=== PATIENT | female | born 1960 | race Two or more races ===

== ENCOUNTER 2017-08-14 00:37 | Inpatient (IN) | payer SELFPAY ==
[~2017-08-14] VITALS: Ht 157.5 cm; Wt 68.2 kg
[2017-08-14] VITALS (19 sets, daily range): BP systolic 114–174; BP diastolic 65–92
--- NOTE | 2017-08-14 00:44 | PHYS DOC ---
Adult General HPI HPI Patient is a 56-year-old female presenting to the emergency department via EMS for altered mental status and hyperglycemia. Patient is awake and will interact however she cannot provide any meaningful information. Later on her showed up and was quite helpful reports that she has these DKA issues quite frequently. He makes it sound as if she is noncompliant with her insulin. He says that she has severe diabetic gastroparesis and cannot tolerate foods or liquids very well so this may contribute to her noncompliance. Review of Systems Review of Systems Unable to obtain due to medical condition Physical Exam Physical Exam Constitutional: Ill-appearing female HENT: Normocephalic, atraumatic, bilateral external ears normal, oropharynx dry Eyes: PERRLA, EOMI, conjunctiva normal, no discharge. [] Neck: Normal range of motion, no tenderness, supple, no stridor. [] Cardiovascular:Heart rate tachycardic with regular rhythm, no murmur [] Lungs & Thorax: Bilateral breath sounds clear to auscultation [] Abdomen: Bowel sounds normal, soft, no tenderness, no masses, no pulsatile masses. [] Skin: Warm, dry, no erythema, no rash. [] Back: No tenderness, no CVA tenderness. [] Extremities: No tenderness, no cyanosis, no clubbing, ROM intact, no edema. [] Neurologic: Alert and oriented X 3, normal motor function, normal sensory function, no focal deficits noted. [] Psychologic: Affect normal, judgement normal, mood normal. [] EKG EKG Sinus tachycardia at 126 beats per minutes with leftward axis no obvious ST elevation or depression with slightly prominent T waves. Intervals appear normal. Radiology/Procedures Radiology/Procedures CT scan of the abdomen and pelvis without contrast 08/14/2017 CLINICAL HISTORY: Epigastric Abdominal pain. Renal failure. TECHNIQUE: Unenhanced, contiguous, 3 mm axial sections were obtained through the abdomen and pelvis. One or more of the following individualized dose reduction techniques were utilized for this study: 1. Automated exposure control. 2. Adjustment of the mA and/or kV according to patient size. 3. Use of iterative reconstruction technique. FINDINGS: Images through the lung bases demonstrate mild cardiomegaly. Dependent subsegmental atelectasis is seen bilaterally. The patient is post right mastectomy with right breast reconstruction using an implant. The liver, spleen, pancreas, and adrenal glands are within normal limits. A 2 mm nonobstructing calculus is seen involving the midpole of the right kidney. An extrarenal pelvis is seen involving the right kidney. There is no evidence of significant obstruction of either collecting system. No ureteral calculus is seen. Moderate atherosclerotic calcification of the abdominal aorta is seen. The abdominal aorta tapers normally. Surgical clips are seen within the gallbladder fossa consistent with a cholecystectomy. No free fluid or free air is seen within the abdomen. There is no evidence of bowel obstruction. Air and stool is seen throughout the colon. Surgical clips are seen posterior to the cecum consistent with an appendectomy. Images through the pelvis demonstrate the urinary bladder markedly distended with urine. Calcifications are seen within the pelvis consistent with phleboliths. No free fluid is seen. Degenerative changes are seen involving the lower thoracic and throughout the lumbar spine. IMPRESSION: 1. No acute abnormality is seen involving the abdomen. 2. Marked distention of the urinary bladder. Electronically signed by: Eric Jernigan MD (08/14/2017 4:28 AM) [facility] [place] DICTATED AND SIGNED BY: ERIC JERNIGAN MD DATE: 08/14/17419 CT scan of the head without contrast 08/14/2017 Clinical History: Mental status changes. Technique: Unenhanced, contiguous, 5 mm axial sections were obtained through the head. Findings: No previous imaging studies are available for comparison. There is generalized parenchymal atrophy. Areas of decreased attenuation are seen within the periventricular and subcortical white matter of both cerebral hemispheres consistent with areas of small vessel ischemic disease. No acute parenchymal abnormality is seen. No extra-axial fluid collection is noted. No skull fracture is seen. Impression: No acute intracranial abnormality is seen. Electronically signed by: Eric Jernigan MD (08/14/2017 4:20 AM) [facility] [place] DICTATED AND SIGNED BY: ERIC JERNIGAN MD DATE: 08/14/17417 Chest x-ray shows normal mediastinum and normal heart size no obvious free air pneumothorax or opacity. Right internal jugular line appears intact with tip possibly deep in the right atrium or right ventricle however line was ready retracted as far as I could retract it. Course & Med Decision Making Course & Med Decision Making Patient is very ill and had to be resuscitated effectively. Unable to obtain peripheral IV access on this patient. Central line had to be obtained which was technically very difficult as her internal jugular vein was very flat due to her hydration status and her carotid artery was sitting right beneath it. There was a very delicate space to get into her internal jugular vein. Vascular status was obtained thankfully and aggressive IV hydration was started. She received 2 L of normal saline initially and then 3 more liters of lactated Ringer's. Lactated Ringer's maintenance fluids and started. She was also started on an insulin drip. Electrolytes are satisfactory at this point with no need for phosphorus magnesium more potassium replacement. A repeat BMP is pending at this time. I spoke to the hospitalist music rehabilitation therapist Dr. Villaseñor multiple times and she is willing to accept this patient to the ICU for further treatment. All of her D sticks in the emergency department reporting high. Patient continued to be tachycardic in the emergency room however her mental status did improve somewhat as she is alert and oriented but somewhat confused to most questions and answer somewhat slowly. Patient admitted in critical condition Critical care time of 70 minutes including extensive discussion with patient and . Dragon Disclaimer Dragon Disclaimer This electronic medical record was generated, in whole or in part, using a voice recognition dictation system. Departure Departure: Impression: Primary Impression: DKA (diabetic ketoacidoses) Additional Impressions: Acidosis Pancreatitis Leukocytosis Encephalopathy acute Disposition: 09 ADMITTED INPATIENT Admitting Physician: Tracey Villaseñor Condition: CRITICAL Problem Qualifiers Primary Impression: DKA (diabetic ketoacidoses) Diabetes mellitus type: type 2 Diabetes mellitus complication detail: without coma Qualified Codes: E11.10 - Type 2 diabetes mellitus with ketoacidosis without coma ALYSE DAWSON DO Aug 14, 2017 00:44
[2017-08-14] MEDS ORDERED: ONDANSETRON PF 4 MG/2 ML VIAL. IV ONE ×3 (01:00→05:45)
[2017-08-14] MEDS ORDERED: IV NORMAL SALINE 1,000ML 1,000 ML IV ONE ×2 (01:00→02:30)
--- NOTE | 2017-08-14 01:13 | EKG ---
[address] [address] Test Date: 2017-08-14 Test Time: 01:04:05 Pat Name: SAMMI ASHER Department: Room: Gender: [employer]: [place] : 1960 Requested By: ALYSE DAWSON Order Number: [id number] Reading MD: Avtar Scott MD Measurements Intervals Garber Rate: 126 P: -7 NH: 140 QRS: 0 QRSD: 84 T: 44 QT: 310 QTc: 449 Interpretive Statements SINUS TACHYCARDIA NON-SPECIFIC ST/T CHANGES Electronically Signed On 08-19-2017 14:29:02 DRESSAGE INSTRUCTOR by Avtar Scott MD
[2017-08-14] MEDS ORDERED: MAGNESIUM SULFATE 2GM 50 ML IV PRN (02:45)
[2017-08-14] MEDS ORDERED: RINGERS LACTATED IV ONE ×2 (02:45→04:00)
[2017-08-14 02:50] LABS: ALBUMIN 2.6 g/dL (3.4-5.0); ALBUMIN/GLOBULIN RATIO 0.7 (1.0-1.7); CALCIUM 7.9 mg/dL (8.5-10.1); CREATININE 1.9 mg/dL (0.6-1.0); GFR 27.2; MAGNESIUM 2.3 mg/dL (1.8-2.4); POTASSIUM 5.5 mmol/L (3.5-5.1); TOTAL BILIRUBIN 0.4 mg/dL (0.2-1.0); TOTAL PROTEIN 6.6 g/dL (6.4-8.2)
[2017-08-14 02:54] LABS: BASO % 0 % (0-3); EOS % 0 % (0-3); HEMOGLOBIN 13.8 g/dL (12.0-15.5); LYMPH # 0.6 x10^3/uL (1.0-4.8); LYMPH % 5 % (24-48); MONO # 0.9 x10^3/uL (0.0-1.1); MONO % 8 % (0-9); NEUT # 9.7 x10^3uL (1.8-7.7); NEUT % 87 % (31-73)
[2017-08-14 03:00] LABS: BGAS PH 7.2 (7.35-7.45)
[2017-08-14] MEDS ORDERED: 0.9 % SODIUM CHLORIDE 150ML 150 ML ONE (03:07)
[2017-08-14 03:10] LABS: BARBITURATES NEG (NEG); BENZODIAZEPINES NEG (NEG); CANNABINOIDS NEG (NEG); COCAINE NEG (NEG); METHADONE NEG (NEG); OPIATES NEG (NEG); PHENCYCLIDINE NEG (NEG)
[2017-08-14 03:11] LABS: AMPHETAMINE/METHAMPHETAMINE NEG (NEG)
[2017-08-14 03:23] LABS: HEMATOCRIT 42.9 % (36.0-47.0); MEAN CORPUSCULAR HEMOGLOBIN 28 pg (25-35); MEAN CORPUSCULAR HGB CONC 32 g/dL (31-37); MEAN CORPUSCULAR VOLUME 88 fL (79-100); PLATELET COUNT 365 x10^3/uL (140-400); RED BLOOD COUNT 4.89 x10^6/uL (3.50-5.40); RED CELL DISTRIBUTION WIDTH 14.7 % (11.5-14.5); WHITE BLOOD COUNT 12.1 x10^3/uL (4.0-11.0)
[2017-08-14] MEDS: INSULIN REGULAR 150 UNIT in 0.9 % SODIUM CHLORIDE 150ML 150 ML IV PRN (03:34)
[2017-08-14 03:46] LABS: BACTERIA,URINE FEW /HPF (0-FEW); BILIRUBIN,URINE NEG (NEG); CLARITY,URINE CLEAR; COLOR,URINE YELLOW; GLUCOSE,URINE >=1000 mg/dL (NEG); NITRITE,URINE NEG (NEG); RBC,URINE OCC /HPF (0-2); SQUAMOUS EPITHELIAL CELL,UR MANY /LPF; UROBILINOGEN,URINE 0.2 mg/dL (0.2 mg/dL)
[2017-08-14] MEDS ORDERED: IV RINGERS SOLUTION,LACTATED 1,000 ML IV ONE (04:00)
--- NOTE | 2017-08-14 04:23 | RAD ---
CT scan of the head without contrast 08/14/2017 Clinical History: Mental status changes. Technique: Unenhanced, contiguous, 5 mm axial sections were obtained through the head. Findings: No previous imaging studies are available for comparison. There is generalized parenchymal atrophy. Areas of decreased attenuation are seen within the periventricular and subcortical white matter of both cerebral hemispheres consistent with areas of small vessel ischemic disease. No acute parenchymal abnormality is seen. No extra-axial fluid collection is noted. No skull fracture is seen. Impression: No acute intracranial abnormality is seen. Electronically signed by: Eric Sylvester MD (08/14/2017 4:20 AM) [id number]
--- NOTE | 2017-08-14 04:33 | RAD ---
CT scan of the abdomen and pelvis without contrast 08/14/2017 CLINICAL HISTORY: Epigastric Abdominal pain. Renal failure. TECHNIQUE: Unenhanced, contiguous, 3 mm axial sections were obtained through the abdomen and pelvis. One or more of the following individualized dose reduction techniques were utilized for this study: 1. Automated exposure control. 2. Adjustment of the mA and/or kV according to patient size. 3. Use of iterative reconstruction technique. FINDINGS: Images through the lung bases demonstrate mild cardiomegaly. Dependent subsegmental atelectasis is seen bilaterally. The patient is post right mastectomy with right breast reconstruction using an implant. The liver, spleen, pancreas, and adrenal glands are within normal limits. A 2 mm nonobstructing calculus is seen involving the midpole of the right kidney. An extrarenal pelvis is seen involving the right kidney. There is no evidence of significant obstruction of either collecting system. No ureteral calculus is seen. Moderate atherosclerotic calcification of the abdominal aorta is seen. The abdominal aorta tapers normally. Surgical clips are seen within the gallbladder fossa consistent with a cholecystectomy. No free fluid or free air is seen within the abdomen. There is no evidence of bowel obstruction. Air and stool is seen throughout the colon. Surgical clips are seen posterior to the cecum consistent with an appendectomy. Images through the pelvis demonstrate the urinary bladder markedly distended with urine. Calcifications are seen within the pelvis consistent with phleboliths. No free fluid is seen. Degenerative changes are seen involving the lower thoracic and throughout the lumbar spine. IMPRESSION: 1. No acute abnormality is seen involving the abdomen. 2. Marked distention of the urinary bladder. Electronically signed by: Eric Sylvester MD (08/14/2017 4:28 AM) [facility]
[2017-08-14 05:19] LABS: CALCIUM 8.5 mg/dL (8.5-10.1); CREATININE 1.5 mg/dL (0.6-1.0); GFR 35.7; POTASSIUM 4.5 mmol/L (3.5-5.1)
[2017-08-14] MEDS ORDERED: ENOXAPARIN ** NOTE DOSE ** SYRINGE SQ ONE (05:45)
[2017-08-14 05:49] LABS: ACETAMIN < 2.0 mcg/mL (10-30)
--- NOTE | 2017-08-14 07:15 | RAD ---
Indication: Central line placement. Technique: Upright portable chest radiograph was obtained. No comparison is available. Findings: The lungs are clear. The heart is not enlarged. There is no heart failure. There is a right IJ central line with the tip in the atrium. There is no pneumothorax or pleural fluid. There is a right breast implant or spacer. There are degenerative changes in the spine. Impression: Right IJ central line placement with tip in the atrium.
[2017-08-14 07:36] LABS: INFLUENZA A PATIENT NEGATIVE (NEGATIVE); INFLUENZA B PATIENT NEGATIVE (NEGATIVE)
[2017-08-14] MEDS: POTASSIUM CL 40MEQ D5-0.45NACL 1,000 ML IV SCH ×3 (09:07→19:29)
[2017-08-14] MEDS ORDERED: LABETALOL 20 MG/4 ML DISP.SYRIN. IVP ONE (10:00)
[2017-08-14 11:17] LABS: CALCIUM 8.8 mg/dL (8.5-10.1); CREATININE 1.1 mg/dL (0.6-1.0); POTASSIUM 4.2 mmol/L (3.5-5.1)
--- NOTE | 2017-08-14 13:11 | RAD ---
Perfusion lung scan, 08/14/2017: History: Tachycardia, elevated d-dimer The patient could not tolerate use of the mask for the ventilation study and therefore ventilation images could not be obtained. Perfusion imaging was performed following IV injection of 7.1 mCi of technetium 99m MAA. No significant perfusion defect is seen. A small artifact is projected over the right lower chest anteriorly, apparently related to a breast implant. IMPRESSION: No perfusion scan findings to suggest pulmonary emboli.
--- NOTE | 2017-08-14 14:34 | HP ---
ADMIT DATE: 08/14/2017 REASON FOR ADMISSION: DKA. HISTORY OF PRESENT ILLNESS: This is a 56-year-old female who is currently not able to verbalize her history. Either her boyfriend or came home from work, found her passed out behind the couch, lying in vomit. She was transported to the Emergency Room and found to have a blood sugar of 1,455 and being in DKA. Her /SO was not available to give any history. Daughter was called in [place]. Basically, history is as follows: She has type 2 diabetes and has had it since age 28. She does not take care of herself or check her sugars very frequently or give herself insulin. Basically, she was living in [place] in a house near her daughter, who was taking care of her. Daughter is the DPOA. She decided at some point that she wanted to return to [place] to be with her boyfriend. She took a train, ended up in [place] and was hospitalized there for what sounds like DKA. SO/ rented a the car and came to [place] and picked her up and her . PAST MEDICAL HISTORY: Gastroparesis, herpes. She has had 2 heart attacks with stents, diabetes since age 28. PAST SURGICAL HISTORY: Stent placement, cardiac stents; unknown other surgical history. HABITS: Unknown, the patient is unable to verbalize. MEDICATIONS: Pending from Pharmacy. ALLERGIES: None. REVIEW OF SYSTEMS: Unable to verbalize. OBJECTIVE: VITAL SIGNS: Blood pressure 166/80, pulse 142, respirations 22, pulse ox 96% on room air. GENERAL: The patient is alert, but is currently nonverbal. She is able to move all her extremities. She did stick out her tongue with some coaxing. HEENT: Her eyes are clear. Nose was patent. NECK: Supple. LUNGS: Clear. CARDIOVASCULAR: Rapid rhythm and rate. ABDOMEN: Soft, nontender. EXTREMITIES: Without edema. GENITOURINARY: Burks catheter in place draining clear yellow urine. LABORATORY DATA: Initial blood sugar was 1455, second 822, now 370. Initial carbon dioxide was 8, sodium 130, potassium 5.5 with a high anion gap, BUN of 57, creatinine 1.9, now BUN is 39 with creatinine of 1.1 after aggressive hydration. Lactic acid is 1.7, albumin is 2.6. BNP 1108. Drug screen is negative. Urinalysis; dilute urine, positive protein, positive ketones, negative leukocyte esterase. CBC: White blood cell count 12.1. ABG: pH 7.20, pCO2 of 22, pO2 of 111. ASSESSMENT: 1. Severe diabetic ketoacidosis. 2. Hyponatremia. 3. Hyperkalemia, has corrected. 4. Severe protein-calorie malnutrition. 5. Metabolic encephalopathy as the patient is currently nonverbal. 6. Elevated D-dimer with negative PE on the V/Q scan. 7. Negative CT of the abdomen and pelvis. 8. CT of the head showing general parenchymal atrophy with small vessel disease. PLAN: DKA protocol. IV fluids. Slowly lower blood sugar, monitor electrolytes and get ongoing information as it is available. ARIELLE COLON DO DR: ROCK/carson JOB#: [id number] / [id number]
[2017-08-14] MEDS: METOPROLOL TART IMMED RELEASE 50 MG TABLET PO SCH ×2 (15:56→20:44)
[2017-08-14] MEDS: ONDANSETRON PF 4 MG/2 ML VIAL. IV PRN (15:56)
[2017-08-14] MEDS ORDERED: KETOROLAC 30 MG/ML VIAL. IV PRN (17:30)
[2017-08-14 20:43] LABS: CALCIUM 8.4 mg/dL (8.5-10.1); CREATININE 0.9 mg/dL (0.6-1.0); GFR 64.3; POTASSIUM 3.8 mmol/L (3.5-5.1)
[2017-08-14] MEDS: ENOXAPARIN 40 MG/0.4 ML DISP.SYRIN. SQ SCH (20:43)
[2017-08-15] VITALS (18 sets, daily range): BP systolic 106–189; BP diastolic 51–99
[2017-08-15] MEDS: POTASSIUM CL 40MEQ D5-0.45NACL 1,000 ML IV SCH ×4 (02:27→22:28)
[2017-08-15] MEDS: ONDANSETRON PF 4 MG/2 ML VIAL. IV PRN (02:59)
[2017-08-15] MEDS ORDERED: hydrALAZINE 20 MG/ML VIAL. IV ONE (05:00)
--- NOTE | 2017-08-15 05:51 | PDOC ---
PROGRESS NOTES Diagnosis Problem Problems Medical Problems: (1) Acidosis Status: Acute (2) DKA (diabetic ketoacidoses) Status: Acute (3) Encephalopathy acute Status: Acute (4) Leukocytosis Status: Acute (5) Pancreatitis Status: Acute Assessment 1. DKA: BG's improved, pt still on insulin drip. According to record, pt was severely encephalopathic on admission yesterday, and only last night started talking. We will try today to get her eating and to get her off the insulin drip. She reports she takes 10 units of regular insulin before meals normally, and also a long acting insulin, though she can't remember what kind. We will likely start her on basal insulin and mealtime boluses. 2. Vomiting: Etiology is unclear. Lipase elevated on admission, CT was neg. Will recheck lipase today. Abd is soft. 3. HTN: Pt reports taking BP meds previously, but can't remember what kind. She was started on BB yesterday. We will titrate that. Continue PRN hydralazine, it has worked well. We will likely start her on an lucie inhibitor as well, due to her hx of CAD and DM. 4. Acute metabolic encephalopathy: Pt improving as BG's improve. CT head negative. COntinue to monitor. 5. DVT proph: Lovenox. 6. Gastroparesis due to poorly controlled DM: Pt reports she takes a medication for this, but can't remember what. I will start Reglan. Problems: Plan of Care: see other orders Subjective Pt seen on rounds and d/w staff. Pt w/ markedly increased BP's overnight. Order given for hydralazine. Pt w/ an episode of emesis overnight as well. She is talking now, where she wasn't yesterday per report. She says she has had DM for 25 years. She has gastroparesis and a history of [place] with stent placed. Says she does take BP meds but doesn't remember what kind. Denies fever, chills, SOA, or chest pain. Objective Vital Signs Date Time Temp Pulse Resp B/P (MAP) Pulse Ox O2 Delivery O2 Flow Rate FiO2 08/15/17 05:03 116 221/115 08/15/17 04:13 19 Room Air 08/14/17 19:21 99.6 08/14/17 17:05 100 Intake and Output 08/15/17 07:00 Intake Total 5380 ml Output Total 1825 ml Balance 3555 ml Intake Oral 1110 ml IV Total 4270 ml Output Urine Total 1825 ml Abdomen: Soft, No tenderness, No hepatospenomegaly, No masses Heart: Other (Tachy, regular, no murmur) Extremities: No edema, Normal pulses, No tenderness/swelling General: Alert (Though somewhat drowsy), Cooperative, No acute distress HEENT: Atraumatic, PERRLA, EOMI, Mucous membr. moist/pink, Other Lungs: Clear to auscultation, Normal air movement Neck: No JVD, No thyromegaly, No LAD Neuro: Normal speech, Strength at 5/5 X4 ext, Normal tone, Cranial nerves 3-12 NL Psych/Mental Status: Other (Affect flat, but pt does follow commands and converse easily) Skin: No rashes Review of Relevant I have reviewed the following items belem (where applicable) has been applied. Labs Laboratory Tests Test 08/14/17 02:10 08/14/17 02:34 08/14/17 02:40 08/14/17 04:30 White Blood Count 12.1 x10^3/uL (4.0-11.0) Red Blood Count 4.89 x10^6/uL (3.50-5.40) Hemoglobin 13.8 g/dL (12.0-15.5) Hematocrit 42.9 % (36.0-47.0) Mean Corpuscular Volume 88 fL (79-100) Mean Corpuscular Hemoglobin 28 pg (25-35) Mean Corpuscular Hemoglobin Concent 32 g/dL (31-37) Red Cell Distribution Width 14.7 % (11.5-14.5) Platelet Count 365 x10^3/uL (140-400) Neutrophils (%) (Auto) 87 % (31-73) Lymphocytes (%) (Auto) 5 % (24-48) Monocytes (%) (Auto) 8 % (0-9) Eosinophils (%) (Auto) 0 % (0-3) Basophils (%) (Auto) 0 % (0-3) Neutrophils # (Auto) 9.7 x10^3uL (1.8-7.7) Lymphocytes # (Auto) 0.6 x10^3/uL (1.0-4.8) Monocytes # (Auto) 0.9 x10^3/uL (0.0-1.1) Eosinophils # (Auto) 0.0 x10^3/uL (0.0-0.7) Basophils # (Auto) 0.0 x10^3/uL (0.0-0.2) Sodium Level 130 mmol/L (136-145) Potassium Level 5.5 mmol/L (3.5-5.1) Chloride Level 94 mmol/L (98-107) Carbon Dioxide Level 8 mmol/L (21-32) Anion Gap 28 (6-14) Blood Urea Nitrogen 57 mg/dL (7-20) Creatinine 1.9 mg/dL (0.6-1.0) Estimated GFR (Cockcroft-Gault) 27.2 BUN/Creatinine Ratio 30 (6-20) Glucose Level 1455 mg/dL (70-99) Serum Osmolality 398 mOsm/Kg (279-304) Lactic Acid Level 1.7 mmol/L (0.4-2.0) Calcium Level 7.9 mg/dL (8.5-10.1) Phosphorus Level 3.9 mg/dL (2.6-4.7) Magnesium Level 2.3 mg/dL (1.8-2.4) Total Bilirubin 0.4 mg/dL (0.2-1.0) Aspartate Amino Transf (AST/SGOT) 8 U/L (15-37) Alanine Aminotransferase (ALT/SGPT) 16 U/L (14-59) Alkaline Phosphatase 145 U/L (46-116) Creatine Kinase 25 U/L (26-192) Troponin I Quantitative < 0.017 ng/mL (0-0.055) LI-Jjq-V-Type Natriuretic Peptide 1108 pg/mL (0-124) Total Protein 6.6 g/dL (6.4-8.2) Albumin 2.6 g/dL (3.4-5.0) Albumin/Globulin Ratio 0.7 (1.0-1.7) Lipase 2514 U/L (73-393) Thyroid Stimulating Hormone (TSH) 1.227 uIU/mL (0.358-3.740) Ethyl Alcohol Level < 10 mg/dL (0-10) Acetone Level Lg pos (NEG) Urine Collection Type Unknown Urine Color Yellow Urine Clarity Clear Urine pH 5.5 Urine Specific [place] <=1.005 Urine Protein 100 mg/dl (NEG-TRACE) Urine Glucose (UA) >=1000 mg/dL (NEG) Urine Ketones (Stick) >=160 mg/dL (NEG) Urine Blood Trace (NEG) Urine Nitrite Neg (NEG) Urine Bilirubin Neg (NEG) Urine Urobilinogen Dipstick 0.2 mg/dL (0.2 mg/dL) Urine Leukocyte Esterase Neg (NEG) Urine RBC Occ /HPF (0-2) Urine WBC 1-4 /HPF (0-4) Urine Squamous Epithelial Cells Many /LPF Urine Bacteria Few /HPF (0-FEW) Urine Opiates Screen Neg (NEG) Urine Methadone Screen Neg (NEG) Urine Barbiturates Neg (NEG) Urine Phencyclidine Screen Neg (NEG) Urine Amphetamine/Methamphetamine Neg (NEG) Urine Benzodiazepines Screen Neg (NEG) Urine Cocaine Screen Neg (NEG) Urine Cannabinoids Screen Neg (NEG) Urine Ethyl Alcohol Neg (NEG) Blood Gas pH 7.20 (7.35-7.45) Blood Gas PCO2 22 mmHg (35-45) Blood Gas PO2 111 mmHg (80-100) Blood Gas HCO3 8 mmol/L (22-26) Arterial Bld O2 Saturation (Calc) 97 % (92-99) FiO2 21 % Salicylates Level 3.0 mg/dL (2.8-20.0) Salicylate Last Dose Date 08/14/2017 Salicylate Last Dose Time 0000 Acetaminophen Level < 2.0 mcg/mL (10-30) Acetaminophen Last Dose Date 08/14/2017 Acetaminophen Last Dose Time 0000 Test 08/14/17 04:50 08/14/17 05:13 08/14/17 06:45 08/14/17 07:17 Sodium Level 144 mmol/L (136-145) Potassium Level 4.5 mmol/L (3.5-5.1) Chloride Level 108 mmol/L (98-107) Carbon Dioxide Level 15 mmol/L (21-32) Anion Gap 21 (6-14) Blood Urea Nitrogen 47 mg/dL (7-20) Creatinine 1.5 mg/dL (0.6-1.0) Estimated GFR (Cockcroft-Gault) 35.7 Glucose Level 822 mg/dL (70-99) Calcium Level 8.5 mg/dL (8.5-10.1) Prothrombin Time 11.0 SEC (9.4-11.4) Prothromb Time International Ratio 1.1 (0.9-1.1) Activated Partial Thromboplast Time 21 SEC (23-33) D-Dimer (Mirela) 1.38 mg/L (0.00-0.50) Nasal Screen MRSA (PCR) Negative (Negative) Influenza Type A (Rapid) Negative (NEGATIVE) Influenza Type B (Rapid) Negative (NEGATIVE) Glucose (Fingerstick) 521 mg/dL (70-99) Test 08/14/17 08:26 08/14/17 09:17 08/14/17 09:37 08/14/17 10:43 Glucose (Fingerstick) 370 mg/dL (70-99) 368 mg/dL (70-99) 421 mg/dL (70-99) Sodium Level 150 mmol/L (136-145) Potassium Level 4.2 mmol/L (3.5-5.1) Chloride Level 116 mmol/L (98-107) Carbon Dioxide Level 21 mmol/L (21-32) Anion Gap 13 (6-14) Blood Urea Nitrogen 39 mg/dL (7-20) Creatinine 1.1 mg/dL (0.6-1.0) Estimated GFR (Cockcroft-Gault) 51.0 Glucose Level 365 mg/dL (70-99) Calcium Level 8.8 mg/dL (8.5-10.1) Magnesium Level 2.0 mg/dL (1.8-2.4) Test 08/14/17 11:51 08/14/17 12:41 08/14/17 14:00 08/14/17 15:05 Glucose (Fingerstick) 248 mg/dL (70-99) 216 mg/dL (70-99) 226 mg/dL (70-99) 170 mg/dL (70-99) Test 08/14/17 16:14 08/14/17 17:03 08/14/17 18:17 08/14/17 18:57 Glucose (Fingerstick) 207 mg/dL (70-99) 124 mg/dL (70-99) 123 mg/dL (70-99) 136 mg/dL (70-99) Test 08/14/17 19:50 08/14/17 20:05 08/14/17 20:54 08/14/17 21:57 Glucose (Fingerstick) 148 mg/dL (70-99) 134 mg/dL (70-99) 103 mg/dL (70-99) Sodium Level 149 mmol/L (136-145) Potassium Level 3.8 mmol/L (3.5-5.1) Chloride Level 114 mmol/L (98-107) Carbon Dioxide Level 24 mmol/L (21-32) Anion Gap 11 (6-14) Blood Urea Nitrogen 28 mg/dL (7-20) Creatinine 0.9 mg/dL (0.6-1.0) Estimated GFR (Cockcroft-Gault) 64.3 Glucose Level 155 mg/dL (70-99) Calcium Level 8.4 mg/dL (8.5-10.1) Magnesium Level 2.0 mg/dL (1.8-2.4) Test 08/14/17 22:57 08/14/17 23:53 08/15/17 00:53 08/15/17 01:56 Glucose (Fingerstick) 106 mg/dL (70-99) 125 mg/dL (70-99) 149 mg/dL (70-99) 166 mg/dL (70-99) Test 08/15/17 02:53 08/15/17 03:57 08/15/17 04:52 Glucose (Fingerstick) 156 mg/dL (70-99) 133 mg/dL (70-99) 152 mg/dL (70-99) Microbiology 08/14/17 Blood Culture - Preliminary, Resulted NO GROWTH AFTER 1 DAY Medications Current Medications Sodium Chloride 1,000 ml @ 1,000 mls/hr 1X ONCE IV Last administered on 08/14 01:00; Start 08/14/17 at 01:00; Stop 08/14/17 at 01:59; Status DC Ondansetron HCl (Zofran) 4 mg 1X ONCE IV Last administered on 08/14/17 01:00 ; Start 08/14/17 at 01:00; Stop 08/14/17 at 01:21; Status DC Sodium Chloride 1,000 ml @ 1,000 mls/hr 1X ONCE IV Last administered on 08/14 02:15; Start 08/14/17 at 02:30; Stop 08/14/17 at 03:29; Status DC Insulin Human Regular 150 unit/ Sodium Chloride 151.5 ml @ 0 mls/hr CONT PRN PRN IV PER PROTOCOL Last administered on 08/14/17 03:34; Start 08/14/17 at 03 :00 Potassium Chloride 100 ml @ 100 mls/hr PRN Q1HR PRN IV SEE COMMENTS; Start at 02:45 Magnesium Sulfate 50 ml @ 25 mls/hr PRN Q2HR PRN IV MG LEVEL < 1.8; Start at 02:45 Lactated Ringer's 1,400 ml @ 1,400 mls/hr 1X ONCE IV Last administered on 02:45; Start 08/14/17 at 02:45; Stop 08/14/17 at 03:44; Status DC Sodium Chloride 150 ml @ As Directed STK-MED ONCE .ROUTE ; Start 08/14/17 at 03:07; Stop 08/14/17 at 03:08; Status DC Lactated Ringer's 1,400 ml @ 1,400 mls/hr 1X ONCE IV Last administered on 04:00; Start 08/14/17 at 04:00; Stop 08/14/17 at 04:59; Status DC Lactated Ringer's 1,000 ml @ 200 mls/hr 1X ONCE IV Last administered on 08/14 04:00; Start 08/14/17 at 04:00; Stop 08/14/17 at 08:59; Status DC Ondansetron HCl (Zofran) 8 mg 1X ONCE IV Last administered on 08/14/17 04:45 ; Start 08/14/17 at 04:45; Stop 08/14/17 at 04:46; Status DC Enoxaparin Sodium (Lovenox 60mg Syringe) 60 mg 1X ONCE SQ Last administered on 08/14/17 09:08; Start 08/14/17 at 05:45; Stop 08/14/17 at 05:46; Status DC Ondansetron HCl (Zofran) 4 mg PRN Q4HRS PRN IV NAUSEA/VOMITING Last administered on 08/15/17 02:59; Start 08/14/17 at 05:00; Stop 08/15/17 at 04 :59; Status DC Ondansetron HCl (Zofran) 4 mg 1X ONCE IV ; Start 08/14/17 at 05:45; Stop at 05:46; Status DC Potassium Chloride/Dextrose/ Sod Cl 1,000 ml @ 150 mls/hr Q6H40M IV Last administered on 08/15/17 02:27; Start 08/14/17 at 09:15 Labetalol HCl (Normodyne) 10 mg 1X ONCE IVP Last administered on 08/14/17 11 :03; Start 08/14/17 at 10:00; Stop 08/14/17 at 10:04; Status DC Metoprolol Tartrate (Lopressor) 50 mg BID PO Last administered on 08/14/17 20 :44; Start 08/14/17 at 15:30 Enoxaparin Sodium (Lovenox) 40 mg Q24H SQ Last administered on 08/14/17 20:43 ; Start 08/14/17 at 20:00 Ketorolac Tromethamine (Toradol) 30 mg PRN Q6HRS PRN IV PAIN Last administered on 08/14/17 18:10; Start 08/14/17 at 17:30; Stop 08/19/17 at 17:29 Hydralazine HCl (Apresoline) 10 mg 1X ONCE IV Last administered on 08/15/17 05:03; Start 08/15/17 at 05:00; Stop 08/15/17 at 05:14; Status DC Vitals/I & O Vital Sign - Last 24 Hours 08/14/17 08/14/17 08/14/17 08/14/17 06:45 06:47 07:30 08:30 Temp 98.2 98.2 Pulse 145 145 146 143 Resp 22 20 22 22 B/P (MAP) 156/80 (105) 156/80 (105) 146/69 (94) 158/70 (99) Pulse Ox 98 98 97 97 O2 Delivery Room Air Room Air Room Air Room Air 08/14/17 08/14/17 08/14/17 08/14/17 09:00 11:03 11:08 11:13 Temp 98.1 Pulse 142 142 123 119 Resp 22 22 B/P (MAP) 166/80 (108) 168/75 168/75 (106) 114/65 (81) Pulse Ox 96 97 O2 Delivery Room Air Room Air 08/14/17 08/14/17 08/14/17 08/14/17 12:15 14:07 15:01 15:38 Temp 98.8 Pulse 132 140 138 132 Resp 21 24 23 14 B/P (MAP) 174/79 (110) 158/92 (114) 142/72 (95) 133/74 (93) Pulse Ox 98 97 O2 Delivery Room Air Room Air Room Air Room Air 08/14/17 08/14/17 08/14/17 08/14/17 15:56 16:14 17:05 18:03 Pulse 136 124 114 Resp 23 20 B/P (MAP) 133/74 139/81 (100) 158/88 (111) Pulse Ox 100 O2 Delivery Room Air 08/14/17 08/14/17 08/14/17 08/14/17 19:21 20:00 20:01 20:44 Temp 99.6 Pulse 119 122 122 Resp 21 22 B/P (MAP) 142/84 (103) 149/83 (105) 149/83 O2 Delivery Room Air Room Air Room Air 08/14/17 08/14/17 08/14/17 08/14/17 20:57 22:02 23:16 23:57 Pulse 123 104 107 107 Resp 22 14 17 17 B/P (MAP) 144/82 (102) 162/87 (112) 145/81 (102) 120/65 (83) O2 Delivery Room Air Room Air Room Air 08/14/17 08/15/17 08/15/17 08/15/17 23:59 00:58 02:07 02:56 Pulse 111 106 113 Resp 19 11 20 B/P (MAP) 153/99 (117) 155/76 (102) 175/94 (121) O2 Delivery Room Air Room Air Room Air Room Air 08/15/17 08/15/17 08/15/17 04:00 04:13 05:03 Pulse 117 116 Resp 19 B/P (MAP) 189/93 (125) 221/115 O2 Delivery Room Air Room Air Intake and Output 08/14/17 08/14/17 08/15/17 15:00 23:00 07:00 Intake Total 1800 ml 1700 ml 1880 ml Output Total 600 ml 500 ml 725 ml Balance 1200 ml 1200 ml 1155 ml FORTUNATO LANG MD Aug 15, 2017 05:51
[2017-08-15] MEDS ORDERED: hydrALAZINE 20 MG/ML VIAL. IV PRN (06:00)
[2017-08-15 06:19] LABS: BASO % 0 % (0-3); EOS # 0.1 x10^3/uL (0.0-0.7); EOS % 1 % (0-3); HEMATOCRIT 37.6 % (36.0-47.0); HEMOGLOBIN 12.5 g/dL (12.0-15.5); LYMPH # 1.4 x10^3/uL (1.0-4.8); LYMPH % 15 % (24-48); MEAN CORPUSCULAR HEMOGLOBIN 28 pg (25-35); MEAN CORPUSCULAR HGB CONC 33 g/dL (31-37); MEAN CORPUSCULAR VOLUME 85 fL (79-100); MONO # 0.7 x10^3/uL (0.0-1.1); MONO % 7 % (0-9); NEUT # 6.9 x10^3uL (1.8-7.7); NEUT % 76 % (31-73); PLATELET COUNT 265 x10^3/uL (140-400); RED CELL DISTRIBUTION WIDTH 14.8 % (11.5-14.5); WHITE BLOOD COUNT 9.1 x10^3/uL (4.0-11.0)
[2017-08-15 06:33] LABS: ALBUMIN 2.3 g/dL (3.4-5.0); ALBUMIN/GLOBULIN RATIO 0.6 (1.0-1.7); CREATININE 0.7 mg/dL (0.6-1.0); GFR 85.9; MAGNESIUM 1.6 mg/dL (1.8-2.4); POTASSIUM 3.8 mmol/L (3.5-5.1); TOTAL BILIRUBIN 0.3 mg/dL (0.2-1.0); TOTAL PROTEIN 5.9 g/dL (6.4-8.2)
[2017-08-15] MEDS ORDERED: METOCLOPRAMIDE HCL 10 MG/10 ML SOLUTION. PO SCH (07:30)
[2017-08-15] MEDS: METOCLOPRAMIDE 5 MG TABLET PO SCH ×5 (07:30→20:33)
[2017-08-15] MEDS: ACETAMINOPHEN 500 MG TABLET PO PRN ×2 (08:01→20:33)
[2017-08-15] MEDS: METOPROLOL TART IMMED RELEASE 50 MG TABLET PO SCH ×3 (08:02→20:33)
[2017-08-15] MEDS: LISINOPRIL 10 MG TABLET PO SCH ×2 (08:02→08:08)
[2017-08-15] MEDS ORDERED: PROMETHAZINE 12.5 MG SUPP.RECT. PR PRN (08:15)
[2017-08-15] MEDS ORDERED: VANCOMYCIN PER PHARMACY MC PRN (08:30)
[2017-08-15] MEDS ORDERED: VANCOMYCIN 2 GM in IV NORMAL SALINE 500ML 500 ML IV ONE (09:00)
[2017-08-15] MEDS: INSULIN REGULAR 150 UNIT in 0.9 % SODIUM CHLORIDE 150ML 150 ML IV PRN (09:19)
[2017-08-15] MEDS: METOCLOPRAMIDE HCL 10 MG/2 ML VIAL. IV PRN ×2 (09:20→18:48)
[2017-08-15] MEDS ORDERED: DEXTROSE 50% 25 GM / 50ML DISP.SYRIN. IV PRN (19:30)
[2017-08-15] MEDS ORDERED: INSULIN ASPART 300 UNITS/3 ML INSULN.PEN SQ PRN (19:30)
[2017-08-15] MEDS: ENOXAPARIN 40 MG/0.4 ML DISP.SYRIN. SQ SCH (20:31)
[2017-08-15] MEDS: VANCOMYCIN 1.25 GM in IV NORMAL SALINE 250ML 250 ML IV SCH (20:35)
[2017-08-15] MEDS ORDERED: INSULIN DETEMIR 300 UNITS/3 ML INSULN.PEN. SQ SCH (21:00)
[2017-08-16] VITALS (19 sets, daily range): BP systolic 102–193; BP diastolic 64–108
[2017-08-16] MEDS: METOCLOPRAMIDE HCL 10 MG/2 ML VIAL. IV PRN (01:13)
[2017-08-16] MEDS: ACETAMINOPHEN 500 MG TABLET PO PRN ×2 (05:04→18:26)
[2017-08-16 06:09] LABS: ALBUMIN 2.3 g/dL (3.4-5.0); ALBUMIN/GLOBULIN RATIO 0.6 (1.0-1.7); CREATININE 0.7 mg/dL (0.6-1.0); GFR 85.9; POTASSIUM 3.9 mmol/L (3.5-5.1); TOTAL BILIRUBIN 0.3 mg/dL (0.2-1.0); TOTAL PROTEIN 5.9 g/dL (6.4-8.2)
[2017-08-16 06:16] LABS: HEMATOCRIT 38.2 % (36.0-47.0); HEMOGLOBIN 12.9 g/dL (12.0-15.5); RED BLOOD COUNT 4.48 x10^6/uL (3.50-5.40); RED CELL DISTRIBUTION WIDTH 14.5 % (11.5-14.5); WHITE BLOOD COUNT 5.9 x10^3/uL (4.0-11.0)
[2017-08-16] MEDS: METOCLOPRAMIDE 5 MG TABLET PO SCH ×4 (08:02→20:15)
[2017-08-16] MEDS: METOPROLOL TART IMMED RELEASE 50 MG TABLET PO SCH ×2 (08:40→20:15)
[2017-08-16] MEDS: LISINOPRIL 10 MG TABLET PO SCH (08:40)
[2017-08-16] MEDS: VANCOMYCIN 1.25 GM in IV NORMAL SALINE 250ML 250 ML IV SCH (08:41)
--- NOTE | 2017-08-16 08:59 | PDOC ---
PROGRESS NOTES Assessment 1. DKA: Pt is not in DKA anymore. Her sugars have been <200 overnight and she is off insulin drip. Started Levemir 30 units nightly last night w/ SSI. Will titrate to keep sugars <200 while avoiding hypoglycemia. 2. Pancreatitis: Lipase elevated (came down a bit today), but CT was normal on admission. Given it's level, I suspect pt does have pancreatitis. She may need an MRCP as an outpatient, but I would not favor repeating the CT unless her lipase goes up again. I am reluctant to treat w/ opioids given her severe gastroparesis, so we will stick w/ Tylenol for now. 3. HTN: Pt reports taking BP meds previously, but can't remember what kind. Titrate beta dontrell. Continue ACEI, PRN hydralazine. 4. Acute metabolic encephalopathy: Resolved. Pt's mental status appears to be at baseline. 5. DVT proph: Lovenox. 6. Gastroparesis due to poorly controlled DM: Continue Reglan. Hopefully can transition to PO soon. 7. Hypomagnesemia: Recheck today. 8. Moderate PEM: Consider PPN if pt not able to start taking food by mouth soon. 9. Coagulase negative staph + blood culture: 1/2 bottles. Likely contaminant. No evidence of sepsis. Will d/c Vanc. Problems: Plan of Care: see other orders Subjective Pt more alert today. States she still has nausea and abdominal cramping. No recent vomiting. Has had two BM's, both "hard." No blood in stool. Denies fever, chills, chest pain, SOA, cough, rash, or hearing problems. Objective Vital Signs Date Time Temp Pulse Resp B/P (MAP) Pulse Ox O2 Delivery O2 Flow Rate FiO2 08/16/17 06:27 112 22 183/103 (129) 97 Room Air 08/15/17 18:38 97.4 Intake and Output 08/16/17 07:00 Intake Total 2450 ml Output Total 3650 ml Balance -1200 ml Intake Oral 0 ml IV Total 2450 ml Output Urine Total 3550 ml Emesis 100 ml Abdomen: Normal bowel sounds, Soft, No masses, Other (Mild TTP in epigastrum, no rebound or guarding) Heart: Normal S1, Normal S2, No murmurs, Other (Slightly tachy but regular) Extremities: No edema, Normal pulses General: Alert, Oriented X3, Cooperative, No acute distress HEENT: PERRLA, EOMI, Mucous membr. moist/pink Lungs: Clear to auscultation, Normal air movement Neck: No JVD, Other (IV in right neck) Neuro: Normal speech, Normal tone, Cranial nerves 3-12 NL Psych/Mental Status: Mental status NL, Mood NL Skin: No rashes Review of Relevant I have reviewed the following items belem (where applicable) has been applied. Labs Laboratory Tests Test 08/14/17 09:17 08/14/17 09:37 08/14/17 10:43 08/14/17 11:51 Sodium Level 150 mmol/L (136-145) Potassium Level 4.2 mmol/L (3.5-5.1) Chloride Level 116 mmol/L (98-107) Carbon Dioxide Level 21 mmol/L (21-32) Anion Gap 13 (6-14) Blood Urea Nitrogen 39 mg/dL (7-20) Creatinine 1.1 mg/dL (0.6-1.0) Estimated GFR (Cockcroft-Gault) 51.0 Glucose Level 365 mg/dL (70-99) Calcium Level 8.8 mg/dL (8.5-10.1) Magnesium Level 2.0 mg/dL (1.8-2.4) Glucose (Fingerstick) 368 mg/dL (70-99) 421 mg/dL (70-99) 248 mg/dL (70-99) Test 08/14/17 12:41 08/14/17 14:00 08/14/17 15:05 08/14/17 16:14 Glucose (Fingerstick) 216 mg/dL (70-99) 226 mg/dL (70-99) 170 mg/dL (70-99) 207 mg/dL (70-99) Test 08/14/17 17:03 08/14/17 18:17 08/14/17 18:57 08/14/17 19:50 Glucose (Fingerstick) 124 mg/dL (70-99) 123 mg/dL (70-99) 136 mg/dL (70-99) 148 mg/dL (70-99) Test 08/14/17 20:05 08/14/17 20:54 08/14/17 21:57 08/14/17 22:57 Sodium Level 149 mmol/L (136-145) Potassium Level 3.8 mmol/L (3.5-5.1) Chloride Level 114 mmol/L (98-107) Carbon Dioxide Level 24 mmol/L (21-32) Anion Gap 11 (6-14) Blood Urea Nitrogen 28 mg/dL (7-20) Creatinine 0.9 mg/dL (0.6-1.0) Estimated GFR (Cockcroft-Gault) 64.3 Glucose Level 155 mg/dL (70-99) Calcium Level 8.4 mg/dL (8.5-10.1) Magnesium Level 2.0 mg/dL (1.8-2.4) Glucose (Fingerstick) 134 mg/dL (70-99) 103 mg/dL (70-99) 106 mg/dL (70-99) Test 08/14/17 23:53 08/15/17 00:53 08/15/17 01:56 08/15/17 02:53 Glucose (Fingerstick) 125 mg/dL (70-99) 149 mg/dL (70-99) 166 mg/dL (70-99) 156 mg/dL (70-99) Test 08/15/17 03:57 08/15/17 04:52 08/15/17 06:03 08/15/17 06:57 Glucose (Fingerstick) 133 mg/dL (70-99) 152 mg/dL (70-99) 263 mg/dL (70-99) White Blood Count 9.1 x10^3/uL (4.0-11.0) Red Blood Count 4.40 x10^6/uL (3.50-5.40) Hemoglobin 12.5 g/dL (12.0-15.5) Hematocrit 37.6 % (36.0-47.0) Mean Corpuscular Volume 85 fL (79-100) Mean Corpuscular Hemoglobin 28 pg (25-35) Mean Corpuscular Hemoglobin Concent 33 g/dL (31-37) Red Cell Distribution Width 14.8 % (11.5-14.5) Platelet Count 265 x10^3/uL (140-400) Neutrophils (%) (Auto) 76 % (31-73) Lymphocytes (%) (Auto) 15 % (24-48) Monocytes (%) (Auto) 7 % (0-9) Eosinophils (%) (Auto) 1 % (0-3) Basophils (%) (Auto) 0 % (0-3) Neutrophils # (Auto) 6.9 x10^3uL (1.8-7.7) Lymphocytes # (Auto) 1.4 x10^3/uL (1.0-4.8) Monocytes # (Auto) 0.7 x10^3/uL (0.0-1.1) Eosinophils # (Auto) 0.1 x10^3/uL (0.0-0.7) Basophils # (Auto) 0.0 x10^3/uL (0.0-0.2) Sodium Level 140 mmol/L (136-145) Potassium Level 3.8 mmol/L (3.5-5.1) Chloride Level 107 mmol/L (98-107) Carbon Dioxide Level 22 mmol/L (21-32) Anion Gap 11 (6-14) Blood Urea Nitrogen 13 mg/dL (7-20) Creatinine 0.7 mg/dL (0.6-1.0) Estimated GFR (Cockcroft-Gault) 85.9 BUN/Creatinine Ratio 19 (6-20) Glucose Level 244 mg/dL (70-99) Calcium Level 8.0 mg/dL (8.5-10.1) Magnesium Level 1.6 mg/dL (1.8-2.4) Total Bilirubin 0.3 mg/dL (0.2-1.0) Aspartate Amino Transf (AST/SGOT) 19 U/L (15-37) Alanine Aminotransferase (ALT/SGPT) 16 U/L (14-59) Alkaline Phosphatase 113 U/L (46-116) Total Protein 5.9 g/dL (6.4-8.2) Albumin 2.3 g/dL (3.4-5.0) Albumin/Globulin Ratio 0.6 (1.0-1.7) Lipase 2706 U/L (73-393) Test 08/15/17 08:06 08/15/17 09:09 08/15/17 10:13 08/15/17 11:20 Glucose (Fingerstick) 216 mg/dL (70-99) 191 mg/dL (70-99) 186 mg/dL (70-99) 122 mg/dL (70-99) Test 08/15/17 12:24 08/15/17 13:30 08/15/17 14:34 08/15/17 15:45 Glucose (Fingerstick) 103 mg/dL (70-99) 135 mg/dL (70-99) 138 mg/dL (70-99) 147 mg/dL (70-99) Test 08/15/17 16:51 08/15/17 18:01 08/15/17 20:10 08/15/17 21:10 Glucose (Fingerstick) 120 mg/dL (70-99) 102 mg/dL (70-99) 150 mg/dL (70-99) 172 mg/dL (70-99) Test 08/15/17 22:10 08/15/17 23:18 08/16/17 00:13 08/16/17 01:04 Glucose (Fingerstick) 191 mg/dL (70-99) 195 mg/dL (70-99) 179 mg/dL (70-99) 171 mg/dL (70-99) Test 08/16/17 03:19 08/16/17 05:15 08/16/17 06:09 08/16/17 08:31 Glucose (Fingerstick) 172 mg/dL (70-99) 183 mg/dL (70-99) 157 mg/dL (70-99) White Blood Count 5.9 x10^3/uL (4.0-11.0) Red Blood Count 4.48 x10^6/uL (3.50-5.40) Hemoglobin 12.9 g/dL (12.0-15.5) Hematocrit 38.2 % (36.0-47.0) Mean Corpuscular Volume 85 fL (79-100) Mean Corpuscular Hemoglobin 29 pg (25-35) Mean Corpuscular Hemoglobin Concent 34 g/dL (31-37) Red Cell Distribution Width 14.5 % (11.5-14.5) Platelet Count 269 x10^3/uL (140-400) Sodium Level 139 mmol/L (136-145) Potassium Level 3.9 mmol/L (3.5-5.1) Chloride Level 105 mmol/L (98-107) Carbon Dioxide Level 24 mmol/L (21-32) Anion Gap 10 (6-14) Blood Urea Nitrogen 7 mg/dL (7-20) Creatinine 0.7 mg/dL (0.6-1.0) Estimated GFR (Cockcroft-Gault) 85.9 BUN/Creatinine Ratio 10 (6-20) Glucose Level 174 mg/dL (70-99) Calcium Level 8.0 mg/dL (8.5-10.1) Total Bilirubin 0.3 mg/dL (0.2-1.0) Aspartate Amino Transf (AST/SGOT) 17 U/L (15-37) Alanine Aminotransferase (ALT/SGPT) 17 U/L (14-59) Alkaline Phosphatase 121 U/L (46-116) Total Protein 5.9 g/dL (6.4-8.2) Albumin 2.3 g/dL (3.4-5.0) Albumin/Globulin Ratio 0.6 (1.0-1.7) Lipase 2009 U/L (73-393) Microbiology 08/14/17 Blood Culture - Preliminary, Resulted 08/14/17 Blood Culture Result 1 (TOBY) - Preliminary, Resulted Medications Current Medications Sodium Chloride 1,000 ml @ 1,000 mls/hr 1X ONCE IV Last administered on 08/14 01:00; Start 08/14/17 at 01:00; Stop 08/14/17 at 01:59; Status DC Ondansetron HCl (Zofran) 4 mg 1X ONCE IV Last administered on 08/14/17 01:00 ; Start 08/14/17 at 01:00; Stop 08/14/17 at 01:21; Status DC Sodium Chloride 1,000 ml @ 1,000 mls/hr 1X ONCE IV Last administered on 08/14 02:15; Start 08/14/17 at 02:30; Stop 08/14/17 at 03:29; Status DC Insulin Human Regular 150 unit/ Sodium Chloride 151.5 ml @ 0 mls/hr CONT PRN PRN IV PER PROTOCOL Last administered on 08/15/17 09:19; Start 08/14/17 at 03 :00 Potassium Chloride 100 ml @ 100 mls/hr PRN Q1HR PRN IV SEE COMMENTS; Start at 02:45 Magnesium Sulfate 50 ml @ 25 mls/hr PRN Q2HR PRN IV MG LEVEL < 1.8 Last administered on 08/15/17 08:02; Start 08/14/17 at 02:45 Lactated Ringer's 1,400 ml @ 1,400 mls/hr 1X ONCE IV Last administered on 02:45; Start 08/14/17 at 02:45; Stop 08/14/17 at 03:44; Status DC Sodium Chloride 150 ml @ As Directed STK-MED ONCE .ROUTE ; Start 08/14/17 at 03:07; Stop 08/14/17 at 03:08; Status DC Lactated Ringer's 1,400 ml @ 1,400 mls/hr 1X ONCE IV Last administered on 04:00; Start 08/14/17 at 04:00; Stop 08/14/17 at 04:59; Status DC Lactated Ringer's 1,000 ml @ 200 mls/hr 1X ONCE IV Last administered on 08/14 04:00; Start 08/14/17 at 04:00; Stop 08/14/17 at 08:59; Status DC Ondansetron HCl (Zofran) 8 mg 1X ONCE IV Last administered on 08/14/17 04:45 ; Start 08/14/17 at 04:45; Stop 08/14/17 at 04:46; Status DC Enoxaparin Sodium (Lovenox 60mg Syringe) 60 mg 1X ONCE SQ Last administered on 08/14/17 09:08; Start 08/14/17 at 05:45; Stop 08/14/17 at 05:46; Status DC Ondansetron HCl (Zofran) 4 mg PRN Q4HRS PRN IV NAUSEA/VOMITING Last administered on 08/15/17 02:59; Start 08/14/17 at 05:00; Stop 08/15/17 at 04 :59; Status DC Ondansetron HCl (Zofran) 4 mg 1X ONCE IV ; Start 08/14/17 at 05:45; Stop at 05:46; Status DC Potassium Chloride/Dextrose/ Sod Cl 1,000 ml @ 100 mls/hr Q10H IV Last administered on 08/15/17 22:28; Start 08/14/17 at 09:15 Labetalol HCl (Normodyne) 10 mg 1X ONCE IVP Last administered on 08/14/17 11 :03; Start 08/14/17 at 10:00; Stop 08/14/17 at 10:04; Status DC Metoprolol Tartrate (Lopressor) 50 mg BID PO Last administered on 08/15/17 20 :33; Start 08/14/17 at 15:30 Enoxaparin Sodium (Lovenox) 40 mg Q24H SQ Last administered on 08/15/17 20:31 ; Start 08/14/17 at 20:00 Ketorolac Tromethamine (Toradol) 30 mg PRN Q6HRS PRN IV PAIN Last administered on 08/14/17 18:10; Start 08/14/17 at 17:30; Stop 08/15/17 at 05:53; Status DC Hydralazine HCl (Apresoline) 10 mg 1X ONCE IV Last administered on 08/15/17 05:03; Start 08/15/17 at 05:00; Stop 08/15/17 at 05:14; Status DC Acetaminophen (Tylenol) 1,000 mg PRN Q6HRS PRN PO PAIN / TEMP Last administered on 08/16/17 05:04; Start 08/15/17 at 06:00 Lisinopril (Prinivil) 10 mg DAILY PO ; Start 08/15/17 at 09:00 Hydralazine HCl (Apresoline) 10 mg PRN Q4HRS PRN IV ELEVATED BP, SEE COMMENTS; Start 08/15/17 at 06:00 Metoclopramide HCl (Reglan) 5 mg TIDACHC PO ; Start 08/15/17 at 07:30; Status Cancel Metoclopramide HCl (Reglan) 5 mg TIDACHC PO Last administered on 08/16/17 08: 02; Start 08/15/17 at 07:30 Promethazine HCl (Phenergan) 12.5 mg PRN Q6HRS PRN [place] NAUSEA/VOMITING Last administered on 08/16/17 05:05; Start 08/15/17 at 08:15 Metoclopramide HCl (Reglan Vial) 10 mg PRN Q6HRS PRN IV NAUSEA/VOMITING Last administered on 08/16/17 01:13; Start 08/15/17 at 08:30 Vancomycin HCl (Vanco Per Pharmacy) 1 each PRN DAILY PRN MC SEE COMMENTS Last administered on 08/15/17 09:43; Start 08/15/17 at 08:30 Vancomycin HCl 2 gm/Sodium Chloride 500 ml @ 250 mls/hr 1X ONCE IV Last administered on 08/15/17 09:21; Start 08/15/17 at 09:00; Stop 08/15/17 at 10 :59; Status DC Vancomycin HCl 1.25 gm/Sodium Chloride 250 ml @ 167 mls/hr Q12H IV Last administered on 08/15/17 20:35; Start 08/15/17 at 21:00 Vancomycin HCl 1 each 1X ONCE MC ; Start 08/16/17 at 20:30; Stop 08/16/17 at 20:31 Influenza Virus Vaccine Quadrival (Fluarix Quad [id number] Syringe) 0.5 ml ONCE ONCE VAX IM ; Start 08/17/17 at 09:00; Stop 08/17/17 at 09:01 Insulin Detemir (Levemir) 30 units QHS SQ Last administered on 08/15/17 21:03 ; Start 08/15/17 at 21:00 Insulin Aspart (NovoLOG) 0-7 UNITS PRN Q2HR PRN SQ PER PROTOCOL; Start at 19:30 Dextrose 12.5 gm PRN Q15MIN PRN IV SEE COMMENTS; Start 08/15/17 at 19:30 Vitals/I & O Vital Sign - Last 24 Hours 08/15/17 08/15/17 08/15/17 08/15/17 09:38 10:38 11:25 11:38 Temp 98.2 Pulse 132 122 118 Resp 23 23 15 B/P (MAP) 176/93 (120) 106/56 (73) 126/69 (88) Pulse Ox 97 O2 Delivery Room Air Room Air Room Air 08/15/17 08/15/17 08/15/17 08/15/17 12:26 12:38 13:38 14:38 Pulse 118 112 111 Resp 15 15 16 B/P (MAP) 158/79 (105) 113/51 (71) 108/58 (75) Pulse Ox 97 O2 Delivery Room Air Room Air Room Air Room Air 08/15/17 08/15/17 08/15/17 08/15/17 16:02 16:38 18:38 20:00 Temp 97.4 Pulse 109 125 Resp 15 14 B/P (MAP) 120/59 (79) 162/86 (111) Pulse Ox 100 O2 Delivery Room Air Room Air Room Air Room Air 08/15/17 08/15/17 08/15/17 08/15/17 20:29 20:33 21:31 22:38 Pulse 129 128 103 96 Resp 24 23 22 B/P (MAP) 156/82 (106) 156/82 178/97 (124) 138/79 (98) Pulse Ox 97 96 98 O2 Delivery Room Air Room Air Room Air 08/15/17 08/15/17 08/16/17 08/16/17 23:40 23:59 02:52 04:00 Pulse 100 18 Resp 20 10 B/P (MAP) 170/80 (110) 156/93 (114) Pulse Ox 97 37 O2 Delivery Room Air Room Air Room Air Room Air 08/16/17 08/16/17 04:19 06:27 Pulse 108 112 Resp 18 22 B/P (MAP) 162/85 (110) 183/103 (129) Pulse Ox 97 97 O2 Delivery Room Air Room Air Intake and Output 08/15/17 08/15/17 08/16/17 15:00 23:00 07:00 Intake Total 200 ml 2250 ml 0 ml Output Total 650 ml 1600 ml 1400 ml Balance -450 ml 650 ml -1400 ml FORTUNATO LANG MD Aug 16, 2017 08:59
[2017-08-16] MEDS: LISINOPRIL 20 MG TABLET PO SCH (09:53)
[2017-08-16] MEDS: DOCUSATE SODIUM 100 MG CAPSULE PO SCH (09:53)
[2017-08-16] MEDS: POTASSIUM CL 40MEQ D5-0.45NACL 1,000 ML IV SCH ×2 (09:58→20:24)
[2017-08-16] MEDS ORDERED: CALCIUM CARBONATE 500 MG TAB.CHEW PO PRN (18:00)
--- NOTE | 2017-08-16 18:06 | PDOC ---
PROGRESS NOTES Diagnosis Problem Problems Medical Problems: (1) Acidosis Status: Acute (2) DKA (diabetic ketoacidoses) Status: Acute (3) Encephalopathy acute Status: Acute (4) Leukocytosis Status: Acute (5) Pancreatitis Status: Acute Assessment Tachycardia: Pt reports frequent "heartburn" that has come and gone for the past few days, states she usually takes a "capsule for heartburn" before meals, but hasn't been taking it here. Denies SOA or feeling palpitations. No radiation to her back or neck. No radiation to left arm. I will get an EKG and troponin w/ CK and CKMB. Start PPI and TUMS. COntinue reglan. Can't give NTG due to already low BP. Problems: Plan of Care: see other orders Subjective Per nurse, pt c/o heartburn. She states she used to take a capsule before meals for heartburn but hasn't been taking it here. Denies SOA or palpitations. No dizziness or radiation of pain. Objective Vital Signs Date Time Temp Pulse Resp B/P (MAP) Pulse Ox O2 Delivery O2 Flow Rate FiO2 08/16/17 16:45 116 175/89 08/16/17 16:42 18 97 Room Air 08/16/17 11:43 98.6 Intake and Output 08/16/17 07:00 Intake Total 2450 ml Output Total 3650 ml Balance -1200 ml Intake Oral 0 ml IV Total 2450 ml Output Urine Total 3550 ml Emesis 100 ml Abdomen: Soft, No tenderness Heart: Other (Tachy, regular rhythm, no murmur.) General: Alert, Oriented X3, Cooperative, No acute distress Lungs: Clear to auscultation, Normal air movement Neck: No JVD Psych/Mental Status: Mental status NL Review of Relevant I have reviewed the following items belem (where applicable) has been applied. Labs Laboratory Tests Test 08/14/17 18:17 08/14/17 18:57 08/14/17 19:50 08/14/17 20:05 Glucose (Fingerstick) 123 mg/dL (70-99) 136 mg/dL (70-99) 148 mg/dL (70-99) Sodium Level 149 mmol/L (136-145) Potassium Level 3.8 mmol/L (3.5-5.1) Chloride Level 114 mmol/L (98-107) Carbon Dioxide Level 24 mmol/L (21-32) Anion Gap 11 (6-14) Blood Urea Nitrogen 28 mg/dL (7-20) Creatinine 0.9 mg/dL (0.6-1.0) Estimated GFR (Cockcroft-Gault) 64.3 Glucose Level 155 mg/dL (70-99) Calcium Level 8.4 mg/dL (8.5-10.1) Magnesium Level 2.0 mg/dL (1.8-2.4) Test 08/14/17 20:54 08/14/17 21:57 08/14/17 22:57 08/14/17 23:53 Glucose (Fingerstick) 134 mg/dL (70-99) 103 mg/dL (70-99) 106 mg/dL (70-99) 125 mg/dL (70-99) Test 08/15/17 00:53 08/15/17 01:56 08/15/17 02:53 08/15/17 03:57 Glucose (Fingerstick) 149 mg/dL (70-99) 166 mg/dL (70-99) 156 mg/dL (70-99) 133 mg/dL (70-99) Test 08/15/17 04:52 08/15/17 06:03 08/15/17 06:57 08/15/17 08:06 Glucose (Fingerstick) 152 mg/dL (70-99) 263 mg/dL (70-99) 216 mg/dL (70-99) White Blood Count 9.1 x10^3/uL (4.0-11.0) Red Blood Count 4.40 x10^6/uL (3.50-5.40) Hemoglobin 12.5 g/dL (12.0-15.5) Hematocrit 37.6 % (36.0-47.0) Mean Corpuscular Volume 85 fL (79-100) Mean Corpuscular Hemoglobin 28 pg (25-35) Mean Corpuscular Hemoglobin Concent 33 g/dL (31-37) Red Cell Distribution Width 14.8 % (11.5-14.5) Platelet Count 265 x10^3/uL (140-400) Neutrophils (%) (Auto) 76 % (31-73) Lymphocytes (%) (Auto) 15 % (24-48) Monocytes (%) (Auto) 7 % (0-9) Eosinophils (%) (Auto) 1 % (0-3) Basophils (%) (Auto) 0 % (0-3) Neutrophils # (Auto) 6.9 x10^3uL (1.8-7.7) Lymphocytes # (Auto) 1.4 x10^3/uL (1.0-4.8) Monocytes # (Auto) 0.7 x10^3/uL (0.0-1.1) Eosinophils # (Auto) 0.1 x10^3/uL (0.0-0.7) Basophils # (Auto) 0.0 x10^3/uL (0.0-0.2) Sodium Level 140 mmol/L (136-145) Potassium Level 3.8 mmol/L (3.5-5.1) Chloride Level 107 mmol/L (98-107) Carbon Dioxide Level 22 mmol/L (21-32) Anion Gap 11 (6-14) Blood Urea Nitrogen 13 mg/dL (7-20) Creatinine 0.7 mg/dL (0.6-1.0) Estimated GFR (Cockcroft-Gault) 85.9 BUN/Creatinine Ratio 19 (6-20) Glucose Level 244 mg/dL (70-99) Calcium Level 8.0 mg/dL (8.5-10.1) Magnesium Level 1.6 mg/dL (1.8-2.4) Total Bilirubin 0.3 mg/dL (0.2-1.0) Aspartate Amino Transf (AST/SGOT) 19 U/L (15-37) Alanine Aminotransferase (ALT/SGPT) 16 U/L (14-59) Alkaline Phosphatase 113 U/L (46-116) Total Protein 5.9 g/dL (6.4-8.2) Albumin 2.3 g/dL (3.4-5.0) Albumin/Globulin Ratio 0.6 (1.0-1.7) Lipase 2706 U/L (73-393) Test 08/15/17 09:09 08/15/17 10:13 08/15/17 11:20 08/15/17 12:24 Glucose (Fingerstick) 191 mg/dL (70-99) 186 mg/dL (70-99) 122 mg/dL (70-99) 103 mg/dL (70-99) Test 08/15/17 13:30 08/15/17 14:34 08/15/17 15:45 08/15/17 16:51 Glucose (Fingerstick) 135 mg/dL (70-99) 138 mg/dL (70-99) 147 mg/dL (70-99) 120 mg/dL (70-99) Test 08/15/17 18:01 08/15/17 20:10 08/15/17 21:10 08/15/17 22:10 Glucose (Fingerstick) 102 mg/dL (70-99) 150 mg/dL (70-99) 172 mg/dL (70-99) 191 mg/dL (70-99) Test 08/15/17 23:18 08/16/17 00:13 08/16/17 01:04 08/16/17 03:19 Glucose (Fingerstick) 195 mg/dL (70-99) 179 mg/dL (70-99) 171 mg/dL (70-99) 172 mg/dL (70-99) Test 08/16/17 05:15 08/16/17 06:09 08/16/17 08:31 08/16/17 11:36 White Blood Count 5.9 x10^3/uL (4.0-11.0) Red Blood Count 4.48 x10^6/uL (3.50-5.40) Hemoglobin 12.9 g/dL (12.0-15.5) Hematocrit 38.2 % (36.0-47.0) Mean Corpuscular Volume 85 fL (79-100) Mean Corpuscular Hemoglobin 29 pg (25-35) Mean Corpuscular Hemoglobin Concent 34 g/dL (31-37) Red Cell Distribution Width 14.5 % (11.5-14.5) Platelet Count 269 x10^3/uL (140-400) Sodium Level 139 mmol/L (136-145) Potassium Level 3.9 mmol/L (3.5-5.1) Chloride Level 105 mmol/L (98-107) Carbon Dioxide Level 24 mmol/L (21-32) Anion Gap 10 (6-14) Blood Urea Nitrogen 7 mg/dL (7-20) Creatinine 0.7 mg/dL (0.6-1.0) Estimated GFR (Cockcroft-Gault) 85.9 BUN/Creatinine Ratio 10 (6-20) Glucose Level 174 mg/dL (70-99) Calcium Level 8.0 mg/dL (8.5-10.1) Magnesium Level 2.1 mg/dL (1.8-2.4) Total Bilirubin 0.3 mg/dL (0.2-1.0) Aspartate Amino Transf (AST/SGOT) 17 U/L (15-37) Alanine Aminotransferase (ALT/SGPT) 17 U/L (14-59) Alkaline Phosphatase 121 U/L (46-116) Total Protein 5.9 g/dL (6.4-8.2) Albumin 2.3 g/dL (3.4-5.0) Albumin/Globulin Ratio 0.6 (1.0-1.7) Lipase 2009 U/L (73-393) Glucose (Fingerstick) 183 mg/dL (70-99) 157 mg/dL (70-99) 191 mg/dL (70-99) Test 08/16/17 16:36 Glucose (Fingerstick) 187 mg/dL (70-99) Microbiology 08/14/17 Blood Culture - Preliminary, Resulted 08/14/17 Blood Culture Result 1 (TOBY) - Preliminary, Resulted Medications Current Medications Sodium Chloride 1,000 ml @ 1,000 mls/hr 1X ONCE IV Last administered on 08/14 01:00; Start 08/14/17 at 01:00; Stop 08/14/17 at 01:59; Status DC Ondansetron HCl (Zofran) 4 mg 1X ONCE IV Last administered on 08/14/17 01:00 ; Start 08/14/17 at 01:00; Stop 08/14/17 at 01:21; Status DC Sodium Chloride 1,000 ml @ 1,000 mls/hr 1X ONCE IV Last administered on 08/14 02:15; Start 08/14/17 at 02:30; Stop 08/14/17 at 03:29; Status DC Insulin Human Regular 150 unit/ Sodium Chloride 151.5 ml @ 0 mls/hr CONT PRN PRN IV PER PROTOCOL Last administered on 08/15/17 09:19; Start 08/14/17 at 03 :00; Stop 08/16/17 at 09:14; Status DC Potassium Chloride 100 ml @ 100 mls/hr PRN Q1HR PRN IV SEE COMMENTS; Start at 02:45 Magnesium Sulfate 50 ml @ 25 mls/hr PRN Q2HR PRN IV MG LEVEL < 1.8 Last administered on 08/15/17 08:02; Start 08/14/17 at 02:45 Lactated Ringer's 1,400 ml @ 1,400 mls/hr 1X ONCE IV Last administered on 02:45; Start 08/14/17 at 02:45; Stop 08/14/17 at 03:44; Status DC Sodium Chloride 150 ml @ As Directed STK-MED ONCE .ROUTE ; Start 08/14/17 at 03:07; Stop 08/14/17 at 03:08; Status DC Lactated Ringer's 1,400 ml @ 1,400 mls/hr 1X ONCE IV Last administered on 04:00; Start 08/14/17 at 04:00; Stop 08/14/17 at 04:59; Status DC Lactated Ringer's 1,000 ml @ 200 mls/hr 1X ONCE IV Last administered on 08/14 04:00; Start 08/14/17 at 04:00; Stop 08/14/17 at 08:59; Status DC Ondansetron HCl (Zofran) 8 mg 1X ONCE IV Last administered on 08/14/17 04:45 ; Start 08/14/17 at 04:45; Stop 08/14/17 at 04:46; Status DC Enoxaparin Sodium (Lovenox 60mg Syringe) 60 mg 1X ONCE SQ Last administered on 08/14/17 09:08; Start 08/14/17 at 05:45; Stop 08/14/17 at 05:46; Status DC Ondansetron HCl (Zofran) 4 mg PRN Q4HRS PRN IV NAUSEA/VOMITING Last administered on 08/15/17 02:59; Start 08/14/17 at 05:00; Stop 08/15/17 at 04 :59; Status DC Ondansetron HCl (Zofran) 4 mg 1X ONCE IV ; Start 08/14/17 at 05:45; Stop at 05:46; Status DC Potassium Chloride/Dextrose/ Sod Cl 1,000 ml @ 100 mls/hr Q10H IV Last administered on 08/16/17 09:58; Start 08/14/17 at 09:15 Labetalol HCl (Normodyne) 10 mg 1X ONCE IVP Last administered on 08/14/17 11 :03; Start 08/14/17 at 10:00; Stop 08/14/17 at 10:04; Status DC Metoprolol Tartrate (Lopressor) 50 mg BID PO Last administered on 08/16/17 08 :40; Start 08/14/17 at 15:30 Enoxaparin Sodium (Lovenox) 40 mg Q24H SQ Last administered on 08/15/17 20:31 ; Start 08/14/17 at 20:00 Ketorolac Tromethamine (Toradol) 30 mg PRN Q6HRS PRN IV PAIN Last administered on 08/14/17 18:10; Start 08/14/17 at 17:30; Stop 08/15/17 at 05:53; Status DC Hydralazine HCl (Apresoline) 10 mg 1X ONCE IV Last administered on 08/15/17 05:03; Start 08/15/17 at 05:00; Stop 08/15/17 at 05:14; Status DC Acetaminophen (Tylenol) 1,000 mg PRN Q6HRS PRN PO PAIN / TEMP Last administered on 08/16/17 05:04; Start 08/15/17 at 06:00 Lisinopril (Prinivil) 10 mg DAILY PO Last administered on 08/16/17 08:40; Start 08/15/17 at 09:00; Stop 08/16/17 at 09:02; Status DC Hydralazine HCl (Apresoline) 10 mg PRN Q4HRS PRN IV ELEVATED BP, SEE COMMENTS Last administered on 08/16/17 16:45; Start 08/15/17 at 06:00 Metoclopramide HCl (Reglan) 5 mg TIDACHC PO ; Start 08/15/17 at 07:30; Status Cancel Metoclopramide HCl (Reglan) 5 mg TIDACHC PO Last administered on 08/16/17 16: 21; Start 08/15/17 at 07:30 Promethazine HCl (Phenergan) 12.5 mg PRN Q6HRS PRN CO NAUSEA/VOMITING Last administered on 08/16/17 05:05; Start 08/15/17 at 08:15 Metoclopramide HCl (Reglan Vial) 10 mg PRN Q6HRS PRN IV NAUSEA/VOMITING Last administered on 08/16/17 01:13; Start 08/15/17 at 08:30 Vancomycin HCl (Vanco Per Pharmacy) 1 each PRN DAILY PRN MC SEE COMMENTS Last administered on 08/15/17 09:43; Start 08/15/17 at 08:30; Stop 08/16/17 at 09 :02; Status DC Vancomycin HCl 2 gm/Sodium Chloride 500 ml @ 250 mls/hr 1X ONCE IV Last administered on 08/15/17 09:21; Start 08/15/17 at 09:00; Stop 08/15/17 at 10 :59; Status DC Vancomycin HCl 1.25 gm/Sodium Chloride 250 ml @ 167 mls/hr Q12H IV Last administered on 08/16/17 08:41; Start 08/15/17 at 21:00; Stop 08/16/17 at 09 :02; Status DC Vancomycin HCl 1 each 1X ONCE MC ; Start 08/16/17 at 20:30; Stop 08/16/17 at 20:30; Status DC Influenza Virus Vaccine Quadrival (Fluarix Quad [id number] Syringe) 0.5 ml ONCE ONCE VAX IM ; Start 08/17/17 at 09:00; Stop 08/17/17 at 09:01 Insulin Detemir (Levemir) 30 units QHS SQ Last administered on 08/15/17 21:03 ; Start 08/15/17 at 21:00; Stop 08/16/17 at 09:02; Status DC Insulin Aspart (NovoLOG) 0-7 UNITS PRN Q2HR PRN SQ PER PROTOCOL; Start at 19:30; Stop 08/16/17 at 09:03; Status DC Dextrose 12.5 gm PRN Q15MIN PRN IV SEE COMMENTS; Start 08/15/17 at 19:30 Insulin Aspart (NovoLOG) 0-7 UNITS TIDACHC PRN SQ PER PROTOCOL; Start at 09:15 Insulin Detemir (Levemir) 35 units QHS SQ ; Start 08/16/17 at 21:00 Lisinopril (Prinivil) 20 mg DAILY PO Last administered on 08/16/17 09:53; Start 08/16/17 at 09:15 Docusate Sodium (Colace) 100 mg DAILY PO Last administered on 08/16/17 09:53 ; Start 08/16/17 at 09:15 Calcium Carbonate/ Glycine (Tums) 500 mg PRN AFTMEALHC PRN PO INDIGESTION; Start 08/16/17 at 18:00; Status UNV Pantoprazole Sodium (Protonix) 40 mg DAILYAC PO ; Start 08/16/17 at 18:00; Status UNV Vitals/I & O Vital Sign - Last 24 Hours 08/15/17 08/15/17 08/15/17 08/15/17 18:38 20:00 20:29 20:33 Temp 97.4 Pulse 125 129 128 Resp 14 24 B/P (MAP) 162/86 (111) 156/82 (106) 156/82 Pulse Ox 100 97 O2 Delivery Room Air Room Air Room Air 08/15/17 08/15/17 08/15/17 08/15/17 21:31 22:38 23:40 23:59 Pulse 103 96 100 Resp 23 22 20 B/P (MAP) 178/97 (124) 138/79 (98) 170/80 (110) Pulse Ox 96 98 97 O2 Delivery Room Air Room Air Room Air Room Air 08/16/17 08/16/17 08/16/17 08/16/17 02:52 04:00 04:19 06:27 Pulse 18 108 112 Resp 10 18 22 B/P (MAP) 156/93 (114) 162/85 (110) 183/103 (129) Pulse Ox 37 97 97 O2 Delivery Room Air Room Air Room Air Room Air 08/16/17 08/16/17 08/16/17 08/16/17 08:00 08:30 08:40 08:40 Pulse 122 73 71 Resp 22 B/P (MAP) 176/100 (125) 176/100 176/100 Pulse Ox 97 O2 Delivery Room Air Room Air 08/16/17 08/16/17 08/16/17 08/16/17 09:30 09:53 11:27 11:43 Temp 98.6 Pulse 91 83 91 96 Resp 22 18 18 B/P (MAP) 181/96 (124) 181/96 193/108 (136) 167/89 (115) Pulse Ox 97 97 98 O2 Delivery Room Air Room Air Room Air 08/16/17 08/16/17 08/16/17 08/16/17 12:00 12:30 13:30 14:30 Pulse 96 94 96 Resp 18 18 18 B/P (MAP) 140/95 (110) 157/90 (112) 180/83 (115) Pulse Ox 98 98 98 O2 Delivery Room Air Room Air Room Air Room Air 08/16/17 08/16/17 08/16/17 08/16/17 15:30 16:00 16:42 16:45 Pulse 89 116 116 Resp 18 18 B/P (MAP) 164/81 (108) 175/89 (117) 175/89 Pulse Ox 98 97 O2 Delivery Room Air Room Air Room Air Intake and Output 08/15/17 08/15/17 08/16/17 15:00 23:00 07:00 Intake Total 200 ml 2250 ml 0 ml Output Total 650 ml 1600 ml 1400 ml Balance -450 ml 650 ml -1400 ml FORTUNATO LANG MD Aug 16, 2017 18:06
[2017-08-16] MEDS: PANTOPRAZOLE 40 MG TABLET. PO SCH (18:16)
--- NOTE | 2017-08-16 18:24 | EKG ---
[address] [address] Test Date: 2017-08-16 Test Time: 18:17:05 Pat Name: SAMMI ASHER Department: Room: [facility] Gender: F [employer]: : 1960 Requested By: FORTUNATO LANG Order Number: [id number] Reading MD: Measurements Intervals Basco Rate: 136 P: 0 MA: 96 QRS: 43 QRSD: 180 T: -116 QT: 288 QTc: 436 Interpretive Statements SINUS TACHYCARDIA LEFT ATRIAL ABNORMALITY LOW LIMB LEAD VOLTAGE LEFT BUNDLE BRANCH BLOCK ABNORMAL ECG RI6.01 No previous ECG available for comparison
[2017-08-16 18:52] LABS: ANION GAP 13 (6-14); BLOOD UREA NITROGEN 9 mg/dL (7-20); CALCIUM 8.3 mg/dL (8.5-10.1); CARBON DIOXIDE 20 mmol/L (21-32); CHLORIDE 102 mmol/L (98-107); CREATINE KINASE 46 U/L (26-192); CREATININE 0.7 mg/dL (0.6-1.0); GFR 85.9; GLUCOSE 260 mg/dL (70-99); POTASSIUM 4.1 mmol/L (3.5-5.1); SODIUM 135 mmol/L (136-145)
[2017-08-16] MEDS: ENOXAPARIN 40 MG/0.4 ML DISP.SYRIN. SQ SCH (20:16)
[2017-08-16] MEDS ORDERED: INSULIN DETEMIR 300 UNITS/3 ML INSULN.PEN. SQ SCH (21:00)
[2017-08-16] MEDS: ZOLPIDEM 5 MG TABLET. PO PRN (21:34)
[2017-08-17] VITALS (11 sets, daily range): BP systolic 97–163; BP diastolic 55–84
[2017-08-17] MEDS: POTASSIUM CL 40MEQ D5-0.45NACL 1,000 ML IV SCH (05:47)
[2017-08-17 05:57] LABS: ALBUMIN 2.1 g/dL (3.4-5.0); ALBUMIN/GLOBULIN RATIO 0.6 (1.0-1.7); CALCIUM 8.3 mg/dL (8.5-10.1); CREATININE 0.8 mg/dL (0.6-1.0); GFR 73.7; POTASSIUM 4.3 mmol/L (3.5-5.1); TOTAL BILIRUBIN 0.3 mg/dL (0.2-1.0); TOTAL PROTEIN 5.6 g/dL (6.4-8.2)
[2017-08-17 06:17] LABS: BASO % 0 % (0-3); EOS # 0.1 x10^3/uL (0.0-0.7); EOS % 2 % (0-3); HEMATOCRIT 37.2 % (36.0-47.0); HEMOGLOBIN 12.4 g/dL (12.0-15.5); LYMPH # 1.3 x10^3/uL (1.0-4.8); LYMPH % 29 % (24-48); MEAN CORPUSCULAR HEMOGLOBIN 29 pg (25-35); MEAN CORPUSCULAR HGB CONC 34 g/dL (31-37); MEAN CORPUSCULAR VOLUME 86 fL (79-100); MONO # 0.5 x10^3/uL (0.0-1.1); MONO % 12 % (0-9); NEUT # 2.6 x10^3uL (1.8-7.7); NEUT % 58 % (31-73); PLATELET COUNT 251 x10^3/uL (140-400); RED BLOOD COUNT 4.33 x10^6/uL (3.50-5.40); WHITE BLOOD COUNT 4.5 x10^3/uL (4.0-11.0)
[2017-08-17] MEDS: PANTOPRAZOLE 40 MG TABLET. PO SCH (08:17)
[2017-08-17] MEDS: LIPASE/PROTEAS/AMYLAS 10/34/55 CAPSULE.DR. PO SCH ×3 (08:18→17:01)
[2017-08-17] MEDS: METOCLOPRAMIDE 5 MG TABLET PO SCH ×4 (08:18→21:51)
[2017-08-17] MEDS: INSULIN ASPART 300 UNITS/3 ML INSULN.PEN SQ PRN (08:29)
--- NOTE | 2017-08-17 08:52 | PDOC ---
PROGRESS NOTES Assessment 1. DKA: Resolved. Continue to titrate insulin. Pt to advance diet to full liquids today. 2. Chronic Pancreatitis: Lipase elevated (decreased today), but CT was normal on admission. After discussion w/ pt and her sister last night, it was discovered that pt has a hx of chronic pancreatitis and takes pancrealipase before meals. We have restarted this, and hopefully that will help her w/ eating. 3. HTN: Pt on ACEI and BB. PRN hydralazine, but BP's much better. Will continue to monitor. 4. Acute metabolic encephalopathy: Resolved. Pt's mental status appears to be at baseline. 5. DVT proph: Lovenox. 6. Gastroparesis due to poorly controlled DM: Continue Reglan. Advance diet to full liquids today. 7. Hypomagnesemia: Resolved, cont to monitor. 8. Moderate PEM: Pt advancing diet. 9. Coagulase negative staph + blood culture: 1/2 bottles. Likely contaminant. No evidence of sepsis. Vanc d/c'd. Problems: Plan of Care: see other orders Subjective Pt feeling much better this morning. Tolerating liquids without n/v. Abd pain and heartburn improved. NO diarrhea. No rash. NO dizziness. NO CP or SOA. Still voiding per islas. Objective Vital Signs Date Time Temp Pulse Resp B/P (MAP) Pulse Ox O2 Delivery O2 Flow Rate FiO2 08/17/17 06:06 106 17 97/58 (71) 98 Room Air 08/16/17 19:07 99.5 Intake and Output 08/17/17 07:00 Intake Total 670 ml Output Total 3250 ml Balance -2580 ml Intake Oral 420 ml IV Total 250 ml Output Urine Total 3250 ml # Bowel Movements 3 Abdomen: Soft, No tenderness Heart: No murmurs, Other (Slightly tachy, regular rhythm, no murmur.) Extremities: No edema General: Alert, Oriented X3, Cooperative, No acute distress HEENT: Atraumatic, PERRLA, EOMI, Mucous membr. moist/pink Lungs: Clear to auscultation, Normal air movement Neck: No JVD Neuro: Strength at 5/5 X4 ext, Normal tone, Cranial nerves 3-12 NL Psych/Mental Status: Mental status NL, Mood NL Skin: No rashes Review of Relevant I have reviewed the following items belem (where applicable) has been applied. Labs Laboratory Tests Test 08/15/17 09:09 08/15/17 10:13 08/15/17 11:20 08/15/17 12:24 Glucose (Fingerstick) 191 mg/dL (70-99) 186 mg/dL (70-99) 122 mg/dL (70-99) 103 mg/dL (70-99) Test 08/15/17 13:30 08/15/17 14:34 08/15/17 15:45 08/15/17 16:51 Glucose (Fingerstick) 135 mg/dL (70-99) 138 mg/dL (70-99) 147 mg/dL (70-99) 120 mg/dL (70-99) Test 08/15/17 18:01 08/15/17 20:10 08/15/17 21:10 08/15/17 22:10 Glucose (Fingerstick) 102 mg/dL (70-99) 150 mg/dL (70-99) 172 mg/dL (70-99) 191 mg/dL (70-99) Test 08/15/17 23:18 08/16/17 00:13 08/16/17 01:04 08/16/17 03:19 Glucose (Fingerstick) 195 mg/dL (70-99) 179 mg/dL (70-99) 171 mg/dL (70-99) 172 mg/dL (70-99) Test 08/16/17 05:15 08/16/17 06:09 08/16/17 08:31 08/16/17 11:36 White Blood Count 5.9 x10^3/uL (4.0-11.0) Red Blood Count 4.48 x10^6/uL (3.50-5.40) Hemoglobin 12.9 g/dL (12.0-15.5) Hematocrit 38.2 % (36.0-47.0) Mean Corpuscular Volume 85 fL (79-100) Mean Corpuscular Hemoglobin 29 pg (25-35) Mean Corpuscular Hemoglobin Concent 34 g/dL (31-37) Red Cell Distribution Width 14.5 % (11.5-14.5) Platelet Count 269 x10^3/uL (140-400) Sodium Level 139 mmol/L (136-145) Potassium Level 3.9 mmol/L (3.5-5.1) Chloride Level 105 mmol/L (98-107) Carbon Dioxide Level 24 mmol/L (21-32) Anion Gap 10 (6-14) Blood Urea Nitrogen 7 mg/dL (7-20) Creatinine 0.7 mg/dL (0.6-1.0) Estimated GFR (Cockcroft-Gault) 85.9 BUN/Creatinine Ratio 10 (6-20) Glucose Level 174 mg/dL (70-99) Calcium Level 8.0 mg/dL (8.5-10.1) Magnesium Level 2.1 mg/dL (1.8-2.4) Total Bilirubin 0.3 mg/dL (0.2-1.0) Aspartate Amino Transf (AST/SGOT) 17 U/L (15-37) Alanine Aminotransferase (ALT/SGPT) 17 U/L (14-59) Alkaline Phosphatase 121 U/L (46-116) Total Protein 5.9 g/dL (6.4-8.2) Albumin 2.3 g/dL (3.4-5.0) Albumin/Globulin Ratio 0.6 (1.0-1.7) Lipase 2009 U/L (73-393) Glucose (Fingerstick) 183 mg/dL (70-99) 157 mg/dL (70-99) 191 mg/dL (70-99) Test 08/16/17 16:36 08/16/17 18:20 08/16/17 20:34 08/17/17 05:15 Glucose (Fingerstick) 187 mg/dL (70-99) 243 mg/dL (70-99) Sodium Level 135 mmol/L (136-145) 136 mmol/L (136-145) Potassium Level 4.1 mmol/L (3.5-5.1) 4.3 mmol/L (3.5-5.1) Chloride Level 102 mmol/L (98-107) 105 mmol/L (98-107) Carbon Dioxide Level 20 mmol/L (21-32) 22 mmol/L (21-32) Anion Gap 13 (6-14) 9 (6-14) Blood Urea Nitrogen 9 mg/dL (7-20) 11 mg/dL (7-20) Creatinine 0.7 mg/dL (0.6-1.0) 0.8 mg/dL (0.6-1.0) Estimated GFR (Cockcroft-Gault) 85.9 73.7 Glucose Level 260 mg/dL (70-99) 241 mg/dL (70-99) Calcium Level 8.3 mg/dL (8.5-10.1) 8.3 mg/dL (8.5-10.1) Creatine Kinase 46 U/L (26-192) Creatine Kinase MB (Mass) < 0.5 ng/mL (0.0-3.6) Creatine Kinase MB Relative Index 1.1 % (0-4) Troponin I Quantitative < 0.017 ng/mL (0-0.055) White Blood Count 4.5 x10^3/uL (4.0-11.0) Red Blood Count 4.33 x10^6/uL (3.50-5.40) Hemoglobin 12.4 g/dL (12.0-15.5) Hematocrit 37.2 % (36.0-47.0) Mean Corpuscular Volume 86 fL (79-100) Mean Corpuscular Hemoglobin 29 pg (25-35) Mean Corpuscular Hemoglobin Concent 34 g/dL (31-37) Red Cell Distribution Width 14.0 % (11.5-14.5) Platelet Count 251 x10^3/uL (140-400) Neutrophils (%) (Auto) 58 % (31-73) Lymphocytes (%) (Auto) 29 % (24-48) Monocytes (%) (Auto) 12 % (0-9) Eosinophils (%) (Auto) 2 % (0-3) Basophils (%) (Auto) 0 % (0-3) Neutrophils # (Auto) 2.6 x10^3uL (1.8-7.7) Lymphocytes # (Auto) 1.3 x10^3/uL (1.0-4.8) Monocytes # (Auto) 0.5 x10^3/uL (0.0-1.1) Eosinophils # (Auto) 0.1 x10^3/uL (0.0-0.7) Basophils # (Auto) 0.0 x10^3/uL (0.0-0.2) BUN/Creatinine Ratio 14 (6-20) Total Bilirubin 0.3 mg/dL (0.2-1.0) Aspartate Amino Transf (AST/SGOT) 11 U/L (15-37) Alanine Aminotransferase (ALT/SGPT) 14 U/L (14-59) Alkaline Phosphatase 121 U/L (46-116) Total Protein 5.6 g/dL (6.4-8.2) Albumin 2.1 g/dL (3.4-5.0) Albumin/Globulin Ratio 0.6 (1.0-1.7) Lipase 1325 U/L (73-393) Microbiology 08/14/17 Blood Culture - Preliminary, Resulted 08/14/17 Blood Culture Result 1 (TOBY) - Preliminary, Resulted Medications Current Medications Sodium Chloride 1,000 ml @ 1,000 mls/hr 1X ONCE IV Last administered on 08/14 01:00; Start 08/14/17 at 01:00; Stop 08/14/17 at 01:59; Status DC Ondansetron HCl (Zofran) 4 mg 1X ONCE IV Last administered on 08/14/17 01:00 ; Start 08/14/17 at 01:00; Stop 08/14/17 at 01:21; Status DC Sodium Chloride 1,000 ml @ 1,000 mls/hr 1X ONCE IV Last administered on 08/14 02:15; Start 08/14/17 at 02:30; Stop 08/14/17 at 03:29; Status DC Insulin Human Regular 150 unit/ Sodium Chloride 151.5 ml @ 0 mls/hr CONT PRN PRN IV PER PROTOCOL Last administered on 08/15/17 09:19; Start 08/14/17 at 03 :00; Stop 08/16/17 at 09:14; Status DC Potassium Chloride 100 ml @ 100 mls/hr PRN Q1HR PRN IV SEE COMMENTS; Start at 02:45 Magnesium Sulfate 50 ml @ 25 mls/hr PRN Q2HR PRN IV MG LEVEL < 1.8 Last administered on 08/15/17 08:02; Start 08/14/17 at 02:45 Lactated Ringer's 1,400 ml @ 1,400 mls/hr 1X ONCE IV Last administered on 02:45; Start 08/14/17 at 02:45; Stop 08/14/17 at 03:44; Status DC Sodium Chloride 150 ml @ As Directed STK-MED ONCE .ROUTE ; Start 08/14/17 at 03:07; Stop 08/14/17 at 03:08; Status DC Lactated Ringer's 1,400 ml @ 1,400 mls/hr 1X ONCE IV Last administered on 04:00; Start 08/14/17 at 04:00; Stop 08/14/17 at 04:59; Status DC Lactated Ringer's 1,000 ml @ 200 mls/hr 1X ONCE IV Last administered on 08/14 04:00; Start 08/14/17 at 04:00; Stop 08/14/17 at 08:59; Status DC Ondansetron HCl (Zofran) 8 mg 1X ONCE IV Last administered on 08/14/17 04:45 ; Start 08/14/17 at 04:45; Stop 08/14/17 at 04:46; Status DC Enoxaparin Sodium (Lovenox 60mg Syringe) 60 mg 1X ONCE SQ Last administered on 08/14/17 09:08; Start 08/14/17 at 05:45; Stop 08/14/17 at 05:46; Status DC Ondansetron HCl (Zofran) 4 mg PRN Q4HRS PRN IV NAUSEA/VOMITING Last administered on 08/15/17 02:59; Start 08/14/17 at 05:00; Stop 08/15/17 at 04 :59; Status DC Ondansetron HCl (Zofran) 4 mg 1X ONCE IV ; Start 08/14/17 at 05:45; Stop at 05:46; Status DC Potassium Chloride/Dextrose/ Sod Cl 1,000 ml @ 100 mls/hr Q10H IV Last administered on 08/17/17 05:47; Start 08/14/17 at 09:15 Labetalol HCl (Normodyne) 10 mg 1X ONCE IVP Last administered on 08/14/17 11 :03; Start 08/14/17 at 10:00; Stop 08/14/17 at 10:04; Status DC Metoprolol Tartrate (Lopressor) 50 mg BID PO Last administered on 08/16/17 20 :15; Start 08/14/17 at 15:30 Enoxaparin Sodium (Lovenox) 40 mg Q24H SQ Last administered on 08/16/17 20:16 ; Start 08/14/17 at 20:00 Ketorolac Tromethamine (Toradol) 30 mg PRN Q6HRS PRN IV PAIN Last administered on 08/14/17 18:10; Start 08/14/17 at 17:30; Stop 08/15/17 at 05:53; Status DC Hydralazine HCl (Apresoline) 10 mg 1X ONCE IV Last administered on 08/15/17 05:03; Start 08/15/17 at 05:00; Stop 08/15/17 at 05:14; Status DC Acetaminophen (Tylenol) 1,000 mg PRN Q6HRS PRN PO PAIN / TEMP Last administered on 08/16/17 18:26; Start 08/15/17 at 06:00 Lisinopril (Prinivil) 10 mg DAILY PO Last administered on 08/16/17 08:40; Start 08/15/17 at 09:00; Stop 08/16/17 at 09:02; Status DC Hydralazine HCl (Apresoline) 10 mg PRN Q4HRS PRN IV ELEVATED BP, SEE COMMENTS Last administered on 08/16/17 16:45; Start 08/15/17 at 06:00 Metoclopramide HCl (Reglan) 5 mg TIDACHC PO ; Start 08/15/17 at 07:30; Status Cancel Metoclopramide HCl (Reglan) 5 mg TIDACHC PO Last administered on 08/17/17 08: 18; Start 08/15/17 at 07:30 Promethazine HCl (Phenergan) 12.5 mg PRN Q6HRS PRN [place] NAUSEA/VOMITING Last administered on 08/16/17 05:05; Start 08/15/17 at 08:15 Metoclopramide HCl (Reglan Vial) 10 mg PRN Q6HRS PRN IV NAUSEA/VOMITING Last administered on 08/16/17 01:13; Start 08/15/17 at 08:30 Vancomycin HCl (Vanco Per Pharmacy) 1 each PRN DAILY PRN MC SEE COMMENTS Last administered on 08/15/17 09:43; Start 08/15/17 at 08:30; Stop 08/16/17 at 09 :02; Status DC Vancomycin HCl 2 gm/Sodium Chloride 500 ml @ 250 mls/hr 1X ONCE IV Last administered on 08/15/17 09:21; Start 08/15/17 at 09:00; Stop 08/15/17 at 10 :59; Status DC Vancomycin HCl 1.25 gm/Sodium Chloride 250 ml @ 167 mls/hr Q12H IV Last administered on 08/16/17 08:41; Start 08/15/17 at 21:00; Stop 08/16/17 at 09 :02; Status DC Vancomycin HCl 1 each 1X ONCE MC ; Start 08/16/17 at 20:30; Stop 08/16/17 at 20:30; Status DC Influenza Virus Vaccine Quadrival (Fluarix Quad 5568-1408 Syringe) 0.5 ml ONCE ONCE VAX IM ; Start 08/17/17 at 09:00; Stop 08/17/17 at 09:01 Insulin Detemir (Levemir) 30 units QHS SQ Last administered on 08/15/17 21:03 ; Start 08/15/17 at 21:00; Stop 08/16/17 at 09:02; Status DC Insulin Aspart (NovoLOG) 0-7 UNITS PRN Q2HR PRN SQ PER PROTOCOL; Start at 19:30; Stop 08/16/17 at 09:03; Status DC Dextrose 12.5 gm PRN Q15MIN PRN IV SEE COMMENTS; Start 08/15/17 at 19:30 Insulin Aspart (NovoLOG) 0-7 UNITS TIDACHC PRN SQ PER PROTOCOL Last administered on 08/17/17 08:29; Start 08/16/17 at 09:15 Insulin Detemir (Levemir) 35 units QHS SQ Last administered on 08/16/17 21:36 ; Start 08/16/17 at 21:00 Lisinopril (Prinivil) 20 mg DAILY PO Last administered on 08/16/17 09:53; Start 08/16/17 at 09:15 Docusate Sodium (Colace) 100 mg DAILY PO Last administered on 08/16/17 09:53 ; Start 08/16/17 at 09:15 Calcium Carbonate/ Glycine (Tums) 500 mg PRN AFTMEALHC PRN PO INDIGESTION Last administered on 12/16/17at 19:40; Start 08/16/17 at 18:00 Pantoprazole Sodium (Protonix) 40 mg DAILYAC PO Last administered on 08:17; Start 08/16/17 at 18:00 Amylase/Lipase/ Protease (Zenpep 10,000) 2 cap TIDWMEALS PO Last administered on 08/17/17 08:18; Start 08/17/17 at 08:00 Zolpidem Tartrate (Ambien) 5 mg PRN QHS PRN PO INSOMNIA Last administered on 21:34; Start 08/16/17 at 21:15 Vitals/I & O Vital Sign - Last 24 Hours 08/16/17 08/16/17 08/16/17 08/16/17 09:30 09:53 11:27 11:43 Temp 98.6 Pulse 91 83 91 96 Resp 22 18 18 B/P (MAP) 181/96 (124) 181/96 193/108 (136) 167/89 (115) Pulse Ox 97 97 98 O2 Delivery Room Air Room Air Room Air 08/16/17 08/16/17 08/16/17 08/16/17 12:00 12:30 13:30 14:30 Pulse 96 94 96 Resp 18 18 18 B/P (MAP) 140/95 (110) 157/90 (112) 180/83 (115) Pulse Ox 98 98 98 O2 Delivery Room Air Room Air Room Air Room Air 08/16/17 08/16/17 08/16/17 08/16/17 15:30 16:00 16:42 16:45 Pulse 89 116 116 Resp 18 18 B/P (MAP) 164/81 (108) 175/89 (117) 175/89 Pulse Ox 98 97 O2 Delivery Room Air Room Air Room Air 08/16/17 08/16/17 08/16/17 08/16/17 17:30 18:00 19:07 20:00 Temp 99.5 Pulse 118 133 133 Resp 18 18 19 B/P (MAP) 104/67 (79) 119/65 (83) 106/66 (79) Pulse Ox 97 97 98 O2 Delivery Room Air Room Air Room Air Room Air 08/16/17 08/16/17 08/16/17 08/16/17 20:06 20:15 21:06 22:06 Pulse 129 133 112 107 Resp 20 20 20 B/P (MAP) 127/73 (91) 106/66 126/69 (88) 122/72 (89) Pulse Ox 100 100 100 O2 Delivery Room Air Room Air Room Air 08/16/17 08/16/17 08/17/17 08/17/17 23:06 23:59 00:09 01:06 Pulse 105 105 98 Resp 17 B/P (MAP) 102/64 (77) 98/62 (74) 163/82 (109) Pulse Ox 98 96 93 O2 Delivery Room Air Room Air Room Air Room Air 08/17/17 08/17/17 08/17/17 08/17/17 03:06 04:04 04:27 05:06 Pulse 96 100 103 Resp 18 B/P (MAP) 112/55 (74) 115/67 (83) 140/77 (98) Pulse Ox 95 97 97 O2 Delivery Room Air Room Air Room Air Room Air 08/17/17 06:06 Pulse 106 Resp 17 B/P (MAP) 97/58 (71) Pulse Ox 98 O2 Delivery Room Air Intake and Output 08/16/17 08/16/17 08/17/17 15:00 23:00 07:00 Intake Total 400 ml 270 ml Output Total 1750 ml 1500 ml Balance -1350 ml 270 ml -1500 ml FORTUNATO LANG MD Aug 17, 2017 08:52
[2017-08-17] MEDS ORDERED: FLU VACC QS2017-18 (36MOS+)/PF 0.5 ML SYRINGE. VAX IM ONE (09:00)
[2017-08-17] MEDS: LISINOPRIL 20 MG TABLET PO SCH (09:15)
[2017-08-17] MEDS: DOCUSATE SODIUM 100 MG CAPSULE PO SCH (09:17)
[2017-08-17] MEDS: METOPROLOL TART IMMED RELEASE 50 MG TABLET PO SCH ×2 (09:17→21:52)
[2017-08-17] MEDS: ACETAMINOPHEN 500 MG TABLET PO PRN ×2 (09:17→17:11)
[2017-08-17] MEDS: ZOLPIDEM 5 MG TABLET. PO PRN (21:51)
[2017-08-17] MEDS: ENOXAPARIN 40 MG/0.4 ML DISP.SYRIN. SQ SCH (21:52)
[2017-08-17] MEDS: INSULIN DETEMIR 300 UNITS/3 ML INSULN.PEN. SQ SCH (21:53)
[2017-08-18 05:36] VITALS: BP 99/56
[2017-08-18] MEDS: PANTOPRAZOLE 40 MG TABLET. PO SCH (07:38)
[2017-08-18] MEDS: LIPASE/PROTEAS/AMYLAS 10/34/55 CAPSULE.DR. PO SCH ×3 (07:38→16:46)
[2017-08-18] MEDS: METOCLOPRAMIDE 5 MG TABLET PO SCH ×4 (07:38→21:16)
[2017-08-18] MEDS: DOCUSATE SODIUM 100 MG CAPSULE PO SCH (08:58)
[2017-08-18] MEDS ORDERED: METO50TA6 PO (10:02)
[2017-08-18] MEDS ORDERED: LIPA1CAP36 PO (10:02)
[2017-08-18] MEDS ORDERED: LACT1TAB24 PO (10:02)
[2017-08-18] MEDS ORDERED: INSU100I13 SQ (10:02)
[2017-08-18] MEDS ORDERED: LISI-334 PO (10:02)
[2017-08-18] MEDS ORDERED: METO10TA81 PO (10:02)
[2017-08-18] MEDS ORDERED: INSU100I17 SQ (10:02)
[2017-08-18] MEDS ORDERED: PANT40TA3 PO (10:19)
[2017-08-18 11:22] VITALS: BP 133/61
[2017-08-18] MEDS: METOPROLOL TART IMMED RELEASE 50 MG TABLET PO SCH ×2 (13:51→21:16)
[2017-08-18] MEDS: LISINOPRIL 20 MG TABLET PO SCH (13:52)
[2017-08-18 15:30] VITALS: BP 117/76
[2017-08-18] MEDS: INSULIN ASPART 300 UNITS/3 ML INSULN.PEN SQ PRN (16:54)
[2017-08-18 20:24] VITALS: BP 109/65
[2017-08-18] MEDS: ACETAMINOPHEN 500 MG TABLET PO PRN (21:17)
[2017-08-18] MEDS: ENOXAPARIN 40 MG/0.4 ML DISP.SYRIN. SQ SCH (21:17)
[2017-08-18] MEDS: INSULIN DETEMIR 300 UNITS/3 ML INSULN.PEN. SQ SCH (21:23)
[2017-08-18 23:20] VITALS: BP 117/74
[2017-08-18] MEDS: ZOLPIDEM 5 MG TABLET. PO PRN (23:44)
--- NOTE | 2017-08-19 00:56 | PN ---
DATE: 08/18/2017 SUBJECTIVE: The patient is resting, slightly propped up in bed, in no apparent distress. She said she continued to have mild nausea and mild discomfort in the right lower quadrant. Denied any vomiting. Had a loose bowel movement this morning and has been on a full liquid diet with a plan for her to advance her diet to a regular diet this afternoon. PHYSICAL EXAMINATION: GENERAL: When I examined her, she looked pale, but not jaundiced, no lymphadenopathy, no thyromegaly. No jugular venous distension. No limb edema. VITAL SIGNS: Her heart rate was 97, blood pressure 133/61, temperature was 99, respiratory rate 20, and oxygen saturation was 100% on room air. HEAD, EYES, EARS, NOSE AND THROAT: Normocephalic, atraumatic. NECK: Supple. HEART: Showed normal first and second heart sounds with no gallop, rub or murmur. CHEST: Clear to auscultation. No crepitation or rhonchi. ABDOMEN: Distended, soft, and nontender. No guarding or rigidity. No organomegaly. Hernial orifice intact. Bowel sounds normal. NEUROLOGIC: She was awake, alert, responding appropriately. Cranial nerves intact. She moves extremities without difficulty. She ambulates without assistance or assistive devices. Her intake was 1600, output was 350. LABORATORY DATA: As of her most recent lab work showed a serum sodium 136, potassium 4.3, chloride 105, bicarbonate 22, anion gap of 9, BUN 11, creatinine 0.8, estimated GFR was 74 mL per minute. Her glucose 241, calcium was 8.3. Total bilirubin, AST, ALT, alkaline phosphatase were normal. His total protein was 5.6, albumin 2.1. Serum lipase was high at 1325. TSH was 1.227. Her white cell count was 4500, hemoglobin 12, hematocrit 37, MCV 86, and platelet count of 251,000. Her influenza A and B were negative. Her nasal screen for MRSA and PCR was negative. ASSESSMENT: 1. Diabetic ketoacidosis, resolved. The patient's diet was advanced from clear to full liquid and today, it will be advanced to regular diet. 2. Chronic pancreatitis with a serum lipase elevated for which the patient is apparently pancrelipase before meals that was resumed. 3. The patient has hypertension for which she is on angiotensin-converting enzyme inhibitor and beta blockers. 4. She has also diabetic gastroparesis, hypomagnesemia, and moderate protein-calorie malnutrition. PLAN: To advance her diet as tolerated. Repeat her lab works tomorrow and if she remains stable, she can be discharged home. INÉS GARCÍA MD DR: MAXIM/carson JOB#: [id number] / [id number]
[2017-08-19 04:10] LABS: ALBUMIN 2.1 g/dL (3.4-5.0); ALBUMIN/GLOBULIN RATIO 0.6 (1.0-1.7); CALCIUM 8.5 mg/dL (8.5-10.1); CREATININE 0.8 mg/dL (0.6-1.0); GFR 73.7; TOTAL BILIRUBIN 0.1 mg/dL (0.2-1.0); TOTAL PROTEIN 5.8 g/dL (6.4-8.2)
[2017-08-19] MEDS: POTASSIUM CHLORIDE 10MEQ 100 ML IV PRN ×2 (04:46→06:08)
[2017-08-19 06:04] VITALS: BP 117/56
[2017-08-19] MEDS: LISINOPRIL 20 MG TABLET PO SCH (08:09)
[2017-08-19] MEDS: METOPROLOL TART IMMED RELEASE 50 MG TABLET PO SCH ×2 (08:10→21:07)
[2017-08-19] MEDS: METOCLOPRAMIDE 5 MG TABLET PO SCH ×4 (08:13→21:07)
[2017-08-19] MEDS: PANTOPRAZOLE 40 MG TABLET. PO SCH (08:13)
[2017-08-19] MEDS: LIPASE/PROTEAS/AMYLAS 10/34/55 CAPSULE.DR. PO SCH ×3 (08:16→18:46)
[2017-08-19] MEDS: ACETAMINOPHEN 500 MG TABLET PO PRN (08:29)
[2017-08-19] MEDS: DOCUSATE SODIUM 100 MG CAPSULE PO SCH (08:43)
[2017-08-19 10:47] VITALS: BP 129/75
[2017-08-19] MEDS: INSULIN ASPART 300 UNITS/3 ML INSULN.PEN SQ PRN (12:19)
[2017-08-19] MEDS ORDERED: DEXTROSE 50% 25 GM / 50ML DISP.SYRIN. IV PRN (14:45)
[2017-08-19] MEDS: POTASSIUM CHLORIDE 20 MEQ TABLET.ER. PO SCH ×2 (15:00→21:07)
[2017-08-19 15:33] VITALS: BP 125/63
[2017-08-19] MEDS: INSULIN ASPART 300 UNITS/3 ML INSULN.PEN SQ SCH (17:05)
[2017-08-19 19:46] VITALS: BP 123/77
[2017-08-19] MEDS ORDERED: INSULIN DETEMIR 300 UNITS/3 ML INSULN.PEN. SQ SCH (21:00)
[2017-08-19] MEDS: ENOXAPARIN 40 MG/0.4 ML DISP.SYRIN. SQ SCH (21:08)
--- NOTE | 2017-08-19 23:51 | PN ---
DATE: 08/19/2017 SUBJECTIVE: The patient is resting almost flat in bed, in no apparent respiratory distress. On questioning her, she denied any complaints; however, the nursing staff said that she has multiple episodes of hypoglycemia and also hypokalemia. Her blood sugar on admission was extremely high at 1455; however, she has experienced a few episodes of hypoglycemia at 3:00 a.m. in the morning. PHYSICAL EXAMINATION: GENERAL: When I examined her, she looked pale, no jaundice, cyanosis, or thyromegaly. No jugular venous distension. No limb edema. VITAL SIGNS: His heart rate was 86, blood pressure was 129/75, temperature was 98.4, respiratory rate was 20, and oxygen saturation was 97% on room air. HEAD, EYES, EARS, NOSE AND THROAT: Showed normocephalic, atraumatic. NECK: Supple. HEART: Showed normal first and second heart sounds. No gallop, rub or murmur. CHEST: Clear to auscultation. No crepitation or rhonchi. ABDOMEN: Distended, soft, nontender. NEUROLOGIC: She was awake, alert, responding appropriately. Cranial nerves are intact. EXTREMITIES: She moves extremities without difficulty. She ambulates without assistance or assistive devices. Her intake over the last 24 hours was 1580, output was 1350. LABORATORY DATA: As of this morning, her lab work showed that her white cell count was 4500, hemoglobin 12, hematocrit 37, MCV 86, and platelet count of 251,000. Her chemistry showed a serum sodium 140, potassium 3.7, chloride 108, bicarbonate 29, anion gap of 6, BUN 13, creatinine 0.8, estimated GFR was 74 mL per minute. Her glucose was 64 and calcium was 8.5. Total bilirubin, AST, ALT, alkaline phosphatase were normal. Total protein was 5.8, albumin 2.1. ASSESSMENT: 1. Diabetic ketoacidosis, resolved. The patient's diet was advanced to regular diet. 2. Chronic pancreatitis with serum lipase that is elevated. Her serum lipase is trending down, as of this morning it's 967 down from 2500. 3. Hypertension for which she is on angiotensin converting enzyme inhibitor and beta-dontrell and seems to be well controlled. 4. She has diabetic gastroparesis. 5. Hypomagnesemia. It was resolved. 6. Severe protein-calorie malnutrition with serum albumin of only 2.1 g/dL. PLAN: My plan is to make sure that she gets insulin sliding scale before meals only and I cut down her Lantus to be given at bedtime and if she is stabilized she would be able to go home tomorrow. INÉS GARCÍA MD DR: MAXIM/carson JOB#: [id number] / [id number]
[2017-08-19 23:52] VITALS: BP 129/80
[2017-08-20] MEDS: ACETAMINOPHEN 500 MG TABLET PO PRN ×2 (02:35→09:29)
[2017-08-20 05:11] VITALS: BP 144/77
[2017-08-20 05:48] LABS: CALCIUM 8.7 mg/dL (8.5-10.1); CREATININE 0.9 mg/dL (0.6-1.0); GFR 64.3
[2017-08-20] MEDS: INSULIN ASPART 300 UNITS/3 ML INSULN.PEN SQ SCH ×2 (07:30→12:56)
[2017-08-20] MEDS: DOCUSATE SODIUM 100 MG CAPSULE PO SCH ×2 (09:00→09:21)
[2017-08-20] MEDS: LIPASE/PROTEAS/AMYLAS 10/34/55 CAPSULE.DR. PO SCH ×2 (09:19→11:56)
[2017-08-20] MEDS: PANTOPRAZOLE 40 MG TABLET. PO SCH (09:19)
[2017-08-20] MEDS: METOPROLOL TART IMMED RELEASE 50 MG TABLET PO SCH (09:20)
[2017-08-20] MEDS: LISINOPRIL 20 MG TABLET PO SCH (09:20)
[2017-08-20] MEDS: POTASSIUM CHLORIDE 20 MEQ TABLET.ER. PO SCH ×2 (09:20→15:38)
[2017-08-20] MEDS: METOCLOPRAMIDE 5 MG TABLET PO SCH ×2 (09:20→11:56)
[2017-08-20 10:32] VITALS: BP 123/79
[2017-08-20 14:41] VITALS: BP 124/75
--- NOTE | 2017-08-21 05:05 | DS ---
DATE OF DISCHARGE: 08/20/2017 HOSPITAL COURSE: The patient is a 56-year-old female patient who was admitted on 08/14/17. She was initially found by her behind the couch lying in the vomit. She was transported to Emergency Room, found to be extremely hyperglycemic with a blood sugar 1455 and DKA. She apparently has type 2 diabetes and has had it since the age of 28. She does not take care of herself or check her sugars very frequently and apparently was complaining of abdominal pain, was taking a large amount of milk to help the pain. She was basically treated aggressively with IV fluid and insulin drip. She was found also to have acute on chronic pancreatitis. Her blood sugar has finally stabilized; however, her serum lipase has initially trended down from 2500, down to 967, and today it went up to ____. We started her on a clear liquid diet, increased to full liquid and over the last 2 days, she was on a regular diet; however, today again she started having abdominal pain similar to the pain when she was at home and therefore, a decision was made to transfer her to [facility] to consult the gastroenterology team to arrange perhaps for upper GI endoscopy. PHYSICAL EXAMINATION: GENERAL: When I examined her this afternoon, she looked well and was clearly in no apparent respiratory distress. She was slightly pale, but no jaundice, cyanosis, or thyromegaly. No jugular venous distention. No limb edema. VITAL SIGNS: Her heart rate was 98, blood pressure 123/79, temperature was 98.4, respiratory rate 20, and oxygen saturation was 99%. HEAD, EYES, EARS, NOSE, AND THROAT: Normocephalic, atraumatic. NECK: Supple. HEART: Showed normal first and second sounds. No gallop, rub, or murmur. CHEST: Clear to auscultation. No crepitation or rhonchi. ABDOMEN: Distended, soft, tender mostly in the epigastric area. No guarding or rigidity. No organomegaly. All hernial orifices intact. Bowel sounds normal. NEUROLOGIC: She was awake, alert, responding appropriately. Cranial nerves intact. She moves extremities without difficulty. Her intake over the last 24 hours was 2215, which was recorded. LABORATORY DATA: Her most recent CBC showed a white cell count of 4500, hemoglobin 12.4, hematocrit 37, MCV 86, and platelet count of 251,000. Her chemistry showed a serum sodium 139, potassium 4, chloride 104, bicarbonate 28, anion gap of 7, BUN 14, creatinine 0.9, estimated GFR was 64 mL per minute. Her glucose was 222, calcium was 8.7, and serum lipase was 990. The patient will be discharged to continue on her following medications: Levemir insulin 30 units at bedtime, NovoLog insulin as per insulin sliding scale before meals, potassium chloride 20 mEq 3 times a day, pancrelipase, Zenpep 2 capsules 3 times a day with meals, Ambien 5 mg at bedtime, Protonix 40 mg once a day, calcium carbonate 500 mg with meals, Colace 100 mg daily, lisinopril 20 mg once a day, metoclopramide 10 mg before meals and bedtime, promethazine 12.5 mg every 6 hours, acetaminophen 1000 mg every 6 hours, Lovenox 40 mg once a day, and metoprolol 50 mg twice a day. FINAL DISCHARGE DIAGNOSES: 1. Diabetic ketoacidosis, resolved. The patient's diet was advanced to regular diet. Unfortunately, she started having recurrence of this pain. 2. Chronic pancreatitis. Serum lipase that is trending down, although it came down to 967, today up to ____, although CT scan showed no evidence of pancreatitis. 3. Hypertension, for which she is on angiotensin converting enzyme inhibitor and beta dontrell and seems to be well controlled. 4. Diabetic gastroparesis, for which she is on metoclopramide. 5. Hypomagnesemia, resolved. 6. Severe protein calorie malnutrition with serum albumin only 2.1 g/dL. PLAN: To consult and put her on a clear liquid diet, continue with insulin sliding scale. We will consult the gastroenterology team to see whether upper GI endoscopy might clarify the cause of her symptoms, given that her serum lipase was high in the face of a normal CT scan. INÉS GARCÍA MD DR: MAXIM/carson JOB#: [id number] / [id number]
== END 2017-08-20 16:10 | disposition short-term general hospital (02) | DRG 637 ==
LOC: ER 00:37 → ICU 04:45 → 1 SOUTH 08-17 14:00
PROVIDERS: ADMIT Family Medicine; ATTEND Family Medicine
PROC: 02H633Z Insertion of Infusion Device into Right Atrium, Percutaneous Approach (ICD-10-PCS; principal; 2017-08-14)
DX: E11.10 Type 2 diabetes mellitus with ketoacidosis without coma (principal); E43 Unspecified severe protein-calorie malnutrition; G93.41 Metabolic encephalopathy; K85.90 Acute pancreatitis without necrosis or infection, unspecified; K31.84 Gastroparesis; E87.1 Hypo-osmolality and hyponatremia; K86.1 Other chronic pancreatitis; E83.42 Hypomagnesemia; E87.5 Hyperkalemia; E11.43 Type 2 diabetes mellitus with diabetic autonomic (poly)neuropathy; E87.6 Hypokalemia; I10 Essential (primary) hypertension; I25.10 Atherosclerotic heart disease of native coronary artery without angina pectoris; I25.2 Old myocardial infarction; I44.7 Left bundle-branch block, unspecified; Z95.5 Presence of coronary angioplasty implant and graft; Z91.19 Patient's noncompliance with other medical treatment and regimen; Z68.27 Body mass index [BMI] 27.0-27.9, adult; E11.65 Type 2 diabetes mellitus with hyperglycemia
CPT/HCPCS: 36415; 36556; 36600; 51702; 70450; 71010; 74176; 78582; 80048; 80053; 80307; 81001; 82010; 82550; 82553; 82803; 82947; 83605; 83690; 83735; 83880; 83930; 84100; 84132; 84443; 84484; 85025; 85027; 85379; 85610; 85730; 87040; 87205; 87641; 87804; 93005; 94640; 96361; 96374; 96376; A9540; A9558; G0480; J0360; J1650; J1815; J1885; J2405; J2765; J3370; J3475; J3480; J3490; J7040; J7042; J7050; J7120; J8597; 99291-25; G0479; J7030

== ENCOUNTER 2017-08-29 20:11 | Inpatient (IN) | payer SELFPAY ==
[~2017-08-29] VITALS: Ht 157.5 cm; Wt 70.9 kg
[~2017-08-29 20:11] MED LIST: INSU100I13 SQ; INSU100I17 SQ; LACT1TAB24 PO; LIPA1CAP36 PO; LISI-334 PO; METO10TA81 PO; METO50TA6 PO; PANT40TA3 PO
--- NOTE | 2017-08-29 20:21 | PHYS DOC ---
Past History Past Medical History: Other Alcohol Use: None Drug Use: None Adult General HPI HPI Patient is a 56 year old F who presents with abdominal pain and hyperglycemia. Patient states she is a history of gastroparesis with elevated blood sugars and uncontrolled diabetes. Patient is earlier today she started developing some abdominal pain with nausea and vomiting and her blood sugars were in the 380s before coming emergency room. Patient denies any fevers. Patient denies any chest pain returns of breath. Patient has no other complaints. Review of Systems Review of Systems GEN: Denies fevers, chills, sweats HEENT: Denies blurred vision, sore throat CV: Denies chest pain RESP: Denies shortness of air, cough GI: Abdominal pain with nausea and vomiting NEURO: Denies confusion, dizziness MSK: Denies weakness, joint pain/swelling All other systems were reviewed and found to be within normal limits, except as documented in this note. Allergies Allergies Allergies Coded Allergies Type Severity Reaction Last Updated Verified No Known Drug Allergies 08/14/17 No Physical Exam Physical Exam GEN.: Moderate distress. Alert and oriented. HEENT: Head is normocephalic, atraumatic, dry mucous members NECK: Supple. LUNGS: CTAB. HEART: Tachycardia, S1, S2 present. Peripheral pulses intact ABDOMEN: Soft, generalized mild tenderness, no rebound tenderness, no guarding, no abdominal distention. Positive bowel sounds. EXTREMITIES: Without any cyanosis. NEUROLOGIC: Normal speech, normal tone PSYCHIATRIC: Normal affect, normal mood. SKIN: No ulcerations Current Patient Data Vital Signs Laboratory Tests Test 08/29/17 20:25 08/29/17 20:32 White Blood Count 9.1 x10^3/uL Red Blood Count 4.44 x10^6/uL Hemoglobin 13.2 g/dL Hematocrit 37.9 % Mean Corpuscular Volume 85 fL Mean Corpuscular Hemoglobin 30 pg Mean Corpuscular Hemoglobin Concent 35 g/dL Red Cell Distribution Width 14.6 % Platelet Count 456 x10^3/uL Neutrophils (%) (Auto) 83 % Lymphocytes (%) (Auto) 11 % Monocytes (%) (Auto) 5 % Eosinophils (%) (Auto) 1 % Basophils (%) (Auto) 1 % Neutrophils # (Auto) 7.6 x10^3uL Lymphocytes # (Auto) 1.0 x10^3/uL Monocytes # (Auto) 0.4 x10^3/uL Eosinophils # (Auto) 0.1 x10^3/uL Basophils # (Auto) 0.0 x10^3/uL Urine Collection Type Unknown Urine Color Straw Urine Clarity Clear Urine pH 6.0 Urine Specific Lipan 1.020 Urine Protein >100 mg/dl Urine Glucose (UA) >=1000 mg/dL Urine Ketones (Stick) 40 mg/dL Urine Blood Mod Urine Nitrite Neg Urine Bilirubin Neg Urine Urobilinogen Dipstick 0.2 mg/dL Urine Leukocyte Esterase Neg Urine RBC 3-5 /HPF Urine WBC Occ /HPF Urine Squamous Epithelial Cells Mod /LPF Urine Amorphous Sediment Present /HPF Urine Bacteria 0 /HPF Urine Mucus Slight /LPF Sodium Level 139 mmol/L Potassium Level 3.3 mmol/L Chloride Level 99 mmol/L Carbon Dioxide Level 22 mmol/L Anion Gap 18 Blood Urea Nitrogen 18 mg/dL Creatinine 1.1 mg/dL Estimated GFR (Cockcroft-Gault) 51.0 BUN/Creatinine Ratio 16 Glucose Level 248 mg/dL Calcium Level 9.3 mg/dL Total Bilirubin 0.2 mg/dL Aspartate Amino Transf (AST/SGOT) 22 U/L Alanine Aminotransferase (ALT/SGPT) 25 U/L Alkaline Phosphatase 138 U/L Total Protein 7.9 g/dL Albumin 3.2 g/dL Albumin/Globulin Ratio 0.7 Lipase 532 U/L Urine Opiates Screen Neg Urine Methadone Screen Neg Urine Barbiturates Neg Urine Phencyclidine Screen Neg Urine Amphetamine/Methamphetamine Neg Urine Benzodiazepines Screen Neg Urine Cocaine Screen Neg Urine Cannabinoids Screen Neg Urine Ethyl Alcohol Neg Glucose (Fingerstick) 221 mg/dL Current Medications Medications (Trade) Dose Ordered Sig/Georgi Route PRN Reason Start Time Stop Time Status Last Admin Dose Admin Sodium Chloride 1,000 ml @ 1,000 mls/hr 1X ONCE IV 08/29/17 20:30 08/29/17 21:29 DC 08/29/17 20:57 Famotidine (Pepcid Vial) 20 mg 1X ONCE IVP 08/29/17 20:30 08/29/17 20:31 DC 08/29/17 20:57 Metoclopramide HCl (Reglan Vial) 10 mg 1X ONCE IV 08/29/17 20:30 08/29/17 20:31 DC 08/29/17 20:58 Haloperidol Lactate (Haldol) 5 mg 1X ONCE IM 08/29/17 20:30 08/29/17 20:31 DC 08/29/17 20:57 Ondansetron HCl (Zofran) 4 mg 1X ONCE IV 08/29/17 22:15 08/29/17 22:16 UNV Lab Results Laboratory Tests Test 08/29/17 20:25 08/29/17 20:32 White Blood Count 9.1 x10^3/uL Red Blood Count 4.44 x10^6/uL Hemoglobin 13.2 g/dL Hematocrit 37.9 % Mean Corpuscular Volume 85 fL Mean Corpuscular Hemoglobin 30 pg Mean Corpuscular Hemoglobin Concent 35 g/dL Red Cell Distribution Width 14.6 % Platelet Count 456 x10^3/uL Neutrophils (%) (Auto) 83 % Lymphocytes (%) (Auto) 11 % Monocytes (%) (Auto) 5 % Eosinophils (%) (Auto) 1 % Basophils (%) (Auto) 1 % Neutrophils # (Auto) 7.6 x10^3uL Lymphocytes # (Auto) 1.0 x10^3/uL Monocytes # (Auto) 0.4 x10^3/uL Eosinophils # (Auto) 0.1 x10^3/uL Basophils # (Auto) 0.0 x10^3/uL Urine Collection Type Unknown Urine Color Straw Urine Clarity Clear Urine pH 6.0 Urine Specific Lipan 1.020 Urine Protein >100 mg/dl Urine Glucose (UA) >=1000 mg/dL Urine Ketones (Stick) 40 mg/dL Urine Blood Mod Urine Nitrite Neg Urine Bilirubin Neg Urine Urobilinogen Dipstick 0.2 mg/dL Urine Leukocyte Esterase Neg Urine RBC 3-5 /HPF Urine WBC Occ /HPF Urine Squamous Epithelial Cells Mod /LPF Urine Amorphous Sediment Present /HPF Urine Bacteria 0 /HPF Urine Mucus Slight /LPF Sodium Level 139 mmol/L Potassium Level 3.3 mmol/L Chloride Level 99 mmol/L Carbon Dioxide Level 22 mmol/L Anion Gap 18 Blood Urea Nitrogen 18 mg/dL Creatinine 1.1 mg/dL Estimated GFR (Cockcroft-Gault) 51.0 BUN/Creatinine Ratio 16 Glucose Level 248 mg/dL Calcium Level 9.3 mg/dL Total Bilirubin 0.2 mg/dL Aspartate Amino Transf (AST/SGOT) 22 U/L Alanine Aminotransferase (ALT/SGPT) 25 U/L Alkaline Phosphatase 138 U/L Total Protein 7.9 g/dL Albumin 3.2 g/dL Albumin/Globulin Ratio 0.7 Lipase 532 U/L Urine Opiates Screen Neg Urine Methadone Screen Neg Urine Barbiturates Neg Urine Phencyclidine Screen Neg Urine Amphetamine/Methamphetamine Neg Urine Benzodiazepines Screen Neg Urine Cocaine Screen Neg Urine Cannabinoids Screen Neg Urine Ethyl Alcohol Neg Glucose (Fingerstick) 221 mg/dL Current Medications Medications (Trade) Dose Ordered Sig/Georgi Route PRN Reason Start Time Stop Time Status Last Admin Dose Admin Sodium Chloride 1,000 ml @ 1,000 mls/hr 1X ONCE IV 08/29/17 20:30 08/29/17 21:29 DC 08/29/17 20:57 Famotidine (Pepcid Vial) 20 mg 1X ONCE IVP 08/29/17 20:30 08/29/17 20:31 DC 08/29/17 20:57 Metoclopramide HCl (Reglan Vial) 10 mg 1X ONCE IV 08/29/17 20:30 08/29/17 20:31 DC 08/29/17 20:58 Haloperidol Lactate (Haldol) 5 mg 1X ONCE IM 08/29/17 20:30 08/29/17 20:31 DC 08/29/17 20:57 Ondansetron HCl (Zofran) 4 mg 1X ONCE IV 08/29/17 22:15 08/29/17 22:16 UNV EKG EKG 2057: EKG shows sinus tach rate of 138 no STEMI[] Radiology/Procedures Radiology/Procedures CT scan abdomen pelvis IMPRESSION: 1. No acute process. Appendectomy. 2. 7 mm right lower lobe pulmonary nodule. 3. Stable mild right renal hydronephrosis due to chronic ureteropelvic junction obstruction. 4. Nonobstructing right renal calculi. 5. Globular enlargement of the uterus, nonspecific, may be related to fibroids, stable. Course & Med Decision Making Course & Med Decision Making Pertinent Labs and Imaging studies reviewed. (See chart for details) ED course: Patient was seen and examined emergency room abdominal blood work was ordered along with a CT scan abdomen pelvis Patient was reevaluated in which she still complaining of epigastric pain with nausea and vomiting. Updated patient on CT findings and lab results. After performing a chart review patient has persistent tachycardia and her previous lipase was well over thousand 2210: Discussed CC/HP/PMH with Dr. Galo and recommends admit and IV fluids and nausea vomiting medication and pain control MDM: After reviewing the chart, CC/HPI/PMH, physical exam, [lab results], [ radiological results], I believe the patient has acute on chronic pancreatitis and since the patient still having epigastric pain with nausea and vomiting will omit the patient for further evaluation and management. [] Dragon Disclaimer Dragon Disclaimer This electronic medical record was generated, in whole or in part, using a voice recognition dictation system. Departure Departure: Impression: Primary Impression: Acute on chronic pancreatitis Additional Impressions: Tachycardia Epigastric abdominal pain Disposition: ADMITTED INPATIENT Admitting Physician: Terell Galo Condition: STABLE Referrals: PCP,NO (PCP) Problem Qualifiers KOFI LOYA DO Aug 29, 2017 20:21
[2017-08-29] MEDS ORDERED: IV NORMAL SALINE 1,000ML 1,000 ML IV ONE (20:30)
[2017-08-29] MEDS ORDERED: FAMOTIDINE 20 MG/2 ML VIAL IVP ONE (20:30)
[2017-08-29] MEDS ORDERED: METOCLOPRAMIDE HCL 10 MG/2 ML VIAL. IV ONE (20:30)
[2017-08-29] MEDS ORDERED: HALOPERIDOL LACT 5 MG/ML VIAL. IM ONE (20:30)
[2017-08-29 20:49] LABS: BASO % 1 % (0-3); EOS # 0.1 x10^3/uL (0.0-0.7); EOS % 1 % (0-3); HEMATOCRIT 37.9 % (36.0-47.0); HEMOGLOBIN 13.2 g/dL (12.0-15.5); LYMPH % 11 % (24-48); MEAN CORPUSCULAR HEMOGLOBIN 30 pg (25-35); MEAN CORPUSCULAR HGB CONC 35 g/dL (31-37); MEAN CORPUSCULAR VOLUME 85 fL (79-100); MONO # 0.4 x10^3/uL (0.0-1.1); MONO % 5 % (0-9); NEUT # 7.6 x10^3uL (1.8-7.7); NEUT % 83 % (31-73); PLATELET COUNT 456 x10^3/uL (140-400); RED BLOOD COUNT 4.44 x10^6/uL (3.50-5.40); RED CELL DISTRIBUTION WIDTH 14.6 % (11.5-14.5); WHITE BLOOD COUNT 9.1 x10^3/uL (4.0-11.0)
[2017-08-29 21:04] LABS: ALBUMIN 3.2 g/dL (3.4-5.0); ALBUMIN/GLOBULIN RATIO 0.7 (1.0-1.7); CALCIUM 9.3 mg/dL (8.5-10.1); CREATININE 1.1 mg/dL (0.6-1.0); POTASSIUM 3.3 mmol/L (3.5-5.1); TOTAL BILIRUBIN 0.2 mg/dL (0.2-1.0); TOTAL PROTEIN 7.9 g/dL (6.4-8.2)
[2017-08-29 21:16] LABS: AMPHETAMINE/METHAMPHETAMINE NEG (NEG); BARBITURATES NEG (NEG); BENZODIAZEPINES NEG (NEG); CANNABINOIDS NEG (NEG); COCAINE NEG (NEG); METHADONE NEG (NEG); OPIATES NEG (NEG); PHENCYCLIDINE NEG (NEG)
[2017-08-29 21:28] LABS: BILIRUBIN,URINE NEG (NEG); CLARITY,URINE CLEAR; COLOR,URINE STRAW; GLUCOSE,URINE >=1000 mg/dL (NEG); NITRITE,URINE NEG (NEG); UROBILINOGEN,URINE 0.2 mg/dL (0.2 mg/dL)
[2017-08-29 21:29] LABS: AMORPHOUS SEDIMENT,UR PRESENT /HPF; BACTERIA,URINE 0 /HPF (0-FEW); SQUAMOUS EPITHELIAL CELL,UR MOD /LPF; WBC,URINE OCC /HPF (0-4)
--- NOTE | 2017-08-29 21:31 | RAD ---
CT abdomen and pelvis without contrast COMPARISON: CT abdomen and pelvis August 14, 2017. HISTORY: Generalized abdominal pain. Abdomen findings: Right lower lobe 7 mm pulmonary nodule. Right mastectomy with tissue algology teacher noted. Lower lumbar spine disc disease. Cholecystectomy. Mild prominence of the common bile duct likely related to cholecystectomy. Liver, spleen, adrenals, pancreas and left kidney unremarkable. Right nephrolithiasis. Mild right renal hydronephrosis due to a ureteropelvic junction obstruction similar to prior study. Aorta and iliac artery calcified plaque. Appendectomy. No obstruction or inflammatory changes in GI tract evident. No abdominal fluid. Pelvis findings: Globular enlargement of the uterus may be due to fibroids, stable. No bladder calculi. Pelvic phleboliths. Rectum, ovaries and bones are unremarkable. No pelvic fluid. IMPRESSION: 1. No acute process. Appendectomy. 2. 7 mm right lower lobe pulmonary nodule. 3. Stable mild right renal hydronephrosis due to chronic ureteropelvic junction obstruction. 4. Nonobstructing right renal calculi. 5. Globular enlargement of the uterus, nonspecific, may be related to fibroids, stable. Exposure: One or more of the following individualized dose reduction techniques were utilized for this examination: 1. Automated exposure control 2. Adjustment of the mA and/or kV according to patient size 3. Use of iterative reconstruction technique Electronically signed by: Devyn Noonan MD (08/29/2017 9:28 PM) [facility]
[2017-08-29] MEDS ORDERED: ONDANSETRON PF 4 MG/2 ML VIAL. IV ONE (22:15)
[2017-08-29] MEDS ORDERED: ACETAMINOPHEN 325 MG TABLET PO PRN (22:30)
[2017-08-29] MEDS ORDERED: ONDANSETRON PF 4 MG/2 ML VIAL. IV PRN (22:30)
[2017-08-30] VITALS (8 sets, daily range): BP systolic 91–191; BP diastolic 57–125
--- NOTE | 2017-08-30 00:18 | EKG ---
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
[2017-08-30] MEDS ORDERED: PROCHLORPERAZINE 10 MG/2 ML VIAL. IV PRN (01:00)
[2017-08-30] MEDS ORDERED: POTASSIUM CL 20MEQ IN 0.9%NACL 1,000 ML IV SCH (01:00)
[2017-08-30] MEDS ORDERED: ELECTROLYTE (NON-ICU) PROTOCOL MC PRN (01:00)
[2017-08-30] MEDS ORDERED: ONDANSETRON PF 4 MG/2 ML VIAL. IV PRN (01:00)
[2017-08-30] MEDS ORDERED: 0.9 % SODIUM CHLORIDE 10 ML DISP.SYRIN. IV PRN (01:00)
[2017-08-30] MEDS ORDERED: MORPHINE SULFATE 2 MG/ML DISP.SYRIN. IV PRN (01:00)
[2017-08-30] MEDS ORDERED: diphenhydrAMINE 50 MG/ML VIAL IV PRN (01:00)
[2017-08-30] MEDS ORDERED: diphenhydrAMINE HCL 25 MG CAPSULE PO PRN (01:00)
[2017-08-30] MEDS ORDERED: METOCLOPRAMIDE HCL 10 MG/2 ML VIAL. IV PRN (01:00)
[2017-08-30] MEDS ORDERED: PROMETHAZINE 12.5 MG in IV NORMAL SALINE 50ML 50 ML IV PRN (01:00)
[2017-08-30] MEDS ORDERED: CALCIUM CARBONATE 500 MG TAB.CHEW PO PRN (01:00)
[2017-08-30] MEDS ORDERED: DEXTROSE 50% 25 GM / 50ML DISP.SYRIN. IV PRN (01:15)
[2017-08-30] MEDS ORDERED: LABETALOL 20 MG/4 ML DISP.SYRIN. IVP PRN (01:15)
[2017-08-30] MEDS: IV NORMAL SALINE 1,000ML 1,000 ML IV SCH ×3 (01:39→14:30)
[2017-08-30] MEDS: POTASSIUM CHLORIDE 10MEQ 100 ML IV SCH ×4 (01:54→05:33)
[2017-08-30] MEDS: INSULIN ASPART 300 UNITS/3 ML INSULN.PEN SQ SCH ×5 (04:38→20:51)
[2017-08-30] MEDS: HEPARIN PF for SUB-Q USE 5,000 UNIT/0.5 ML VIAL. SQ SCH ×3 (05:38→20:49)
[2017-08-30 07:02] LABS: DIRECT BILIRUBIN 0.1 mg/dL (0.0-0.2); TOTAL BILIRUBIN 0.4 mg/dL (0.2-1.0); TOTAL PROTEIN 7.4 g/dL (6.4-8.2)
[2017-08-30] MEDS: PANTOPRAZOLE 40 MG TABLET. PO SCH (07:30)
[2017-08-30] MEDS: LIPASE/PROTEAS/AMYLAS 10/34/55 CAPSULE.DR. PO SCH ×3 (08:00→17:00)
[2017-08-30] MEDS ORDERED: INSULIN ASPART 300 UNITS/3 ML INSULN.PEN SQ SCH (08:00)
[2017-08-30] MEDS ORDERED: MORPHINE SULFATE 4 MG/ML DISP.SYRIN. IV PRN (08:15)
[2017-08-30] MEDS: FAMOTIDINE 20 MG/2 ML VIAL IVP SCH ×2 (08:41→20:47)
[2017-08-30] MEDS: METOPROLOL TART IMMED RELEASE 50 MG TABLET PO SCH ×2 (08:42→20:47)
[2017-08-30] MEDS: LISINOPRIL 20 MG TABLET PO SCH (08:43)
[2017-08-30] MEDS: METOCLOPRAMIDE 10 MG TABLET PO SCH ×3 (08:48→20:47)
[2017-08-30] MEDS: LACTOBACILLUS RHAMNOSUS GG 1 CAPSULE. PO SCH (08:48)
[2017-08-30] MEDS ORDERED: MAGNESIUM SULFATE 2GM 50 ML IV ONE (09:00)
[2017-08-30] MEDS: POTASSIUM CL 40MEQ IN 0.9%NACL 1,000 ML IV SCH ×3 (09:04→18:07)
[2017-08-30] MEDS ORDERED: IV NORMAL SALINE 1,000ML 1,000 ML IV SCH (10:26)
[2017-08-30] MEDS ORDERED: MAGNESIUM SULFATE 2GM 50 ML IV PRN (10:30)
[2017-08-30] MEDS ORDERED: POTASSIUM CHLORIDE 10MEQ 100 ML IV PRN ×5 (10:30)
[2017-08-30] MEDS ORDERED: NORMAL SALINE IV PRN (11:00)
[2017-08-30] MEDS ORDERED: INSULIN REGULAR IV PRN (11:00)
--- NOTE | 2017-08-30 11:22 | HP ---
ADMIT DATE: 08/29/2017 REASON FOR ADMISSION: Abdominal pain, hyperglycemia. HISTORY OF PRESENT ILLNESS: This is a 56-year-old female who has previous admission on 08/14/2017 to [facility] when she was found to be in DKA. At this time, she started developing abdominal pain with nausea and vomiting. Blood sugars were in the 300s prior to coming to the Emergency Room. PAST MEDICAL HISTORY: Gastroparesis, herpes, 2 heart attacks with stents, and type 2 diabetes since age 28. Has history of pancreatitis. PAST SURGICAL HISTORY: Stent placement, cardiac stents. Unknown other surgical history. HABITS: The patient does not smoke. SOCIAL HISTORY: Recently moved here from [facility] and is newly . She does not work. She has a daughter who evidently is her DPOA that she had been living in [facility] with. REVIEW OF SYSTEMS: Positive for vomiting, nausea, abdominal pain. Denies sore throat. Denies fever, denies shortness of breath. Denies chest pain. Positive for gas. Denies urinary symptoms. OBJECTIVE: VITAL SIGNS: Earlier, blood pressure was 191/105, pulse was 151. Now her blood pressure is 91/60 and pulse is 103. She received her blood pressure medications in addition to some labetalol early this morning. HEENT: The patient's eyes are clear. Her nose was patent. Her throat was clear. There was no erythema in the posterior pharynx. Tongue slightly dry. NECK: Supple. LUNGS: Clear in all ybarra. CARDIOVASCULAR: Regular rhythm and rate with tachycardia. ABDOMEN: Soft, scant bowel sounds, mildly tender. No rebound. EXTREMITIES: Without edema, cords tenderness. LABORATORY DATA AND STUDIES: CAT scan done still reveals a 7 mm right lower lobe pulmonary nodule. She has chronic right renal hydronephrosis due to chronic ureteropelvic junction obstruction from renal calculi. She also had an enlarged uterus, nonspecific. She states she has fibroids. The pancreas was normal. Liver, spleen, adrenals left kidney, normal. No obstruction or inflammatory changes in the GI tract. Potassium was 3.3, white count normal, hemoglobin 13.2, hematocrit 37.9. Urinalysis: Greater than 100 protein, 40 ketones, 3-5 white cells. Drug screen is negative. Creatinine is 1.1. Some glucoses have varied between 248 and 377, magnesium 1.7. ASSESSMENT: 1. Acute gastroenteritis with mildly elevated lipase, but doubt pancreatitis. Lipase is now 262. 2. Mild diabetic ketoacidosis. 3. Hypomagnesemia. 4. Gastroparesis. 5. Enlarged uterus, incidental finding. 6. Chronic hydronephrosis, right side with nephrolithiasis. PLAN: IV fluids, antiemetics. Replace her potassium. Get serum ketone and if she is positive, we will initiate insulin drip. Discontinue narcotics. ARIELLE COLON DO DR: ROCK/carson JOB#: [id number] / [id number]
[2017-08-30 14:51] LABS: CREATININE 1.2 mg/dL (0.6-1.0); GFR 46.1; POTASSIUM 3.9 mmol/L (3.5-5.1)
[2017-08-30] MEDS ORDERED: INSULIN DETEMIR 300 UNITS/3 ML INSULN.PEN. SQ SCH (21:00)
[2017-08-31] MEDS: POTASSIUM CL 40MEQ IN 0.9%NACL 1,000 ML IV SCH (00:44)
[2017-08-31] MEDS: INSULIN ASPART 300 UNITS/3 ML INSULN.PEN SQ SCH ×3 (03:22→08:00)
[2017-08-31] MEDS: HEPARIN PF for SUB-Q USE 5,000 UNIT/0.5 ML VIAL. SQ SCH (05:23)
[2017-08-31 05:37] VITALS: BP 108/67
[2017-08-31 07:15] LABS: BASO % 1 % (0-3); EOS # 0.1 x10^3/uL (0.0-0.7); EOS % 2 % (0-3); HEMATOCRIT 29.8 % (36.0-47.0); HEMOGLOBIN 10.2 g/dL (12.0-15.5); LYMPH # 1.4 x10^3/uL (1.0-4.8); LYMPH % 24 % (24-48); MEAN CORPUSCULAR HEMOGLOBIN 29 pg (25-35); MEAN CORPUSCULAR HGB CONC 34 g/dL (31-37); MEAN CORPUSCULAR VOLUME 86 fL (79-100); MONO # 0.5 x10^3/uL (0.0-1.1); MONO % 8 % (0-9); NEUT % 66 % (31-73); PLATELET COUNT 327 x10^3/uL (140-400); RED BLOOD COUNT 3.46 x10^6/uL (3.50-5.40); WHITE BLOOD COUNT 6.1 x10^3/uL (4.0-11.0)
[2017-08-31 07:21] LABS: CALCIUM 8.1 mg/dL (8.5-10.1); CREATININE 0.8 mg/dL (0.6-1.0); GFR 73.7; POTASSIUM 4.9 mmol/L (3.5-5.1)
[2017-08-31] MEDS: PANTOPRAZOLE 40 MG TABLET. PO SCH (07:42)
[2017-08-31] MEDS: LIPASE/PROTEAS/AMYLAS 10/34/55 CAPSULE.DR. PO SCH (07:42)
[2017-08-31] MEDS: LACTOBACILLUS RHAMNOSUS GG 1 CAPSULE. PO SCH (07:42)
[2017-08-31] MEDS: FAMOTIDINE 20 MG/2 ML VIAL IVP SCH (07:42)
[2017-08-31 07:43] VITALS: BP 108/67
[2017-08-31] MEDS: METOPROLOL TART IMMED RELEASE 50 MG TABLET PO SCH (07:43)
[2017-08-31] MEDS: METOCLOPRAMIDE 10 MG TABLET PO SCH (07:43)
[2017-08-31] MEDS: LISINOPRIL 20 MG TABLET PO SCH (07:43)
--- NOTE | 2017-08-31 10:42 | PDOC3 ---
Discharge Summary Visit Information Date of Admission: Aug 29, 2017 Date of Discharge: Aug 31, 2017 Final Diagnosis Problems Medical Problems: Status: Acute (2) Epigastric abdominal pain Status: Acute (3) Tachycardia Status: Acute ASSESSMENT: 1. Acute gastroenteritis with mildly elevated lipase, but doubt pancreatitis. Lipase is now 262. 2. Mild diabetic ketoacidosis. 3. Hypomagnesemia. 4. Gastroparesis RECURRING PROBLEM WITH LARGE MEALS 5. Enlarged uterus, incidental finding. 6. Chronic hydronephrosis, right side with nephrolithiasis. Problems: Brief Hospital Course Allergies Allergies Coded Allergies Type Severity Reaction Last Updated Verified No Known Drug Allergies 08/29/17 No Vital Signs Vital Signs Date Time Temp Pulse Resp B/P (MAP) Pulse Ox O2 Delivery O2 Flow Rate FiO2 08/31/17 07:43 97 108/67 08/31/17 05:37 98.1 18 98 Room Air Lab Results Laboratory Tests Test 08/29/17 20:25 08/29/17 20:32 08/30/17 01:15 08/30/17 03:57 White Blood Count 9.1 x10^3/uL (4.0-11.0) Red Blood Count 4.44 x10^6/uL (3.50-5.40) Hemoglobin 13.2 g/dL (12.0-15.5) Hematocrit 37.9 % (36.0-47.0) Mean Corpuscular Volume 85 fL (79-100) Mean Corpuscular Hemoglobin 30 pg (25-35) Mean Corpuscular Hemoglobin Concent 35 g/dL (31-37) Red Cell Distribution Width 14.6 % (11.5-14.5) Platelet Count 456 x10^3/uL (140-400) Neutrophils (%) (Auto) 83 % (31-73) Lymphocytes (%) (Auto) 11 % (24-48) Monocytes (%) (Auto) 5 % (0-9) Eosinophils (%) (Auto) 1 % (0-3) Basophils (%) (Auto) 1 % (0-3) Neutrophils # (Auto) 7.6 x10^3uL (1.8-7.7) Lymphocytes # (Auto) 1.0 x10^3/uL (1.0-4.8) Monocytes # (Auto) 0.4 x10^3/uL (0.0-1.1) Eosinophils # (Auto) 0.1 x10^3/uL (0.0-0.7) Basophils # (Auto) 0.0 x10^3/uL (0.0-0.2) Urine Collection Type Unknown Urine Color Straw Urine Clarity Clear Urine pH 6.0 Urine Specific Cheney 1.020 Urine Protein >100 mg/dl (NEG-TRACE) Urine Glucose (UA) >=1000 mg/dL (NEG) Urine Ketones (Stick) 40 mg/dL (NEG) Urine Blood Mod (NEG) Urine Nitrite Neg (NEG) Urine Bilirubin Neg (NEG) Urine Urobilinogen Dipstick 0.2 mg/dL (0.2 mg/dL) Urine Leukocyte Esterase Neg (NEG) Urine RBC 3-5 /HPF (0-2) Urine WBC Occ /HPF (0-4) Urine Squamous Epithelial Cells Mod /LPF Urine Amorphous Sediment Present /HPF Urine Bacteria 0 /HPF (0-FEW) Urine Mucus Slight /LPF Sodium Level 139 mmol/L (136-145) Potassium Level 3.3 mmol/L (3.5-5.1) Chloride Level 99 mmol/L (98-107) Carbon Dioxide Level 22 mmol/L (21-32) Anion Gap 18 (6-14) Blood Urea Nitrogen 18 mg/dL (7-20) Creatinine 1.1 mg/dL (0.6-1.0) Estimated GFR (Cockcroft-Gault) 51.0 BUN/Creatinine Ratio 16 (6-20) Glucose Level 248 mg/dL (70-99) Calcium Level 9.3 mg/dL (8.5-10.1) Total Bilirubin 0.2 mg/dL (0.2-1.0) Aspartate Amino Transf (AST/SGOT) 22 U/L (15-37) Alanine Aminotransferase (ALT/SGPT) 25 U/L (14-59) Alkaline Phosphatase 138 U/L (46-116) Total Protein 7.9 g/dL (6.4-8.2) Albumin 3.2 g/dL (3.4-5.0) Albumin/Globulin Ratio 0.7 (1.0-1.7) Lipase 532 U/L (73-393) Urine Opiates Screen Neg (NEG) Urine Methadone Screen Neg (NEG) Urine Barbiturates Neg (NEG) Urine Phencyclidine Screen Neg (NEG) Urine Amphetamine/Methamphetamine Neg (NEG) Urine Benzodiazepines Screen Neg (NEG) Urine Cocaine Screen Neg (NEG) Urine Cannabinoids Screen Neg (NEG) Urine Ethyl Alcohol Neg (NEG) Glucose (Fingerstick) 221 mg/dL (70-99) 372 mg/dL (70-99) Magnesium Level 1.7 mg/dL (1.8-2.4) Test 08/30/17 06:30 08/30/17 08:33 08/30/17 10:43 08/30/17 11:54 Total Bilirubin 0.4 mg/dL (0.2-1.0) Direct Bilirubin 0.1 mg/dL (0.0-0.2) Aspartate Amino Transf (AST/SGOT) 18 U/L (15-37) Alanine Aminotransferase (ALT/SGPT) 21 U/L (14-59) Alkaline Phosphatase 133 U/L (46-116) Total Protein 7.4 g/dL (6.4-8.2) Albumin 3.0 g/dL (3.4-5.0) Lipase 262 U/L (73-393) Glucose (Fingerstick) 377 mg/dL (70-99) 279 mg/dL (70-99) 231 mg/dL (70-99) Test 08/30/17 12:44 08/30/17 14:30 08/30/17 16:53 08/30/17 20:45 Glucose (Fingerstick) 177 mg/dL (70-99) 136 mg/dL (70-99) 280 mg/dL (70-99) Sodium Level 139 mmol/L (136-145) Potassium Level 3.9 mmol/L (3.5-5.1) Chloride Level 107 mmol/L (98-107) Carbon Dioxide Level 21 mmol/L (21-32) Anion Gap 11 (6-14) Blood Urea Nitrogen 16 mg/dL (7-20) Creatinine 1.2 mg/dL (0.6-1.0) Estimated GFR (Cockcroft-Gault) 46.1 Glucose Level 154 mg/dL (70-99) Calcium Level 9.0 mg/dL (8.5-10.1) Acetone Level Neg (NEG) Test 08/31/17 00:11 08/31/17 03:04 08/31/17 03:22 08/31/17 04:05 Glucose (Fingerstick) 147 mg/dL (70-99) 48 mg/dL (70-99) 97 mg/dL (70-99) 158 mg/dL (70-99) Test 08/31/17 06:41 08/31/17 08:00 White Blood Count 6.1 x10^3/uL (4.0-11.0) Red Blood Count 3.46 x10^6/uL (3.50-5.40) Hemoglobin 10.2 g/dL (12.0-15.5) Hematocrit 29.8 % (36.0-47.0) Mean Corpuscular Volume 86 fL (79-100) Mean Corpuscular Hemoglobin 29 pg (25-35) Mean Corpuscular Hemoglobin Concent 34 g/dL (31-37) Red Cell Distribution Width 15.0 % (11.5-14.5) Platelet Count 327 x10^3/uL (140-400) Neutrophils (%) (Auto) 66 % (31-73) Lymphocytes (%) (Auto) 24 % (24-48) Monocytes (%) (Auto) 8 % (0-9) Eosinophils (%) (Auto) 2 % (0-3) Basophils (%) (Auto) 1 % (0-3) Neutrophils # (Auto) 4.0 x10^3uL (1.8-7.7) Lymphocytes # (Auto) 1.4 x10^3/uL (1.0-4.8) Monocytes # (Auto) 0.5 x10^3/uL (0.0-1.1) Eosinophils # (Auto) 0.1 x10^3/uL (0.0-0.7) Basophils # (Auto) 0.0 x10^3/uL (0.0-0.2) Sodium Level 140 mmol/L (136-145) Potassium Level 4.9 mmol/L (3.5-5.1) Chloride Level 111 mmol/L (98-107) Carbon Dioxide Level 22 mmol/L (21-32) Anion Gap 7 (6-14) Blood Urea Nitrogen 12 mg/dL (7-20) Creatinine 0.8 mg/dL (0.6-1.0) Estimated GFR (Cockcroft-Gault) 73.7 Glucose Level 105 mg/dL (70-99) Calcium Level 8.1 mg/dL (8.5-10.1) Magnesium Level 2.1 mg/dL (1.8-2.4) Glucose (Fingerstick) 71 mg/dL (70-99) Brief Hospital Course Ms. Izaguirre is a 56 old [sex] who presented with [ ] HISTORY OF PRESENT ILLNESS: This is a 56-year-old female who has previous admission on 08/14/2017 to [facility] when she was found to be in DKA. At this time, she started developing abdominal pain with nausea and vomiting. Blood sugars were in the 300s prior to coming to the Emergency Room. sHE HAD A NORMAL CT OF THE ABDOMEN WITH NO EVIDENCE OF PANCREATITIS. IT WAS OBSERVED THAT AFTER INGESTING A LARGE BREAKFAST SHE BECAME SICK TO HER STOMACH. THIS SEEMS TO BE RELATED TO HER GASTROPARESIS. SHE WAS COUNSELED ABOUT GASTROPARESIS AND HER DIABETES. HER NARCOTICS FROM THE ER WERE DISCONTINUED. SHE WAS HYDRATED AND DISCHARGED ON 08/31 Discharge Information Condition at Discharge: Improved Disposition/Orders: D/C to Home Dischare Medications Current Medications Sodium Chloride 1,000 ml @ 1,000 mls/hr 1X ONCE IV Last administered on 08/29 20:57; Start 08/29/17 at 20:30; Stop 08/29/17 at 21:29; Status DC Famotidine (Pepcid Vial) 20 mg 1X ONCE IVP Last administered on 08/29/17 20: 57; Start 08/29/17 at 20:30; Stop 08/29/17 at 20:31; Status DC Metoclopramide HCl (Reglan Vial) 10 mg 1X ONCE IV Last administered on 20:58; Start 08/29/17 at 20:30; Stop 08/29/17 at 20:31; Status DC Haloperidol Lactate (Haldol) 5 mg 1X ONCE IM Last administered on 08/29/17 20:57; Start 08/29/17 at 20:30; Stop 08/29/17 at 20:31; Status DC Ondansetron HCl (Zofran) 4 mg 1X ONCE IV Last administered on 08/29/17 22:10 ; Start 08/29/17 at 22:15; Stop 08/29/17 at 22:16; Status DC Ondansetron HCl (Zofran) 4 mg PRN Q4HRS PRN IV NAUSEA/VOMITING Last administered on 08/30/17 01:38; Start 08/29/17 at 22:30; Stop 08/30/17 at 07 :22; Status DC Fentanyl Citrate (Fentanyl 2ml Vial) 50 mcg PRN Q1HR PRN IV PAIN Last administered on 08/29/17 22:42; Start 08/29/17 at 22:30; Stop 08/30/17 at 07 :27; Status DC Sodium Chloride 1,000 ml @ 125 mls/hr Q8H IV Last administered on 08/30/17 01:39; Start 08/29/17 at 22:30; Stop 08/30/17 at 22:29; Status DC Acetaminophen (Tylenol) 650 mg PRN Q4HRS PRN PO FEVER; Start 08/29/17 at 22:30 ; Stop 08/30/17 at 22:29; Status DC Sodium Chloride (Normal Saline Flush) 3 ml PRN DAILY PRN IV AFTER MEDS AND BLOOD DRAWS; Start 08/30/17 at 01:00 Potassium Chloride/Sodium Chloride 1,000 ml @ 100 mls/hr Q10H IV ; Start 08/30 at 01:00; Stop 08/30/17 at 01:09; Status DC Calcium Carbonate/ Glycine (Tums) 500 mg PRN Q3HRS PRN PO HEARTBURN / GAS; Start 08/30/17 at 01:00 Info 1 ea CONT PRN PRN MC SEE COMMENTS; Start 08/30/17 at 01:00 Morphine Sulfate (Morphine 2mg Syringe) 1 mg PRN Q1HR PRN IV PAIN Last administered on 08/30/17 01:56; Start 08/30/17 at 01:00; Stop 08/30/17 at 08 :06; Status DC Heparin Sodium (Porcine) 5,000 unit Q8HRS SQ Last administered on 08/31/17 05 :23; Start 08/30/17 at 06:00 Prochlorperazine Edisylate (Compazine) 10 mg PRN Q4HRS PRN IV NAUSEA/VOMITING Last administered on 08/30/17 04:09; Start 08/30/17 at 01:00 Metoclopramide HCl (Reglan Vial) 10 mg PRN Q6HRS PRN IV NAUSEA/VOMITING; Start 08/30/17 at 01:00; Stop 08/30/17 at 07:27; Status DC Promethazine HCl 12.5 mg/Sodium Chloride 50.5 ml @ 100 mls/hr PRN Q6HRS PRN IV NAUSEA/VOMITING; Start 08/30/17 at 01:00 Ondansetron HCl (Zofran) 4 mg PRN Q8HRS PRN IV NAUSEA/VOMITING Last administered on 08/30/17 08:06; Start 08/30/17 at 01:00 Diphenhydramine HCl (Benadryl) 25 mg PRN Q6HRS PRN PO SEE COMMENTS; Start at 01:00; Stop 08/30/17 at 07:27; Status DC Diphenhydramine HCl (Benadryl) 25 mg PRN Q6HRS PRN IV SEE COMMENTS; Start at 01:00; Stop 08/30/17 at 07:27; Status DC Insulin Aspart (NovoLOG) 0-7 UNITS Q4HRS SQ Last administered on 08/30/17 20: 51; Start 08/30/17 at 04:00 Dextrose 12.5 gm PRN Q15MIN PRN IV SEE COMMENTS Last administered on 03:12; Start 08/30/17 at 01:15 Potassium Chloride 100 ml @ 100 mls/hr Q1H IV Last administered on 08/30/17 05:33; Start 08/30/17 at 01:45; Stop 08/30/17 at 05:44; Status DC Labetalol HCl (Normodyne) 20 mg PRN Q2HR PRN IVP HYPERTENSION, SEE COMMENTS Last administered on 08/30/17 05:32; Start 08/30/17 at 01:15 Famotidine (Pepcid Vial) 20 mg BID IVP Last administered on 08/31/17 07:42; Start 08/30/17 at 09:00 Insulin Aspart (NovoLOG) 10 units TIDWMEALS SQ Last administered on 08/30/17 08:53; Start 08/30/17 at 08:00; Stop 08/30/17 at 11:01; Status DC Lisinopril (Prinivil) 20 mg DAILY PO Last administered on 08/31/17 07:43; Start 08/30/17 at 07:30 Metoclopramide HCl (Reglan) 10 mg TID PO Last administered on 08/31/17 07:43 ; Start 08/30/17 at 09:00 Metoprolol Tartrate (Lopressor) 50 mg BID PO Last administered on 08/31/17 07 :43; Start 08/30/17 at 07:30 Pantoprazole Sodium (Protonix) 40 mg DAILYAC PO Last administered on 07:42; Start 08/30/17 at 07:30 Insulin Detemir (Levemir) 40 units QHS SQ Last administered on 08/30/17 20:50 ; Start 08/30/17 at 21:00 Lactobacillus Rhamnosus (Culturelle) 1 cap DAILY PO Last administered on 07:42; Start 08/30/17 at 09:00 Amylase/Lipase/ Protease (Zenpep 10,000) 2 cap TIDWMEALS PO Last administered on 08/31/17 07:42; Start 08/30/17 at 08:00 Morphine Sulfate (Morphine 4mg Syringe) 1 mg PRN Q1HR PRN IV PAIN; Start 08/30 at 08:15; Stop 08/30/17 at 08:38; Status DC Potassium Chloride/Sodium Chloride 1,000 ml @ 150 mls/hr Q6H40M IV Last administered on 08/31/17 00:44; Start 08/30/17 at 09:00 Fentanyl Citrate (Fentanyl 2ml Vial) 50 mcg PRN Q3HRS PRN IV PAIN; Start 08/30 at 09:15; Stop 08/30/17 at 10:20; Status DC Magnesium Sulfate 50 ml @ 25 mls/hr 1X ONCE IV Last administered on 09:22; Start 08/30/17 at 09:00; Stop 08/30/17 at 10:59; Status DC Fentanyl Citrate (Fentanyl 2ml Vial) 25 mcg PRN Q3HRS PRN IV PAIN; Start 08/30 at 10:30; Stop 08/30/17 at 11:01; Status DC Sodium Chloride 1,000 ml @ 0 mls/hr Q0M IV ; Start 08/30/17 at 10:26 Insulin Human Regular 100 unit/ Sodium Chloride 101 ml @ 0 mls/hr CONT PRN PRN IV PER PROTOCOL; Start 08/30/17 at 11:00 Potassium Chloride 100 ml @ 100 mls/hr PRN Q1HR PRN IV SEE COMMENTS; Start at 10:30 Potassium Chloride 100 ml @ 100 mls/hr PRN Q1HR PRN IV SEE COMMENTS; Start at 10:30 Potassium Chloride 100 ml @ 100 mls/hr PRN Q1HR PRN IV SEE COMMENTS; Start at 10:30 Potassium Chloride 100 ml @ 100 mls/hr PRN Q1HR PRN IV SEE COMMENTS; Start at 10:30 Potassium Chloride 100 ml @ 100 mls/hr PRN Q1HR PRN IV SEE COMMENTS; Start at 10:30 Magnesium Sulfate 50 ml @ 25 mls/hr PRN Q2HR PRN IV MG LEVEL < 1.8; Start at 10:30 Active Scripts Active Reported Protonix (Pantoprazole Sodium) 40 Mg Tablet.dr 1 Tab PO DAILYAC LAST DOSE GIVEN: DATE: TIME: NEXT DOSE DUE: DATE: TIME: Reglan (Metoclopramide Hcl) 10 Mg Tablet 1 Tab PO TID LAST DOSE GIVEN: DATE: TIME: NEXT DOSE DUE: DATE: TIME: Probiotic Acidophilus (Lactobacillus Acidophilus) 1 Each Tablet 1 Each PO DAILY LAST DOSE GIVEN: DATE: TIME: NEXT DOSE DUE: DATE: TIME: Lisinopril 20 Mg Tablet 1 Tab PO DAILY LAST DOSE GIVEN: DATE: TIME: NEXT DOSE DUE: DATE: TIME: Metoprolol Tartrate 50 Mg Tablet 1 Tab PO BID LAST DOSE GIVEN: DATE: TIME: NEXT DOSE DUE: DATE: TIME: Pancreazsaige Sanchez 10,500 Unit Cap (Lipase/Protease/Amylase) 1 Each Capsule.dr 2 Each PO TIDWMEALS LAST DOSE GIVEN: DATE: TIME: NEXT DOSE DUE: DATE: TIME: Lantus Solostar (Insulin Glargine,Hum.rec.anlog) 100 Unit/1 Ml Insuln.pen 40 Unit SQ QHS LAST DOSE GIVEN: DATE: TIME: NEXT DOSE DUE: DATE: TIME: Novolog Flexpen (Insulin Aspart) 100 Unit/1 Ml Insuln.pen 10 Unit SQ TIDWMEALS LAST DOSE GIVEN: DATE: TIME: NEXT DOSE DUE: DATE: TIME: Patient Instructions Patient Instuctions TYPE WRITTEN DISCHARGE INSTRUCTIONS ON [facility] AND HANDOUT ON GASTROPARESIS DIET GIVEN. ARIELLE COLON DO Aug 31, 2017 10:42
== END 2017-08-31 10:50 | disposition home or self-care (01) | DRG 438 ==
LOC: ER 20:11 → 1 SOUTH 22:13 → ER 08-30 00:10
PROVIDERS: ADMIT Family Medicine; ATTEND Family Medicine
DX: K85.90 Acute pancreatitis without necrosis or infection, unspecified (principal); E11.10 Type 2 diabetes mellitus with ketoacidosis without coma; E83.42 Hypomagnesemia; K31.84 Gastroparesis; N13.5 Crossing vessel and stricture of ureter without hydronephrosis; N13.2 Hydronephrosis with renal and ureteral calculous obstruction; K86.1 Other chronic pancreatitis; I10 Essential (primary) hypertension; K52.9 Noninfective gastroenteritis and colitis, unspecified; N85.2 Hypertrophy of uterus; Z79.4 Long term (current) use of insulin; Z79.899 Other long term (current) drug therapy; Z95.5 Presence of coronary angioplasty implant and graft
CPT/HCPCS: 36415; 74176; 80048; 80053; 80076; 80307; 81001; 82010; 82947; 83690; 83735; 85025; 93005; J0780; J1630; J1815; J2270; J2405; J2765; J3010; J3475; J3480; J3490; J8597; S0028; G0479; J7030

== ENCOUNTER 2017-09-17 08:18 | Emergency (ER) | payer OTHER ==
[~2017-09-17] VITALS: Ht 157.5 cm; Wt 71.4 kg
[2017-09-17] MEDS ORDERED: ASPIRIN 81 MG TAB.CHEW PO ONE (08:45)
[2017-09-17] MEDS ORDERED: IV NORMAL SALINE 1,000ML 1,000 ML IV SCH (08:45)
[2017-09-17 09:28] LABS: BASO # 0.1 x10^3/uL (0.0-0.2); BASO % 0 % (0-3); EOS % 0 % (0-3); HEMATOCRIT 42.6 % (36.0-47.0); LYMPH # 0.9 x10^3/uL (1.0-4.8); LYMPH % 4 % (24-48); MEAN CORPUSCULAR HEMOGLOBIN 29 pg (25-35); MEAN CORPUSCULAR HGB CONC 33 g/dL (31-37); MEAN CORPUSCULAR VOLUME 87 fL (79-100); MONO # 1.4 x10^3/uL (0.0-1.1); MONO % 7 % (0-9); NEUT # 18.1 x10^3uL (1.8-7.7); NEUT % 89 % (31-73); PLATELET COUNT 468 x10^3/uL (140-400); RED CELL DISTRIBUTION WIDTH 15.3 % (11.5-14.5); WHITE BLOOD COUNT 20.3 x10^3/uL (4.0-11.0)
--- NOTE | 2017-09-17 09:28 | RAD ---
Portable chest, 09/17/2017: History: Hyperglycemia Comparison is made to a study from 08/14/2017. The right jugular central venous catheter has been removed. The heart size and pulmonary vascularity are normal. No pulmonary infiltrate is seen. There is no evidence of pleural fluid. A radiopaque implant or expansion device related to the right breast is again noted. IMPRESSION: No acute cardiopulmonary abnormality is detected.
[2017-09-17] MEDS ORDERED: METOCLOPRAMIDE HCL 10 MG/2 ML VIAL. IV ONE (09:30)
[2017-09-17] MEDS ORDERED: PIP/TAZO PER PHARMACY MC PRN (09:45)
[2017-09-17] MEDS ORDERED: VANCOMYCIN PER PHARMACY MC PRN (09:45)
[2017-09-17 09:48] LABS: ALBUMIN 3.1 g/dL (3.4-5.0); ALBUMIN/GLOBULIN RATIO 0.7 (1.0-1.7); CALCIUM 9.4 mg/dL (8.5-10.1); CREATININE 2.1 mg/dL (0.6-1.0); GFR 24.2; TOTAL BILIRUBIN 0.6 mg/dL (0.2-1.0); TOTAL PROTEIN 7.8 g/dL (6.4-8.2)
[2017-09-17 09:52] LABS: POTASSIUM 2.9 mmol/L (3.5-5.1)
[2017-09-17] MEDS ORDERED: POTASSIUM CHLORIDE 10MEQ 100 ML IV PRN ×5 (10:00)
[2017-09-17] MEDS ORDERED: VANCOMYCIN PER PHARMACY MC ONE (10:00)
[2017-09-17] MEDS ORDERED: INSULIN REGULAR 150 UNIT in 0.9 % SODIUM CHLORIDE 150ML 150 ML IV ONE (10:00)
[2017-09-17] MEDS ORDERED: INSULIN REGULAR 100 UNIT/ML 10ML VIAL. IV ONE (10:00)
[2017-09-17] MEDS ORDERED: PIP/TAZO PER PHARMACY MC ONE (10:00)
[2017-09-17] MEDS ORDERED: INSULIN REGULAR 150 UNIT in 0.9 % SODIUM CHLORIDE 150ML 150 ML IV PRN (10:00)
--- NOTE | 2017-09-17 10:08 | PHYS DOC ---
Past History Past Medical History: CAD, Diabetes, Gallstones, GERD, High Cholesterol, Heart Disease, Hypertension, VT, Pancreatitis, Other Past Surgical History: Angioplasty, Appendectomy, Cholecystectomy Alcohol Use: None Drug Use: None Adult General Chief Complaint Chief Complaint: HYPERGLYCEMIA HPI HPI 56-year-old female presenting to the emergency department today after having high blood sugars at home. She has a history of coronary artery disease, diabetes mellitus, gastroparesis and pancreatitis. She complains of epigastric abdominal pain that is sharp moderate intermittent and similar to previous episodes of gastroparesis in the past. She feels nausea without any vomiting. She denies any fevers or chills at home. She denies cough at home. She denies polyuria or dysuria. The pain does not radiate. It is not migratory. It was not sudden in onset. She denies it being ripping or tearing in nature. Review of systems is negative for chest pain shortness of breath fevers chills. All other review of systems is negative unless otherwise noted in history of present illness. ED course: 56-year-old female presenting to the emergency department with high blood sugars and epigastric abdominal pain. On arrival the patient is tachycardic and mildly low temperature. She is well-appearing on examination with mildly dry mucous membranes. Abdomen is soft and nontender. Lungs are clear to auscultation bilaterally. Tachycardic rate with a regular rhythm. No murmur. EKG obtained and reviewed by myself and compared to previous on August 29, 2017. EKG shows sinus rhythm with a tachycardic rate. Patient has T -wave inversions that are new in the anterior lateral leads. trop positive ( possible inciting event) Patient given aspirin and heparin. Thus with Dr. Henry who agrees with plan of care. Blood work shows leukocytosis. Broad- spectrum antibiotics and IV fluids given. Given the patient's low potassium, we need to raise the patient's potassium by giving IV potassium prior to starting insulin. IV potassium ordered. abg 7.33/19/95/10. I discussed the case with Dr. Henry and Dr. Phillips at [facility]. Dr. Henry recommends transfer to PCI capable facility however Dr. Gabriel states that [facility] has no ICU beds at this time. I spoke with the charge nurse of the ICU who didn't expect any recent transfers out of the ICU. At that point in time, it was decided to transfer the patient to higher level of care ([facility] not pci capable, [facility] no icu beds). Patient prefers [facility] so I discussed the case with the ICU doctor at the [facility] Dr. ashley the medical ICU physician. He accepts the patient for transfer to the ICU. Review of Systems Review of Systems SEE ABOVE. Current Medications Current Medications Current Medications Medications (Trade) Dose Ordered Sig/Georgi Start Time Stop Time Status Last Admin Dose Admin Aspirin (Children'S Aspirin) 324 mg 1X ONCE 09/17/17 08:45 09/17/17 08:46 DC 09/17/17 09:08 324 MG Metoclopramide HCl (Reglan Vial) 10 mg 1X ONCE 09/17/17 09:30 09/17/17 09:31 UNV 09/17/17 09:42 10 MG Sodium Chloride 1,000 ml @ 1,000 mls/hr Q1H 09/17/17 08:45 09/17/17 09:44 09/17/17 09:09 1,000 MLS/HR Allergies Allergies Allergies Coded Allergies Type Severity Reaction Last Updated Verified No Known Drug Allergies 08/29/17 No Physical Exam Physical Exam SEE ABOVE Constitutional: Well developed, well nourished, no acute distress, non-toxic appearance. HENT: Normocephalic, atraumatic, bilateral external ears normal, oropharynx moist, no oral exudates, nose normal. [] Eyes: PERRLA, EOMI, conjunctiva normal, no discharge. [] Neck: Normal range of motion, no tenderness, supple, no stridor. Cardiovascular:Heart rate regular rhythm, no murmur [] Lungs & Thorax: Bilateral breath sounds clear to auscultation [] Abdomen: Soft nontender abdomen without rebound tenderness or guarding present. Negative McBurneys point. Negative Lorenzo sign. No ecchymosis present. Skin: Warm, dry, no erythema, no rash. [] Back: No tenderness, no CVA tenderness. Extremities: No tenderness, no cyanosis, no clubbing, ROM intact, no edema. [] Neurologic: Alert and oriented X 3, normal motor function, normal sensory function, no focal deficits noted. Psychologic: Affect normal, judgement normal, mood normal. [] Current Patient Data Lab Results Laboratory Tests Test 09/17/17 08:56 09/17/17 09:12 White Blood Count 20.3 x10^3/uL (4.0-11.0) H Red Blood Count 4.90 x10^6/uL (3.50-5.40) Hemoglobin 14.0 g/dL (12.0-15.5) Hematocrit 42.6 % (36.0-47.0) Mean Corpuscular Volume 87 fL (79-100) Mean Corpuscular Hemoglobin 29 pg (25-35) Mean Corpuscular Hemoglobin Concent 33 g/dL (31-37) Red Cell Distribution Width 15.3 % (11.5-14.5) H Platelet Count 468 x10^3/uL (140-400) H Neutrophils (%) (Auto) 89 % (31-73) H Lymphocytes (%) (Auto) 4 % (24-48) L Monocytes (%) (Auto) 7 % (0-9) Eosinophils (%) (Auto) 0 % (0-3) Basophils (%) (Auto) 0 % (0-3) Neutrophils # (Auto) 18.1 x10^3uL (1.8-7.7) H Lymphocytes # (Auto) 0.9 x10^3/uL (1.0-4.8) L Monocytes # (Auto) 1.4 x10^3/uL (0.0-1.1) H Eosinophils # (Auto) 0.0 x10^3/uL (0.0-0.7) Basophils # (Auto) 0.1 x10^3/uL (0.0-0.2) Platelet Estimate Pending Lactic Acid Level 2.5 mmol/L (0.4-2.0) H Glucose (Fingerstick) 554 mg/dL (70-99) *H EKG EKG [] Radiology/Procedures Radiology/Procedures [address] [address] IMAGING REPORT Signed PATIENT: SAMMI ASHER ACCOUNT: [id number] : 1960 LOCATION: ER AGE: 56 SEX: F EXAM STATUS: REG ER ORD. PHYSICIAN: CA BARRY MD REASON: hyperglycemia PROCEDURE: PORTABLE CHEST 1V Portable chest, 09/17/2017: History: Hyperglycemia Comparison is made to a study from 08/14/2017. The right jugular central venous catheter has been removed. The heart size and pulmonary vascularity are normal. No pulmonary infiltrate is seen. There is no evidence of pleural fluid. A radiopaque implant or expansion device related to the right breast is again noted. IMPRESSION: No acute cardiopulmonary abnormality is detected. DICTATED AND SIGNED BY: NANCY CASTRO MD DATE: 09/17/17923 CC: CA BARRY MD; PCP,NO ~ [place] [address] IMAGING REPORT Signed PATIENT: SAMMI ASHER ACCOUNT: [id number] : 1960 LOCATION: ER AGE: 56 SEX: F EXAM STATUS: REG ER ORD. PHYSICIAN: CA BARRY MD REASON: epigastric abd pain PROCEDURE: CT ABDOMEN PELVIS WO CONTRAST CT abdomen and pelvis without contrast 09/17/2017 Clinical indication: Epigastric abdominal pain. Comparison: CT abdomen pelvis without 08/29/2017, 08/14/2017. Technique: Multiple CT images of the abdomen and pelvis were obtained without contrast according to standard protocol. PQRS Compliance Statement: One or more of the following individualized dose reduction techniques were utilized for this examination: 1. Automated exposure control 2. Adjustment of the mA and/or kV according to patient size 3. Use of iterative reconstruction technique Findings: Prior right mastectomy and reconstruction utilizing a breast implant. Heart size is normal with coronary artery calcifications. There is circumferential thickening of the lower esophagus to the GE junction. Evaluation of the solid abdominopelvic viscera, lymphadenopathy and vasculature is limited in the absence of intravenous contrast. Prior cholecystectomy. Unenhanced contours of the liver, spleen, adrenal glands and kidneys are unremarkable apart from a 2 mm nonobstructive calculus in the interpolar right kidney. No hydronephrosis. There is a 0.7 cm hypodensity in the posterior junction pancreatic body and neck series 2/oh image 41. Abdominal aorta is normal in caliber with moderate calcified atheromatous disease. No abdominal free fluid. No pneumoperitoneum. Prior appendectomy. No bowel obstruction. There is moderate distention of the urinary bladder extending superiorly to the level of the umbilicus. There is bulbous enlargement of the fundus of the uterus. No pelvic free fluid. There are no destructive osseous lesions. Impression: 1. No noncontrast evidence of acute abdominal or pelvic process. 2. 0.7 cm pancreatic hypodensity, indeterminate. MRI abdomen without and with contrast is recommended for further evaluation. 3. Stable right lower lobe 0.6 cm noncalcified pulmonary nodule, indeterminate. Nonemergent dedicated CT chest is recommended. 4. Tiny, nonobstructive right nephrolithiasis. 5. Moderate urinary bladder distention. Patient may benefit from decompression. 6. Bulbous configuration of the uterine fundus, not well evaluated by CT. Finding may represent fibroid, adenomyosis, though malignancy could have a similar appearance. Pelvic ultrasound is recommended. 7. Esophageal thickening to the GE junction level, may represent esophagitis. Clinical correlation is recommended. Endoscopy may be performed for further evaluation. DICTATED AND SIGNED BY: SAYRA BURROWS MD DATE: 09/17/17 1103 CC: CA BARRY MD; PCP,NO ~ [] Course & Med Decision Making Course & Med Decision Making Pertinent Labs and Imaging studies reviewed. (See chart for details) [] Dragon Disclaimer Dragon Disclaimer This electronic medical record was generated, in whole or in part, using a voice recognition dictation system. Departure Departure: Impression: Primary Impression: DKA (diabetic ketoacidoses) Additional Impressions: T wave inversion in EKG Epigastric abdominal pain Disposition: XFER SHT-TRM HOSP Condition: CRITICAL Referrals: PCP,NO (PCP) Critical Care Time Critical care time was 40 minutes exclusive of procedures. Time was spent evaluating the patient, ordering the administration of medications, reviewing blood work, discussing with patient, discussing with consulting and admitting providers, documenting, and reassessing the patient. Problem Qualifiers CA BARRY MD Sep 17, 2017 10:08
[2017-09-17 10:21] LABS: BILIRUBIN,URINE NEG (NEG); CLARITY,URINE HAZY; COLOR,URINE STRAW; GLUCOSE,URINE 500 mg/dL (NEG)
[2017-09-17 10:22] LABS: AMORPHOUS SEDIMENT,UR PRESENT /HPF; BACTERIA,URINE 0 /HPF (0-FEW); NITRITE,URINE NEG (NEG); RBC,URINE 0 /HPF (0-2); SQUAMOUS EPITHELIAL CELL,UR OCC /LPF; UROBILINOGEN,URINE 0.2 mg/dL (0.2 mg/dL); WBC,URINE 0 /HPF (0-4)
[2017-09-17] MEDS ORDERED: PIPERACILLIN/TAZO IV Push 4.5 GM VIAL. IVP ONE (10:23)
[2017-09-17] MEDS ORDERED: PIPERACILLIN/TAZO IV Push 3.375 GM VIAL. IVP ONE ×2 (10:28→10:35)
[2017-09-17] MEDS ORDERED: HEPARIN for IV BOLUS 10,000 UNIT/10 ML VIAL. IV ONE (10:30)
[2017-09-17 10:45] LABS: BGAS PH 7.34 (7.35-7.45)
[2017-09-17] MEDS ORDERED: VANCOMYCIN 1.75 GM in IV NORMAL SALINE 500ML 500 ML IV ONE (10:45)
[2017-09-17] MEDS ORDERED: PIPERACILLIN/TAZOBACTAM 3.375 GM in IV NORMAL SALINE 50ML 50 ML IV ONE (11:00)
[2017-09-17] MEDS ORDERED: VANCOMYCIN 1.25 GM in IV NORMAL SALINE 250ML 250 ML IV ONE (11:00)
[2017-09-17 11:10] LABS: % BANDS 7 % (0-9); % BASOS 1 % (0-3); % LYMPHS 6 % (24-48); % MONOS 8 % (0-10); % SEGS 78 % (35-66); NUCLEATED RBC 1
[2017-09-17 11:11] LABS: PLATELET CLUMP PRESENT; PLT ESTIMATE INCREASED (ADEQUATE)
--- NOTE | 2017-09-17 11:22 | RAD ---
CT abdomen and pelvis without contrast 09/17/2017 Clinical indication: Epigastric abdominal pain. Comparison: CT abdomen pelvis without 08/29/2017, 08/14/2017. Technique: Multiple CT images of the abdomen and pelvis were obtained without contrast according to standard protocol. RS Compliance Statement: One or more of the following individualized dose reduction techniques were utilized for this examination: 1. Automated exposure control 2. Adjustment of the mA and/or kV according to patient size 3. Use of iterative reconstruction technique Findings: Prior right mastectomy and reconstruction utilizing a breast implant. Heart size is normal with coronary artery calcifications. There is circumferential thickening of the lower esophagus to the GE junction. Evaluation of the solid abdominopelvic viscera, lymphadenopathy and vasculature is limited in the absence of intravenous contrast. Prior cholecystectomy. Unenhanced contours of the liver, spleen, adrenal glands and kidneys are unremarkable apart from a 2 mm nonobstructive calculus in the interpolar right kidney. No hydronephrosis. There is a 0.7 cm hypodensity in the posterior junction pancreatic body and neck series 2/oh image 41. Abdominal aorta is normal in caliber with moderate calcified atheromatous disease. No abdominal free fluid. No pneumoperitoneum. Prior appendectomy. No bowel obstruction. There is moderate distention of the urinary bladder extending superiorly to the level of the umbilicus. There is bulbous enlargement of the fundus of the uterus. No pelvic free fluid. There are no destructive osseous lesions. Impression: 1. No noncontrast evidence of acute abdominal or pelvic process. 2. 0.7 cm pancreatic hypodensity, indeterminate. MRI abdomen without and with contrast is recommended for further evaluation. 3. Stable right lower lobe 0.6 cm noncalcified pulmonary nodule, indeterminate. Nonemergent dedicated CT chest is recommended. 4. Tiny, nonobstructive right nephrolithiasis. 5. Moderate urinary bladder distention. Patient may benefit from decompression. 6. Bulbous configuration of the uterine fundus, not well evaluated by CT. Finding may represent fibroid, adenomyosis, though malignancy could have a similar appearance. Pelvic ultrasound is recommended. 7. Esophageal thickening to the GE junction level, may represent esophagitis. Clinical correlation is recommended. Endoscopy may be performed for further evaluation.
--- NOTE | 2017-09-17 11:35 | EKG ---
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
[2017-09-17 11:50] VITALS: BP 113/73
[2017-09-17] MEDS ORDERED: IV RINGERS SOLUTION,LACTATED 1,000 ML IV ONE (12:00)
--- NOTE | 2017-09-17 17:16 | EKG ---
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
== END 2017-09-17 12:11 | disposition short-term general hospital (02) ==
LOC: ER 08:18
DX: E11.10 Type 2 diabetes mellitus with ketoacidosis without coma (principal); E11.65 Type 2 diabetes mellitus with hyperglycemia; R94.31 Abnormal electrocardiogram [ECG] [EKG]; R10.13 Epigastric pain; I25.10 Atherosclerotic heart disease of native coronary artery without angina pectoris; K21.9 Gastro-esophageal reflux disease without esophagitis; E78.00 Pure hypercholesterolemia, unspecified; I11.9 Hypertensive heart disease without heart failure; I25.2 Old myocardial infarction; Z98.61 Coronary angioplasty status; Z90.49 Acquired absence of other specified parts of digestive tract
CPT/HCPCS: 36415; 51701; 71045; 74176; 80053; 81001; 82803; 82947; 83605; 83690; 83735; 83930; 84100; 84484; 85007; 85025; 85610; 93005; 96361; 96365; 96366; 96375; 99291; J1644; J2543; J2765; J3370; J3480; J7040; J7120; J7030

== ENCOUNTER 2017-10-08 06:58 | Inpatient (IN) | payer SELFPAY ==
[2017-10-08] VITALS (8 sets, daily range): BP systolic 137–188; BP diastolic 71–113
[~2017-10-08] VITALS: Ht 160 cm; Wt 63.6 kg
[2017-10-08] MEDS ORDERED: IV NORMAL SALINE 1,000ML 1,000 ML IV SCH ×2 (07:23→09:52)
--- NOTE | 2017-10-08 07:30 | PHYS DOC ---
Past History Past Medical History: CAD, Diabetes, Gallstones, GERD, High Cholesterol, Heart Disease, Hypertension, [place], Pancreatitis, Other Past Surgical History: Angioplasty, Appendectomy, Cholecystectomy Alcohol Use: None Drug Use: None Adult General Chief Complaint Chief Complaint: abdominal pain HPI HPI Patient is a 56 year old female who presents with complaint of abdominal pain. Patient states that her symptoms started yesterday evening. Patient states she has a history of gastroparesis. Patient states that she has frequent visits to the emergency department for similar episodes. Patient states that she on average visits the emergency department every 2 weeks for her symptoms. Patient states that she does not have a primary doctor and does not follow with a GI specialist. Patient has not taken any medications for her symptoms. Patient denies any associated fever, hematemesis, or hematochezia. The patient rates her pain as 10 out of 10. Patient states that she has had numerous episodes of vomiting and has not been able to keep anything down since onset of symptoms. Patient states that her pain is located in her upper abdomen as well as her periumbilical region. Review of Systems Review of Systems Constitutional: Denies fever or chills [] Eyes: Denies change in visual acuity, redness, or eye pain [] HENT: Denies nasal congestion or sore throat [] Respiratory: Denies cough or shortness of breath [] Cardiovascular: Denies chest pain[] GI: Abdominal pain, nausea, vomiting, denies bloody stools or diarrhea[] : Denies dysuria or hematuria [] Musculoskeletal: Denies back pain or joint pain [] Integument: Denies rash or skin lesions [] Neurologic: Denies headache, focal weakness or sensory changes [] All other systems were reviewed and found to be within normal limits, except as documented in this note. Allergies Allergies Allergies Coded Allergies Type Severity Reaction Last Updated Verified No Known Drug Allergies 08/29/17 No Physical Exam Physical Exam Constitutional: Alert, afebrile, appears in moderate discomfort. [] HENT: Normocephalic, atraumatic, bilateral external ears normal, oropharynx dry , no oral exudates, nose normal. [] Eyes: PERRLA, EOMI, conjunctiva normal, no discharge. [] Neck: Normal range of motion, no tenderness, supple, no stridor. [] Cardiovascular: Tachycardia, regular rhythm, no murmur [] Lungs & Thorax: Bilateral breath sounds clear to auscultation [] Abdomen: Bowel sounds normal, soft, diffusely tender in all 4 quadrants with no guarding or rebound tenderness, no masses, no pulsatile masses. [] Skin: Warm, dry, no erythema, no rash. [] Back: No tenderness, no CVA tenderness. [] Extremities: No tenderness, no cyanosis, no clubbing, ROM intact, no edema. [] Neurologic: Alert and oriented X 3, normal motor function, normal sensory function, no focal deficits noted. [] Current Patient Data Vital Signs Vital Signs Date Time Temp Pulse Resp B/P (MAP) Pulse Ox O2 Delivery O2 Flow Rate FiO2 10/08/17 08:15 120 24 159/81 (107) 98 Room Air 10/08/17 06:58 98.0 Lab Results Laboratory Tests Test 10/08/17 07:34 10/08/17 08:00 10/08/17 08:11 10/08/17 08:15 Glucose (Fingerstick) 417 mg/dL Troponin I Quantitative < 0.017 ng/mL Blood Gas pH 7.43 Blood Gas PCO2 22 mmHg Blood Gas PO2 145 mmHg Blood Gas HCO3 16 mmol/L Arterial Bld O2 Saturation (Calc) 99 % FiO2 21 % White Blood Count 5.0 x10^3/uL Red Blood Count 3.36 x10^6/uL Hemoglobin 9.5 g/dL Hematocrit 28.3 % Mean Corpuscular Volume 84 fL Mean Corpuscular Hemoglobin 28 pg Mean Corpuscular Hemoglobin Concent 34 g/dL Red Cell Distribution Width 15.4 % Platelet Count 287 x10^3/uL Neutrophils (%) (Auto) 83 % Lymphocytes (%) (Auto) 11 % Monocytes (%) (Auto) 5 % Eosinophils (%) (Auto) 0 % Basophils (%) (Auto) 0 % Neutrophils # (Auto) 4.2 x10^3uL Lymphocytes # (Auto) 0.6 x10^3/uL Monocytes # (Auto) 0.3 x10^3/uL Eosinophils # (Auto) 0.0 x10^3/uL Basophils # (Auto) 0.0 x10^3/uL Sodium Level 137 mmol/L Potassium Level 3.2 mmol/L Chloride Level 99 mmol/L Carbon Dioxide Level 16 mmol/L Anion Gap 22 Blood Urea Nitrogen 12 mg/dL Creatinine 0.7 mg/dL Estimated GFR (Cockcroft-Gault) 85.9 BUN/Creatinine Ratio 17 Glucose Level 387 mg/dL Calcium Level 7.5 mg/dL Total Bilirubin 0.5 mg/dL Aspartate Amino Transf (AST/SGOT) 12 U/L Alanine Aminotransferase (ALT/SGPT) 15 U/L Alkaline Phosphatase 124 U/L Creatine Kinase < 15 U/L Creatine Kinase MB (Mass) < 0.5 ng/mL Creatine Kinase MB Relative Index 0.0 % Total Protein 5.8 g/dL Albumin 2.5 g/dL Albumin/Globulin Ratio 0.8 Lipase 171 U/L Test 10/08/17 08:48 Glucose (Fingerstick) 330 mg/dL Current Medications Medications (Trade) Dose Ordered Sig/Georgi Route PRN Reason Start Time Stop Time Status Last Admin Dose Admin Fentanyl Citrate (Fentanyl 2ml Vial) 50 mcg PRN Q15MIN PRN IV PAIN GREATER THAN 3/10 10/08/17 07:30 10/09/17 07:29 10/08/17 07:52 Sodium Chloride 1,000 ml @ 1,000 mls/hr Q1H IV 10/08/17 07:23 10/08/17 08:22 DC 10/08/17 07:50 Haloperidol Lactate (Haldol) 5 mg 1X ONCE IVP 10/08/17 07:45 10/08/17 07:46 DC 10/08/17 07:50 Diphenhydramine HCl (Benadryl) 25 mg 1X ONCE IVP 10/08/17 07:45 10/08/17 07:46 DC 10/08/17 07:45 Sodium Chloride 1,000 ml @ 1,000 mls/hr 1X ONCE IV 10/08/17 08:45 10/08/17 09:44 10/08/17 08:30 Sodium Chloride 1,000 ml @ 75 mls/hr 1X ONCE IV 10/08/17 09:00 10/08/17 22:19 EKG EKG EKG #1 at 0739 interpreted by me: Heart rate 140 bpm, sinus tachycardia, leftward axis, ST depressions in V2 through V6, no acute ST elevations or T- wave inversions EKG #2 at 0900 interpreted by me: Heart rate 123, sinus tachycardia, leftward axis, ST depressions in V2 through V6 similar to previous [] Radiology/Procedures Radiology/Procedures [address] [address] IMAGING REPORT Signed PATIENT: CRIS ASHER ACCOUNT: [id number] : 1960 LOCATION: ER AGE: 56 SEX: F EXAM STATUS: REG ER ORD. PHYSICIAN: SHAYY JANE MD REASON: abdominal pain, vomiting, history of gastroparesis PROCEDURE: ACUTE ABDOMEN SERIES Examination: Acute abdomen series. History: History of abdominal pain, vomiting, history of gastroparesis Comparison: 09/17/2009. Findings: The cardiomediastinal silhouette grossly appears unremarkable. There is no acute infiltrate or visualized pneumothorax identified. A radiopaque implant or expansion device identified in the right breast region. No evidence of free air noted under the hemidiaphragms. Cholecystectomy clips are identified. Paucity of gas limits evaluation of the small bowel. Gas is identified in the ascending, transverse colon. Impression: 1. No acute cardiopulmonary findings. 2. Nonspecific bowel gas pattern. Paucity of gas in the abdomen limits evaluation of the small bowel. DICTATED AND SIGNED BY: CARLOS LEWIS MD DATE: 10/08/17 0850 CC: SHAYY JANE MD; PCP,NO ~ [] Course & Med Decision Making Course & Med Decision Making Pertinent Labs and Imaging studies reviewed. (See chart for details) The patient was given 2 L of IV normal saline bolus and was given IV Haldol, Benadryl, and fentanyl for symptoms. On reevaluation, patient states that her symptoms are improving and she is starting to feel better. Patient had noted ST depressions in her precordial leads on her EKG which was a change from previous. The patient notes that on her previous admission to [facility] , she was found to have multiple blockages and was told that she would need to have cardiac bypass surgery to be scheduled at a later time. Given the patient' s tachycardia, this is likely causing demand ischemia resulting in the EKG changes. The patient's troponin level is negative on first check. I consulted the [facility] cardiology group and spoke with Rica Jacob, KADIE for Dr. Henry. There is no immediate indication for endovascular intervention and patient deemed appropriate for medical treatment at this time. The cardiology group will consult on the patient while in hospital. The patient' s clinical picture is most consistent with DKA though the patient's arterial blood gas shows a pH of 7.43. Of note the PO2 was 145 which is odd considering the patient is not on supplemental oxygen. I suspect that there may be an error in the reading from the ABG machine. The patient otherwise has an anion gap of 22 and a decreased CO2 level in the midst of a blood sugar of 417. These findings would be consistent with DKA, and given the patient's history of DKA, this still remains in the patient's differential diagnosis. For this reason the patient will be started on an insulin drip and continued on IV fluids for further treatment. I spoke with Dr. Villaseñor who accepted care of patient in hospital. Critical care time excluding procedures: 50 minutes Maico Disclaimer Maico Disclaimer This electronic medical record was generated, in whole or in part, using a voice recognition dictation system. Departure Departure: Impression: Primary Impression: Uncontrolled diabetes mellitus Additional Impressions: Dehydration Acute electrocardiogram changes Abdominal pain Nausea and vomiting Disposition: ADMITTED INPATIENT Admitting Physician: Tracey Villaseñor Condition: GUARDED Referrals: PCP,NO (PCP) Problem Qualifiers Primary Impression: Uncontrolled diabetes mellitus Diabetes mellitus type: type 2 Diabetes mellitus complication status: with hyperglycemia Diabetes mellitus nursing home insulin use: with moth exterminator use Qualified Codes: E11.65 - Type 2 diabetes mellitus with hyperglycemia; Z79.4 - ocean transportation intermediary (current) use of insulin Additional Impressions: Abdominal pain Abdominal location: epigastric Qualified Codes: R10.13 - Epigastric pain Nausea and vomiting Vomiting type: unspecified Vomiting Intractability: non-intractable Qualified Codes: R11.2 - Nausea with vomiting, unspecified SHAYY JANE MD Oct 08, 2017 07:30
[2017-10-08] MEDS ORDERED: diphenhydrAMINE 50 MG/ML VIAL IVP ONE (07:45)
[2017-10-08] MEDS ORDERED: HALOPERIDOL LACT 5 MG/ML VIAL. IVP ONE (07:45)
--- NOTE | 2017-10-08 07:49 | EKG ---
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
[2017-10-08 08:39] LABS: BASO % 0 % (0-3); EOS % 0 % (0-3); HEMATOCRIT 28.3 % (36.0-47.0); HEMOGLOBIN 9.5 g/dL (12.0-15.5); LYMPH # 0.6 x10^3/uL (1.0-4.8); LYMPH % 11 % (24-48); MEAN CORPUSCULAR HEMOGLOBIN 28 pg (25-35); MEAN CORPUSCULAR HGB CONC 34 g/dL (31-37); MEAN CORPUSCULAR VOLUME 84 fL (79-100); MONO # 0.3 x10^3/uL (0.0-1.1); MONO % 5 % (0-9); NEUT # 4.2 x10^3uL (1.8-7.7); NEUT % 83 % (31-73); PLATELET COUNT 287 x10^3/uL (140-400); RED BLOOD COUNT 3.36 x10^6/uL (3.50-5.40); RED CELL DISTRIBUTION WIDTH 15.4 % (11.5-14.5)
[2017-10-08 08:44] LABS: ALBUMIN 2.5 g/dL (3.4-5.0); ALBUMIN/GLOBULIN RATIO 0.8 (1.0-1.7); CALCIUM 7.5 mg/dL (8.5-10.1); CREATININE 0.7 mg/dL (0.6-1.0); GFR 85.9; POTASSIUM 3.2 mmol/L (3.5-5.1); TOTAL BILIRUBIN 0.5 mg/dL (0.2-1.0); TOTAL PROTEIN 5.8 g/dL (6.4-8.2)
[2017-10-08] MEDS ORDERED: IV NORMAL SALINE 1,000ML 1,000 ML IV ONE ×2 (08:45→09:00)
[2017-10-08 08:50] LABS: CREATINE KINASE < 15 U/L (26-192)
--- NOTE | 2017-10-08 08:54 | RAD ---
Examination: Acute abdomen series. History: History of abdominal pain, vomiting, history of gastroparesis Comparison: 09/17/2009. Findings: The cardiomediastinal silhouette grossly appears unremarkable. There is no acute infiltrate or visualized pneumothorax identified. A radiopaque implant or expansion device identified in the right breast region. No evidence of free air noted under the hemidiaphragms. Cholecystectomy clips are identified. Paucity of gas limits evaluation of the small bowel. Gas is identified in the ascending, transverse colon. Impression: 1. No acute cardiopulmonary findings. 2. Nonspecific bowel gas pattern. Paucity of gas in the abdomen limits evaluation of the small bowel.
[2017-10-08 09:04] LABS: BGAS PH 7.43 (7.35-7.45)
[2017-10-08] MEDS ORDERED: IV DEXTROSE 5 %-0.45 % NACL 1,000 ML IV SCH (09:52)
[2017-10-08] MEDS ORDERED: ACETAMINOPHEN 325 MG TABLET PO PRN (10:00)
[2017-10-08] MEDS ORDERED: ONDANSETRON PF 4 MG/2 ML VIAL. IV PRN (10:00)
[2017-10-08] MEDS ORDERED: INSULIN REGULAR 150 UNIT in 0.9 % SODIUM CHLORIDE 150ML 150 ML IV PRN (10:00)
[2017-10-08] MEDS ORDERED: POTASSIUM CHLORIDE 10MEQ 100 ML IV PRN ×4 (10:00)
--- NOTE | 2017-10-08 10:35 | PDOC2 ---
YANETH SIU [employer] DESIGNER 10/08/17 1035: CONSULT Date of Admission DATE: 10/08/17 TIME: 10:33 Reason for Consult: abnormal EKG, CAD Problem List Problems Medical Problems: (1) Acute electrocardiogram changes Status: Acute (2) Dehydration Status: Acute (3) Nausea and vomiting Status: Acute (4) Uncontrolled diabetes mellitus Status: Acute History of Present Illness Ms Izaguirre is a 56 year old female with history of uncontrolled type 2 diabetes mellitus and several admissions for DKA who presents for abdominal pain, nausea and vomiting. She reports a recent inpatient stay at with cardiac cath and recommendation to have bypass surgery. This was apparently supposed to be planned as an outpatient after about 3 weeks, however she has decided to move back to [place] with her daughter and have surgery there. She denies any chest discomfort, dyspnea or congestive symptoms. She does complain of more fatigue over the last couple months. She denies palpitations, lightheadedness or syncope. She reports compliance with her insulin and cardiac medical therapy. She denies any specific trigger for todays symptoms. Past Medical History poorly controlled diabetes mellitus, recurrent DKA, 3V CAD by report, prior OR and cardiac stents, hypertension, hyperlipidemia, gastroparesis, GERD, herpes, breast cancer, OCD, pancreatitis, hydronephrosis, nephrolithiasis Past Surgical History: Appendectomy, Cholecystectomy, Mastectomy Family History denies premature coronary disease Social History non smoker, denies drugs or significant ETOH. Daughter is DPOA Current Medications Current Medications Fentanyl Citrate (Fentanyl 2ml Vial) 50 mcg PRN Q15MIN PRN IV PAIN GREATER THAN 3/10 Last administered on 10/08/17at 09:20; Start 10/08/17 at 07:30; Stop 10/09 at 07:29 Sodium Chloride 1,000 ml @ 1,000 mls/hr Q1H IV Last administered on 10/08/17at 07:50; Start 10/08/17 at 07:23; Stop 10/08/17 at 08:22; Status DC Haloperidol Lactate (Haldol) 5 mg 1X ONCE IVP Last administered on 10/08/17at 07 :50; Start 10/08/17 at 07:45; Stop 10/08/17 at 07:46; Status DC Diphenhydramine HCl (Benadryl) 25 mg 1X ONCE IVP Last administered on at 07:45; Start 10/08/17 at 07:45; Stop 10/08/17 at 07:46; Status DC Sodium Chloride 1,000 ml @ 1,000 mls/hr 1X ONCE IV Last administered on at 08:30; Start 10/08/17 at 08:45; Stop 10/08/17 at 09:44; Status DC Sodium Chloride 1,000 ml @ 75 mls/hr 1X ONCE IV Last administered on at 09:00; Start 10/08/17 at 09:00; Stop 10/08/17 at 22:19 Ondansetron HCl (Zofran) 4 mg PRN Q4HRS PRN IV NAUSEA/VOMITING; Start 10/08/17 at 10:00; Stop 10/09/17 at 09:59; Status UNV Fentanyl Citrate (Fentanyl 2ml Vial) 50 mcg PRN Q2HR PRN IV PAIN; Start at 10:00; Stop 10/09/17 at 09:59; Status UNV Acetaminophen (Tylenol) 650 mg PRN Q4HRS PRN PO FEVER; Start 10/08/17 at 10:00; Stop 10/09/17 at 09:59; Status UNV Sodium Chloride 1,000 ml @ 0 mls/hr Q0M IV ; Start 10/08/17 at 09:52; Status UNV Dextrose/Sodium Chloride 1,000 ml @ 0 mls/hr Q0M IV ; Start 10/08/17 at 09:52; Status UNV Insulin Human Regular 150 unit/ Sodium Chloride 151.5 ml @ 0 mls/hr CONT PRN PRN IV PER PROTOCOL; Start 10/08/17 at 10:00; Status UNV Potassium Chloride 100 ml @ 100 mls/hr PRN Q1HR PRN IV SEE COMMENTS; Start 10/08/17 at 10:00; Status UNV Potassium Chloride 100 ml @ 100 mls/hr PRN Q1HR PRN IV SEE COMMENTS; Start 10/08/17 at 10:00; Status UNV Potassium Chloride 100 ml @ 100 mls/hr PRN Q1HR PRN IV SEE COMMENTS; Start 10/08/17 at 10:00; Status UNV Potassium Chloride 100 ml @ 100 mls/hr PRN Q1HR PRN IV SEE COMMENTS; Start 10/08/17 at 10:00; Status UNV Active Scripts Active Reported Protonix (Pantoprazole Sodium) 40 Mg Tablet.dr 1 Tab PO DAILYAC LAST DOSE GIVEN: DATE: TIME: NEXT DOSE DUE: DATE: TIME: Reglan (Metoclopramide Hcl) 10 Mg Tablet 1 Tab PO TID LAST DOSE GIVEN: DATE: TIME: NEXT DOSE DUE: DATE: TIME: Probiotic Acidophilus (Lactobacillus Acidophilus) 1 Each Tablet 1 Each PO DAILY LAST DOSE GIVEN: DATE: TIME: NEXT DOSE DUE: DATE: TIME: Lisinopril 20 Mg Tablet 1 Tab PO DAILY LAST DOSE GIVEN: DATE: TIME: NEXT DOSE DUE: DATE: TIME: Metoprolol Tartrate 50 Mg Tablet 1 Tab PO BID LAST DOSE GIVEN: DATE: TIME: NEXT DOSE DUE: DATE: TIME: Pancreazsaige Sanchez 10,500 Unit Cap (Lipase/Protease/Amylase) 1 Each Capsule.dr 2 Each PO TIDWMEALS LAST DOSE GIVEN: DATE: TIME: NEXT DOSE DUE: DATE: TIME: Lantus Solostar (Insulin Glargine,Hum.rec.anlog) 100 Unit/1 Ml Insuln.pen 40 Unit SQ QHS LAST DOSE GIVEN: DATE: TIME: NEXT DOSE DUE: DATE: TIME: Novolog Flexpen (Insulin Aspart) 100 Unit/1 Ml Insuln.pen 10 Unit SQ TIDWMEALS LAST DOSE GIVEN: DATE: TIME: NEXT DOSE DUE: DATE: TIME: Allergies: Coded Allergies: No Known Drug Allergies (Unverified , 10/08/17) Review of System as per HPI General: Alert, Oriented X3, Cooperative, No acute distress HEENT: Atraumatic, EOMI Lungs: Clear to auscultation Heart: Regular rate, Normal S1, Normal S2 Abdomen: Normal bowel sounds, Soft, Other (mild epigastric tenderness) Extremities: No cyanosis, Normal pulses Neuro: Normal speech, Strength at 5/5 X4 ext Psych/Mental Status: Mental status NL, Mood NL VITALS Vital Signs Date Time Temp Pulse Resp B/P (MAP) Pulse Ox O2 Delivery O2 Flow Rate FiO2 10/08/17 10:00 127 22 150/83 (105) 94 Room Air 10/08/17 06:58 98.0 Labs Laboratory Tests Test 10/08/17 07:34 10/08/17 08:00 10/08/17 08:11 10/08/17 08:15 Glucose (Fingerstick) 417 mg/dL (70-99) Troponin I Quantitative < 0.017 ng/mL (0-0.055) Blood Gas pH 7.43 (7.35-7.45) Blood Gas PCO2 22 mmHg (35-45) Blood Gas PO2 145 mmHg (80-100) Blood Gas HCO3 16 mmol/L (22-26) Arterial Bld O2 Saturation (Calc) 99 % (92-99) FiO2 21 % White Blood Count 5.0 x10^3/uL (4.0-11.0) Red Blood Count 3.36 x10^6/uL (3.50-5.40) Hemoglobin 9.5 g/dL (12.0-15.5) Hematocrit 28.3 % (36.0-47.0) Mean Corpuscular Volume 84 fL (79-100) Mean Corpuscular Hemoglobin 28 pg (25-35) Mean Corpuscular Hemoglobin Concent 34 g/dL (31-37) Red Cell Distribution Width 15.4 % (11.5-14.5) Platelet Count 287 x10^3/uL (140-400) Neutrophils (%) (Auto) 83 % (31-73) Lymphocytes (%) (Auto) 11 % (24-48) Monocytes (%) (Auto) 5 % (0-9) Eosinophils (%) (Auto) 0 % (0-3) Basophils (%) (Auto) 0 % (0-3) Neutrophils # (Auto) 4.2 x10^3uL (1.8-7.7) Lymphocytes # (Auto) 0.6 x10^3/uL (1.0-4.8) Monocytes # (Auto) 0.3 x10^3/uL (0.0-1.1) Eosinophils # (Auto) 0.0 x10^3/uL (0.0-0.7) Basophils # (Auto) 0.0 x10^3/uL (0.0-0.2) Sodium Level 137 mmol/L (136-145) Potassium Level 3.2 mmol/L (3.5-5.1) Chloride Level 99 mmol/L (98-107) Carbon Dioxide Level 16 mmol/L (21-32) Anion Gap 22 (6-14) Blood Urea Nitrogen 12 mg/dL (7-20) Creatinine 0.7 mg/dL (0.6-1.0) Estimated GFR (Cockcroft-Gault) 85.9 BUN/Creatinine Ratio 17 (6-20) Glucose Level 387 mg/dL (70-99) Calcium Level 7.5 mg/dL (8.5-10.1) Phosphorus Level 3.4 mg/dL (2.6-4.7) Total Bilirubin 0.5 mg/dL (0.2-1.0) Aspartate Amino Transf (AST/SGOT) 12 U/L (15-37) Alanine Aminotransferase (ALT/SGPT) 15 U/L (14-59) Alkaline Phosphatase 124 U/L (46-116) Creatine Kinase < 15 U/L (26-192) Creatine Kinase MB (Mass) < 0.5 ng/mL (0.0-3.6) Creatine Kinase MB Relative Index 0.0 % (0-4) Total Protein 5.8 g/dL (6.4-8.2) Albumin 2.5 g/dL (3.4-5.0) Albumin/Globulin Ratio 0.8 (1.0-1.7) Lipase 171 U/L (73-393) Acetone Level Sm pos (NEG) Test 10/08/17 08:48 10/08/17 09:46 Glucose (Fingerstick) 330 mg/dL (70-99) 304 mg/dL (70-99) Images EKG - sinus tachycardia, early r wave transition, non specific st abnormalities. abdominal series - Impression: 1. No acute cardiopulmonary findings. 2. Nonspecific bowel gas pattern. Paucity of gas in the abdomen limits evaluation of the small bowel. Assessment/Plan 1. Abnormal EKG - non specific changes 2. Coronary artery disease - Reported 3 vessel disease by cath recently at , with recommendation for bypass. Request records. Resume medical therapy. She is currently angina free. 3. DKA - mgmt per PCP 4. hypertension - resume home meds. 5. hyperlipidemia - check lipids Problems: DILIA PAUL MD 10/08/17 0371: CONSULT Allergies: Coded Allergies: No Known Drug Allergies (Unverified , 10/08/17) Assessment/Plan Patient seen and examined. Agree with above nurse practitioner note. 56-year-old woman admitted to the hospital with uncontrolled blood sugars. Apparently recently seen at and recommended coronary artery bypass grafting. Reviewed outside hospital angiogram. She has a moderate 60-70% proximal LAD stenosis which appears to be FFR positive as well as a moderate mid obtuse marginal stenosis which also appears to be FFR positive. She currently denies any chest pain. Limited echocardiogram is unremarkable. Continue medical therapy for her current issues. It appears that the patient would like to be treated in [facility] when she goes back to stay with her daughter and obtains insurance. He does not have any critical lesions at this time that would require acute intervention. Her cardiac enzymes are unremarkable. Supportive care with medical therapy and outpatient management of her coronary disease would be appropriate. Review of her coronary angiogram also reveals anatomy suitable to PCI but will defer to the patient's care team in [facility]. Problems: YANETH SIU APRN Oct 08, 2017 10:35 DILIA PAUL MD Oct 08, 2017 18:21
[2017-10-08] MEDS: POTASSIUM CL 40MEQ D5-0.45NACL 1,000 ML IV SCH ×3 (12:06→23:01)
[2017-10-08] MEDS ORDERED: KETOROLAC 30 MG/ML VIAL. IV PRN (13:45)
[2017-10-08] MEDS: POTASSIUM CHLORIDE 10MEQ 50 ML IV SCH ×4 (14:32→17:01)
[2017-10-08 16:12] LABS: ALBUMIN 2.4 g/dL (3.4-5.0); ALBUMIN/GLOBULIN RATIO 0.6 (1.0-1.7); CALCIUM 7.4 mg/dL (8.5-10.1); CREATININE 0.7 mg/dL (0.6-1.0); GFR 85.9; TOTAL BILIRUBIN 0.3 mg/dL (0.2-1.0); TOTAL PROTEIN 6.2 g/dL (6.4-8.2)
[2017-10-08 16:22] LABS: POTASSIUM 2.9 mmol/L (3.5-5.1)
[2017-10-08] MEDS: METOPROLOL TART IMMED RELEASE 50 MG TABLET PO SCH ×2 (17:00→23:17)
[2017-10-08] MEDS ORDERED: hydrALAZINE 20 MG/ML VIAL. IV PRN (17:00)
--- NOTE | 2017-10-08 17:58 | CARD ---
MR#: [id number] Date of Study: 10/08/2017 Ordering Physician: YANETH SIU, Referring Physician: Tariq BUSH: Amy Case [facility] APPROVED REPORT EXAM: LIMITED Two-dimensional and M-mode echocardiogram. Other Information Quality : Fair INDICATION Abnormal ECG CAD 2D DIMENSIONS Left Atrium(2D)2.7 (1.6-4.0cm)IVSd1.0 (0.7-1.1cm) LVDd4.5 (3.9-5.9cm)LVOT Diameter1.9 (1.8-2.4cm) PWd1.0 (0.7-1.1cm)IVSs3.1 (0.8-1.2cm) FS (%) 27.0 %LVEF(%)55.0 (>50%) LEFT VENTRICLE The left ventricle is normal size. There is normal left ventricular wall thickness. The left ventricu lar systolic function is normal and the ejection fraction is within normal range. The Ejection Fracti on is 50-55%. There is normal LV segmental wall motion. GREAT VESSELS The aortic root is normal in size. PERICARDIAL EFFUSION There is no evidence of significant pericardial effusion. Critical Notification Critical Value: No <Conclusion> The left ventricular systolic function is normal and the ejection fraction is within normal range. Th e Ejection Fraction is 50-55%. There is normal LV segmental wall motion. Signed by : Avtar Scott, Electronically Approved : 10/08/2017 17:58:07
[2017-10-08] MEDS ORDERED: ELECTROLYTE (ICU) PROTOCOL. MC PRN (18:15)
[2017-10-08] MEDS ORDERED: MAGNESIUM SULFATE 2GM 50 ML IV ONE (19:00)
[2017-10-08] MEDS: METOCLOPRAMIDE 10 MG TABLET PO SCH (20:30)
[2017-10-08] MEDS ORDERED: METOPROLOL TART IMMED RELEASE 50 MG TABLET PO SCH (21:00)
[2017-10-08 23:18] LABS: CALCIUM 7.7 mg/dL (8.5-10.1); CREATININE 0.8 mg/dL (0.6-1.0); GFR 73.7; POTASSIUM 3.7 mmol/L (3.5-5.1)
[2017-10-09 00:01] VITALS: BP 166/86
[2017-10-09 02:00] VITALS: BP 147/76
[2017-10-09 04:00] VITALS: BP 170/98
[2017-10-09] MEDS: POTASSIUM CL 40MEQ D5-0.45NACL 1,000 ML IV SCH (04:31)
[2017-10-09 06:37] LABS: BASO % 1 % (0-3); EOS # 0.1 x10^3/uL (0.0-0.7); EOS % 1 % (0-3); HEMATOCRIT 28.9 % (36.0-47.0); HEMOGLOBIN 9.9 g/dL (12.0-15.5); LYMPH # 1.5 x10^3/uL (1.0-4.8); LYMPH % 31 % (24-48); MEAN CORPUSCULAR HEMOGLOBIN 28 pg (25-35); MEAN CORPUSCULAR HGB CONC 34 g/dL (31-37); MEAN CORPUSCULAR VOLUME 82 fL (79-100); MONO # 0.7 x10^3/uL (0.0-1.1); MONO % 15 % (0-9); NEUT # 2.5 x10^3uL (1.8-7.7); NEUT % 52 % (31-73); PLATELET COUNT 346 x10^3/uL (140-400); RED BLOOD COUNT 3.53 x10^6/uL (3.50-5.40); RED CELL DISTRIBUTION WIDTH 15.4 % (11.5-14.5); WHITE BLOOD COUNT 4.8 x10^3/uL (4.0-11.0)
[2017-10-09 06:59] LABS: ALBUMIN 2.4 g/dL (3.4-5.0); ALBUMIN/GLOBULIN RATIO 0.6 (1.0-1.7); CREATININE 0.6 mg/dL (0.6-1.0); GFR 102.7; MAGNESIUM 1.6 mg/dL (1.8-2.4); POTASSIUM 3.5 mmol/L (3.5-5.1); TOTAL BILIRUBIN 0.3 mg/dL (0.2-1.0); TOTAL PROTEIN 6.3 g/dL (6.4-8.2)
[2017-10-09 07:10] VITALS: BP 116/80
[2017-10-09] MEDS ORDERED: DEXTROSE 50% 25 GM / 50ML DISP.SYRIN. IV PRN (07:30)
[2017-10-09] MEDS ORDERED: PANTOPRAZOLE 40 MG TABLET. PO SCH (07:30)
[2017-10-09] MEDS: METOPROLOL TART IMMED RELEASE 50 MG TABLET PO SCH ×2 (08:08→14:19)
[2017-10-09] MEDS: METOCLOPRAMIDE 10 MG TABLET PO SCH ×2 (08:09→14:19)
[2017-10-09] MEDS: INSULIN ASPART 300 UNITS/3 ML INSULN.PEN SQ SCH ×2 (08:14→10:37)
--- NOTE | 2017-10-09 08:41 | PDOC ---
PROGRESS NOTES Diagnosis Problem Problems Medical Problems: (1) Acute electrocardiogram changes Status: Acute (2) Dehydration Status: Acute (3) Nausea and vomiting Status: Acute (4) Uncontrolled diabetes mellitus Status: Acute Assessment Problems Medical Problems: (1) Acute electrocardiogram changes Status: Acute (2) Dehydration Status: Acute (3) Nausea and vomiting Status: Acute (4) Uncontrolled diabetes mellitus Status: Acute 1. Abnormal EKG - non specific changes. DC ruled out. 2. Coronary artery disease - Continue medical therapy. She is currently angina free. Plans for CABG in [facility]. 3. DKA - mgmt per PCP 4. hypertension - controlled. 5. hyperlipidemia - add statin for plaque stabilization and await lipids. 6. sinus tachycardia - reactive. continue beta dontrell. Problems: Subjective no chest pain, no dyspnea, less nausea, feeling better, no palpitations or lightheadedness Objective Vital Signs Date Time Temp Pulse Resp B/P (MAP) Pulse Ox O2 Delivery O2 Flow Rate FiO2 10/09/17 08:09 114 116/80 10/09/17 07:10 16 98 Room Air 10/09/17 00:01 98.0 Intake and Output 10/09/17 07:00 Intake Total 4750 ml Output Total 1375 ml Balance 3375 ml Intake Oral 1500 ml IV Total 3250 ml Output Urine Total 1375 ml # Voids 18 # Bowel Movements 1 Abdomen: Normal bowel sounds, Soft, No tenderness Heart: Regular rate, Normal S1, Normal S2 Extremities: No edema, Normal pulses General: Alert, Oriented X3, Cooperative Lungs: Clear to auscultation, Normal air movement Neuro: Normal speech, Strength at 5/5 X4 ext Psych/Mental Status: Mental status NL, Mood NL Review of Relevant I have reviewed the following items belem (where applicable) has been applied. Labs Laboratory Tests Test 10/08/17 07:34 10/08/17 08:00 10/08/17 08:10 10/08/17 08:11 Glucose (Fingerstick) 417 mg/dL (70-99) Troponin I Quantitative < 0.017 ng/mL (0-0.055) Magnesium Level 1.3 mg/dL (1.8-2.4) Blood Gas pH 7.43 (7.35-7.45) Blood Gas PCO2 22 mmHg (35-45) Blood Gas PO2 145 mmHg (80-100) Blood Gas HCO3 16 mmol/L (22-26) Arterial Bld O2 Saturation (Calc) 99 % (92-99) FiO2 21 % Test 10/08/17 08:15 10/08/17 08:48 10/08/17 09:45 10/08/17 09:46 White Blood Count 5.0 x10^3/uL (4.0-11.0) Red Blood Count 3.36 x10^6/uL (3.50-5.40) Hemoglobin 9.5 g/dL (12.0-15.5) Hematocrit 28.3 % (36.0-47.0) Mean Corpuscular Volume 84 fL (79-100) Mean Corpuscular Hemoglobin 28 pg (25-35) Mean Corpuscular Hemoglobin Concent 34 g/dL (31-37) Red Cell Distribution Width 15.4 % (11.5-14.5) Platelet Count 287 x10^3/uL (140-400) Neutrophils (%) (Auto) 83 % (31-73) Lymphocytes (%) (Auto) 11 % (24-48) Monocytes (%) (Auto) 5 % (0-9) Eosinophils (%) (Auto) 0 % (0-3) Basophils (%) (Auto) 0 % (0-3) Neutrophils # (Auto) 4.2 x10^3uL (1.8-7.7) Lymphocytes # (Auto) 0.6 x10^3/uL (1.0-4.8) Monocytes # (Auto) 0.3 x10^3/uL (0.0-1.1) Eosinophils # (Auto) 0.0 x10^3/uL (0.0-0.7) Basophils # (Auto) 0.0 x10^3/uL (0.0-0.2) Sodium Level 137 mmol/L (136-145) Potassium Level 3.2 mmol/L (3.5-5.1) Chloride Level 99 mmol/L (98-107) Carbon Dioxide Level 16 mmol/L (21-32) Anion Gap 22 (6-14) Blood Urea Nitrogen 12 mg/dL (7-20) Creatinine 0.7 mg/dL (0.6-1.0) Estimated GFR (Cockcroft-Gault) 85.9 BUN/Creatinine Ratio 17 (6-20) Glucose Level 387 mg/dL (70-99) Serum Osmolality 306 mOsm/Kg (279-304) Calcium Level 7.5 mg/dL (8.5-10.1) Phosphorus Level 3.4 mg/dL (2.6-4.7) Total Bilirubin 0.5 mg/dL (0.2-1.0) Aspartate Amino Transf (AST/SGOT) 12 U/L (15-37) Alanine Aminotransferase (ALT/SGPT) 15 U/L (14-59) Alkaline Phosphatase 124 U/L (46-116) Creatine Kinase < 15 U/L (26-192) Creatine Kinase MB (Mass) < 0.5 ng/mL (0.0-3.6) Creatine Kinase MB Relative Index 0.0 % (0-4) Total Protein 5.8 g/dL (6.4-8.2) Albumin 2.5 g/dL (3.4-5.0) Albumin/Globulin Ratio 0.8 (1.0-1.7) Lipase 171 U/L (73-393) Acetone Level Sm pos (NEG) Glucose (Fingerstick) 330 mg/dL (70-99) 304 mg/dL (70-99) Nasal Screen MRSA (PCR) Negative (Negative) Test 10/08/17 11:24 10/08/17 13:20 10/08/17 15:15 10/08/17 15:23 Glucose (Fingerstick) 270 mg/dL (70-99) 229 mg/dL (70-99) 214 mg/dL (70-99) Troponin I Quantitative < 0.017 ng/mL (0-0.055) Test 10/08/17 15:25 10/08/17 16:52 10/08/17 18:05 10/08/17 19:02 Sodium Level 136 mmol/L (136-145) Potassium Level 2.9 mmol/L (3.5-5.1) Chloride Level 101 mmol/L (98-107) Carbon Dioxide Level 20 mmol/L (21-32) Anion Gap 15 (6-14) Blood Urea Nitrogen 8 mg/dL (7-20) Creatinine 0.7 mg/dL (0.6-1.0) Estimated GFR (Cockcroft-Gault) 85.9 BUN/Creatinine Ratio 11 (6-20) Glucose Level 228 mg/dL (70-99) Calcium Level 7.4 mg/dL (8.5-10.1) Total Bilirubin 0.3 mg/dL (0.2-1.0) Aspartate Amino Transf (AST/SGOT) 12 U/L (15-37) Alanine Aminotransferase (ALT/SGPT) 13 U/L (14-59) Alkaline Phosphatase 117 U/L (46-116) Total Protein 6.2 g/dL (6.4-8.2) Albumin 2.4 g/dL (3.4-5.0) Albumin/Globulin Ratio 0.6 (1.0-1.7) Glucose (Fingerstick) 205 mg/dL (70-99) 202 mg/dL (70-99) 196 mg/dL (70-99) Test 10/08/17 20:20 10/08/17 21:40 10/08/17 22:45 10/09/17 00:45 Glucose (Fingerstick) 210 mg/dL (70-99) 248 mg/dL (70-99) 264 mg/dL (70-99) Sodium Level 137 mmol/L (136-145) Potassium Level 3.7 mmol/L (3.5-5.1) Chloride Level 103 mmol/L (98-107) Carbon Dioxide Level 24 mmol/L (21-32) Anion Gap 10 (6-14) Blood Urea Nitrogen 4 mg/dL (7-20) Creatinine 0.8 mg/dL (0.6-1.0) Estimated GFR (Cockcroft-Gault) 73.7 Glucose Level 279 mg/dL (70-99) Calcium Level 7.7 mg/dL (8.5-10.1) Troponin I Quantitative < 0.017 ng/mL (0-0.055) Test 10/09/17 02:02 10/09/17 03:16 10/09/17 04:26 10/09/17 06:00 Glucose (Fingerstick) 249 mg/dL (70-99) 151 mg/dL (70-99) 192 mg/dL (70-99) 187 mg/dL (70-99) Test 10/09/17 06:05 10/09/17 08:11 White Blood Count 4.8 x10^3/uL (4.0-11.0) Red Blood Count 3.53 x10^6/uL (3.50-5.40) Hemoglobin 9.9 g/dL (12.0-15.5) Hematocrit 28.9 % (36.0-47.0) Mean Corpuscular Volume 82 fL (79-100) Mean Corpuscular Hemoglobin 28 pg (25-35) Mean Corpuscular Hemoglobin Concent 34 g/dL (31-37) Red Cell Distribution Width 15.4 % (11.5-14.5) Platelet Count 346 x10^3/uL (140-400) Neutrophils (%) (Auto) 52 % (31-73) Lymphocytes (%) (Auto) 31 % (24-48) Monocytes (%) (Auto) 15 % (0-9) Eosinophils (%) (Auto) 1 % (0-3) Basophils (%) (Auto) 1 % (0-3) Neutrophils # (Auto) 2.5 x10^3uL (1.8-7.7) Lymphocytes # (Auto) 1.5 x10^3/uL (1.0-4.8) Monocytes # (Auto) 0.7 x10^3/uL (0.0-1.1) Eosinophils # (Auto) 0.1 x10^3/uL (0.0-0.7) Basophils # (Auto) 0.0 x10^3/uL (0.0-0.2) Sodium Level 134 mmol/L (136-145) Potassium Level 3.5 mmol/L (3.5-5.1) Chloride Level 101 mmol/L (98-107) Carbon Dioxide Level 22 mmol/L (21-32) Anion Gap 11 (6-14) Blood Urea Nitrogen 3 mg/dL (7-20) Creatinine 0.6 mg/dL (0.6-1.0) Estimated GFR (Cockcroft-Gault) 102.7 BUN/Creatinine Ratio 5 (6-20) Glucose Level 196 mg/dL (70-99) Calcium Level 8.0 mg/dL (8.5-10.1) Magnesium Level 1.6 mg/dL (1.8-2.4) Total Bilirubin 0.3 mg/dL (0.2-1.0) Aspartate Amino Transf (AST/SGOT) 16 U/L (15-37) Alanine Aminotransferase (ALT/SGPT) 14 U/L (14-59) Alkaline Phosphatase 123 U/L (46-116) Total Protein 6.3 g/dL (6.4-8.2) Albumin 2.4 g/dL (3.4-5.0) Albumin/Globulin Ratio 0.6 (1.0-1.7) Glucose (Fingerstick) 196 mg/dL (70-99) Medications Current Medications Fentanyl Citrate (Fentanyl 2ml Vial) 50 mcg PRN Q15MIN PRN IV PAIN GREATER THAN 3/10 Last administered on 10/08/17 09:20; Start 10/08/17 at 07:30; Stop 10/08 at 10:51; Status DC Sodium Chloride 1,000 ml @ 1,000 mls/hr Q1H IV Last administered on 10/08/17 07:50; Start 10/08/17 at 07:23; Stop 10/08/17 at 08:22; Status DC Haloperidol Lactate (Haldol) 5 mg 1X ONCE IVP Last administered on 10/08/17 07 :50; Start 10/08/17 at 07:45; Stop 10/08/17 at 07:46; Status DC Diphenhydramine HCl (Benadryl) 25 mg 1X ONCE IVP Last administered on 07:45; Start 10/08/17 at 07:45; Stop 10/08/17 at 07:46; Status DC Sodium Chloride 1,000 ml @ 1,000 mls/hr 1X ONCE IV Last administered on at 08:30; Start 10/08/17 at 08:45; Stop 10/08/17 at 14:28; Status DC Sodium Chloride 1,000 ml @ 75 mls/hr 1X ONCE IV Last administered on 09:00; Start 10/08/17 at 09:00; Stop 10/08/17 at 14:28; Status DC Ondansetron HCl (Zofran) 4 mg PRN Q4HRS PRN IV NAUSEA/VOMITING Last administered on 10/08/17 23:16; Start 10/08/17 at 10:00; Stop 10/09/17 at 09:59 Fentanyl Citrate (Fentanyl 2ml Vial) 50 mcg PRN Q2HR PRN IV PAIN Last administered on 10/08/17at 12:37; Start 10/08/17 at 10:00; Stop 10/08/17 at 13:34; Status DC Acetaminophen (Tylenol) 650 mg PRN Q4HRS PRN PO FEVER; Start 10/08/17 at 10:00; Stop 10/09/17 at 09:59 Sodium Chloride 1,000 ml @ 0 mls/hr Q0M IV ; Start 10/08/17 at 09:52; Stop at 14:28; Status DC Dextrose/Sodium Chloride 1,000 ml @ 0 mls/hr Q0M IV ; Start 10/08/17 at 09:52; Stop 10/08/17 at 11:18; Status DC Insulin Human Regular 150 unit/ Sodium Chloride 151.5 ml @ 0 mls/hr CONT PRN PRN IV PER PROTOCOL Last administered on 10/08/17at 11:15; Start 10/08/17 at 10:00 ; Stop 10/09/17 at 07:30; Status DC Potassium Chloride 100 ml @ 100 mls/hr PRN Q1HR PRN IV SEE COMMENTS; Start 10/08/17 at 10:00; Stop 10/08/17 at 14:28; Status DC Potassium Chloride 100 ml @ 100 mls/hr PRN Q1HR PRN IV SEE COMMENTS; Start 10/08/17 at 10:00; Stop 10/08/17 at 14:28; Status DC Potassium Chloride 100 ml @ 100 mls/hr PRN Q1HR PRN IV SEE COMMENTS; Start 10/08/17 at 10:00; Stop 10/08/17 at 14:28; Status DC Potassium Chloride 100 ml @ 100 mls/hr PRN Q1HR PRN IV SEE COMMENTS; Start 10/08/17 at 10:00; Stop 10/08/17 at 14:28; Status DC Potassium Chloride/Dextrose/ Sod Cl 1,000 ml @ 0 mls/hr Q0M IV Last administered on 10/09/17at 04:31; Start 10/08/17 at 11:30; Stop 10/09/17 at 07:35; Status DC Fentanyl Citrate (Fentanyl 2ml Vial) 25 mcg PRN Q2HR PRN IV PAIN; Start at 13:45; Stop 10/09/17 at 07:30; Status DC Ketorolac Tromethamine (Toradol) 30 mg PRN Q6HRS PRN IV PAIN Last administered on 10/09/17 04:23; Start 10/08/17 at 13:45; Stop 10/13/17 at 13:44 Potassium Chloride 50 ml @ 50 mls/hr Q1H IV Last administered on 10/08/17at 17:01 ; Start 10/08/17 at 14:15; Stop 10/08/17 at 18:14; Status DC Lisinopril (Prinivil) 20 mg DAILY PO Last administered on 10/09/17at 08:09; Start 10/09/17 at 09:00 Metoclopramide HCl (Reglan) 10 mg TID PO Last administered on 10/09/17 08:09; Start 10/08/17 at 21:00 Metoprolol Tartrate (Lopressor) 50 mg BID PO ; Start 10/08/17 at 21:00; Stop 10/08 at 21:00; Status DC Pantoprazole Sodium (Protonix) 40 mg DAILYAC PO Last administered on 10/09/17at 08:09; Start 10/09/17 at 07:30 Metoprolol Tartrate (Lopressor) 25 mg Q6HRS PO Last administered on 10/09/17at 08 :08; Start 10/08/17 at 18:00 Hydralazine HCl (Apresoline) 10 mg Q2HR PRN IV ELEVATED BP, SEE COMMENTS; Start 10/08/17 at 17:00 Info 1 ea CONT PRN PRN MC PER PROTOCOL; Start 10/08/17 at 18:15 Magnesium Sulfate 50 ml @ 25 mls/hr 1X ONCE IV Last administered on 10/08/17at 20:29; Start 10/08/17 at 19:00; Stop 10/08/17 at 20:59; Status DC Insulin Aspart (NovoLOG) 0-9 UNITS TIDWMEALS SQ Last administered on 10/09/17at 08:14; Start 10/09/17 at 08:00 Dextrose 12.5 gm PRN Q15MIN PRN IV SEE COMMENTS; Start 10/09/17 at 07:30 Magnesium Chloride (Mag Delay) 64 mg DAILY PO Last administered on 10/09/17at 08: 09; Start 10/09/17 at 09:00 Active Scripts Active Reported Protonix (Pantoprazole Sodium) 40 Mg Tablet.dr 1 Tab PO DAILYAC LAST DOSE GIVEN: DATE: TIME: NEXT DOSE DUE: DATE: TIME: Reglan (Metoclopramide Hcl) 10 Mg Tablet 1 Tab PO TID LAST DOSE GIVEN: DATE: TIME: NEXT DOSE DUE: DATE: TIME: Probiotic Acidophilus (Lactobacillus Acidophilus) 1 Each Tablet 1 Each PO DAILY LAST DOSE GIVEN: DATE: TIME: NEXT DOSE DUE: DATE: TIME: Lisinopril 20 Mg Tablet 1 Tab PO DAILY LAST DOSE GIVEN: DATE: TIME: NEXT DOSE DUE: DATE: TIME: Metoprolol Tartrate 50 Mg Tablet 1 Tab PO BID LAST DOSE GIVEN: DATE: TIME: NEXT DOSE DUE: DATE: TIME: Pancreomer Sanchez 10,500 Unit Cap (Lipase/Protease/Amylase) 1 Each Capsule.dr 2 Each PO TIDWMEALS LAST DOSE GIVEN: DATE: TIME: NEXT DOSE DUE: DATE: TIME: Lantus Solostar (Insulin Glargine,Hum.rec.anlog) 100 Unit/1 Ml Insuln.pen 40 Unit SQ QHS LAST DOSE GIVEN: DATE: TIME: NEXT DOSE DUE: DATE: TIME: Novolog Flexpen (Insulin Aspart) 100 Unit/1 Ml Insuln.pen 10 Unit SQ TIDWMEALS LAST DOSE GIVEN: DATE: TIME: NEXT DOSE DUE: DATE: TIME: Vitals/I & O Vital Sign - Last 24 Hours 10/08/17 10/08/17 10/08/17 10/08/17 09:11 09:20 10:00 11:33 Pulse 126 127 134 Resp 24 22 22 22 B/P (MAP) 164/86 (112) 150/83 (105) 174/89 (117) Pulse Ox 97 94 98 O2 Delivery Room Air Room Air 10/08/17 10/08/17 10/08/17 10/08/17 12:37 14:23 15:02 16:46 Pulse 134 135 128 Resp 20 20 20 B/P (MAP) 188/113 (138) 137/86 (103) 172/91 (118) Pulse Ox 98 98 98 98 O2 Delivery Room Air Room Air Room Air 10/08/17 10/08/17 10/08/17 10/08/17 17:00 18:10 19:00 20:00 Temp 98.6 Pulse 130 114 112 109 Resp 20 20 18 B/P (MAP) 138/88 (105) 144/71 (95) 149/84 (105) Pulse Ox 97 97 97 O2 Delivery Room Air Room Air Room Air 10/08/17 10/08/17 10/09/17 10/09/17 22:00 23:17 00:01 02:00 Temp 98.0 Pulse 114 114 110 108 Resp 18 18 22 B/P (MAP) 148/78 (101) 138/88 166/86 (112) 147/76 (99) Pulse Ox 98 97 96 O2 Delivery Room Air Room Air Room Air 10/09/17 10/09/17 10/09/17 10/09/17 04:00 07:10 08:08 08:09 Pulse 112 114 114 114 Resp 18 16 B/P (MAP) 170/98 (122) 116/80 (92) 116/80 116/80 Pulse Ox 98 98 O2 Delivery Room Air Room Air Intake and Output 10/08/17 10/08/17 10/09/17 15:00 23:00 07:00 Intake Total 200 ml 3200 ml 1350 ml Output Total 875 ml 500 ml Balance -675 ml 3200 ml 850 ml YANETH SIU APRN Oct 09, 2017 08:41
[2017-10-09] MEDS ORDERED: LISINOPRIL 20 MG TABLET PO SCH (09:00)
[2017-10-09] MEDS ORDERED: MAGNESIUM CHLORIDE ER 64 MG TABLET.ER PO SCH (09:00)
[2017-10-09 10:57] VITALS: BP 153/80
[2017-10-09] MEDS ORDERED: ONDANSETRON ODT 4 MG TAB.RAPDIS PO PRN (11:30)
[2017-10-09] MEDS ORDERED: MAG HYDROX/AL HYDROX/SIMETH 30 ML ORAL.SUSP PO PRN (12:30)
--- NOTE | 2017-10-09 13:06 | HP ---
ADMIT DATE: 10/08/2017 REASON FOR ADMISSION: Abdominal pain and vomiting. HISTORY OF PRESENT ILLNESS: This is a 56-year-old female who has gastroparesis from uncontrolled diabetes who comes in complaining of abdominal pain. She has had frequent visits to the Emergency Department for similar episodes and reported her pain in the Emergency Room as 10/10. Eating has been poor. Numerous vomiting and the patient requesting narcotics. She also had an abnormal EKG and has been seen by Cardiology. PAST MEDICAL HISTORY: 1. Diabetic ketoacidosis. 2. Poorly controlled diabetes. 3. Chronic pancreatitis. 4. Hypertension. 5. Coronary artery disease, status post VA in August and with coronary angioplasty and stent deployment in August 2017. She also has diabetic gastroparesis and noncompliance. The patient has to have a bypass but is planning on having it in [place] near her daughter. PAST SURGICAL HISTORY: Right mastectomy, cholecystectomy, appendectomy, coronary artery disease with stent placement and post-PTCA, right breast reconstruction as well. FAMILY HISTORY: Unremarkable. SOCIAL HISTORY: She is recently to someone she met on the Internet. Was previously lived in [place] near her daughter. No smoking or alcohol or recreational drugs. ALLERGIES: None. MEDICATIONS: Not clear how often she is taking her medications or whether she is checking her blood sugars very often. Nursing staff has been working with her. REVIEW OF SYSTEMS: Consistent with abdominal pain. OBJECTIVE: VITAL SIGNS: Blood pressure is 137/86, pulse 135, respirations 20, pulse ox 98% on room air. Height 63 inches, weight of 140.31 pounds. GENERAL: The patient is lying in bed. She does not appear to be in pain. HEENT: Her eyes are clear. Nose is patent. Throat is clear. NECK: Supple. LUNGS: Clear to auscultation. CARDIOVASCULAR: Regular rhythm and rate. ABDOMEN: Soft. Bowel sounds are positive. No tenderness to palpation. EXTREMITIES: Without edema. LABORATORY DATA: Admission glucose was 417, potassium was 3.2 and decreased to 2.9, magnesium was 1.3, albumin 2.5, troponins negative. ASSESSMENT: 1. Abdominal pain secondary to gastroparesis. 2. Chronic pancreatitis. Lipase is 171 on this admission. 3. Hypokalemia, corrected. 4. Poorly controlled type 2 diabetes. 5. Coronary artery disease, in need of bypass. 6. Hypomagnesemia. 7. Abnormal EKG, myocardial infarction ruled out. PLAN: IV fluids, antiemetics education on the gastroparesis, diet, and anticipate discharge tomorrow. ARIELLE COLON DO DR: ROCK/carson JOB#: [id number] / [id number]
[2017-10-09] MEDS ORDERED: ONDA4TAB10 SL (13:15)
[2017-10-09] MEDS ORDERED: ACETAMINOPHEN 325 MG TABLET PO PRN (13:30)
[2017-10-09 14:19] VITALS: BP 186/95
[2017-10-09] MEDS ORDERED: ATORVASTATIN CALCIUM 20 MG TABLET PO SCH (21:00)
--- NOTE | 2017-10-09 23:21 | DS ---
DATE OF DISCHARGE: 10/09/2017 DISCHARGE DIAGNOSES: 1. Abdominal pain from gastroparesis. 2. Poorly controlled type 2 diabetes. 3. Hypokalemia, resolved. 4. Hypomagnesemia, resolved. 5. Hyperglycemia, being treated. 6. Severe protein-calorie malnutrition. 7. Abnormal EKG, myocardial infarction ruled out. 8. Coronary artery disease, will get bypass in [facility]. HOSPITAL COURSE: A 56-year-old was admitted for abdominal pain. She did not have an infection, was presumed due to gastroparesis. She was treated with Reglan, pain medication and IV fluids. Her pain resolved. She was discharged home in good condition. ARIELLE COLON DO DR: ROCK/carson JOB#: [id number] / [id number]
== END 2017-10-09 15:10 | disposition home or self-care (01) | DRG 73 ==
LOC: ER 06:58 → ICU 09:27
PROVIDERS: ADMIT Family Medicine; ATTEND Family Medicine
DX: E11.43 Type 2 diabetes mellitus with diabetic autonomic (poly)neuropathy (principal); E43 Unspecified severe protein-calorie malnutrition; K86.1 Other chronic pancreatitis; E11.10 Type 2 diabetes mellitus with ketoacidosis without coma; E83.42 Hypomagnesemia; E78.00 Pure hypercholesterolemia, unspecified; E78.5 Hyperlipidemia, unspecified; E87.6 Hypokalemia; I10 Essential (primary) hypertension; I25.10 Atherosclerotic heart disease of native coronary artery without angina pectoris; K21.9 Gastro-esophageal reflux disease without esophagitis; K31.84 Gastroparesis; Z85.3 Personal history of malignant neoplasm of breast; Z87.442 Personal history of urinary calculi; Z91.19 Patient's noncompliance with other medical treatment and regimen; Z95.5 Presence of coronary angioplasty implant and graft; Z90.11 Acquired absence of right breast and nipple; Z90.49 Acquired absence of other specified parts of digestive tract; R94.31 Abnormal electrocardiogram [ECG] [EKG]; I25.2 Old myocardial infarction; F42.9 Obsessive-compulsive disorder, unspecified; Z68.24 Body mass index [BMI] 24.0-24.9, adult
CPT/HCPCS: 36415; 36600; 74022; 80048; 80053; 80061; 82010; 82553; 82803; 82947; 83690; 83735; 83930; 84100; 84484; 85025; 87641; 93005; 93306; 96361; 96374; 96375; 96376; J1200; J1630; J1815; J1885; J2405; J3010; J3475; J3480; J7042; J8597; Q0162; 99291-25; J7030

== ENCOUNTER 2017-11-25 09:58 | Inpatient (IN) | payer SELFPAY ==
[2017-11-25] VITALS (11 sets, daily range): BP systolic 97–188; BP diastolic 57–98
[~2017-11-25] VITALS: Ht 160 cm; Wt 64.1 kg
[~2017-11-25 09:58] MED LIST changes: +ONDA4TAB10 SL
[2017-11-25] MEDS ORDERED: METOCLOPRAMIDE HCL 10 MG/2 ML VIAL. IV ONE (10:15)
[2017-11-25] MEDS ORDERED: 0.9 % SODIUM CHLORIDE 10 ML DISP.SYRIN. IV PRN (10:15)
[2017-11-25] MEDS ORDERED: ONDANSETRON PF 4 MG/2 ML VIAL. IV ONE (10:15)
[2017-11-25] MEDS ORDERED: IV NORMAL SALINE 1,000ML 1,000 ML IV SCH ×2 (10:15→12:00)
[2017-11-25] MEDS ORDERED: INSULIN REGULAR 150 UNIT in 0.9 % SODIUM CHLORIDE 150ML 150 ML IV ONE (10:30)
[2017-11-25] MEDS ORDERED: IV NORMAL SALINE 1,000ML 1,000 ML IV ONE (10:30)
[2017-11-25] MEDS ORDERED: INSULIN REGULAR 100 UNIT/ML 10ML VIAL. IV ONE (10:30)
[2017-11-25 10:54] LABS: BASO % 0 % (0-3); EOS % 0 % (0-3); HEMATOCRIT 38.6 % (36.0-47.0); HEMOGLOBIN 12.6 g/dL (12.0-15.5); LYMPH # 0.7 x10^3/uL (1.0-4.8); LYMPH % 5 % (24-48); MEAN CORPUSCULAR HEMOGLOBIN 27 pg (25-35); MEAN CORPUSCULAR HGB CONC 33 g/dL (31-37); MEAN CORPUSCULAR VOLUME 82 fL (79-100); MONO % 3 % (0-9); NEUT # 13.1 x10^3uL (1.8-7.7); NEUT % 92 % (31-73); PLATELET COUNT 359 x10^3/uL (140-400); RED CELL DISTRIBUTION WIDTH 14.6 % (11.5-14.5); WHITE BLOOD COUNT 14.2 x10^3/uL (4.0-11.0)
[2017-11-25 10:55] LABS: MONO # 0.4 x10^3/uL (0.0-1.1)
[2017-11-25 11:06] LABS: ALBUMIN 3.7 g/dL (3.4-5.0); ALBUMIN/GLOBULIN RATIO 0.8 (1.0-1.7); CALCIUM 9.8 mg/dL (8.5-10.1); CREATININE 0.9 mg/dL (0.6-1.0); GFR 64.3; POTASSIUM 3.5 mmol/L (3.5-5.1); TOTAL BILIRUBIN 0.6 mg/dL (0.2-1.0); TOTAL PROTEIN 8.1 g/dL (6.4-8.2)
[2017-11-25 11:10] LABS: BILIRUBIN,URINE NEG (NEG); CLARITY,URINE CLEAR; COLOR,URINE YELLOW; GLUCOSE,URINE 500 mg/dL (NEG)
[2017-11-25 11:11] LABS: BACTERIA,URINE FEW /HPF (0-FEW); NITRITE,URINE NEG (NEG); RBC,URINE 0 /HPF (0-2); SQUAMOUS EPITHELIAL CELL,UR OCC /LPF; UROBILINOGEN,URINE 0.2 mg/dL (0.2 mg/dL); WBC,URINE RARE /HPF (0-4); YEAST,URINE PRESENT /HPF
[2017-11-25 11:15] LABS: AMPHETAMINE/METHAMPHETAMINE NEG (NEG); BARBITURATES NEG (NEG); BENZODIAZEPINES NEG (NEG); CANNABINOIDS NEG (NEG); COCAINE NEG (NEG); METHADONE NEG (NEG); OPIATES NEG (NEG); PHENCYCLIDINE NEG (NEG)
[2017-11-25 11:18] LABS: BGAS PH 7.33 (7.35-7.45)
[2017-11-25 11:24] LABS: MAGNESIUM 1.7 mg/dL (1.8-2.4)
--- NOTE | 2017-11-25 11:28 | PHYS DOC ---
Past History Past Medical History: CAD, Diabetes, Gallstones, GERD, High Cholesterol, Heart Disease, Hypertension, VA, Pancreatitis, Other Past Surgical History: Angioplasty, Appendectomy, Cholecystectomy Alcohol Use: None Drug Use: None Adult General Chief Complaint Chief Complaint: NAUSEA/VOMITING/DIARRHEA HPI HPI 56-year-old female patient with history of diabetes mellitus, CAD, dyslipidemia and hypertension with frequent emergency room visits and hospitalization for DKA complaining of gradual onset of generalized abdominal pain since yesterday as a constant and sharp pain with more than 10 episodes of nonbloody vomiting and generalized weakness. Patient rated her pain 10 over 10. Patient complaining of decrease of urine output and appetite and states she had a bowel movement yesterday. Patient denies chest pain, shortness of breath, fever and chills. Patient states she was not able to get her medication this morning and yesterday. Review of Systems Review of Systems Constitutional: Denies fever or chills [] Eyes: Denies change in visual acuity, redness, or eye pain [] HENT: Denies nasal congestion or sore throat [] Respiratory: Denies cough or shortness of breath [] Cardiovascular: No additional information not addressed in HPI [] GI: Reports abdominal pain, nausea, vomiting, denies bloody stools or diarrhea [ ] : Denies dysuria or hematuria [] Musculoskeletal: Denies back pain or joint pain [] Integument: Denies rash or skin lesions [] Neurologic: Denies headache, focal weakness or sensory changes [] Endocrine: Denies polyuria or polydipsia [] All other systems were reviewed and found to be within normal limits, except as documented in this note. Current Medications Current Medications Current Medications Medications (Trade) Dose Ordered Sig/Georgi Start Time Stop Time Status Last Admin Dose Admin Fentanyl Citrate (Fentanyl 2ml Vial) 50 mcg 1X ONCE 11/25/17 10:30 11/25/17 10:31 DC 11/25/17 10:54 50 MCG Insulin Human Regular (NovoLIN R) 10 unit 1X ONCE 11/25/17 10:30 11/25/17 10:31 DC 11/25/17 10:30 10 UNIT Insulin Human Regular 150 unit/ Sodium Chloride 151.5 ml @ 5 mls/hr 1X ONCE 11/25/17 10:30 11/26/17 16:47 Metoclopramide HCl (Reglan Vial) 10 mg 1X ONCE 11/25/17 10:15 11/25/17 10:16 DC 11/25/17 10:54 10 MG Ondansetron HCl (Zofran) 4 mg 1X ONCE 11/25/17 10:15 11/25/17 10:15 DC Sodium Chloride 1,000 ml @ 1,000 mls/hr 1X ONCE 11/25/17 10:30 11/25/17 11:29 Sodium Chloride (Normal Saline Flush) 10 ml QSHIFT PRN 11/25/17 10:15 Allergies Allergies Allergies Coded Allergies Type Severity Reaction Last Updated Verified No Known Drug Allergies 10/08/17 No Physical Exam Physical Exam Constitutional: Moderate distress, non-toxic appearance. [] HENT: Normocephalic, atraumatic, oropharynx dry Eyes: PERRLA, EOMI, conjunctiva normal, no discharge. [] Neck: Normal range of motion, no tenderness, supple, no stridor. [] Cardiovascular: Tachycardia, no murmur [] Lungs & Thorax: Bilateral breath sounds clear to auscultation [] Abdomen: Bowel sounds normal, soft, no tenderness, no masses, no pulsatile masses. [] Skin: Warm, dry, no erythema, no rash. [] Back: No tenderness, no CVA tenderness. [] Extremities: No tenderness, no cyanosis, no clubbing, ROM intact, no edema. [] Neurologic: Alert and oriented X 3, normal motor function, normal sensory function, no focal deficits noted. [] Psychologic: Affect normal, judgement normal, mood normal. [] Current Patient Data Vital Signs Vital Signs Date Time Temp Pulse Resp B/P (MAP) Pulse Ox O2 Delivery O2 Flow Rate FiO2 11/25/17 10:54 18 99 Room Air 11/25/17 10:11 97.8 135 Lab Results Laboratory Tests Test 11/25/17 10:39 White Blood Count 14.2 x10^3/uL (4.0-11.0) H Red Blood Count 4.70 x10^6/uL (3.50-5.40) Hemoglobin 12.6 g/dL (12.0-15.5) Hematocrit 38.6 % (36.0-47.0) Mean Corpuscular Volume 82 fL (79-100) Mean Corpuscular Hemoglobin 27 pg (25-35) Mean Corpuscular Hemoglobin Concent 33 g/dL (31-37) Red Cell Distribution Width 14.6 % (11.5-14.5) H Platelet Count 359 x10^3/uL (140-400) Neutrophils (%) (Auto) 92 % (31-73) H Lymphocytes (%) (Auto) 5 % (24-48) L Monocytes (%) (Auto) 3 % (0-9) Eosinophils (%) (Auto) 0 % (0-3) Basophils (%) (Auto) 0 % (0-3) Neutrophils # (Auto) 13.1 x10^3uL (1.8-7.7) H Lymphocytes # (Auto) 0.7 x10^3/uL (1.0-4.8) L Monocytes # (Auto) 0.4 x10^3/uL (0.0-1.1) Eosinophils # (Auto) 0.0 x10^3/uL (0.0-0.7) Basophils # (Auto) 0.0 x10^3/uL (0.0-0.2) Acetone Level Sm pos (NEG) EKG EKG EKG interpreted by me. EKG at 1112 showed sinus tachycardia at rate of 132, no acute ST and T wave abnormality[] Radiology/Procedures Radiology/Procedures [] Course & Med Decision Making Course & Med Decision Making Pertinent Labs reviewed. (See chart for details) Evaluation of patient in ER showed 56-year-old female patient with history of type 2 diabetes and episodes of DKA presented to ER with abdominal pain and nausea and vomiting. Patient was very dehydrated in moderate distress of pain. IV line was started in left EJ and IV fluids, bolus and drip of insulin and fentanyl was given. Blood sugar gradually dropped to 370s and patient felt better. Patient had 2 L of IV fluid in ER and admitted to ICU with diagnosis of DKA. Dr. Schafer informed at 1142 and agreed with plan of care. Dragon Disclaimer Dragon Disclaimer This electronic medical record was generated, in whole or in part, using a voice recognition dictation system. Departure Departure: Impression: Primary Impression: DKA (diabetic ketoacidoses) Additional Impressions: Abdominal pain Dehydration Renal insufficiency Hypomagnesemia Noncompliance with diabetes treatment Disposition: 09 ADMITTED INPATIENT (At 1142) Admitting Physician: Royal Schafer Condition: GUARDED Referrals: PCP,NO (PCP) Critical Care Time Critical care time was [70] minutes exclusive of procedures. Problem Qualifiers ROMINA STEWART MD Nov 25, 2017 11:28
[2017-11-25] MEDS ORDERED: ONDANSETRON PF 4 MG/2 ML VIAL. IV PRN (11:45)
--- NOTE | 2017-11-25 13:07 | EKG ---
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
[2017-11-25] MEDS ORDERED: POTASSIUM CL 40MEQ IN 0.9%NACL 1,000 ML IV ONE (13:14)
[2017-11-25] MEDS ORDERED: diphenhydrAMINE HCL 25 MG CAPSULE PO PRN (13:15)
[2017-11-25] MEDS ORDERED: INSULIN REGULAR 150 UNIT in 0.9 % SODIUM CHLORIDE 150ML 150 ML IV PRN (13:15)
[2017-11-25] MEDS: PROMETHAZINE 25 MG in IV NORMAL SALINE 50ML 50 ML IV PRN ×2 (13:16→18:23)
--- NOTE | 2017-11-25 14:05 | HP ---
ADMIT DATE: 11/25/2017 HISTORY OF PRESENT ILLNESS: The patient is a 56-year-old female patient who basically came to the Emergency Room with recurrent bouts of nausea, vomiting, as well as abdominal pain. She was investigated in the Emergency Room, was found to have leukocytosis. She was mildly acidotic and her chemistry showed that her blood sugar was 436 with anion gap of 24, who was admitted to the ICU for treatment of diabetic ketoacidosis. She was started on IV fluid and insulin drip. PAST MEDICAL HISTORY: Significant for type 2 diabetes since age of 28. She has coronary artery disease, status post myocardial infarction x 2 with stent deployment, gastroparesis, history of pancreatitis. She is also known to have hypertension, gastroesophageal reflux disease. PAST SURGICAL HISTORY: Significant for angioplasty, appendectomy, cholecystectomy. She has also percutaneous coronary intervention with stent deployment. FAMILY HISTORY: Unremarkable. SOCIAL HISTORY: She has recently moved from [facility]. She has a daughter who evidently is her DPOA. ALLERGIES: She has no known drug allergies. MEDICATIONS: She is currently on following medications: She is on metoprolol tartrate 50 mg twice a day, lisinopril 20 mg once a day, lactobacillus acidophilus 1 capsule once a day. She is on pancreas two 3 times a day with meals, ondansetron 4 mg every 8 hours, Protonix 40 mg once a day, metoclopramide 10 mg 3 times a day, NovoLog insulin 10 units before meals and Lantus insulin 40 units at bedtime. REVIEW OF SYSTEMS: As per history of present illness. PHYSICAL EXAMINATION: GENERAL: On examining her, she was pale, but no jaundice, cyanosis, or thyromegaly. No jugular venous distention. No limb edema. VITAL SIGNS: Her heart rate was 125, blood pressure was 164/80, temperature was 97.8, respiratory rate was 18, and oxygen saturation was 99% on room air. HEAD, EYES, EARS, NOSE, AND THROAT: Showed normocephalic, atraumatic. NECK: Supple. HEART: Showed normal first and second heart sounds with no gallop, rub, or murmur. CHEST: Clear to auscultation. No crepitation or rhonchi. ABDOMEN: Distended, soft, nontender. No guarding or rigidity. No organomegaly. All hernial orifices intact. Bowel sounds normal. NEUROLOGIC: She is awake, alert, responding appropriately. Cranial nerves intact. EXTREMITIES: She moves extremities without difficulty. LABORATORY DATA: On arrival showed her white cell count to be 14,200, hemoglobin 12.6, hematocrit 38.6, MCV 82, and platelet count of 359,000. Her blood gases showed a pH of 7.33, her pCO2 of 28, pO2 of 92, bicarbonate 15, and oxygen saturation was 97% and FiO2 21%. Her chemistry showed serum sodium 134, potassium 3.5, chloride 93, bicarbonate 17, anion gap of 24, BUN of 18, creatinine 0.9, estimated GFR was 64 mL per minute. Her glucose was 460. Calcium was 9.8. Total bilirubin, AST, ALT, alkaline phosphatase were normal. Her total protein was 8.1, albumin 3.7. Her urinalysis showed the urine was yellow, clear with a pH of 5, specific gravity of . There was large amount of protein, large amount of glucose, and large amount of ketones, small amount of blood, negative for nitrite and leukocyte esterase, 0 RBCs, very rare WBCs and very few bacteria, and urine toxicology screen was negative. IMPRESSION: In summary, this is a 56-year-old female patient who was admitted with recurrent bouts of nausea, vomiting, was found to be in diabetic ketoacidosis. PLAN: To continue obviously with IV fluid and insulin drip, monitor as per diabetic ketoacidosis treatment protocol. INÉS GARCÍA MD DR: MAXIM/carson JOB#: [id number] / [id number]
[2017-11-25 15:25] LABS: ALBUMIN 3.2 g/dL (3.4-5.0); ALBUMIN/GLOBULIN RATIO 0.8 (1.0-1.7); CALCIUM 8.9 mg/dL (8.5-10.1); CREATININE 0.9 mg/dL (0.6-1.0); GFR 64.3; POTASSIUM 3.9 mmol/L (3.5-5.1); TOTAL BILIRUBIN 0.3 mg/dL (0.2-1.0); TOTAL PROTEIN 7.2 g/dL (6.4-8.2)
[2017-11-25] MEDS ORDERED: POTASSIUM CL 40MEQ D5-0.45NACL 1,000 ML IV ONE (15:37)
[2017-11-25] MEDS: ONDANSETRON PF 4 MG/2 ML VIAL. IV PRN (15:39)
[2017-11-25] MEDS: METOCLOPRAMIDE 10 MG TABLET PO SCH (15:39)
[2017-11-25] MEDS: METOCLOPRAMIDE HCL 10 MG/2 ML VIAL. IV PRN (15:39)
[2017-11-25] MEDS: POTASSIUM CL 40MEQ D5-0.45NACL 1,000 ML IV SCH ×3 (15:54→21:46)
[2017-11-25] MEDS: LIPASE/PROTEAS/AMYLAS 10/34/55 CAPSULE.DR. PO SCH (17:00)
[2017-11-25] MEDS ORDERED: MAGNESIUM SULFATE 2GM 50 ML IV ONE (20:00)
[2017-11-25] MEDS: LACTOBACILLUS RHAMNOSUS GG 1 CAPSULE. PO SCH (20:18)
[2017-11-25] MEDS: METOPROLOL TART IMMED RELEASE 50 MG TABLET PO SCH (20:18)
[2017-11-25 21:51] LABS: ALBUMIN 2.9 g/dL (3.4-5.0); ALBUMIN/GLOBULIN RATIO 0.8 (1.0-1.7); CALCIUM 8.5 mg/dL (8.5-10.1); CREATININE 0.8 mg/dL (0.6-1.0); GFR 73.7; POTASSIUM 3.7 mmol/L (3.5-5.1); TOTAL BILIRUBIN 0.2 mg/dL (0.2-1.0); TOTAL PROTEIN 6.6 g/dL (6.4-8.2)
[2017-11-26] VITALS (14 sets, daily range): BP systolic 96–207; BP diastolic 49–147
[2017-11-26] MEDS: POTASSIUM CL 40MEQ D5-0.45NACL 1,000 ML IV SCH ×4 (01:21→16:56)
[2017-11-26] MEDS: PROMETHAZINE 25 MG in IV NORMAL SALINE 50ML 50 ML IV PRN ×2 (02:07→08:18)
[2017-11-26] MEDS: ONDANSETRON PF 4 MG/2 ML VIAL. IV PRN ×2 (02:08→07:49)
[2017-11-26] MEDS: ONDANSETRON ODT 4 MG TAB.RAPDIS PO PRN ×3 (04:13→16:55)
[2017-11-26] MEDS: METOCLOPRAMIDE 10 MG TABLET PO SCH ×3 (06:10→16:55)
[2017-11-26] MEDS: PANTOPRAZOLE 40 MG TABLET. PO SCH (06:11)
[2017-11-26 06:15] LABS: HEMATOCRIT 36.6 % (36.0-47.0); RED BLOOD COUNT 4.56 x10^6/uL (3.50-5.40); RED CELL DISTRIBUTION WIDTH 14.8 % (11.5-14.5); WHITE BLOOD COUNT 12.8 x10^3/uL (4.0-11.0)
[2017-11-26 06:23] LABS: ALBUMIN 3.1 g/dL (3.4-5.0); ALBUMIN/GLOBULIN RATIO 0.8 (1.0-1.7); CALCIUM 8.7 mg/dL (8.5-10.1); CREATININE 0.7 mg/dL (0.6-1.0); GFR 85.9; TOTAL BILIRUBIN 0.3 mg/dL (0.2-1.0); TOTAL PROTEIN 7.1 g/dL (6.4-8.2)
[2017-11-26] MEDS: LIPASE/PROTEAS/AMYLAS 10/34/55 CAPSULE.DR. PO SCH ×3 (07:45→16:55)
[2017-11-26] MEDS: METOCLOPRAMIDE HCL 10 MG/2 ML VIAL. IV PRN ×2 (07:49→15:43)
[2017-11-26] MEDS: METOPROLOL TART IMMED RELEASE 50 MG TABLET PO SCH ×2 (07:49→20:33)
[2017-11-26] MEDS: LISINOPRIL 20 MG TABLET PO SCH (07:49)
[2017-11-26] MEDS: LACTOBACILLUS RHAMNOSUS GG 1 CAPSULE. PO SCH ×2 (09:00→20:33)
[2017-11-26] MEDS ORDERED: AZITHROMYCIN 500 MG in IV NORMAL SALINE 250ML 250 ML IV SCH (16:00)
[2017-11-26] MEDS ORDERED: ERYTHROMYCIN LACT 250 MG in IV NORMAL SALINE 100ML 100 ML IV SCH (18:00)
[2017-11-26] MEDS ORDERED: ZOLPIDEM 5 MG TABLET. PO PRN (20:15)
--- NOTE | 2017-11-26 20:59 | PN ---
DATE: 11/26/2017 SUBJECTIVE: The patient is resting slightly propped up in bed, in no apparent distress. She continued to complain of nausea, vomiting, unable to tolerate anything by mouth. Blood sugar has finally controlled; however, her blood pressure continues to be high as she is unable to tolerate things by mouth. PHYSICAL EXAMINATION: GENERAL: When I examined her this afternoon, she looked well and was clearly in no apparent respiratory distress. No pallor, jaundice, cyanosis or thyromegaly. No jugular venous distension. No lower limb edema. VITAL SIGNS: Her heart rate was 105, blood pressure was 96/49, temperature was 98.4, respiratory rate was 18 and oxygen saturation was 99% on room air. HEAD, EYES, EARS, NOSE AND THROAT: Normocephalic, atraumatic. NECK: Supple. HEART: Showed normal first and second heart sounds. No gallop, rub or murmur. CHEST: Clear to auscultation. No crepitation or rhonchi. ABDOMEN: Distended, soft, nontender. NEUROLOGIC: She is awake, alert, responding appropriately. Cranial nerves intact. She moves extremities without difficulty. Her intake over the last 24 hours was 6500, output was 3050. LABORATORY DATA: As of this morning showed a white cell count 12,800, hemoglobin 12, hematocrit 36, MCV 80 and platelet count 379,000. Her chemistry as of this morning showed that her serum sodium was 132, potassium 4, chloride 98, bicarbonate 23, anion gap of 11, BUN 7, creatinine 0.7. Estimated GFR was 85 mL per minute. Her glucose was 289, although by the time I saw her, it was down to 137. Her calcium was 8.7, magnesium 2. Total bilirubin, AST, ALT were normal. Alkaline phosphatase slightly elevated. Total protein was 7.1, albumin 3.1. Her serum triglycerides were 102. Total cholesterol 179, LDL was 86, VLDL was 20 and HDL cholesterol was 73 and the ratio was 2. ASSESSMENT AND PLAN: 1. Diabetic ketoacidosis is improving. 2. Severe diabetic gastroparesis. The patient continued to have nausea and vomiting. 3. Dilutional hyponatremia, resolved. The anion gap has normalized, now it is only 11 from 24. Plan is to continue with IV fluid and insulin sliding scale. I will start her on erythromycin 250 mg IV q. 6 hourly, repeat all her lab works tomorrow and decide on further management accordingly. Apparently, the patient is also known to have coronary artery disease, status post myocardial infarction x 2 with stent deployment, history of pancreatitis, hypertension, gastroesophageal reflux disease. INÉS GARCÍA MD DR: MAXIM/carson JOB#: [id number] / [id number]
[2017-11-27] VITALS (8 sets, daily range): BP systolic 88–177; BP diastolic 64–96
[2017-11-27] MEDS: POTASSIUM CL 40MEQ D5-0.45NACL 1,000 ML IV SCH ×2 (02:19→13:29)
[2017-11-27] MEDS ORDERED: PROMETHAZINE 25 MG/ML VIAL IV ONE (02:38)
[2017-11-27] MEDS: METOCLOPRAMIDE HCL 10 MG/2 ML VIAL. IV PRN ×2 (02:46→12:40)
[2017-11-27] MEDS: PROMETHAZINE 25 MG in IV NORMAL SALINE 50ML 50 ML IV PRN (02:47)
[2017-11-27 06:03] LABS: HEMATOCRIT 37.3 % (36.0-47.0); HEMOGLOBIN 12.6 g/dL (12.0-15.5); RED BLOOD COUNT 4.69 x10^6/uL (3.50-5.40); RED CELL DISTRIBUTION WIDTH 14.8 % (11.5-14.5); WHITE BLOOD COUNT 8.9 x10^3/uL (4.0-11.0)
[2017-11-27 06:19] LABS: ALBUMIN 2.7 g/dL (3.4-5.0); ALBUMIN/GLOBULIN RATIO 0.7 (1.0-1.7); CALCIUM 8.7 mg/dL (8.5-10.1); CREATININE 0.9 mg/dL (0.6-1.0); GFR 64.3; MAGNESIUM 1.6 mg/dL (1.8-2.4); POTASSIUM 3.7 mmol/L (3.5-5.1); TOTAL BILIRUBIN 0.2 mg/dL (0.2-1.0); TOTAL PROTEIN 6.8 g/dL (6.4-8.2)
[2017-11-27] MEDS: METOCLOPRAMIDE 10 MG TABLET PO SCH ×3 (06:41→12:12)
[2017-11-27] MEDS: PANTOPRAZOLE 40 MG TABLET. PO SCH (06:42)
[2017-11-27] MEDS: ONDANSETRON ODT 4 MG TAB.RAPDIS PO PRN ×2 (07:24→12:40)
[2017-11-27] MEDS: METOPROLOL TART IMMED RELEASE 50 MG TABLET PO SCH (07:24)
[2017-11-27] MEDS: LIPASE/PROTEAS/AMYLAS 10/34/55 CAPSULE.DR. PO SCH ×2 (07:24→12:12)
[2017-11-27] MEDS: LACTOBACILLUS RHAMNOSUS GG 1 CAPSULE. PO SCH (09:00)
[2017-11-27] MEDS ORDERED: DEXTROSE 50% 25 GM / 50ML DISP.SYRIN. IV PRN (09:00)
[2017-11-27] MEDS ORDERED: INSULIN ASPART 300 UNITS/3 ML INSULN.PEN SQ PRN (09:00)
[2017-11-27] MEDS: LISINOPRIL 20 MG TABLET PO SCH (09:00)
[2017-11-27] MEDS ORDERED: POTASSIUM CL 40MEQ IN 0.9%NACL 1,000 ML IV SCH (14:15)
[2017-11-27] MEDS ORDERED: POTASSIUM CL 40MEQ D5-0.45NACL 1,000 ML IV SCH (14:30)
--- NOTE | 2017-11-27 18:58 | DS ---
DATE OF DISCHARGE: 11/27/2017 HOSPITAL COURSE: The patient is a 56-year-old female patient who was admitted with diabetic ketoacidosis despite IV fluid and insulin drip. She continued to have intractable nausea and vomiting. She has been unable to keep anything by mouth and a decision was made to transfer her to [facility] with the plan to consult the Gastroenterology for gastrojejunostomy tube placement and also General Surgery for Port-A-Cath placement as she has very difficult access. PHYSICAL EXAMINATION: GENERAL: When I examined her; today, she looked pale, no jaundice, cyanosis, or thyromegaly. No jugular venous distension. No limb edema. VITAL SIGNS: Her heart rate was 84, blood pressure 100/81, temperature was 98.7, respiratory rate was 22, and oxygen saturation was 98%. HEAD, EYES, EARS, NOSE AND THROAT: Normocephalic, atraumatic. NECK: Supple. HEART: Showed normal first and second heart sounds with no gallop, rub or murmur. CHEST: Clear to auscultation. No crepitation or rhonchi. ABDOMEN: Distended, soft, and nontender. No guarding or rigidity. No organomegaly. Hernial orifice intact. Bowel sounds normal. NEUROLOGIC: She was awake, alert, responding appropriately. Cranial nerves intact. She moves extremities without difficulty. She ambulates without assistance or assistive devices. Her intake over the last 24 hours was 1500, output was 3750. LABORATORY DATA: This morning showed her white cell count was 8900, hemoglobin 12.6, hematocrit 37, MCV 80, and platelet count of 446,000. Her chemistry this morning showed serum sodium of 132, potassium 3.7, chloride 97, bicarbonate 23, anion gap of 12, BUN 5, creatinine 0.9, estimated GFR was 64 mL per minute. Her glucose was 180, calcium was 8.7, magnesium was 1.6. Total bilirubin, AST, ALT, alkaline phosphatase were normal. Alkaline phosphatase 122. Total protein was 6.8, albumin 2.7. Urinalysis is unremarkable. Toxic screen was negative. FINAL DISCHARGE DIAGNOSES: 1. Diabetic ketoacidosis, improved. 2. Severe diabetic gastroparesis, the patient continued to be extremely nauseous and vomiting and unable to keep anything by mouth. 3. Dilutional hyponatremia, resolved. 4. Other medical problems including type 2 diabetes mellitus since age of 28. 5. Coronary artery disease, status post myocardial infarction x2, with stent deployment. 6. History of pancreatitis. 7. She is also known to have hypertension, gastroesophageal reflux disease. INÉS GARCÍA MD DR: MAXIM/carson JOB#: [id number] / [id number]
== END 2017-11-27 16:01 | disposition short-term general hospital (02) | DRG 638 ==
LOC: ER 09:58 → ICU 11:45
PROVIDERS: ADMIT Internal Medicine; ATTEND Internal Medicine
DX: E11.10 Type 2 diabetes mellitus with ketoacidosis without coma (principal); E87.1 Hypo-osmolality and hyponatremia; E83.42 Hypomagnesemia; E11.43 Type 2 diabetes mellitus with diabetic autonomic (poly)neuropathy; K31.84 Gastroparesis; E78.5 Hyperlipidemia, unspecified; K21.9 Gastro-esophageal reflux disease without esophagitis; N28.9 Disorder of kidney and ureter, unspecified; E78.00 Pure hypercholesterolemia, unspecified; D72.829 Elevated white blood cell count, unspecified; E86.0 Dehydration; I10 Essential (primary) hypertension; I25.10 Atherosclerotic heart disease of native coronary artery without angina pectoris; I25.2 Old myocardial infarction; Z91.19 Patient's noncompliance with other medical treatment and regimen; Z90.49 Acquired absence of other specified parts of digestive tract; Z79.899 Other long term (current) drug therapy
CPT/HCPCS: 36415; 80053; 80061; 80307; 81001; 82010; 82553; 82803; 82947; 83036; 83605; 83690; 83735; 83880; 84100; 84484; 85025; 85027; 87641; 93005; 96361; 96365; 96374; 96375; J0456; J1815; J2405; J2550; J2765; J3010; J3475; J7042; J7050; J8597; Q0162; 99291-25; G0479; J7030

== ENCOUNTER 2017-11-30 17:28 | Emergency (ER) | payer SELFPAY ==
[~2017-11-30] VITALS: Ht 160 cm; Wt 71.4 kg
[2017-11-30] MEDS ORDERED: METOCLOPRAMIDE HCL 10 MG/2 ML VIAL. IV ONE (18:30)
[2017-11-30] MEDS ORDERED: IV NORMAL SALINE 1,000ML 1,000 ML IV ONE ×2 (18:45→20:30)
--- NOTE | 2017-11-30 18:50 | PHYS DOC ---
Past History Past Medical History: CAD, Diabetes, Gallstones, GERD, High Cholesterol, Heart Disease, Hypertension, [place], Pancreatitis, Other Past Surgical History: Angioplasty, Appendectomy, Cholecystectomy Alcohol Use: None Drug Use: None Adult General HPI HPI Patient is a 56-year-old female with a history of gastroparesis who presents with complaints of intractable vomiting and nausea similar to previous episodes of gastroparesis. Review of Systems Review of Systems Constitutional: Denies fever or chills [] HENT: Denies nasal congestion or sore throat [] Respiratory: Denies cough or shortness of breath [] Cardiovascular: No is pain GI: As per history of present illness : Denies dysuria or hematuria [] Musculoskeletal: Denies back pain or joint pain [] Integument: Denies rash or skin lesions [] Neurologic: Denies headache, focal weakness or sensory changes [] All other systems were reviewed and found to be within normal limits, except as documented in this note. Current Medications Current Medications Current Medications Medications (Trade) Dose Ordered Sig/Georgi Start Time Stop Time Status Last Admin Dose Admin Metoclopramide HCl (Reglan Vial) 10 mg 1X ONCE 11/30/17 18:30 11/30/17 18:33 DC Sodium Chloride 1,000 ml @ 1,000 mls/hr 1X ONCE 11/30/17 18:45 11/30/17 19:44 UNV Allergies Allergies Allergies Coded Allergies Type Severity Reaction Last Updated Verified No Known Drug Allergies 10/08/17 No Physical Exam Physical Exam Constitutional: Well developed, well nourished, no distress, non-toxic appearance. No clinical signs of dka HENT: Normocephalic, atraumatic, bilateral external ears normal, oropharynx dry , no oral exudates, nose normal. [] Eyes: PERRLA, EOMI, conjunctiva normal, no discharge. [] Neck: Normal range of motion, no tenderness, supple, no stridor. JVD Cardiovascular: Heart the, equal pulses, normal perfusion Lungs & Thorax: Bilateral breath sounds clear to auscultation no tachypnea. No Kussmaul respirations Abdomen: Bowel sounds normal, soft, no tenderness, Skin: Warm, dry, no erythema, no rash. [] Back: No tenderness, no CVA tenderness. Normal range of motion Extremities: No tenderness, no DVT, ROM intact, no edema. [] Neurologic: Alert and oriented X 3, normal motor function, and relates in the ED with normal gait and without assistance, no focal deficits noted. [] Psychologic: Affect normal, judgement normal, mood normal. [] EKG EKG 1946 139, sinus tachycardia, no STEMI[] Radiology/Procedures Radiology/Procedures 2014 patient resting, no vomiting in the ED[] 2300 myself and other staff members have called patient on at least 3 different locations putting her fingers inside her throat trying to make herself vomit. I explained to the patient multiple times that she shouldn't do that as she may aspirate or hurt herself in other ways. The patient attempted to negotiate with me to give her narcotic pain medication if she stopped putting her fingers in her throat. I am concerned the patient is displaying drug-seeking behavior Course & Med Decision Making Course & Med Decision Making Pertinent Labs and Imaging studies reviewed. (See chart for details) 2325 i-STAT metabolic panel shows glucose 232 bicarbonate 21 anion gap is 16. Patient is still not displaying clinical signs of DKA Patient is clinically improved, hyperglycemia has decreased, patient is well- hydrated. Patient is stable and improved and can follow-up as an outpatient. [] Dragon Disclaimer Dragon Disclaimer This electronic medical record was generated, in whole or in part, using a voice recognition dictation system. Departure Departure: Impression: Primary Impression: Dehydration Additional Impressions: Hyperglycemia Self induced vomiting Drug-seeking behavior Condition: IMPROVED Referrals: PCP,NO (PCP) Please follow-up with your PCP or at one of the clinics in the list provided to you. Patient Instructions: Dehydration, Adult, Hyperglycemia Problem Qualifiers Pillo SUAZO MD Nov 30, 2017 18:50
[2017-11-30 19:21] LABS: BASO % 0 % (0-3); EOS % 0 % (0-3); HEMATOCRIT 35.7 % (36.0-47.0); HEMOGLOBIN 11.9 g/dL (12.0-15.5); LYMPH % 11 % (24-48); MEAN CORPUSCULAR HEMOGLOBIN 27 pg (25-35); MEAN CORPUSCULAR HGB CONC 33 g/dL (31-37); MEAN CORPUSCULAR VOLUME 82 fL (79-100); MONO # 0.5 x10^3/uL (0.0-1.1); MONO % 6 % (0-9); NEUT # 7.6 x10^3uL (1.8-7.7); NEUT % 82 % (31-73); PLATELET COUNT 335 x10^3/uL (140-400); RED BLOOD COUNT 4.34 x10^6/uL (3.50-5.40); RED CELL DISTRIBUTION WIDTH 14.8 % (11.5-14.5); WHITE BLOOD COUNT 9.2 x10^3/uL (4.0-11.0)
[2017-11-30 19:36] VITALS: BP 128/91
[2017-11-30 19:59] LABS: ALBUMIN 2.8 g/dL (3.4-5.0); ALBUMIN/GLOBULIN RATIO 0.7 (1.0-1.7); CALCIUM 8.7 mg/dL (8.5-10.1); CREATININE 0.9 mg/dL (0.6-1.0); GFR 64.3; POTASSIUM 3.6 mmol/L (3.5-5.1); TOTAL BILIRUBIN 0.4 mg/dL (0.2-1.0); TOTAL PROTEIN 6.7 g/dL (6.4-8.2)
[2017-11-30] MEDS ORDERED: INSULIN REGULAR 100 UNIT/ML 10ML VIAL. IV ONE (20:30)
[2017-11-30] MEDS ORDERED: ONDANSETRON PF 4 MG/2 ML VIAL. IV ONE (20:30)
[2017-11-30 21:29] LABS: BACTERIA,URINE 0 /HPF (0-FEW); BILIRUBIN,URINE NEG (NEG); CLARITY,URINE CLEAR; COLOR,URINE YELLOW; GLUCOSE,URINE >=1000 mg/dL (NEG); NITRITE,URINE NEG (NEG); RBC,URINE OCC /HPF (0-2); SQUAMOUS EPITHELIAL CELL,UR OCC /LPF; UROBILINOGEN,URINE 0.2 mg/dL (0.2 mg/dL); WBC,URINE OCC /HPF (0-4)
[2017-11-30] MEDS ORDERED: HYOSCYAMINE 0.125 MG TAB.RAPDIS PO ONE ×2 (21:30→22:30)
[2017-11-30] MEDS ORDERED: KETOROLAC 15 MG/ML VIAL. IV ONE (21:30)
[2017-11-30 21:45] LABS: BARBITURATES NEG (NEG); BENZODIAZEPINES NEG (NEG); CANNABINOIDS NEG (NEG); COCAINE NEG (NEG); METHADONE NEG (NEG); OPIATES NEG (NEG); PHENCYCLIDINE NEG (NEG)
[2017-11-30 21:46] LABS: AMPHETAMINE/METHAMPHETAMINE NEG (NEG)
--- NOTE | 2017-11-30 21:56 | EKG ---
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
[2017-11-30] MEDS ORDERED: METOCLOPRAMIDE 10 MG TABLET PO ONE (22:30)
[2017-11-30 23:23] LABS: HEMOGLOBIN ISTAT 10.2 gm/dL; POTASSIUM ISTAT 3.4 mmol/L (3.5-5.0)
== END 2017-11-30 23:39 | disposition home or self-care (01) ==
LOC: ER 17:28
DX: E86.0 Dehydration (principal); E11.65 Type 2 diabetes mellitus with hyperglycemia; Z76.5 Malingerer [conscious simulation]; E78.00 Pure hypercholesterolemia, unspecified; I25.10 Atherosclerotic heart disease of native coronary artery without angina pectoris; K21.9 Gastro-esophageal reflux disease without esophagitis; I11.9 Hypertensive heart disease without heart failure; I25.2 Old myocardial infarction; Z98.61 Coronary angioplasty status
CPT/HCPCS: 36415; 80047; 80053; 80307; 81001; 84484; 85025; 93005; 96361; 96374; 96375; 99285; J1815; J1885; J2405; J2765; J8597; G0479; J7030

== ENCOUNTER 2017-12-11 13:53 | Emergency (ER) | payer SELFPAY ==
[~2017-12-11] VITALS: Ht 160 cm; Wt 71.4 kg
[2017-12-11] MEDS ORDERED: IV NORMAL SALINE 1,000ML 1,000 ML IV ONE ×2 (14:15→15:30)
[2017-12-11] MEDS ORDERED: ONDANSETRON PF 4 MG/2 ML VIAL. IV ONE (14:15)
[2017-12-11 14:27] LABS: BARBITURATES NEG (NEG); BENZODIAZEPINES NEG (NEG); CANNABINOIDS NEG (NEG); COCAINE NEG (NEG); METHADONE NEG (NEG); OPIATES NEG (NEG); PHENCYCLIDINE NEG (NEG)
[2017-12-11 14:28] LABS: AMPHETAMINE/METHAMPHETAMINE NEG (NEG)
[2017-12-11 14:30] LABS: CLARITY,URINE HAZY; COLOR,URINE YELLOW
[2017-12-11 14:31] LABS: BACTERIA,URINE FEW /HPF (0-FEW); BILIRUBIN,URINE NEG (NEG); GLUCOSE,URINE 500 mg/dL (NEG); NITRITE,URINE NEG (NEG); SQUAMOUS EPITHELIAL CELL,UR FEW /LPF; UROBILINOGEN,URINE 0.2 mg/dL (0.2 mg/dL)
[2017-12-11 14:37] LABS: BASO % 1 % (0-3); EOS # 0.1 x10^3/uL (0.0-0.7); EOS % 1 % (0-3); HEMATOCRIT 31.5 % (36.0-47.0); HEMOGLOBIN 10.5 g/dL (12.0-15.5); LYMPH # 1.2 x10^3/uL (1.0-4.8); LYMPH % 21 % (24-48); MEAN CORPUSCULAR HEMOGLOBIN 27 pg (25-35); MEAN CORPUSCULAR HGB CONC 33 g/dL (31-37); MEAN CORPUSCULAR VOLUME 81 fL (79-100); MONO # 0.4 x10^3/uL (0.0-1.1); MONO % 8 % (0-9); NEUT % 70 % (31-73); PLATELET COUNT 277 x10^3/uL (140-400); RED CELL DISTRIBUTION WIDTH 14.9 % (11.5-14.5); WHITE BLOOD COUNT 5.8 x10^3/uL (4.0-11.0)
[2017-12-11 14:51] LABS: HEMOGLOBIN ISTAT 11.2 gm/dL; POTASSIUM ISTAT 3.5 mmol/L (3.5-5.0)
[2017-12-11 14:55] LABS: ALBUMIN 2.8 g/dL (3.4-5.0); ALBUMIN/GLOBULIN RATIO 0.8 (1.0-1.7); CALCIUM 8.5 mg/dL (8.5-10.1); CREATININE 0.8 mg/dL (0.6-1.0); GFR 73.7; MAGNESIUM 1.7 mg/dL (1.8-2.4); PHOSPHORUS 2.8 mg/dL (2.6-4.7); POTASSIUM 3.8 mmol/L (3.5-5.1); TOTAL BILIRUBIN 0.3 mg/dL (0.2-1.0); TOTAL PROTEIN 6.4 g/dL (6.4-8.2)
[2017-12-11] MEDS ORDERED: METOCLOPRAMIDE HCL 10 MG/2 ML VIAL. IV ONE (15:00)
--- NOTE | 2017-12-11 15:47 | PHYS DOC ---
Past History Past Medical History: CAD, Diabetes, Gallstones, GERD, High Cholesterol, Heart Disease, Hypertension, [place], Pancreatitis, Other Past Surgical History: Angioplasty, Appendectomy, Cholecystectomy, Other Alcohol Use: None Drug Use: None Adult General Chief Complaint Chief Complaint: NAUSEA/VOMITING/DIARRHEA [facility] HPI 56-year-old female patient with history of multiple medical problems and frequent emergency room visits and admissions complaining of episodes of nausea and vomiting for the last 2 days and states she has had 4 or 5 episodes of vomiting per day without diarrhea and constipation and urinary symptom. Patient complaining of lower abdominal sharp pain at the same time as a constant pain with radiation to her back and rated her pain 8/10. Patient states she had a bowel movement this morning. She denies chest pain and shortness of breath and fever and chills. Patient had recent hospitalization at [facility] and refused to have PEG tube severe gastroparesis but states she is ready to have PEG tube because she is not able to eat or drink anything. Review of Systems Review of Systems Constitutional: Denies fever or chills [] Eyes: Denies change in visual acuity, redness, or eye pain [] HENT: Denies nasal congestion or sore throat [] Respiratory: Denies cough or shortness of breath [] Cardiovascular: No additional information not addressed in HPI [] GI: Reports abdominal pain, nausea, vomiting, denies bloody stools or diarrhea [ ] : Denies dysuria or hematuria [] Musculoskeletal: Denies back pain or joint pain [] Integument: Denies rash or skin lesions [] Neurologic: Denies headache, focal weakness or sensory changes [] Endocrine: Denies polyuria or polydipsia [] All other systems were reviewed and found to be within normal limits, except as documented in this note. Current Medications Current Medications Current Medications Medications (Trade) Dose Ordered Sig/Georgi Start Time Stop Time Status Last Admin Dose Admin Metoclopramide HCl (Reglan Vial) 10 mg 1X ONCE 12/11/17 15:00 12/11/17 15:01 DC 12/11/17 14:57 10 MG Ondansetron HCl (Zofran) 4 mg 1X ONCE 12/11/17 14:15 12/11/17 14:17 DC 12/11/17 14:27 4 MG Sodium Chloride 1,000 ml @ 1,000 mls/hr 1X ONCE 12/11/17 14:15 12/11/17 15:14 DC 12/11/17 14:28 1,000 MLS/HR Allergies Allergies Allergies Coded Allergies Type Severity Reaction Last Updated Verified No Known Drug Allergies 10/08/17 No Physical Exam Physical Exam Constitutional: Moderate distress, non-toxic appearance. [] HENT: Normocephalic, atraumatic, oropharynx dry Eyes: PERRLA, EOMI, conjunctiva normal, no discharge. [] Neck: Normal range of motion, no tenderness, supple, no stridor. [] Cardiovascular: Tachycardia, no murmur [] Lungs & Thorax: Bilateral breath sounds clear to auscultation [] Abdomen: Bowel sounds normal, soft, no tenderness, no masses, no pulsatile masses. [] Skin: Warm, dry, no erythema, no rash. [] Back: No tenderness, no CVA tenderness. [] Extremities: No tenderness, no cyanosis, no clubbing, ROM intact, no edema. [] Neurologic: Alert and oriented X 3, normal motor function, normal sensory function, no focal deficits noted. [] Psychologic: Anxious, judgement normal, mood normal. [] Current Patient Data Vital Signs Vital Signs Date Time Temp Pulse Resp B/P (MAP) Pulse Ox O2 Delivery O2 Flow Rate FiO2 12/11/17 15:18 207/120 (149) 12/11/17 14:41 98.4 124 20 98 Room Air Lab Results Laboratory Tests Test 12/11/17 14:00 12/11/17 14:17 12/11/17 14:46 Urine Collection Type Void Urine Color Yellow Urine Clarity Hazy Urine pH 7.5 Urine Specific [place] 1.025 Urine Protein >100 mg/dl (NEG-TRACE) Urine Glucose (UA) 500 mg/dL (NEG) Urine Ketones (Stick) Trace mg/dL (NEG) Urine Blood Trace (NEG) Urine Nitrite Neg (NEG) Urine Bilirubin Neg (NEG) Urine Urobilinogen Dipstick 0.2 mg/dL (0.2 mg/dL) Urine Leukocyte Esterase Trace (NEG) Urine RBC 3-5 /HPF (0-2) Urine WBC 11-20 /HPF (0-4) Urine Squamous Epithelial Cells Few /LPF Urine Bacteria Few /HPF (0-FEW) Urine Mucus Slight /LPF Urine Opiates Screen Neg (NEG) Urine Methadone Screen Neg (NEG) Urine Barbiturates Neg (NEG) Urine Phencyclidine Screen Neg (NEG) Urine Amphetamine/Methamphetamine Neg (NEG) Urine Benzodiazepines Screen Neg (NEG) Urine Cocaine Screen Neg (NEG) Urine Cannabinoids Screen Neg (NEG) Urine Ethyl Alcohol Neg (NEG) White Blood Count 5.8 x10^3/uL (4.0-11.0) Red Blood Count 3.90 x10^6/uL (3.50-5.40) Hemoglobin 10.5 g/dL (12.0-15.5) L Hematocrit 31.5 % (36.0-47.0) L Mean Corpuscular Volume 81 fL (79-100) Mean Corpuscular Hemoglobin 27 pg (25-35) Mean Corpuscular Hemoglobin Concent 33 g/dL (31-37) Red Cell Distribution Width 14.9 % (11.5-14.5) H Platelet Count 277 x10^3/uL (140-400) Neutrophils (%) (Auto) 70 % (31-73) Lymphocytes (%) (Auto) 21 % (24-48) L Monocytes (%) (Auto) 8 % (0-9) Eosinophils (%) (Auto) 1 % (0-3) Basophils (%) (Auto) 1 % (0-3) Neutrophils # (Auto) 4.0 x10^3uL (1.8-7.7) Lymphocytes # (Auto) 1.2 x10^3/uL (1.0-4.8) Monocytes # (Auto) 0.4 x10^3/uL (0.0-1.1) Eosinophils # (Auto) 0.1 x10^3/uL (0.0-0.7) Basophils # (Auto) 0.0 x10^3/uL (0.0-0.2) Sodium Level 140 mmol/L (136-145) Potassium Level 3.8 mmol/L (3.5-5.1) Chloride Level 102 mmol/L (98-107) Carbon Dioxide Level 26 mmol/L (21-32) Anion Gap 12 (6-14) 14 mmol/L (6-14) Blood Urea Nitrogen 14 mg/dL (7-20) Creatinine 0.8 mg/dL (0.6-1.0) Estimated GFR (Cockcroft-Gault) 73.7 BUN/Creatinine Ratio 18 (6-20) Glucose Level 269 mg/dL (70-99) H 276 mg/dL (60-99) H Calcium Level 8.5 mg/dL (8.5-10.1) Phosphorus Level 2.8 mg/dL (2.6-4.7) Magnesium Level 1.7 mg/dL (1.8-2.4) L Total Bilirubin 0.3 mg/dL (0.2-1.0) Aspartate Amino Transferase (AST) 19 U/L (15-37) Alanine Aminotransferase (ALT) 17 U/L (14-59) Alkaline Phosphatase 92 U/L (46-116) VB-Nib-Y-Type Natriuretic Peptide 363 pg/mL (0-124) H Total Protein 6.4 g/dL (6.4-8.2) Albumin 2.8 g/dL (3.4-5.0) L Albumin/Globulin Ratio 0.8 (1.0-1.7) L Lipase 257 U/L (73-393) Acetone Level Neg (NEG) POC Hemoglobin 11.2 gm/dL POC Hematocrit 33 % POC Sodium 135 mmol/L (135-145) POC Potassium 3.5 mmol/L (3.5-5.0) POC Chloride 98 mmol/L (98-110) POC Total CO2 27 mmol/L (23-32) POC Blood Urea Nitrogen 13 mg/dL (8-26) POC Creatinine 0.6 mg/dL (0.5-1.4) POC Ionized Calcium (Elticia) 1.10 mmol/L (1.13-1.32) L EKG EKG [] Radiology/Procedures Radiology/Procedures [] Course & Med Decision Making Course & Med Decision Making Pertinent Labs studies reviewed. (See chart for details) Evaluation of patient in ER showed 56-year-old female patient with multiple medical problem and noncompliance with her treatment presented to ER because of severe nausea and vomiting and abdominal pain. Patient had tachycardia without fever and hypotension. The neuro exam was unremarkable. Patient treated with IV fluid and Zofran and Reglan and fentanyl and her condition improved. Labs showed no sign of dehydration or electrolyte problem or DKA. UA showed UTI. Dr. Schafer was informed at 1537 and he recommended to transfer patient to [facility] for possible placement of PEG tube for severe gastroparesis. Dr. Hines accepted transfer to [facility] at 1542. [] Dragon Disclaimer Dragon Disclaimer This electronic medical record was generated, in whole or in part, using a voice recognition dictation system. Departure Departure: Impression: Primary Impression: Intractable nausea and vomiting Additional Impressions: Diabetic gastroparesis Urinary tract infection Tachycardia Uncontrolled diabetes mellitus Disposition: 02 XFER SHT-TRM HOSP ([facility] at 1543) Condition: IMPROVED Referrals: PCP,NO (PCP) Problem Qualifiers ROMINA STEWART MD Dec 11, 2017 15:47
[2017-12-11] MEDS ORDERED: cefTRIAXone IV Push 1 GM VIAL. IVP ONE (16:00)
[2017-12-11 17:45] VITALS: BP 151/74
== END 2017-12-11 18:25 | disposition short-term general hospital (02) ==
LOC: ER 13:53
DX: N39.0 Urinary tract infection, site not specified (principal); E11.43 Type 2 diabetes mellitus with diabetic autonomic (poly)neuropathy; K31.84 Gastroparesis; R00.0 Tachycardia, unspecified; I25.10 Atherosclerotic heart disease of native coronary artery without angina pectoris; I11.9 Hypertensive heart disease without heart failure; E78.00 Pure hypercholesterolemia, unspecified; K21.9 Gastro-esophageal reflux disease without esophagitis; Z98.61 Coronary angioplasty status; Z90.49 Acquired absence of other specified parts of digestive tract
CPT/HCPCS: 36415; 80047; 80053; 80307; 81001; 82010; 83605; 83690; 83735; 83880; 84100; 85025; 87086; 96361; 96374; 96375; 99285; J0696; J2405; J2765; J3010; 87186; G0479; J7030

== ENCOUNTER 2017-12-23 14:05 | Inpatient (IN) | payer SELFPAY ==
[~2017-12-23] VITALS: Ht 157.5 cm; Wt 62.3 kg
[2017-12-23] MEDS ORDERED: HYDROmorphone PF 1 MG/ML DISP.SYRIN IV PRN (15:00)
[2017-12-23 15:08] LABS: BASO % 0 % (0-3); EOS % 0 % (0-3); HEMATOCRIT 33.2 % (36.0-47.0); LYMPH # 0.8 x10^3/uL (1.0-4.8); LYMPH % 16 % (24-48); MEAN CORPUSCULAR HEMOGLOBIN 27 pg (25-35); MEAN CORPUSCULAR HGB CONC 33 g/dL (31-37); MEAN CORPUSCULAR VOLUME 81 fL (79-100); MONO # 0.4 x10^3/uL (0.0-1.1); MONO % 9 % (0-9); NEUT # 3.6 x10^3uL (1.8-7.7); NEUT % 75 % (31-73); PLATELET COUNT 342 x10^3/uL (140-400); RED BLOOD COUNT 4.13 x10^6/uL (3.50-5.40); RED CELL DISTRIBUTION WIDTH 14.6 % (11.5-14.5); WHITE BLOOD COUNT 4.8 x10^3/uL (4.0-11.0)
[2017-12-23] MEDS: HYDROmorphone PF 2 MG/ML VIAL IV PRN ×4 (15:10→23:26)
[2017-12-23] MEDS ORDERED: ONDANSETRON PF 4 MG/2 ML VIAL. IV ONE (15:15)
[2017-12-23] MEDS ORDERED: IV NORMAL SALINE 500ML 500 ML IV ONE (15:15)
[2017-12-23 15:16] LABS: ALBUMIN 3.3 g/dL (3.4-5.0); CALCIUM 8.9 mg/dL (8.5-10.1); CREATININE 0.9 mg/dL (0.6-1.0); DIRECT BILIRUBIN 0.1 mg/dL (0.0-0.2); GFR 64.3; POTASSIUM 3.2 mmol/L (3.5-5.1); TOTAL BILIRUBIN 0.4 mg/dL (0.2-1.0); TOTAL PROTEIN 6.9 g/dL (6.4-8.2)
[2017-12-23] MEDS ORDERED: IOHEXOL 300 MG/ML 75 ML VIAL. IV ONE (15:30)
--- NOTE | 2017-12-23 16:27 | RAD ---
CT ABD PELV W/ IV CONTRST ONLY dated 12/23/2017 3:27 PM Indication: Pain.ABDOMINAL PAIN, VOMITING x 24 HRS. PRIOR IMAGING AND REPORT FROM SEP 2017 SENT. OMNI 300, 75ML . Comparison: 09/17/2017 Technique: Contiguous axial imaging of the abdomen and pelvis performed after the administration of 75 cc Omnipaque 300 One or more of the following individualized dose reduction techniques were utilized for this examination: 1. Automated exposure control 2. Adjustment of the mA and/or kV according to patient size 3. Use of iterative reconstruction technique Findings: Limited images of lung bases show noncalcified pulmonary nodule in the right lower lobe on image 9, measuring 6 mm, unchanged from prior study. Lung bases are otherwise clear. Heart size within normal limits. No pleural or pericardial effusion. Mild wall thickening of the distal thoracic esophagus, unchanged. Liver, spleen, pancreas, adrenal glands and kidneys are unremarkable. Small calcific stone at the midpole right kidney, unchanged. No hydronephrosis. Gallbladder surgically absent. Previously described hypodensity at the pancreatic neck/body is not clearly visualized on today's exam. There is a small hypodensity at the pancreatic tail on image 15 that measures 8 mm, unchanged. Unopacified GI tract normal in caliber and contour. No focal bowel wall thickening. No inflammatory stranding in the mesentery. The appendix is surgically absent. No free fluid or lymphadenopathy. Images the pelvis show a heterogeneous mass along the right margin of the uterine fundus that measures up to 5 cm in size, new from prior study. This could be associated with the right ovary or the uterine fundus. Urinary bladder is mildly distended. No free fluid or pelvic lymphadenopathy. Bone windows show no acute findings. Multilevel spondylosis. IMPRESSION: 1. Enlarging heterogeneous mass at or near the uterine fundus measuring up to 5 cm in size. Although this could represent a degenerating fibroid or cystic lesion associated with the right ovary, underlying malignancy cannot be excluded. Suggest further evaluation with pelvic ultrasound. 2. Right-sided nephrolithiasis, nonobstructive. 3. Noncalcified pulmonary nodule in the right lower lobe is nonspecific but unchanged from prior exam. 4. Mild wall thickening of the distal thoracic esophagus, nonspecific but unchanged. 5. Indeterminate small hypodense nodule at the pancreatic tail, unchanged. Electronically signed by: Luis Fernando Castro MD (12/23/2017 4:24 PM) [facility]
--- NOTE | 2017-12-23 16:40 | EKG ---
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
[2017-12-23 17:26] LABS: BILIRUBIN,URINE NEG (NEG); CLARITY,URINE CLOUDY; COLOR,URINE STRAW; GLUCOSE,URINE 250 mg/dL (NEG); NITRITE,URINE NEG (NEG); UROBILINOGEN,URINE 0.2 mg/dL (0.2 mg/dL)
[2017-12-23 17:27] LABS: BACTERIA,URINE FEW /HPF (0-FEW); SQUAMOUS EPITHELIAL CELL,UR OCC /LPF; WBC,URINE 20-40 /HPF (0-4)
[2017-12-23] MEDS ORDERED: METOCLOPRAMIDE HCL 10 MG/2 ML VIAL. IV ONE (17:30)
[2017-12-23] MEDS ORDERED: IV NORMAL SALINE 1,000ML 1,000 ML IV SCH (17:30)
[2017-12-23] MEDS ORDERED: MORPHINE SULFATE 2 MG/ML DISP.SYRIN. IV PRN (17:30)
[2017-12-23] MEDS ORDERED: cefTRIAXone IV Push 1 GM VIAL. IVP ONE (17:45)
--- NOTE | 2017-12-23 18:53 | PHYS DOC ---
Past History Past Medical History: CAD, Diabetes, Gallstones, GERD, High Cholesterol, Heart Disease, Hypertension, [place], Pancreatitis, Other Past Surgical History: Angioplasty, Appendectomy, Cholecystectomy, Other Alcohol Use: None Drug Use: None Adult General Chief Complaint Chief Complaint: NAUSEA/VOMITING/DIARRHEA HPI HPI 56-year-old female presenting the emergency department today with abdominal pain in the epigastrium nausea vomiting and diarrhea. She has a history of gastroparesis. Her abdominal pain is a sharp shooting burning pain that is moderate to severe intermittent nonradiating and without alleviating factors. She denies fevers or chills. Her vomitus is nonbilious and nonbloody. Patient has a history of high cholesterol heart disease LA and pancreatitis in the past. Review of systems is negative for chest pain shortness of breath fevers or chills. All other review of systems is negative unless otherwise noted in history of present illness. ED course: 56-year-old female presenting the emergency department today with epigastric abdominal pain. Blood pressure is elevated upon arrival as is the patient's heart rate. On examination the patient is alert and well-appearing. Abdomen is soft nondistended nontender palpation without rebound tenderness or guarding. Negative McBurney's point. Negative Lorenzo sign. Blood work sent. IV fluids nausea and pain medication ordered. Blood work shows normal white blood cell count with mild neutrophilia. Hemoglobin is mildly low at 11. Urinalysis shows mild ketosis of the urine and glucose urea. Patient has trace leuk esterase and a few bacteria. Possible UTI. IV Rocephin given for urinary tract infection. Chemistry panel shows mildly low potassium. Troponin negative. Lipase within normal limits. On reexamination she continues to feel nauseous and had vomiting. CT the abdomen pelvis ordered and obtained. CT report. CT shows heterogenous mass possibly at the uterus fundus. The patient has intractable nausea vomiting and will be admitted the hospital for IV fluid administration and antiemetic therapy. I discussed the case with Dr. Schafer who accepted the patient for admission. I informed Dr. Schafer of the heterogenous mass and recommended that we get an ultrasound of the pelvis during the patient' s inpatient admission which he agreed to. Patient was then admitted for further evaluation treatment and care. Basic bridge orders placed. EKG shows sinus tachycardia. ST segments congruent. Not suggestive of ACS. Review of Systems Review of Systems SEE ABOVE. Current Medications Current Medications Current Medications Medications (Trade) Dose Ordered Sig/Georgi Start Time Stop Time Status Last Admin Dose Admin Ceftriaxone Sodium 1 gm/ Sodium Chloride 50 ml @ 100 mls/hr 1X ONCE 12/23/17 17:30 12/23/17 17:36 DC Ceftriaxone Sodium (Rocephin) 1 gm 1X ONCE 12/23/17 17:45 12/23/17 17:46 DC 12/23/17 17:52 1 GM Hydromorphone HCl (Dilaudid) 0.5 mg PRN Q30MIN PRN 12/23/17 15:10 12/23/17 16:55 0.5 MG Iohexol (Omnipaque 300 Mg/ml) 75 ml 1X ONCE 12/23/17 15:30 12/23/17 15:31 DC 12/23/17 15:35 75 ML Metoclopramide HCl (Reglan Vial) 10 mg 1X ONCE 12/23/17 17:30 12/23/17 17:36 DC 12/23/17 17:52 10 MG Morphine Sulfate (Morphine 2mg Syringe) 2 mg PRN Q2HR PRN 12/23/17 17:30 12/24/17 17:29 Ondansetron HCl (Zofran) 4 mg PRN Q4HRS PRN 12/23/17 17:30 12/24/17 17:29 Sodium Chloride 1,000 ml @ 100 mls/hr Q10H 12/23/17 17:30 12/24/17 17:29 12/23/17 17:52 100 MLS/HR Allergies Allergies Allergies Coded Allergies Type Severity Reaction Last Updated Verified No Known Drug Allergies 10/08/17 No Physical Exam Physical Exam SEE ABOVE Constitutional: Well developed, well nourished, no acute distress, non-toxic appearance. [] HENT: Normocephalic, atraumatic, bilateral external ears normal, oropharynx moist, no oral exudates, nose normal. [] Eyes: PERRLA, EOMI, conjunctiva normal, no discharge. [] Neck: Normal range of motion, no tenderness, supple, no stridor. [] Cardiovascular:Heart rate regular rhythm, no murmur [] Lungs & Thorax: Bilateral breath sounds clear to auscultation [] Abdomen: Bowel sounds normal, soft, no tenderness, no masses, no pulsatile masses. [] Skin: Warm, dry, no erythema, no rash. [] Back: No tenderness, no CVA tenderness. [] Extremities: No tenderness, no cyanosis, no clubbing, ROM intact, no edema. [] Neurologic: Alert and oriented X 3, normal motor function, normal sensory function, no focal deficits noted. [] Psychologic: Affect normal, judgement normal, mood normal. [] Current Patient Data Vital Signs Vital Signs Date Time Temp Pulse Resp B/P (MAP) Pulse Ox O2 Delivery O2 Flow Rate FiO2 12/23/17 17:24 120 18 193/112 (139) 99 Room Air 12/23/17 14:23 98.1 Lab Results Laboratory Tests Test 12/23/17 14:45 12/23/17 17:06 White Blood Count 4.8 x10^3/uL (4.0-11.0) Red Blood Count 4.13 x10^6/uL (3.50-5.40) Hemoglobin 11.0 g/dL (12.0-15.5) L Hematocrit 33.2 % (36.0-47.0) L Mean Corpuscular Volume 81 fL (79-100) Mean Corpuscular Hemoglobin 27 pg (25-35) Mean Corpuscular Hemoglobin Concent 33 g/dL (31-37) Red Cell Distribution Width 14.6 % (11.5-14.5) H Platelet Count 342 x10^3/uL (140-400) Neutrophils (%) (Auto) 75 % (31-73) H Lymphocytes (%) (Auto) 16 % (24-48) L Monocytes (%) (Auto) 9 % (0-9) Eosinophils (%) (Auto) 0 % (0-3) Basophils (%) (Auto) 0 % (0-3) Neutrophils # (Auto) 3.6 x10^3uL (1.8-7.7) Lymphocytes # (Auto) 0.8 x10^3/uL (1.0-4.8) L Monocytes # (Auto) 0.4 x10^3/uL (0.0-1.1) Eosinophils # (Auto) 0.0 x10^3/uL (0.0-0.7) Basophils # (Auto) 0.0 x10^3/uL (0.0-0.2) Sodium Level 136 mmol/L (136-145) Potassium Level 3.2 mmol/L (3.5-5.1) L Chloride Level 98 mmol/L (98-107) Carbon Dioxide Level 26 mmol/L (21-32) Anion Gap 12 (6-14) Blood Urea Nitrogen 10 mg/dL (7-20) Creatinine 0.9 mg/dL (0.6-1.0) Estimated GFR (Cockcroft-Gault) 64.3 Glucose Level 232 mg/dL (70-99) H Calcium Level 8.9 mg/dL (8.5-10.1) Total Bilirubin 0.4 mg/dL (0.2-1.0) Direct Bilirubin 0.1 mg/dL (0.0-0.2) Aspartate Amino Transferase (AST) 19 U/L (15-37) Alanine Aminotransferase (ALT) 18 U/L (14-59) Alkaline Phosphatase 100 U/L (46-116) Troponin I Quantitative < 0.017 ng/mL (0-0.055) Total Protein 6.9 g/dL (6.4-8.2) Albumin 3.3 g/dL (3.4-5.0) L Lipase 148 U/L (73-393) Urine Collection Type Unknown Urine Color Straw Urine Clarity Cloudy Urine pH 7.0 Urine Specific [place] 1.015 Urine Protein >100 mg/dl (NEG-TRACE) Urine Glucose (UA) 250 mg/dL (NEG) Urine Ketones (Stick) 80 mg/dL (NEG) Urine Blood Trace (NEG) Urine Nitrite Neg (NEG) Urine Bilirubin Neg (NEG) Urine Urobilinogen Dipstick 0.2 mg/dL (0.2 mg/dL) Urine Leukocyte Esterase Trace (NEG) Urine RBC 1-2 /HPF (0-2) Urine WBC 20-40 /HPF (0-4) Urine Squamous Epithelial Cells Occ /LPF Urine Bacteria Few /HPF (0-FEW) Urine Mucus Slight /LPF EKG EKG [] Radiology/Procedures Radiology/Procedures [] Course & Med Decision Making Course & Med Decision Making Pertinent Labs and Imaging studies reviewed. (See chart for details) [] Dragon Disclaimer Dragon Disclaimer This electronic medical record was generated, in whole or in part, using a voice recognition dictation system. Departure Departure: Impression: Primary Impression: Diabetic gastroparesis Additional Impressions: Epigastric abdominal pain Intractable nausea and vomiting Disposition: 09 ADMITTED INPATIENT Admitting Physician: Royal Schafer Condition: STABLE Referrals: PCP,NO (PCP) Problem Qualifiers CA BARRY MD Dec 23, 2017 18:53
[2017-12-23 19:36] VITALS: BP 159/84
[2017-12-23] MEDS ORDERED: CITA20TA5 PO (20:14)
[2017-12-23] MEDS ORDERED: TRAZ-90 PO (20:14)
[2017-12-23] MEDS ORDERED: LIPA1CAP4 PO (20:14)
[2017-12-23] MEDS ORDERED: ZOLP10TA4 PO (20:14)
[2017-12-23] MEDS ORDERED: CLOP75TA57 PO (20:14)
[2017-12-23] MEDS ORDERED: ATOR40TA59 PO (20:14)
[2017-12-23] MEDS ORDERED: ONDA4TAB10 PO (20:14)
[2017-12-23] MEDS ORDERED: ASPI-630 PO (20:14)
[2017-12-23] MEDS ORDERED: CARV25TA2 PO (20:14)
[2017-12-23] MEDS: POTASSIUM CL 40MEQ IN 0.9%NACL 1,000 ML IV SCH (20:57)
[2017-12-23] MEDS: ONDANSETRON PF 4 MG/2 ML VIAL. IV PRN (21:06)
[2017-12-23 23:42] VITALS: BP 168/96
[2017-12-24] VITALS (11 sets, daily range): BP systolic 125–198; BP diastolic 64–110
[2017-12-24] MEDS ORDERED: DEXTROSE 50% 25 GM / 50ML DISP.SYRIN. IV PRN
[2017-12-24] MEDS: ONDANSETRON PF 4 MG/2 ML VIAL. IV PRN (01:04)
[2017-12-24] MEDS: ENALAPRILAT 2.5 MG/2 ML VIAL. IV SCH ×5 (03:36→23:48)
[2017-12-24] MEDS: HYDROmorphone PF 2 MG/ML VIAL IV PRN ×2 (03:55→13:57)
[2017-12-24] MEDS ORDERED: PROMETHAZINE 25 MG/ML VIAL IV ONE (04:11)
[2017-12-24] MEDS: PROMETHAZINE 12.5 MG in IV NORMAL SALINE 50ML 50 ML IV PRN (04:13)
[2017-12-24 05:30] LABS: BASO % 0 % (0-3); EOS # 0.1 x10^3/uL (0.0-0.7); EOS % 1 % (0-3); HEMATOCRIT 30.5 % (36.0-47.0); HEMOGLOBIN 9.9 g/dL (12.0-15.5); LYMPH # 0.9 x10^3/uL (1.0-4.8); LYMPH % 20 % (24-48); MEAN CORPUSCULAR HEMOGLOBIN 26 pg (25-35); MEAN CORPUSCULAR HGB CONC 33 g/dL (31-37); MEAN CORPUSCULAR VOLUME 81 fL (79-100); MONO # 0.6 x10^3/uL (0.0-1.1); MONO % 12 % (0-9); NEUT # 3.1 x10^3uL (1.8-7.7); NEUT % 67 % (31-73); PLATELET COUNT 305 x10^3/uL (140-400); RED BLOOD COUNT 3.76 x10^6/uL (3.50-5.40); WHITE BLOOD COUNT 4.7 x10^3/uL (4.0-11.0)
[2017-12-24 05:37] LABS: CALCIUM 8.4 mg/dL (8.5-10.1); CREATININE 0.7 mg/dL (0.6-1.0); GFR 85.9; POTASSIUM 3.9 mmol/L (3.5-5.1)
[2017-12-24] MEDS: POTASSIUM CL 40MEQ IN 0.9%NACL 1,000 ML IV SCH ×3 (06:32→18:30)
--- NOTE | 2017-12-24 17:33 | HP ---
ADMIT DATE: 12/23/2017 HISTORY OF PRESENT ILLNESS: The patient is a 56-year-old female patient who basically presented to the Emergency Department of [facility] with abdominal pain in the epigastric area, nausea, vomiting and diarrhea. She has history of gastroparesis. She describes abdominal pain as sharp, shooting, burning pain that is moderate to severe and intermittent, nonradiating without alleviating factor. She denies any fever or chills. Her vomitus is nonbilious and nonbloody. She has a history of hyperlipidemia, coronary artery disease with myocardial infarction, pancreatitis in the past. She was extensively evaluated in the Emergency Room with lab work, which showed that she has hypokalemia, mild normochromic normocytic anemia. She has also leukocytosis, although the urine has showed very few bacteria. Her abdominal and pelvic CT scan showed that she has large heterogenous mass at or near the uterine fundus measuring up to 5 cm in size. These could represent a degenerating fibroid or cystic lesion associated with the right ovary. Underlying malignancy cannot be excluded. Suggest further evaluation with pelvic ultrasound. Right-sided nephrolithiasis, nonobstructive. She has also noncalcified pulmonary nodule in the right upper lobe. This is nonspecific, but unchanged from prior exam. She has also mild wall thickening of the distal thoracic esophagus, nonspecific, but unchanged. She has also an indeterminate, small hypodense nodule at the pancreatic tail, unchanged. The patient was admitted, was continued on IV fluid with some potassium to replenish hypokalemia. Continue with the pain medication as well as antiemetic. She has leukocyturia, she was also started with IV Rocephin. PAST MEDICAL HISTORY: Significant for type 2 diabetes since the age of 28. She has coronary artery disease status post myocardial infarction x 2 with stent deployment, gastroparesis, history of pancreatitis. She is also known to have hypertension, gastroesophageal reflux disease. PAST SURGICAL HISTORY: Significant for angioplasty and stent deployment, appendectomy, cholecystectomy. She also has a percutaneous coronary intervention with stent deployment. FAMILY HISTORY: Unremarkable. SOCIAL HISTORY: She has recently moved from [facility]. She has a daughter who evidently is her DPOA. She does not smoke, drink alcohol, or use recreational drugs. ALLERGIES: She has no known drug allergies. MEDICATIONS: She is currently on following medications: She is on Plavix 75 mg once a day, atorvastatin calcium 40 mg at bedtime, carvedilol 25 mg twice a day with meals, lisinopril 20 mg once a day, aspirin 81 mg once a day, citalopram hydrobromide 20 mg once a day, ____ trazodone 200 mg at bedtime, Ambien 10 mg at bedtime, Creon 1 capsule 3 times a day before meals, ondansetron 4 mg every 6 hours, Protonix 40 mg once a day and metoclopramide 1 tablet before meals and bedtime. She is also on NovoLog insulin 10 units before meals and Lantus insulin 18 units at bedtime. REVIEW OF SYSTEMS: As per history of present illness. PHYSICAL EXAMINATION: GENERAL: On examining her on arrival to the Emergency Room, she looked well and was clearly in no apparent respiratory distress, slightly pale. No jaundice, cyanosis, or thyromegaly. No jugular venous distension. No limb edema. VITAL SIGNS: Her heart rate was 132, blood pressure was 180/90, temperature was 98.7, respiratory rate was 22 and oxygen saturation was 98% on room air. HEENT: Showed normocephalic, atraumatic. NECK: Supple. HEART: Showed normal first and second heart sounds. No gallop, rub or murmur. CHEST: Clear to auscultation. No crepitation or rhonchi. ABDOMEN: Slightly distended, soft. Epigastric tenderness. No guarding or rigidity. No organomegaly. All hernial orifice intact. Bowel sounds normal. NEUROLOGIC: She is awake, alert, responding appropriately. SKIN: Intact. EXTREMITIES: She moves extremities without difficulty. She ambulates without assistance or assistive devices. LABORATORY DATA: Her intake on admission showed a white cell count of 4800, hemoglobin 11, hematocrit 33, MCV 81 and platelet count of 342,000 with normal manual differential. Her chemistry showed a serum sodium 136, potassium 3.2, chloride 98, bicarbonate 26, anion gap of 12, BUN 10, creatinine 0.9, estimated GFR was 54 mL per minute. Her glucose was 232, calcium was 8.9. Total bilirubin, AST, ALT, alkaline phosphatase were normal. Her total protein was 6.9, albumin was 3.3. Urinalysis showed the urine was cloudy with a pH of 7, specific gravity of 1.015. There is a large amount of glucose as well as ketones. There was trace amount of blood, negative for nitrite and leukocyte esterase. There are 1-2 rbc's, 20-40 wbc's, very few occasional very few bacteria. ASSESSMENT: In summary, this is a 56-year-old female patient who yet again came with another episode of nausea, vomiting and diarrhea. Her CT scan of the abdomen and pelvis showed that she has enlarging heterogenous mass at or near the uterine fundus, measuring up to 5 cm in size and although this could represent a degenerating fibroid or cystic lesion associated with the high right ovary. Underlying malignancy cannot be excluded and suggest further evaluation by pelvic exam, ultrasound. She has also right-sided nephrolithiasis, nonobstructive, noncalcified, pulmonary nodule in the right lower lobe. She is nonspecific, but unchanged from prior exam. She has mild wall thickening with the distal thoracic esophagus, nonspecific, but unchanged and she has also an indeterminate small hypodense nodule at the ____. PLAN: To continue with IV fluid, continue with the antiemetic and pain management, and we will start diet once she is able to tolerate. INÉS GARCÍA MD DR: MAXIM/carson JOB#: [id number] / [id number]
[2017-12-24] MEDS: cefTRIAXone IV Push 1 GM VIAL. IVP SCH (19:50)
[2017-12-25] VITALS (9 sets, daily range): BP systolic 132–187; BP diastolic 68–96
[2017-12-25] MEDS: HYDROmorphone PF 2 MG/ML VIAL IV PRN ×3 (01:58→20:24)
[2017-12-25] MEDS ORDERED: PROMETHAZINE IM 25 MG/ML VIAL IM ONE (03:37)
[2017-12-25] MEDS: PROMETHAZINE 12.5 MG in IV NORMAL SALINE 50ML 50 ML IV PRN (03:42)
[2017-12-25] MEDS: ENALAPRILAT 2.5 MG/2 ML VIAL. IV SCH ×3 (05:51→17:58)
[2017-12-25] MEDS: POTASSIUM CL 40MEQ IN 0.9%NACL 1,000 ML IV SCH ×2 (05:51→17:22)
--- NOTE | 2017-12-25 06:18 | PN ---
DATE: 12/24/2017 SUBJECTIVE: The patient is resting, slightly propped up in bed, in no apparent respiratory distress. She was awake, alert, continued to complain of nausea, had no further episode of vomiting, no diarrhea. Still have mild abdominal pain. She is known to have type 2 diabetes for almost 28 years and has diabetic gastroparesis, for which we admitted her on multiple occasions to [facility], and for some reason, a gastrostomy tube has never been achieved. In fact, she was recently admitted to [place], and because she was on Plavix, she was discharged to discontinue Plavix for at least 5 days, and she has in fact an appointment next week for placement of a gastrostomy tube. PHYSICAL EXAMINATION: GENERAL: When I saw her today, she looked well and was clearly in no apparent respiratory distress, pale, but no jaundice, cyanosis, or thyromegaly. No jugular venous distension. No limb edema. VITAL SIGNS: Her heart rate was 93, blood pressure was 138/75, temperature was 97.6, respiratory rate was 20, and oxygen saturation was 99%. HEAD, EYES, EARS, NOSE AND THROAT: Showed normocephalic, atraumatic. NECK: Supple. HEART: Showed normal first and second heart sounds with no gallop, rub or murmur. CHEST: Clear to auscultation. No crepitation or rhonchi. ABDOMEN: Distended, slight tenderness mostly in the epigastric area. No guarding or rigidity. No organomegaly. All hernial orifices intact. Bowel sounds normal. Her intake over the last 24 hours was 1700, no output was recorded. LABORATORY WORK: As of this morning showed a white cell count 4700, hemoglobin 10, hematocrit 30, MCV 81 and platelet count of 305,000. Her chemistry showed a serum sodium 139, potassium 3.9, chloride 102, bicarbonate 30, anion gap of 7, BUN 8, creatinine 0.7, estimated GFR was 86 mL per minute, ____ mL per minute. His calcium was 8.4. PLAN: To obviously continue with IV fluid. Continue ice chips. We will obviously start her on clear liquid diet when she is able to tolerate and advance diet as tolerated. INÉS GARCÍA MD DR: MAXIM/carson JOB#: [id number] / [id number]
[2017-12-25 06:41] LABS: BASO % 1 % (0-3); EOS # 0.1 x10^3/uL (0.0-0.7); EOS % 2 % (0-3); HEMATOCRIT 30.9 % (36.0-47.0); HEMOGLOBIN 10.3 g/dL (12.0-15.5); LYMPH # 1.7 x10^3/uL (1.0-4.8); LYMPH % 31 % (24-48); MEAN CORPUSCULAR HEMOGLOBIN 27 pg (25-35); MEAN CORPUSCULAR HGB CONC 33 g/dL (31-37); MEAN CORPUSCULAR VOLUME 81 fL (79-100); MONO # 0.6 x10^3/uL (0.0-1.1); MONO % 10 % (0-9); NEUT # 3.1 x10^3uL (1.8-7.7); NEUT % 57 % (31-73); PLATELET COUNT 312 x10^3/uL (140-400); RED BLOOD COUNT 3.83 x10^6/uL (3.50-5.40); RED CELL DISTRIBUTION WIDTH 14.8 % (11.5-14.5); WHITE BLOOD COUNT 5.5 x10^3/uL (4.0-11.0)
[2017-12-25 06:50] LABS: CALCIUM 8.5 mg/dL (8.5-10.1); CREATININE 0.7 mg/dL (0.6-1.0); GFR 85.9; POTASSIUM 4.2 mmol/L (3.5-5.1)
[2017-12-25] MEDS: LABETALOL 20 MG/4 ML DISP.SYRIN. IVP PRN ×2 (08:30→09:44)
[2017-12-25] MEDS ORDERED: METOCLOPRAMIDE HCL 10 MG/2 ML VIAL. IV PRN ×2 (13:15→19:45)
[2017-12-25] MEDS ORDERED: METOCLOPRAMIDE HCL 10 MG/2 ML VIAL. IV SCH (13:30)
[2017-12-25] MEDS ORDERED: ZOLPIDEM 5 MG TABLET. PO PRN (19:30)
[2017-12-25] MEDS ORDERED: ENALAPRILAT 2.5 MG/2 ML VIAL. IV PRN (19:30)
[2017-12-25] MEDS: cefTRIAXone IV Push 1 GM VIAL. IVP SCH (20:15)
[2017-12-25] MEDS: METOCLOPRAMIDE 10 MG TABLET PO SCH (20:15)
[2017-12-25] MEDS ORDERED: INSULIN GLARGINE 300 UNITS/3 ML INSULN.PEN. SQ SCH (21:00)
[2017-12-25] MEDS ORDERED: ATORVASTATIN CALCIUM 20 MG TABLET PO SCH (21:00)
[2017-12-25] MEDS ORDERED: traZODone 100 MG TABLET. PO SCH (21:00)
[2017-12-26 00:35] VITALS: BP 115/71
[2017-12-26] MEDS: POTASSIUM CL 40MEQ IN 0.9%NACL 1,000 ML IV SCH (04:53)
[2017-12-26 05:20] VITALS: BP 116/73
[2017-12-26 06:38] LABS: CALCIUM 8.1 mg/dL (8.5-10.1); CREATININE 0.7 mg/dL (0.6-1.0); GFR 85.6; POTASSIUM 4.1 mmol/L (3.5-5.1)
[2017-12-26] MEDS ORDERED: LIPASE/PROTEAS/AMYLAS 10/34/55 CAPSULE.DR. PO SCH (07:30)
[2017-12-26] MEDS ORDERED: PANTOPRAZOLE 40 MG TABLET. PO SCH (07:30)
[2017-12-26 07:35] VITALS: BP 116/73
[2017-12-26] MEDS: METOCLOPRAMIDE 10 MG TABLET PO SCH (07:35)
[2017-12-26] MEDS ORDERED: CARVEDILOL 12.5 MG TABLET PO SCH (08:00)
[2017-12-26] MEDS ORDERED: LISINOPRIL 20 MG TABLET PO SCH (09:00)
[2017-12-26] MEDS ORDERED: CITALOPRAM 20 MG TABLET. PO SCH (09:00)
[2017-12-26] MEDS: PROMETHAZINE 12.5 MG in IV NORMAL SALINE 50ML 50 ML IV PRN (09:11)
[2017-12-26] MEDS ORDERED: HYDR-2758 PO (09:15)
[2017-12-26] MEDS ORDERED: AMOX500T PO (09:15)
--- NOTE | 2017-12-26 09:33 | PN ---
DATE: 12/25/2017 SUBJECTIVE: The patient is resting slightly propped up, continued to complain of nausea, but no vomiting, also abdominal pain. Her blood pressure is not suboptimally controlled. She was unable to give her oral medication. We did start her on enalapril MAYE as well as labetalol. PHYSICAL EXAMINATION: GENERAL: When I examined her this afternoon, she was resting slightly propped up comfortably, in no apparent respiratory distress. She is somewhat pale, but no jaundice, cyanosis, or thyromegaly. No jugular venous distention. No limb edema. VITAL SIGNS: Her heart rate was 93, blood pressure was 169/85, temperature was 99.3, respiratory rate 20, and oxygen saturation was 98%. HEAD, EYES, EARS, NOSE AND THROAT: Normocephalic, atraumatic. NECK: Supple. HEART: Showed normal first and second heart sounds. No gallop, rub, or murmur. CHEST: Clear to auscultation. No crepitation or rhonchi. ABDOMEN: Distended, soft, nontender. No guarding or rigidity. No organomegaly. Hernial orifice intact. Bowel sounds are normal. NEUROLOGIC: She is awake, alert, responding appropriately. All cranial nerves intact. She moves extremities without difficulty. She ambulates without assistance or assistive devices. Her intake over the last 24 hours was 1700, no output was recorded. LABORATORY DATA: Her lab work as of this morning showed that her white cell count was 5500, hemoglobin 10, hematocrit 30, MCV 81 and platelet count 312,000. Her chemistry showed her serum sodium to be 135, potassium 4.2, chloride 101, bicarbonate 25, anion gap of 9, BUN 5, creatinine 0.7, estimated GFR was 85 mL per minute. Her glucose was 128, calcium was 8.5. Her urine culture is still pending at the time of this dictation. ASSESSMENT: Recurrent episode of nausea, vomiting due to severe diabetic gastroparesis. Other medical problems including type 2 diabetes, hypertension, coronary artery disease status post myocardial infarction with stent deployment, history of chronic pancreatitis, and gastroesophageal reflux disease. PLAN: To continue with IV fluid, IV pain medication, IV Rocephin for her urinary tract infection. We will start on a clear liquid diet and advance as tolerated. There is added also Reglan 10 mg IV every 6 hours. INÉS GARCÍA MD DR: Stevo JOB#: [id number] / [id number]
[2017-12-26] MEDS ORDERED: LACTOBACILLUS RHAMNOSUS GG 1 CAPSULE. PO SCH (21:00)
--- NOTE | 2017-12-27 02:23 | DS ---
DATE OF DISCHARGE: 12/26/2017 HOSPITAL COURSE: The patient is a 57-year-old female patient who was yet again admitted with recurrent bouts of nausea, vomiting. She is known to have severe diabetic gastroparesis and has been admitted here multiple times and we did even transfer her to [facility] and did have a Port-A-Cath, arrangement was made for her to have gastrostomy tube, but she left against medical advice. However, she had an appointment to see the surgeon for gastrostomy tube placement. She was extensively investigated and was found to be slightly hypokalemic initially. She also was found to have a UTI. She was kept initially n.p.o., on IV fluid and potassium supplement and IV pain medication was also started and Rocephin for urinary tract infection. She did very well. We did actually start her on clear liquid diet yesterday and advanced as tolerated. Her urine culture has grown more than 100,000 colony forming units per mL, vancomycin- sensitive Enterococcus faecalis. She basically did well, has had no further episodes of nausea, vomiting, has been tolerating her diet and the decision was made to discharge her home to continue with the Reglan and hydrocodone for pain as well as amoxicillin to finish the course of the antibiotic treatment with a clear instruction that she should keep the appointment with the surgeon on next Friday. PHYSICAL EXAMINATION: GENERAL: When I saw her this morning, she was sitting on the edge of the bed comfortably in no apparent respiratory distress, pale, but no jaundice, cyanosis, lymphadenopathy or thyromegaly. No jugular venous distention. No limb edema. VITAL SIGNS: His heart rate was 83, blood pressure was 116/73, temperature was 98.5, respiratory rate was 16, and oxygen saturation was 98. HEAD, EYES, EARS, NOSE AND THROAT: Showed normocephalic, atraumatic. NECK: Supple. HEART: Showed normal first and second heart sounds with no gallop, rub or murmur. CHEST: Clear to auscultation. No crepitation or rhonchi. ABDOMEN: Distended, soft, nontender. NEUROLOGIC: She is awake, alert, responding appropriately. Cranial nerves intact. She moves extremities without difficulty. She ambulates without assistance or assistive devices. Her intake over the last 24 hours was 2774. No output was recorded. LABORATORY DATA: As of this morning, her serum sodium was 137, potassium 4.1, chloride 106, bicarbonate 26, anion gap of 5, BUN 7, creatinine 0.7, estimated GFR was 86 mL per minute. Her glucose was 106, calcium was 8.1. Serum lipase 179. As of this morning, her white cell count was 5500, hemoglobin 10, hematocrit 30, MCV 81 and platelet count 312,000. Her urine was cloudy with a pH of 7, specific gravity of 1.015, positive for nitrite and leukocyte esterase, 20-40 wbc's and a few bacteria; however, urine culture has grown more than 100,000 colony forming units per mL of Enterococcus faecalis that is vancomycin sensitive. DISCHARGE MEDICATIONS: She is discharged home to continue on following medications: Amoxicillin 500 mg 3 times a day for 4 more days, hydrocodone/APAP 5/325 one tablet every 6 hours as needed. She will continue on aspirin 81 mg once a day, atorvastatin calcium 40 mg at bedtime, carvedilol 25 mg twice a day, citalopram hydrobromide 20 mg daily and Plavix 75 mg once a day, NovoLog FlexPen 10 units before meals and Lantus insulin 18 units at bedtime. She is on Creon 12,000 units capsules 1 capsule 3 times a day with meals, lisinopril 20 mg daily, metoclopramide 10 mg before meals and bedtime, ondansetron ODT 4 mg every 6 hours as needed, Protonix 40 mg once a day, trazodone 200 mg at bedtime and Ambien 10 mg at bedtime. FINAL DISCHARGE DIAGNOSES: 1. Severe intractable nausea and vomiting due to gastroparesis, resolved. The patient is now tolerating her diet. 2. Hypokalemia, resolved. 3. Urinary tract infection with growth of more than 100,000 colony forming units per mL of Enterococcus faecalis that is vancomycin sensitive. 4. Hypertension, well controlled; hyperlipidemia; chronic pancreatitis for which is on Creon; gastroesophageal reflux disease, coronary artery disease, status post myocardial infarction, status post PCI with stent deployment x 2. INÉS GARCÍA MD DR: MAXIM/crason JOB#: [id number] / [id number]
== END 2017-12-26 10:55 | disposition home or self-care (01) | DRG 74 ==
LOC: ER 14:05 → 1 SOUTH 17:36
PROVIDERS: ADMIT Internal Medicine; ATTEND Internal Medicine
DX: E11.43 Type 2 diabetes mellitus with diabetic autonomic (poly)neuropathy (principal); K86.1 Other chronic pancreatitis; K31.84 Gastroparesis; N39.0 Urinary tract infection, site not specified; D64.9 Anemia, unspecified; E87.6 Hypokalemia; E78.00 Pure hypercholesterolemia, unspecified; E78.5 Hyperlipidemia, unspecified; I10 Essential (primary) hypertension; I25.10 Atherosclerotic heart disease of native coronary artery without angina pectoris; K21.9 Gastro-esophageal reflux disease without esophagitis; N20.0 Calculus of kidney; Z95.5 Presence of coronary angioplasty implant and graft; Z90.49 Acquired absence of other specified parts of digestive tract; I25.2 Old myocardial infarction; Z79.899 Other long term (current) drug therapy
CPT/HCPCS: 36415; 74177; 80048; 80076; 81001; 82947; 83690; 84484; 85025; 87086; 93005; 96361; 96374; 96375; J0696; J1170; J1815; J2405; J2550; J2765; J3490; J7040; J8597; Q9967; 99285-25; J7030

== ENCOUNTER 2017-12-27 01:58 | Inpatient (IN) | payer SELFPAY ==
[~2017-12-27] VITALS: Ht 309.9 cm; Wt 63.1 kg
[~2017-12-27 01:58] MED LIST changes: +AMOX500T PO; +ASPI-630 PO; +ATOR40TA59 PO; +CARV25TA2 PO; +CITA20TA5 PO; +CLOP75TA57 PO; +HYDR-2758 PO; +LIPA1CAP4 PO; +ONDA4TAB10 PO; +TRAZ-90 PO; +ZOLP10TA4 PO
--- NOTE | 2017-12-27 02:01 | ED.ADGEN ---
Past History Past Medical History: CAD, Diabetes, Gallstones, GERD, High Cholesterol, Heart Disease, Hypertension, CA, Pancreatitis, Other Past Surgical History: Angioplasty, Appendectomy, Cholecystectomy, Other Alcohol Use: None Drug Use: None Adult General Chief Complaint Chief Complaint ".. I ve been vomiting... ever since I got home... I was discharged today..." [facility] HPI Patient is a 57 year old female who presents with above hx and complaints intractable nausea and vomiting and pains since discharge home. Patient has a pending GI consult for gastroparesis and possible feeding tube placement. Patient recently admitted for 3 days for abdomen pain and gastroparesis. Patient has history of diabetes, coronary artery disease, COPD, gastritis, and intractable vomiting . Accu-Cheks home showed sugars more than 300. Review of Systems Review of Systems Constitutional: Denies fever or chills [] Eyes: Denies change in visual acuity, redness, or eye pain [] HENT: Denies nasal congestion or sore throat [] Respiratory: Denies cough or shortness of breath [] Cardiovascular: No additional information not addressed in HPI [] GI: Complaints of generalized abdominal pain, nausea, vomiting,. Denies bloody stools or diarrhea [] : Denies dysuria or hematuria [] Musculoskeletal: Denies back pain or joint pain [] Integument: Denies rash or skin lesions [] Neurologic: Denies headache, focal weakness or sensory changes [] Endocrine: Denies polyuria or polydipsia [] All other systems were reviewed and found to be within normal limits, except as documented in this note. Family History Family History Noncontributory Current Medications Current Medications Current Medications Medications (Trade) Dose Ordered Sig/Georgi Start Time Stop Time Status Last Admin Dose Admin Famotidine (Pepcid Vial) 20 mg 1X ONCE 12/27/17 02:30 12/27/17 02:31 DC 12/27/17 03:03 20 MG Insulin Aspart (NovoLOG) 10 units 1X ONCE 12/27/17 03:15 12/27/17 03:16 Cancel Insulin Human Lispro (HumaLOG) 10 units 1X ONCE 12/27/17 03:15 12/27/17 03:16 DC 12/27/17 03:21 5 UNITS Insulin Human Regular 150 unit/ Sodium Chloride 151.5 ml @ 0 mls/hr 1X ONCE 12/27/17 03:00 4/28/18 03:01 DC Lactated Ringer's 1,000 ml @ 1,000 mls/hr Q1H 12/27/17 02:30 12/27/17 03:29 DC 12/27/17 02:30 1,000 MLS/HR Morphine Sulfate (Morphine 10mg Syringe) 10 mg 1X ONCE 12/27/17 03:00 12/27/17 03:01 DC 12/27/17 03:04 10 MG Ondansetron HCl (Zofran) 8 mg 1X ONCE 12/27/17 02:30 12/27/17 02:31 DC 12/27/17 03:04 8 MG See nursing for home meds Allergies Allergies Allergies Coded Allergies Type Severity Reaction Last Updated Verified No Known Drug Allergies 10/08/17 No Physical Exam Physical Exam Constitutional: In acute distress, ill appearance. [] HENT: Normocephalic, atraumatic, bilateral external ears normal, oropharynx moist, no oral exudates, nose normal. []Poor dentition Eyes: PERRLA, EOMI, conjunctiva normal, no discharge. [] Neck: Normal range of motion, no tenderness, supple, no stridor. [] Cardiovascular:Tachycardia Heart rate regular rhythm, no murmur [] Lungs & Thorax: Bilateral breath sounds equal with scattered wheezes on auscultation [] Port lt. , Abdomen: Bowel sounds decreased ,soft, generalized tenderness, no masses, no pulsatile masses. [] Old surgical scars. Actively vomiting. Skin: Warm, diaphoretic, no erythema, no rash. [] Back: No tenderness, no CVA tenderness. [] Extremities: No tenderness, no cyanosis, no clubbing, ROM intact, no edema. [] Neurologic: Alert and oriented X 3, No gross motor or sensory changes from her baseline,. Psychologic: Affect anxious, judgement normal, mood depressed. Current Patient Data Lab Results Laboratory Tests Test 12/27/17 02:45 12/27/17 03:50 Glucose (Fingerstick) 285 mg/dL (70-99) H White Blood Count 9.3 x10^3/uL (4.0-11.0) # Red Blood Count 4.63 x10^6/uL (3.50-5.40) Hemoglobin 12.3 g/dL (12.0-15.5) Hematocrit 37.4 % (36.0-47.0) Mean Corpuscular Volume 81 fL (79-100) Mean Corpuscular Hemoglobin 27 pg (25-35) Mean Corpuscular Hemoglobin Concent 33 g/dL (31-37) Red Cell Distribution Width 14.8 % (11.5-14.5) H Platelet Count 420 x10^3/uL (140-400) H Neutrophils (%) (Auto) 89 % (31-73) H Lymphocytes (%) (Auto) 7 % (24-48) L Monocytes (%) (Auto) 3 % (0-9) Eosinophils (%) (Auto) 0 % (0-3) Basophils (%) (Auto) 0 % (0-3) Neutrophils # (Auto) 8.3 x10^3uL (1.8-7.7) H Lymphocytes # (Auto) 0.7 x10^3/uL (1.0-4.8) L Monocytes # (Auto) 0.3 x10^3/uL (0.0-1.1) Eosinophils # (Auto) 0.0 x10^3/uL (0.0-0.7) Basophils # (Auto) 0.0 x10^3/uL (0.0-0.2) Segmented Neutrophils % 83 % (35-66) H Band Neutrophils % 5 % (0-9) Lymphocytes % 6 % (24-48) L Atypical Lymphocytes % (Manual) 1 % (0-0) H Monocytes % 5 % (0-10) Platelet Estimate Adequate (ADEQUATE) Prothrombin Time 11.0 SEC (9.4-11.4) Prothrombin Time INR 1.1 (0.9-1.1) PTT 23 SEC (23-33) Sodium Level 133 mmol/L (136-145) L Potassium Level 3.2 mmol/L (3.5-5.1) L Chloride Level 95 mmol/L (98-107) L Carbon Dioxide Level 21 mmol/L (21-32) Anion Gap 17 (6-14) H Blood Urea Nitrogen 12 mg/dL (7-20) # Creatinine 0.9 mg/dL (0.6-1.0) Estimated GFR (Cockcroft-Gault) 64.1 Glucose Level 292 mg/dL (70-99) H Calcium Level 9.3 mg/dL (8.5-10.1) # Total Bilirubin 0.4 mg/dL (0.2-1.0) Direct Bilirubin 0.1 mg/dL (0.0-0.2) Aspartate Amino Transferase (AST) 15 U/L (15-37) Alanine Aminotransferase (ALT) 16 U/L (14-59) Alkaline Phosphatase 105 U/L (46-116) Creatine Kinase 57 U/L (26-192) Creatine Kinase MB (Mass) 1.6 ng/mL (0.0-3.6) Creatine Kinase MB Relative Index 2.8 % (0-4) Troponin I Quantitative < 0.017 ng/mL (0-0.055) Total Protein 7.4 g/dL (6.4-8.2) Albumin 3.2 g/dL (3.4-5.0) L Lipase 195 U/L (73-393) EKG EKG My interpretation of EKG shows a sinus tachycardia at [address] strain pattern. Some nonspecific anterior lateral changes.[] Radiology/Procedures Radiology/Procedures My interpretation of chest x-ray shows no free air in the diaphragm. Surgical clips.[] Left chest wall port. Course & Med Decision Making Course & Med Decision Making Pertinent Labs and Imaging studies reviewed. (See chart for details) Discussed presentation, testing and treatment plan with Dr. Galo. Will accept pt for admission and further eval. [] Final Impression Final Impression 1. Intractable vomiting 2. Abdomen pain 3. Gastroparesis 4. Hyperglycemia[]- DM Problems: Dragon Disclaimer Dragon Disclaimer This electronic medical record was generated, in whole or in part, using a voice recognition dictation system. SALVADOR SANDOVAL MD Dec 27, 2017 02:01
[2017-12-27] MEDS ORDERED: ONDANSETRON PF 4 MG/2 ML VIAL. IV ONE (02:30)
[2017-12-27] MEDS ORDERED: IV RINGERS SOLUTION,LACTATED 1,000 ML IV SCH (02:30)
[2017-12-27] MEDS ORDERED: FAMOTIDINE 20 MG/2 ML VIAL IVP ONE (02:30)
[2017-12-27] MEDS ORDERED: INSULIN REGULAR VIAL 150 UNIT in 0.9 % SODIUM CHLORIDE 150ML 150 ML IV ONE (03:00)
[2017-12-27] MEDS ORDERED: MORPHINE SULFATE 10 MG/ML SYRINGE. SQ ONE (03:00)
[2017-12-27] MEDS ORDERED: INSULIN LISPRO 300 UNITS/3 ML INSULN.PEN. SQ ONE (03:15)
[2017-12-27] MEDS ORDERED: INSULIN ASPART 300 UNITS/3 ML INSULN.PEN SQ ONE (03:15)
[2017-12-27 04:15] LABS: BASO % 0 % (0-3); EOS % 0 % (0-3); HEMATOCRIT 37.4 % (36.0-47.0); HEMOGLOBIN 12.3 g/dL (12.0-15.5); LYMPH # 0.7 x10^3/uL (1.0-4.8); LYMPH % 7 % (24-48); MEAN CORPUSCULAR HEMOGLOBIN 27 pg (25-35); MEAN CORPUSCULAR HGB CONC 33 g/dL (31-37); MEAN CORPUSCULAR VOLUME 81 fL (79-100); MONO # 0.3 x10^3/uL (0.0-1.1); MONO % 3 % (0-9); NEUT # 8.3 x10^3uL (1.8-7.7); NEUT % 89 % (31-73); PLATELET COUNT 420 x10^3/uL (140-400); RED BLOOD COUNT 4.63 x10^6/uL (3.50-5.40); RED CELL DISTRIBUTION WIDTH 14.8 % (11.5-14.5); WHITE BLOOD COUNT 9.3 x10^3/uL (4.0-11.0)
[2017-12-27 04:33] LABS: ALBUMIN 3.2 g/dL (3.4-5.0); CALCIUM 9.3 mg/dL (8.5-10.1); CREATININE 0.9 mg/dL (0.6-1.0); DIRECT BILIRUBIN 0.1 mg/dL (0.0-0.2); GFR 64.1; POTASSIUM 3.2 mmol/L (3.5-5.1); TOTAL BILIRUBIN 0.4 mg/dL (0.2-1.0); TOTAL PROTEIN 7.4 g/dL (6.4-8.2)
[2017-12-27 04:34] LABS: % ATYL 1 % (0-0); % BANDS 5 % (0-9); % LYMPHS 6 % (24-48); % MONOS 5 % (0-10); % SEGS 83 % (35-66); PLT ESTIMATE ADEQUATE (ADEQUATE)
[2017-12-27] MEDS ORDERED: ONDANSETRON PF 4 MG/2 ML VIAL. IV PRN (05:45)
[2017-12-27] MEDS ORDERED: MORPHINE SULFATE 10 MG/ML SYRINGE. SQ PRN (05:45)
[2017-12-27] MEDS: IV RINGERS SOLUTION,LACTATED 1,000 ML IV SCH ×2 (05:45→12:00)
[2017-12-27] MEDS ORDERED: KCL PER PROTOCOL MC PRN (06:00)
--- NOTE | 2017-12-27 07:51 | RAD ---
ACUTE ABDOMEN SERIES Clinical Indication: abd. pain, nausea and vomiting Comparison: Acute abdomen series dated 10/08/2017 Findings: Left subclavian Port-A-Cath with tip in the mid SVC. Right breast prosthesis. Normal lung volume. No focal consolidations. Normal pulmonary vasculature. No pleural effusion or pneumothorax. The cardiomediastinal silhouette is normal. Coronary stenting. Unchanged tortuous thoracic aorta. No obvious free air. Nonobstructive bowel gas pattern. Cholecystectomy clips. Surgical staple line in the right lower abdomen. No acute osseous abnormality. IMPRESSION: 1. No acute cardiopulmonary process. 2. Nonobstructive bowel gas pattern.
[2017-12-27] MEDS: IPRATRPIUM/ALBUTEROL 0.5/2.5MG 3 ML NEBU. NEB SCH ×3 (08:00→16:00)
[2017-12-27] MEDS ORDERED: DEXTROSE 50% 25 GM / 50ML DISP.SYRIN. IV PRN (10:30)
[2017-12-27] MEDS ORDERED: ZOLPIDEM 5 MG TABLET. PO PRN (10:45)
[2017-12-27 11:09] VITALS: BP 131/81
[2017-12-27] MEDS: ONDANSETRON ODT 4 MG TAB.RAPDIS PO SCH ×2 (11:36→18:04)
[2017-12-27] MEDS: METOCLOPRAMIDE 10 MG TABLET PO SCH ×3 (11:36→20:29)
[2017-12-27] MEDS: LIPASE/PROTEAS/AMYLAS 10/34/55 CAPSULE.DR. PO SCH ×2 (11:36→16:54)
--- NOTE | 2017-12-27 11:38 | NUR ---
Pt arrived on unit via gurney accompanied by ems. Pt belongings checked, vitals and head to toe completed. unit routines given. Pt resting comfortably.
[2017-12-27] MEDS: CITALOPRAM 20 MG TABLET. PO SCH (11:44)
[2017-12-27] MEDS: CLOPIDOGREL BISULFATE 75 MG TABLET PO SCH (11:44)
[2017-12-27] MEDS: ASPIRIN 81 MG TAB.CHEW PO SCH (11:44)
[2017-12-27] MEDS: CARVEDILOL 12.5 MG TABLET PO SCH ×2 (11:45→18:03)
[2017-12-27] MEDS: LISINOPRIL 20 MG TABLET PO SCH (11:45)
[2017-12-27] MEDS: INSULIN LISPRO 300 UNITS/3 ML INSULN.PEN. SQ SCH ×2 (12:00→17:00)
[2017-12-27] MEDS ORDERED: AMOXICILLIN 250 MG CAPSULE PO SCH (14:00)
--- NOTE | 2017-12-27 15:01 | PDOC1 ---
History of Present Illness Reason for Visit: n/v History of Present Illness Pt was discharged recently from [facility] where she was admitted for n/v. She says she had breakfast this morning and it "didn't sit right," so she came back to the ER. She denies abd pain, fever, bloody stools, chest pain, SOA, cough, rash , dizziness, TOMAS, or blurry vision. She takes Reglan for gastroparesis. Chief Complaint: NAUSEA/VOMITING/DIARRHEA Allergies: Coded Allergies: No Known Drug Allergies (Unverified , 10/08/17) Past Medical History Cardiac: CAD, HTN, SD GI: GERD, Other (Gastroparesis, pancreatitis) Endocrine: Diabetes Past Surgical History: Cholecystectomy, Other (Angioplasty w/ stent placement) Family History: No pertinent hx Past Social History Smoke: No Alcohol: none Drugs: None Lives: Alone Review of Systems Review Of Systems Fourteen system , review of systems has been reviewed. See HPI for pertinent positives and negative responses, other guerra all other systems are negative, non pertinent or non contributory Allergies: Coded Allergies: No Known Drug Allergies (Unverified , 10/08/17) Medications Current Medications Lactated Ringer's 1,000 ml @ 1,000 mls/hr Q1H IV Last administered on at 02:30; Start 12/27/17 at 02:30; Stop 12/27/17 at 03:29; Status DC Ondansetron HCl (Zofran) 8 mg 1X ONCE IV Last administered on 12/27/17at 03:04 ; Start 12/27/17 at 02:30; Stop 12/27/17 at 02:31; Status DC Famotidine (Pepcid Vial) 20 mg 1X ONCE IVP Last administered on 12/27/17at 03: 03; Start 12/27/17 at 02:30; Stop 12/27/17 at 02:31; Status DC Insulin Human Regular 150 unit/ Sodium Chloride 151.5 ml @ 0 mls/hr 1X ONCE IV ; Start 12/27/17 at 03:00; Stop 12/27/17 at 03:01; Status DC Morphine Sulfate (Morphine 10mg Syringe) 10 mg 1X ONCE SQ Last administered on 12/27/17at 03:04; Start 12/27/17 at 03:00; Stop 12/27/17 at 03:01; Status DC Insulin Aspart (NovoLOG) 10 units 1X ONCE SQ ; Start 12/27/17 at 03:15; Stop at 03:16; Status Cancel Insulin Human Lispro (HumaLOG) 10 units 1X ONCE SQ Last administered on at 03:21; Start 12/27/17 at 03:15; Stop 12/27/17 at 03:16; Status DC Ondansetron HCl (Zofran) 8 mg PRN Q4HRS PRN IV NAUSEA/VOMITING; Start 12/27/17 at 05:45; Stop 12/28/17 at 05:44 Albuterol/ Ipratropium (Duoneb) 3 ml RTQID NEB ; Start 12/27/17 at 08:00; Stop 12/28/17 at 07:59 Morphine Sulfate (Morphine 10mg Syringe) 10 mg QIDPRN PRN SQ severe pain; Start 12/27/17 at 05:45 Lactated Ringer's 1,000 ml @ 160 mls/hr Q6H15M IV ; Start 12/27/17 at 05:45 Info (KCl Per Protocol) 1 ea CONT PRN PRN MC PER PROTOCOL; Start 12/27/17 at 06 :00 Insulin Human Lispro (HumaLOG) 0-7 UNITS TIDWMEALS SQ ; Start 12/27/17 at 12:00 Dextrose 12.5 gm PRN Q15MIN PRN IV SEE COMMENTS; Start 12/27/17 at 10:30 Aspirin (Children'S Aspirin) 81 mg DAILY PO Last administered on 12/27/17at 11: 44; Start 12/27/17 at 10:30 Citalopram Hydrobromide (CeleXA) 20 mg DAILY PO Last administered on 12/27/17at 11:44; Start 12/27/17 at 10:30 Clopidogrel Bisulfate (Plavix) 75 mg DAILY PO Last administered on 12/27/17at 11 :44; Start 12/27/17 at 10:30 Acetaminophen/ Hydrocodone Bitart (Lortab 5/325) 1 tab PRN Q6HRS PRN PO PAIN; Start 12/27/17 at 10:30 Insulin Glargine (Lantus) 18 units QHS SQ ; Start 12/27/17 at 21:00 Lisinopril (Prinivil) 20 mg DAILY PO Last administered on 12/27/17at 11:45; Start 12/27/17 at 10:30 Metoclopramide HCl (Reglan) 10 mg QIDACHS PO Last administered on 12/27/17at 11: 36; Start 12/27/17 at 11:30 Ondansetron HCl (Zofran Odt) 4 mg Q6HRS PO Last administered on 12/27/17at 11:36 ; Start 12/27/17 at 12:00 Pantoprazole Sodium (Protonix) 40 mg DAILYAC PO ; Start 12/27/17 at 10:45 Trazodone HCl (Desyrel) 200 mg QHS PO ; Start 12/27/17 at 21:00 Atorvastatin Calcium (Lipitor) 40 mg QHS PO ; Start 12/27/17 at 21:00 Carvedilol (Coreg) 25 mg BIDWMEALS PO Last administered on 12/27/17at 11:45; Start 12/27/17 at 10:45 Amylase/Lipase/ Protease (Zenpep 10,000) 1 cap TIDAC PO Last administered on at 11:36; Start 12/27/17 at 11:30 Zolpidem Tartrate (Ambien) 10 mg PRN QHS PRN PO INSOMNIA; Start 12/27/17 at 10: 45 Amoxicillin (Amoxil) 500 mg [id number] PO ; Start 12/27/17 at 14:00 Active Scripts Active Hydrocodone-Apap 5-325 (Hydrocodone Bit/Acetaminophen) 1 Each Tablet 1 Tab PO PRN Q6HRS PRN 6 Days Amoxicillin 500 Mg Tablet 1 Tab PO TID 4 Days Reported Zolpidem Tartrate 10 Mg Tablet 10 Mg PO PRN QHS PRN LAST DOSE GIVEN: DATE: YESTERDAY TIME: AT BEDTIME NEXT DOSE DUE: DATE: TODAY TIME: AT BEDTIME Zofran Odt (Ondansetron) 4 Mg Tab.rapdis 4 Mg PO Q6HRS NOT TAKEN TODAY NEXT DOSE DUE: DATE: TODAY TIME: IF AND WHEN NEEDED Trazodone Hcl 100 Mg Tablet 200 Mg PO QHS LAST DOSE GIVEN: DATE: YESTERDAY TIME: AT BEDTIME NEXT DOSE DUE: DATE: TODAY TIME: AT BEDTIME Plavix (Clopidogrel Bisulfate) 75 Mg Tablet 75 Mg PO DAILY LAST DOSE GIVEN: NOT GIVEN IN THE HOSPITAL NEXT DOSE DUE: DATE: RESTART TOMORROW TIME: AM Citalopram Hbr (Citalopram Hydrobromide) 20 Mg Tablet 20 Mg PO DAILY LAST DOSE GIVEN: DATE: TODAY TIME: AM NEXT DOSE DUE: DATE: TOMORR TIME: AM Carvedilol 25 Mg Tablet 25 Mg PO BIDWMEALS LAST DOSE GIVEN: DATE: TODAY TIME: WITH BREAKFAST NEXT DOSE DUE: DATE: TODAY TIME: WITH DINNER Atorvastatin Calcium 40 Mg Tablet 40 Mg PO QHS LAST DOSE GIVEN: DATE: YESTER TIME: AT BEDTIME NEXT DOSE DUE: DATE: TODAY TIME: AT BEDTIME Aspirin 81 Mg Tab.chew 81 Mg PO DAILY NOT GIVEN IN THE HOSPITAL NEXT DOSE DUE: DATE: RESTART TOMORROW TIME: AM Radha Sanchez 12,000 Units Capsule (Lipase/Protease/Amylase) 1 Each Capsule.dr 1 Each PO TIDAC LAST DOSE GIVEN: DATE: TIME: BEFORE BREAKFAST NEXT DOSE DUE: DATE: TODAY TIME: BEFORE LUNCH Protonix (Pantoprazole Sodium) 40 Mg Tablet.dr 1 Tab PO DAILYAC LAST DOSE GIVEN: DATE: TODAY TIME: BEFORE BREAKFAST NEXT DOSE DUE: DATE: TOMORROW TIME: BEFORE BREAKFAST Reglan (Metoclopramide Hcl) 10 Mg Tablet 1 Tab PO QIDACHS LAST DOSE GIVEN: DATE: TODAY TIME: BEFORE BREAKFAST NEXT DOSE DUE: DATE: TODAY TIME: BEFORE LUNCH Lisinopril 20 Mg Tablet 1 Tab PO DAILY LAST DOSE GIVEN: DATE: TODAY TIME: AM NEXT DOSE DUE: DATE: TOMORROW TIME: AM Lantus Solostar (Insulin Glargine,Hum.rec.anlog) 100 Unit/1 Ml Insuln.pen 18 Unit SQ QHS NOT GIVEN IN THE HOSPITAL NEXT DOSE DUE: DATE: RESTART TODAY TIME: AT BEDTIME DATE: TIME: Novolog Flexpen (Insulin Aspart) 100 Unit/1 Ml Insuln.pen 10 Unit SQ TIDWMEALS NOT GIVEN IN THE HOSPITAL NEXT DOSE DUE: DATE: TODAY TIME: WITH LUNCH DATE: TIME: Exam Vital Signs Vital Signs Date Time Temp Pulse Resp B/P (MAP) Pulse Ox O2 Delivery O2 Flow Rate FiO2 12/27/17 11:45 115 131/81 12/27/17 11:09 98.1 16 100 Room Air General Appearance: Alert, Oriented X3, Cooperative, No acute distress HEENT: Atraumatic, PERRLA, EOMI, Mucous membr. moist/pink, Other (Neck supple, full ROM, no JVD, no LAD, no thyromegaly) Respiratory: Clear to auscultation, Normal air movement Heart: Regular rate, Normal S1, Normal S2, No murmurs Abdominal: Normal bowel sounds, Soft, No tenderness, No hepatospenomegaly, No masses Extremities: No edema, Normal pulses, No tenderness/swelling Skin: No rashes, No breakdown Neuro: Normal speech, Strength at 5/5 X4 ext, Normal tone, Sensation intact, Cranial nerves 3-12 NL, Reflexes 2+ Psych/Mental Status: Mental status NL, Mood NL Assessment/Plan Assessment/Plan 1. Diabetic gastroparesis w/ n/v: Stable, continue Reglan. Clear liquids, advance as tolerated. AAS negative. 2. Hypokalemia: Replace, recheck. 3. DVT proph: Heparin. 4. Disp: Hopeful for d/c soon. COURSE Allergies Coded Allergies Type Severity Reaction Last Updated Verified No Known Drug Allergies 10/08/17 No Laboratory Tests Test 12/27/17 02:45 12/27/17 03:50 12/27/17 05:12 12/27/17 09:15 Glucose (Fingerstick) 285 mg/dL (70-99) 161 mg/dL (70-99) White Blood Count 9.3 x10^3/uL (4.0-11.0) Red Blood Count 4.63 x10^6/uL (3.50-5.40) Hemoglobin 12.3 g/dL (12.0-15.5) Hematocrit 37.4 % (36.0-47.0) Mean Corpuscular Volume 81 fL (79-100) Mean Corpuscular Hemoglobin 27 pg (25-35) Mean Corpuscular Hemoglobin Concent 33 g/dL (31-37) Red Cell Distribution Width 14.8 % (11.5-14.5) Platelet Count 420 x10^3/uL (140-400) Neutrophils (%) (Auto) 89 % (31-73) Lymphocytes (%) (Auto) 7 % (24-48) Monocytes (%) (Auto) 3 % (0-9) Eosinophils (%) (Auto) 0 % (0-3) Basophils (%) (Auto) 0 % (0-3) Neutrophils # (Auto) 8.3 x10^3uL (1.8-7.7) Lymphocytes # (Auto) 0.7 x10^3/uL (1.0-4.8) Monocytes # (Auto) 0.3 x10^3/uL (0.0-1.1) Eosinophils # (Auto) 0.0 x10^3/uL (0.0-0.7) Basophils # (Auto) 0.0 x10^3/uL (0.0-0.2) Segmented Neutrophils % 83 % (35-66) Band Neutrophils % 5 % (0-9) Lymphocytes % 6 % (24-48) Atypical Lymphocytes % (Manual) 1 % (0-0) Monocytes % 5 % (0-10) Platelet Estimate Adequate (ADEQUATE) Prothrombin Time 11.0 SEC (9.4-11.4) Prothromb Time International Ratio 1.1 (0.9-1.1) Activated Partial Thromboplast Time 23 SEC (23-33) Sodium Level 133 mmol/L (136-145) Potassium Level 3.2 mmol/L (3.5-5.1) Chloride Level 95 mmol/L (98-107) Carbon Dioxide Level 21 mmol/L (21-32) Anion Gap 17 (6-14) Blood Urea Nitrogen 12 mg/dL (7-20) Creatinine 0.9 mg/dL (0.6-1.0) Estimated GFR (Cockcroft-Gault) 64.1 Glucose Level 292 mg/dL (70-99) Calcium Level 9.3 mg/dL (8.5-10.1) Total Bilirubin 0.4 mg/dL (0.2-1.0) Direct Bilirubin 0.1 mg/dL (0.0-0.2) Aspartate Amino Transf (AST/SGOT) 15 U/L (15-37) Alanine Aminotransferase (ALT/SGPT) 16 U/L (14-59) Alkaline Phosphatase 105 U/L (46-116) Creatine Kinase 57 U/L (26-192) Creatine Kinase MB (Mass) 1.6 ng/mL (0.0-3.6) Creatine Kinase MB Relative Index 2.8 % (0-4) Troponin I Quantitative < 0.017 ng/mL (0-0.055) 0.018 ng/mL (0-0.055) Total Protein 7.4 g/dL (6.4-8.2) Albumin 3.2 g/dL (3.4-5.0) Triglycerides Level 81 mg/dL (0-150) Cholesterol Level 277 mg/dL (0-200) LDL Cholesterol, Calculated 180 mg/dL (0-100) VLDL Cholesterol, Calculated 16 mg/dL (0-40) Non-HDL Cholesterol Calculated 196 mg/dL (0-129) HDL Cholesterol 81 mg/dL (40-60) Cholesterol/HDL Ratio 3.0 Lipase 195 U/L (73-393) Test 12/27/17 11:51 Glucose (Fingerstick) 86 mg/dL (70-99) Current Medications Medications (Trade) Dose Ordered Sig/Georgi Route PRN Reason Start Time Stop Time Status Last Admin Dose Admin Lactated Ringer's 1,000 ml @ 1,000 mls/hr Q1H IV 12/27/17 02:30 12/27/17 03:29 DC 12/27/17 02:30 Ondansetron HCl (Zofran) 8 mg 1X ONCE IV 12/27/17 02:30 12/27/17 02:31 DC 12/27/17 03:04 Famotidine (Pepcid Vial) 20 mg 1X ONCE IVP 12/27/17 02:30 12/27/17 02:31 DC 12/27/17 03:03 Insulin Human Regular 150 unit/ Sodium Chloride 151.5 ml @ 0 mls/hr 1X ONCE IV 12/27/17 03:00 12/27/17 03:01 DC Morphine Sulfate (Morphine 10mg Syringe) 10 mg 1X ONCE SQ 12/27/17 03:00 12/27/17 03:01 DC 12/27/17 03:04 Insulin Aspart (NovoLOG) 10 units 1X ONCE SQ 12/27/17 03:15 12/27/17 03:16 Cancel Insulin Human Lispro (HumaLOG) 10 units 1X ONCE SQ 12/27/17 03:15 12/27/17 03:16 DC 12/27/17 03:21 Ondansetron HCl (Zofran) 8 mg PRN Q4HRS PRN IV NAUSEA/VOMITING 12/27/17 05:45 12/28/17 05:44 Albuterol/ Ipratropium (Duoneb) 3 ml RTQID NEB 12/27/17 08:00 12/28/17 07:59 Morphine Sulfate (Morphine 10mg Syringe) 10 mg QIDPRN PRN SQ severe pain 12/27/17 05:45 Lactated Ringer's 1,000 ml @ 160 mls/hr Q6H15M IV 12/27/17 05:45 Info (KCl Per Protocol) 1 ea CONT PRN PRN MC PER PROTOCOL 12/27/17 06:00 Insulin Human Lispro (HumaLOG) 0-7 UNITS TIDWMEALS SQ 12/27/17 12:00 Dextrose 12.5 gm PRN Q15MIN PRN IV SEE COMMENTS 12/27/17 10:30 Aspirin (Children'S Aspirin) 81 mg DAILY PO 12/27/17 10:30 12/27/17 11:44 Citalopram Hydrobromide (CeleXA) 20 mg DAILY PO 12/27/17 10:30 12/27/17 11:44 Clopidogrel Bisulfate (Plavix) 75 mg DAILY PO 12/27/17 10:30 12/27/17 11:44 Acetaminophen/ Hydrocodone Bitart (Lortab 5/325) 1 tab PRN Q6HRS PRN PO PAIN 12/27/17 10:30 Insulin Glargine (Lantus) 18 units QHS SQ 12/27/17 21:00 Lisinopril (Prinivil) 20 mg DAILY PO 12/27/17 10:30 12/27/17 11:45 Metoclopramide HCl (Reglan) 10 mg QIDACHS PO 12/27/17 11:30 12/27/17 11:36 Ondansetron HCl (Zofran Odt) 4 mg Q6HRS PO 12/27/17 12:00 12/27/17 11:36 Pantoprazole Sodium (Protonix) 40 mg DAILYAC PO 12/27/17 10:45 Trazodone HCl (Desyrel) 200 mg QHS PO 12/27/17 21:00 Atorvastatin Calcium (Lipitor) 40 mg QHS PO 12/27/17 21:00 Carvedilol (Coreg) 25 mg BIDWMEALS PO 12/27/17 10:45 12/27/17 11:45 Amylase/Lipase/ Protease (Zenpep 10,000) 1 cap TIDAC PO 12/27/17 11:30 12/27/17 11:36 Zolpidem Tartrate (Ambien) 10 mg PRN QHS PRN PO INSOMNIA 12/27/17 10:45 Amoxicillin (Amoxil) 500 mg [id number] PO 12/27/17 14:00 Vital Signs Date Time Temp Pulse Resp B/P (MAP) Pulse Ox O2 Delivery O2 Flow Rate FiO2 12/27/17 11:45 115 131/81 12/27/17 11:09 98.1 16 100 Room Air AAS: Negative FORTUNATO LANG MD Dec 27, 2017 15:01
[2017-12-27] MEDS ORDERED: POTASSIUM CHLORIDE 20 MEQ/15 ML ORAL LIQUID. PO ONE (15:15)
[2017-12-27] MEDS: PANTOPRAZOLE 40 MG TABLET. PO SCH (15:31)
[2017-12-27 15:32] VITALS: BP 122/90
[2017-12-27] MEDS: HYDROcodone/APAP 5/325MG 1 TAB TABLET PO PRN (18:08)
[2017-12-27 19:30] VITALS: BP 101/69
[2017-12-27] MEDS ORDERED: IPRATRPIUM/ALBUTEROL 0.5/2.5MG 3 ML NEBU. NEB PRN (20:00)
[2017-12-27] MEDS: ATORVASTATIN CALCIUM 20 MG TABLET PO SCH (20:30)
[2017-12-27] MEDS: traZODone 100 MG TABLET. PO SCH (20:30)
[2017-12-27] MEDS: INSULIN GLARGINE 300 UNITS/3 ML INSULN.PEN. SQ SCH (20:35)
[2017-12-27] MEDS ORDERED: NITROFURANTOIN MONOHYD/M-CRYST 100 MG CAPSULE. PO SCH (21:00)
[2017-12-27 22:50] VITALS: BP 99/58
[2017-12-28] MEDS: ONDANSETRON ODT 4 MG TAB.RAPDIS PO SCH ×5 (05:37→23:42)
[2017-12-28 05:50] VITALS: BP 117/65
[2017-12-28 06:37] LABS: BASO % 0 % (0-3); EOS % 1 % (0-3); HEMATOCRIT 30.8 % (36.0-47.0); HEMOGLOBIN 10.1 g/dL (12.0-15.5); LYMPH # 1.4 x10^3/uL (1.0-4.8); LYMPH % 23 % (24-48); MEAN CORPUSCULAR HEMOGLOBIN 27 pg (25-35); MEAN CORPUSCULAR HGB CONC 33 g/dL (31-37); MEAN CORPUSCULAR VOLUME 80 fL (79-100); MONO # 0.6 x10^3/uL (0.0-1.1); MONO % 11 % (0-9); NEUT # 3.8 x10^3uL (1.8-7.7); NEUT % 65 % (31-73); PLATELET COUNT 296 x10^3/uL (140-400); RED BLOOD COUNT 3.83 x10^6/uL (3.50-5.40); RED CELL DISTRIBUTION WIDTH 15.1 % (11.5-14.5); WHITE BLOOD COUNT 5.9 x10^3/uL (4.0-11.0)
[2017-12-28 06:51] LABS: CALCIUM 8.7 mg/dL (8.5-10.1); CREATININE 1.9 mg/dL (0.6-1.0); GFR 27.1; POTASSIUM 3.6 mmol/L (3.5-5.1)
[2017-12-28] MEDS ORDERED: IV NORMAL SALINE 1,000ML 1,000 ML IV ONE (07:30)
[2017-12-28] MEDS: ASPIRIN 81 MG TAB.CHEW PO SCH (07:54)
[2017-12-28] MEDS: PANTOPRAZOLE 40 MG TABLET. PO SCH (07:54)
[2017-12-28] MEDS: METOCLOPRAMIDE 10 MG TABLET PO SCH ×4 (07:54→21:07)
[2017-12-28] MEDS: CLOPIDOGREL BISULFATE 75 MG TABLET PO SCH (07:54)
[2017-12-28] MEDS: LIPASE/PROTEAS/AMYLAS 10/34/55 CAPSULE.DR. PO SCH ×3 (07:54→16:51)
[2017-12-28] MEDS: LISINOPRIL 20 MG TABLET PO SCH (07:55)
[2017-12-28] MEDS: CITALOPRAM 20 MG TABLET. PO SCH (07:55)
[2017-12-28] MEDS: CARVEDILOL 12.5 MG TABLET PO SCH ×2 (07:55→16:51)
[2017-12-28] MEDS: INSULIN LISPRO 300 UNITS/3 ML INSULN.PEN. SQ SCH ×3 (08:00→17:00)
[2017-12-28] MEDS: HYDROcodone/APAP 5/325MG 1 TAB TABLET PO PRN (08:08)
[2017-12-28 11:00] VITALS: BP 119/77
[2017-12-28 11:36] LABS: BILIRUBIN,URINE NEG (NEG); CLARITY,URINE HAZY; COLOR,URINE YELLOW; GLUCOSE,URINE 250 mg/dL (NEG)
[2017-12-28 11:37] LABS: AMORPHOUS SEDIMENT,UR PRESENT /HPF; BACTERIA,URINE FEW /HPF (0-FEW); GRANULAR CASTS,URINE FEW /HPF; HYALINE CASTS, URINE FEW /HPF; NITRITE,URINE NEG (NEG); SQUAMOUS EPITHELIAL CELL,UR FEW /LPF; UROBILINOGEN,URINE 0.2 mg/dL (0.2 mg/dL)
[2017-12-28 12:32] LABS: CALCIUM 7.9 mg/dL (8.5-10.1); CREATININE 1.5 mg/dL (0.6-1.0); GFR 35.5; POTASSIUM 3.8 mmol/L (3.5-5.1)
--- NOTE | 2017-12-28 13:51 | PDOC ---
PROGRESS NOTES Assessment 1. Diabetic gastroparesis w/ n/v: Pt not vomiting, but per nursing not eating much, and pt states she has lower abd pain (not severe) which makes her not hungry. If not improving by tomorrow may need to consider transfer to a hospital w/ GI coverage. Pt v/u. 2. Hypokalemia: Restart IVF, pt not drinking much. 3. Acute kidney injury: Possibly due to poor intake. Creat up to 1.9 from 0.9 , after 500 mL saline bolus, creat down to 1.5. 4. Bacteruria: Pt had enterococcus on culture 12/23. Current UA negative so far, will f/u on culture. Would like to avoid abx if possible. 5. DVT proph: Heparin. 6. Disp: Hopeful for d/c soon; if not improving, consider transfer for GI services. Problems: Plan of Care: see other orders Subjective Pt seen on rounds and d/w nursing. Pt not eating or drinking much. Pt states she is just not feeling up to it. C/o pain in LLQ. No vomiting, fever, diarrhea, rash, chest pain, SOA, leg pain/swelling, or any other concerns. Per nurse, had to straight cath to obtain UA today, pt not alerting staff when she uses the restroom. Pt w/ significant candidal infection in groin area per nurse. Objective Vital Signs Date Time Temp Pulse Resp B/P (MAP) Pulse Ox O2 Delivery O2 Flow Rate FiO2 12/28/17 11:00 98.7 82 119/77 (91) 96 Room Air 12/28/17 05:50 18 Intake and Output 12/28/17 07:00 Intake Total 470 ml Balance 470 ml Intake Oral 470 ml # Voids 2 Abdomen: Normal bowel sounds, Soft, No hepatospenomegaly, No masses, Other ( Mild TTP in LLQ without rebound or guarding) Heart: Regular rate, Normal S1, Normal S2, No murmurs Extremities: No cyanosis, No edema, Normal pulses, No tenderness/swelling, Other (Elizabeth's negative bilaterally) General: Alert, Oriented X3, Cooperative, No acute distress HEENT: Atraumatic, PERRLA, EOMI, Mucous membr. moist/pink Lungs: Clear to auscultation, Normal air movement Neck: No JVD, No thyromegaly, No LAD Neuro: Normal speech, Strength at 5/5 X4 ext, Normal tone, Sensation intact, Cranial nerves 3-12 NL Psych/Mental Status: Mental status NL, Other (Flat affect) Review of Relevant I have reviewed the following items belem (where applicable) has been applied. Labs Laboratory Tests Test 12/27/17 02:45 12/27/17 03:50 12/27/17 05:12 12/27/17 09:15 Glucose (Fingerstick) 285 mg/dL (70-99) 161 mg/dL (70-99) White Blood Count 9.3 x10^3/uL (4.0-11.0) Red Blood Count 4.63 x10^6/uL (3.50-5.40) Hemoglobin 12.3 g/dL (12.0-15.5) Hematocrit 37.4 % (36.0-47.0) Mean Corpuscular Volume 81 fL (79-100) Mean Corpuscular Hemoglobin 27 pg (25-35) Mean Corpuscular Hemoglobin Concent 33 g/dL (31-37) Red Cell Distribution Width 14.8 % (11.5-14.5) Platelet Count 420 x10^3/uL (140-400) Neutrophils (%) (Auto) 89 % (31-73) Lymphocytes (%) (Auto) 7 % (24-48) Monocytes (%) (Auto) 3 % (0-9) Eosinophils (%) (Auto) 0 % (0-3) Basophils (%) (Auto) 0 % (0-3) Neutrophils # (Auto) 8.3 x10^3uL (1.8-7.7) Lymphocytes # (Auto) 0.7 x10^3/uL (1.0-4.8) Monocytes # (Auto) 0.3 x10^3/uL (0.0-1.1) Eosinophils # (Auto) 0.0 x10^3/uL (0.0-0.7) Basophils # (Auto) 0.0 x10^3/uL (0.0-0.2) Segmented Neutrophils % 83 % (35-66) Band Neutrophils % 5 % (0-9) Lymphocytes % 6 % (24-48) Atypical Lymphocytes % (Manual) 1 % (0-0) Monocytes % 5 % (0-10) Platelet Estimate Adequate (ADEQUATE) Prothrombin Time 11.0 SEC (9.4-11.4) Prothromb Time International Ratio 1.1 (0.9-1.1) Activated Partial Thromboplast Time 23 SEC (23-33) Sodium Level 133 mmol/L (136-145) Potassium Level 3.2 mmol/L (3.5-5.1) Chloride Level 95 mmol/L (98-107) Carbon Dioxide Level 21 mmol/L (21-32) Anion Gap 17 (6-14) Blood Urea Nitrogen 12 mg/dL (7-20) Creatinine 0.9 mg/dL (0.6-1.0) Estimated GFR (Cockcroft-Gault) 64.1 Glucose Level 292 mg/dL (70-99) Calcium Level 9.3 mg/dL (8.5-10.1) Total Bilirubin 0.4 mg/dL (0.2-1.0) Direct Bilirubin 0.1 mg/dL (0.0-0.2) Aspartate Amino Transf (AST/SGOT) 15 U/L (15-37) Alanine Aminotransferase (ALT/SGPT) 16 U/L (14-59) Alkaline Phosphatase 105 U/L (46-116) Creatine Kinase 57 U/L (26-192) Creatine Kinase MB (Mass) 1.6 ng/mL (0.0-3.6) Creatine Kinase MB Relative Index 2.8 % (0-4) Troponin I Quantitative < 0.017 ng/mL (0-0.055) 0.018 ng/mL (0-0.055) Total Protein 7.4 g/dL (6.4-8.2) Albumin 3.2 g/dL (3.4-5.0) Triglycerides Level 81 mg/dL (0-150) Cholesterol Level 277 mg/dL (0-200) LDL Cholesterol, Calculated 180 mg/dL (0-100) VLDL Cholesterol, Calculated 16 mg/dL (0-40) Non-HDL Cholesterol Calculated 196 mg/dL (0-129) HDL Cholesterol 81 mg/dL (40-60) Cholesterol/HDL Ratio 3.0 Lipase 195 U/L (73-393) Test 12/27/17 11:51 12/27/17 16:55 12/27/17 20:22 4/29/18 06:00 Glucose (Fingerstick) 86 mg/dL (70-99) 135 mg/dL (70-99) 211 mg/dL (70-99) White Blood Count 5.9 x10^3/uL (4.0-11.0) Red Blood Count 3.83 x10^6/uL (3.50-5.40) Hemoglobin 10.1 g/dL (12.0-15.5) Hematocrit 30.8 % (36.0-47.0) Mean Corpuscular Volume 80 fL (79-100) Mean Corpuscular Hemoglobin 27 pg (25-35) Mean Corpuscular Hemoglobin Concent 33 g/dL (31-37) Red Cell Distribution Width 15.1 % (11.5-14.5) Platelet Count 296 x10^3/uL (140-400) Neutrophils (%) (Auto) 65 % (31-73) Lymphocytes (%) (Auto) 23 % (24-48) Monocytes (%) (Auto) 11 % (0-9) Eosinophils (%) (Auto) 1 % (0-3) Basophils (%) (Auto) 0 % (0-3) Neutrophils # (Auto) 3.8 x10^3uL (1.8-7.7) Lymphocytes # (Auto) 1.4 x10^3/uL (1.0-4.8) Monocytes # (Auto) 0.6 x10^3/uL (0.0-1.1) Eosinophils # (Auto) 0.0 x10^3/uL (0.0-0.7) Basophils # (Auto) 0.0 x10^3/uL (0.0-0.2) Sodium Level 137 mmol/L (136-145) Potassium Level 3.6 mmol/L (3.5-5.1) Chloride Level 102 mmol/L (98-107) Carbon Dioxide Level 28 mmol/L (21-32) Anion Gap 7 (6-14) Blood Urea Nitrogen 18 mg/dL (7-20) Creatinine 1.9 mg/dL (0.6-1.0) Estimated GFR (Cockcroft-Gault) 27.1 Glucose Level 84 mg/dL (70-99) Calcium Level 8.7 mg/dL (8.5-10.1) Test 12/28/17 08:06 12/28/17 11:10 12/28/17 11:48 12/28/17 12:10 Glucose (Fingerstick) 86 mg/dL (70-99) 127 mg/dL (70-99) Urine Collection Type U cath Urine Color Yellow Urine Clarity Hazy Urine pH 5.5 Urine Specific [place] 1.025 Urine Protein >100 mg/dl (NEG-TRACE) Urine Glucose (UA) 250 mg/dL (NEG) Urine Ketones (Stick) 15 mg/dL (NEG) Urine Blood Neg (NEG) Urine Nitrite Neg (NEG) Urine Bilirubin Neg (NEG) Urine Urobilinogen Dipstick 0.2 mg/dL (0.2 mg/dL) Urine Leukocyte Esterase Neg (NEG) Urine RBC 1-2 /HPF (0-2) Urine WBC 5-10 /HPF (0-4) Urine Squamous Epithelial Cells Few /LPF Urine Amorphous Sediment Present /HPF Urine Bacteria Few /HPF (0-FEW) Urine Hyaline Casts Few /HPF Urine Granular Casts Few /HPF Urine Mucus Slight /LPF Sodium Level 137 mmol/L (136-145) Potassium Level 3.8 mmol/L (3.5-5.1) Chloride Level 103 mmol/L (98-107) Carbon Dioxide Level 26 mmol/L (21-32) Anion Gap 8 (6-14) Blood Urea Nitrogen 16 mg/dL (7-20) Creatinine 1.5 mg/dL (0.6-1.0) Estimated GFR (Cockcroft-Gault) 35.5 Glucose Level 128 mg/dL (70-99) Calcium Level 7.9 mg/dL (8.5-10.1) Medications Current Medications Lactated Ringer's 1,000 ml @ 1,000 mls/hr Q1H IV Last administered on at 02:30; Start 12/27/17 at 02:30; Stop 12/27/17 at 03:29; Status DC Ondansetron HCl (Zofran) 8 mg 1X ONCE IV Last administered on 12/27/17at 03:04 ; Start 12/27/17 at 02:30; Stop 12/27/17 at 02:31; Status DC Famotidine (Pepcid Vial) 20 mg 1X ONCE IVP Last administered on 12/27/17at 03: 03; Start 12/27/17 at 02:30; Stop 12/27/17 at 02:31; Status DC Insulin Human Regular 150 unit/ Sodium Chloride 151.5 ml @ 0 mls/hr 1X ONCE IV ; Start 12/27/17 at 03:00; Stop 12/27/17 at 03:01; Status DC Morphine Sulfate (Morphine 10mg Syringe) 10 mg 1X ONCE SQ Last administered on 12/27/17at 03:04; Start 12/27/17 at 03:00; Stop 12/27/17 at 03:01; Status DC Insulin Aspart (NovoLOG) 10 units 1X ONCE SQ ; Start 12/27/17 at 03:15; Stop at 03:16; Status Cancel Insulin Human Lispro (HumaLOG) 10 units 1X ONCE SQ Last administered on at 03:21; Start 12/27/17 at 03:15; Stop 12/27/17 at 03:16; Status DC Ondansetron HCl (Zofran) 8 mg PRN Q4HRS PRN IV NAUSEA/VOMITING; Start 12/27/17 at 05:45; Stop 12/28/17 at 05:45; Status DC Albuterol/ Ipratropium (Duoneb) 3 ml RTQID NEB ; Start 12/27/17 at 08:00; Stop 12/27/17 at 16:24; Status DC Morphine Sulfate (Morphine 10mg Syringe) 10 mg QIDPRN PRN SQ severe pain; Start 12/27/17 at 05:45; Stop 12/27/17 at 15:05; Status DC Lactated Ringer's 1,000 ml @ 160 mls/hr Q6H15M IV ; Start 12/27/17 at 05:45; Stop 12/27/17 at 15:05; Status DC Info (KCl Per Protocol) 1 ea CONT PRN PRN MC PER PROTOCOL; Start 12/27/17 at 06 :00 Insulin Human Lispro (HumaLOG) 0-7 UNITS TIDWMEALS SQ ; Start 12/27/17 at 12:00 Dextrose 12.5 gm PRN Q15MIN PRN IV SEE COMMENTS; Start 12/27/17 at 10:30 Aspirin (Children'S Aspirin) 81 mg DAILY PO Last administered on 12/28/17at 07: 54; Start 12/27/17 at 10:30 Citalopram Hydrobromide (CeleXA) 20 mg DAILY PO Last administered on 12/28/17 07:55; Start 12/27/17 at 10:30 Clopidogrel Bisulfate (Plavix) 75 mg DAILY PO Last administered on 12/28/17 07 :54; Start 12/27/17 at 10:30 Acetaminophen/ Hydrocodone Bitart (Lortab 5/325) 1 tab PRN Q6HRS PRN PO PAIN Last administered on 12/28/17 08:08; Start 12/27/17 at 10:30 Insulin Glargine (Lantus) 18 units QHS SQ Last administered on 12/27/17 20:35 ; Start 12/27/17 at 21:00 Lisinopril (Prinivil) 20 mg DAILY PO Last administered on 12/28/17 07:55; Start 12/27/17 at 10:30 Metoclopramide HCl (Reglan) 10 mg QIDACHS PO Last administered on 12/28/17 11: 49; Start 12/27/17 at 11:30 Ondansetron HCl (Zofran Odt) 4 mg Q6HRS PO Last administered on 12/28/17 11:49 ; Start 12/27/17 at 12:00 Pantoprazole Sodium (Protonix) 40 mg DAILYAC PO Last administered on 12/28/17 07:54; Start 12/27/17 at 10:45 Trazodone HCl (Desyrel) 200 mg QHS PO Last administered on 12/27/17 20:30; Start 12/27/17 at 21:00 Atorvastatin Calcium (Lipitor) 40 mg QHS PO Last administered on 12/27/17 20: 30; Start 12/27/17 at 21:00 Carvedilol (Coreg) 25 mg BIDWMEALS PO Last administered on 12/28/17 07:55; Start 12/27/17 at 10:45 Amylase/Lipase/ Protease (Zenpep 10,000) 1 cap TIDAC PO Last administered on 11:49; Start 12/27/17 at 11:30 Zolpidem Tartrate (Ambien) 10 mg PRN QHS PRN PO INSOMNIA; Start 12/27/17 at 10: 45 Amoxicillin (Amoxil) 500 mg [id number] PO ; Start 12/27/17 at 14:00; Stop 12/27/17 at 15:05; Status DC Potassium Chloride (KCl Oral Soln) 40 meq 1X ONCE PO Last administered on 12/27at 15:31; Start 12/27/17 at 15:15; Stop 12/27/17 at 15:16; Status DC Nitrofurantoin Macrocrystals (Macrobid) 100 mg BID PO Last administered on 12/27at 20:29; Start 12/27/17 at 21:00; Stop 12/28/17 at 07:29; Status DC Albuterol/ Ipratropium (Duoneb) 3 ml PRN QID PRN NEB WHEEZING; Start 12/27/17 at 20:00 Sodium Chloride 1,000 ml @ 500 mls/hr 1X ONCE IV Last administered on at 07:54; Start 12/28/17 at 07:30; Stop 12/28/17 at 09:29; Status DC Active Scripts Active Hydrocodone-Apap 5-325 (Hydrocodone Bit/Acetaminophen) 1 Each Tablet 1 Tab PO PRN Q6HRS PRN 6 Days Amoxicillin 500 Mg Tablet 1 Tab PO TID 4 Days Reported Zolpidem Tartrate 10 Mg Tablet 10 Mg PO PRN QHS PRN LAST DOSE GIVEN: DATE: YESTERDAY TIME: AT BEDTIME NEXT DOSE DUE: DATE: TODAY TIME: AT BEDTIME Zofran Odt (Ondansetron) 4 Mg Tab.rapdis 4 Mg PO Q6HRS NOT TAKEN TODAY NEXT DOSE DUE: DATE: TODAY TIME: IF AND WHEN NEEDED Trazodone Hcl 100 Mg Tablet 200 Mg PO QHS LAST DOSE GIVEN: DATE: YESTERDAY TIME: AT BEDTIME NEXT DOSE DUE: DATE: TODAY TIME: AT BEDTIME Plavix (Clopidogrel Bisulfate) 75 Mg Tablet 75 Mg PO DAILY LAST DOSE GIVEN: NOT GIVEN IN THE HOSPITAL NEXT DOSE DUE: DATE: RESTART TOMORROW TIME: AM Citalopram Hbr (Citalopram Hydrobromide) 20 Mg Tablet 20 Mg PO DAILY LAST DOSE GIVEN: DATE: TODAY TIME: AM NEXT DOSE DUE: DATE: TOMORROW TIME: AM Carvedilol 25 Mg Tablet 25 Mg PO BIDWMEALS LAST DOSE GIVEN: DATE: TODAY TIME: WITH BREAKFAST NEXT DOSE DUE: DATE: TODAY TIME: WITH DINNER Atorvastatin Calcium 40 Mg Tablet 40 Mg PO QHS LAST DOSE GIVEN: DATE: YESTERDAY TIME: AT BEDTIME NEXT DOSE DUE: DATE: TODAY TIME: AT BEDTIME Aspirin 81 Mg Tab.chew 81 Mg PO DAILY NOT GIVEN IN THE HOSPITAL NEXT DOSE DUE: DATE: RESTART TOMORROW TIME: AM Radha Sanchez 12,000 Units Capsule (Lipase/Protease/Amylase) 1 Each Capsule.dr 1 Each PO TIDAC LAST DOSE GIVEN: DATE: TODAY TIME: BEFORE BREAKFAST NEXT DOSE DUE: DATE: TODAY TIME: BEFORE LUNCH Protonix (Pantoprazole Sodium) 40 Mg Tablet.dr 1 Tab PO DAILYAC LAST DOSE GIVEN: DATE: TODAY TIME: BEFORE BREAKFAST NEXT DOSE DUE: DATE: TOMORROW TIME: BEFORE BREAKFAST Reglan (Metoclopramide Hcl) 10 Mg Tablet 1 Tab PO QIDACHS LAST DOSE GIVEN: DATE: TODAY TIME: BEFORE BREAKFAST NEXT DOSE DUE: DATE: TODAY TIME: BEFORE LUNCH Lisinopril 20 Mg Tablet 1 Tab PO DAILY LAST DOSE GIVEN: DATE: TODAY TIME: AM NEXT DOSE DUE: DATE: TOMORROW TIME: AM Lantus Solostar (Insulin Glargine,Hum.rec.anlog) 100 Unit/1 Ml Insuln.pen 18 Unit SQ QHS NOT GIVEN IN THE HOSPITAL NEXT DOSE DUE: DATE: RESTART TODAY TIME: AT BEDTIME DATE: TIME: Novolog Flexpen (Insulin Aspart) 100 Unit/1 Ml Insuln.pen 10 Unit SQ TIDWMEALS NOT GIVEN IN THE HOSPITAL NEXT DOSE DUE: DATE: TODAY TIME: WITH LUNCH DATE: TIME: Vitals/I & O Vital Sign - Last 24 Hours 12/27/17 12/27/17 12/27/17 12/27/17 15:32 18:03 19:30 19:30 Temp 98.1 Pulse 79 79 88 Resp 18 20 B/P (MAP) 122/90 (101) 122/90 101/69 (80) Pulse Ox 96 O2 Delivery Room Air Room Air 12/27/17 12/27/17 12/28/17 12/28/17 19:30 22:50 05:50 07:55 Temp 98.8 98.4 Pulse 74 87 87 Resp 16 18 B/P (MAP) 99/58 (72) 117/65 (82) 117/65 Pulse Ox 96 97 O2 Delivery Room Air Room Air Room Air 12/28/17 12/28/17 12/28/17 07:55 08:00 11:00 Temp 98.7 Pulse 87 82 B/P (MAP) 117/65 119/77 (91) Pulse Ox 96 O2 Delivery Room Air Room Air Intake and Output 12/27/17 12/27/17 12/28/17 15:00 23:00 07:00 Intake Total 350 ml 120 ml Balance 350 ml 120 ml FORTUNATO LANG MD Dec 28, 2017 13:51
[2017-12-28 15:00] VITALS: BP 126/85
[2017-12-28] MEDS: POTASSIUM CL 20MEQ D5-0.45NACL 1,000 ML IV SCH ×2 (15:01→23:39)
[2017-12-28] MEDS: HEPARIN PF for SUB-Q USE 5,000 UNIT/0.5 ML VIAL. SQ SCH ×2 (15:03→21:16)
[2017-12-28 19:22] VITALS: BP 101/58
[2017-12-28] MEDS ORDERED: MICONAZOLE NITRATE 2% TOPICAL CREAM 14GM TUBE. TP SCH (21:00)
[2017-12-28] MEDS ORDERED: NYSTATIN 100,000 UNIT/GM TOPICAL CREAM 15GM TUBE. TP SCH (21:00)
[2017-12-28] MEDS: ATORVASTATIN CALCIUM 20 MG TABLET PO SCH (21:06)
[2017-12-28] MEDS: traZODone 100 MG TABLET. PO SCH (21:06)
[2017-12-28] MEDS: INSULIN GLARGINE 300 UNITS/3 ML INSULN.PEN. SQ SCH (21:15)
[2017-12-28 22:56] VITALS: BP 101/61
[2017-12-29 05:45] LABS: BASO % 1 % (0-3); EOS % 1 % (0-3); HEMATOCRIT 26.9 % (36.0-47.0); HEMOGLOBIN 9.1 g/dL (12.0-15.5); LYMPH # 1.4 x10^3/uL (1.0-4.8); LYMPH % 32 % (24-48); MEAN CORPUSCULAR HEMOGLOBIN 27 pg (25-35); MEAN CORPUSCULAR HGB CONC 34 g/dL (31-37); MEAN CORPUSCULAR VOLUME 81 fL (79-100); MONO # 0.5 x10^3/uL (0.0-1.1); MONO % 11 % (0-9); NEUT # 2.4 x10^3uL (1.8-7.7); NEUT % 55 % (31-73); PLATELET COUNT 209 x10^3/uL (140-400); RED BLOOD COUNT 3.33 x10^6/uL (3.50-5.40); RED CELL DISTRIBUTION WIDTH 15.1 % (11.5-14.5); WHITE BLOOD COUNT 4.3 x10^3/uL (4.0-11.0)
[2017-12-29 05:52] VITALS: BP 135/75
[2017-12-29 06:03] LABS: ALBUMIN 2.2 g/dL (3.4-5.0); ALBUMIN/GLOBULIN RATIO 0.8 (1.0-1.7); CALCIUM 7.7 mg/dL (8.5-10.1); GFR 56.7; POTASSIUM 3.5 mmol/L (3.5-5.1); TOTAL BILIRUBIN 0.1 mg/dL (0.2-1.0)
[2017-12-29] MEDS: HEPARIN PF for SUB-Q USE 5,000 UNIT/0.5 ML VIAL. SQ SCH ×2 (06:06→11:59)
[2017-12-29] MEDS: ONDANSETRON ODT 4 MG TAB.RAPDIS PO SCH ×2 (06:07→11:59)
[2017-12-29] MEDS: ASPIRIN 81 MG TAB.CHEW PO SCH (08:22)
[2017-12-29] MEDS: LIPASE/PROTEAS/AMYLAS 10/34/55 CAPSULE.DR. PO SCH ×2 (08:22→12:00)
[2017-12-29] MEDS: CLOPIDOGREL BISULFATE 75 MG TABLET PO SCH (08:22)
[2017-12-29] MEDS: CARVEDILOL 12.5 MG TABLET PO SCH (08:23)
[2017-12-29] MEDS: LISINOPRIL 20 MG TABLET PO SCH (08:23)
[2017-12-29] MEDS: METOCLOPRAMIDE 10 MG TABLET PO SCH ×2 (08:23→11:59)
[2017-12-29] MEDS: CITALOPRAM 20 MG TABLET. PO SCH (08:23)
[2017-12-29] MEDS: PANTOPRAZOLE 40 MG TABLET. PO SCH (08:23)
[2017-12-29] MEDS: POTASSIUM CL 20MEQ D5-0.45NACL 1,000 ML IV SCH (08:26)
[2017-12-29] MEDS: INSULIN LISPRO 300 UNITS/3 ML INSULN.PEN. SQ SCH ×2 (08:27→11:59)
[2017-12-29 10:41] VITALS: BP 98/58
--- NOTE | 2017-12-29 11:07 | NUR ---
Dr. Schafer here at this time to see patient, orders to transfer to [facility] for GI consult and to meet with surgeon. Pt has reported no vomiting episodes but remains on a Clear liquid diet. Pt is unable to tolerate solid food. Pt able to take medications whole without difficulty. Pt able to verbalize POC, will notify nursing spikemaking supervisor at this time for transfer.
--- NOTE | 2017-12-29 12:32 | NUR ---
Report given to Salma LOERA at [facility], patient to go to room 662. Pt notified of plan and room at [facility]. EMS notified at this time.
--- NOTE | 2017-12-29 13:04 | NUR ---
Pt discharged at this time via EMS transport. Pt able to verbalize POC. Copies of medical records and belongings left with patient at this time.
--- NOTE | 2017-12-29 21:06 | DS ---
DATE OF DISCHARGE: 12/29/2017 HOSPITAL COURSE: The patient is a 57-year-old female patient who was discharged from this facility on 12/27/2017 only to come back within 12 hours complaining of recurrent bouts of nausea, vomiting, was unable to keep anything by mouth. She was actually scheduled to be seen by surgeon tomorrow for gastrostomy tube placement; however, she ended up cancelling the appointment and was again started on a clear liquid diet. This must have been the fourth or fifth admission and I did transfer her once to [facility] at the time she left against medical advice after placement of a Port-A-Cath and we did plan for gastrostomy tube placement, but she left, and therefore given that this has been recurring and we have actually looking into the idea of putting a gastrojejunostomy tube perhaps, a decision was made to transfer her to [facility] to consult the surgical team and/or GI for placement of a gastrostomy tube. PHYSICAL EXAMINATION: GENERAL: When I saw her today, she was sitting slightly propped up in bed, in no apparent distress. She was continuing to complain of some nausea and vomiting. She was only able to tolerate liquid diet. When I examined her, she was pale, no jaundice or cyanosis. No lymphadenopathy, no thyromegaly. No jugular venous distension. No lower limb edema. VITAL SIGNS: Her heart rate was 77, blood pressure was 98/58, temperature was 98.9, respiratory rate was 18, and oxygen saturation was 97% on room air. HEAD, EYES, EARS, NOSE, AND THROAT: Normocephalic, atraumatic. NECK: Supple. HEART: Showed normal first and second heart sounds with no gallop, rub, or murmur. CHEST: Clear to auscultation. No crepitation or rhonchi. ABDOMEN: Distended, soft, nontender. No guarding or rigidity. No organomegaly. All hernial orifice intact. Bowel sounds normal. NEUROLOGIC: She was awake, alert, responding appropriately. Cranial nerves intact. She moves extremities without difficulty. She ambulates without assistance or assistive devices. Her intake over the last 24 hours was 1500, no output was recorded. LABORATORY DATA: Her lab work as of this morning showed a white cell count 4300, hemoglobin was 9.1, hematocrit 27, MCV 81, and platelet count of 209,000. Her chemistry showed a serum sodium of 137, potassium 3.5, chloride 104, bicarbonate 26, anion gap of 7, BUN 12, creatinine 1, estimated GFR was 57 mL per minute. Her glucose 171. Calcium was 7.7. Total bilirubin, AST, ALT, alkaline phosphatase were normal. Total protein was 5, albumin was 2.2. DISCHARGE MEDICATIONS: She will be discharged to [facility] on atorvastatin 40 mg at bedtime, trazodone 200 mg at bedtime. She is on Lantus insulin 18 units at bedtime, albuterol sulfate and ipratropium bromide 4 times a day, ondansetron 4 mg every 6 hours for nausea and vomiting. She is on Humalog insulin as per sliding scale before meals. She is on Zenpep 10,000 1 capsule 2 times a day, metoclopramide 10 mg before meals and at bedtime, Ambien 10 mg at bedtime, carvedilol 25 mg twice a day, lisinopril 20 mg once a day, hydrocodone/APAP one tablet every 6 hours, citalopram hydrobromide 20 mg once a day. We will stop her Plavix and aspirin as well as heparin. We will arrange for her to have SCDs. FINAL DISCHARGE DIAGNOSES: 1. Severe intractable nausea and vomiting due to gastroparesis. 2. Hypokalemia, resolving. 3. Acute kidney injury, resolving. Her creatinine came down from . Other medical problems include hypertension, hyperlipidemia, type 2 diabetes with diabetic gastroparesis, coronary artery disease, status post PCI with stent deployment x 2. INÉS GARCÍA MD DR: MAXIM/carson JOB#: [id number] / [id number]
== END 2017-12-29 13:06 | disposition short-term general hospital (02) | DRG 74 ==
LOC: ER 01:58 → 1 SOUTH 05:00
PROVIDERS: ADMIT Family Medicine; ATTEND Family Medicine
DX: E11.43 Type 2 diabetes mellitus with diabetic autonomic (poly)neuropathy (principal); N17.9 Acute kidney failure, unspecified; K31.84 Gastroparesis; E11.65 Type 2 diabetes mellitus with hyperglycemia; E87.6 Hypokalemia; E78.00 Pure hypercholesterolemia, unspecified; R82.71 Bacteriuria; B95.2 Enterococcus as the cause of diseases classified elsewhere; E78.5 Hyperlipidemia, unspecified; I10 Essential (primary) hypertension; I25.10 Atherosclerotic heart disease of native coronary artery without angina pectoris; J44.9 Chronic obstructive pulmonary disease, unspecified; K21.9 Gastro-esophageal reflux disease without esophagitis; Z95.5 Presence of coronary angioplasty implant and graft; Z90.49 Acquired absence of other specified parts of digestive tract; I25.2 Old myocardial infarction; Z79.899 Other long term (current) drug therapy
CPT/HCPCS: 36415; 74022; 80048; 80053; 80061; 80076; 81001; 82553; 82947; 83690; 84484; 85007; 85025; 85610; 85730; 87086; 96361; 96372; 96374; 96375; J1815; J2270; J2405; J7120; J8597; Q0162; S0028; 99285-25; J7030

== ENCOUNTER 2018-01-15 01:38 | Emergency (ER) | payer SELFPAY ==
[~2018-01-15] VITALS: Ht 157.5 cm; Wt 59.0 kg
[~2018-01-15 01:38] MED LIST changes: -CITA20TA5 PO; +CITA20TA6 PO
[2018-01-15] MEDS ORDERED: IV NORMAL SALINE 1,000ML 1,000 ML IV SCH (01:58)
[2018-01-15] MEDS ORDERED: PROCHLORPERAZINE 10 MG/2 ML VIAL. IV ONE (02:00)
[2018-01-15] MEDS ORDERED: IV NORMAL SALINE 1,000ML 1,000 ML IV ONE (02:30)
--- NOTE | 2018-01-15 02:45 | PHYS DOC ---
Past History Past Medical History: Diabetes, Heart Disease, Hypertension Past Surgical History: Appendectomy, Cancer Surgery, Cholecystectomy, Tonsillectomy, Other Alcohol Use: None Drug Use: None Adult General Chief Complaint Chief Complaint: ABDOMINAL PAIN HPI HPI Patient is a 57 year old female who presents with complaint of vomiting and abdominal pain. Patient has history of poorly controlled diabetes mellitus and is had multiple admissions for treatment of diabetic ketoacidosis. Patient also has history of chronic gastroparesis. The patient was recently admitted at [facility] and had an exploratory laparotomy on January 05, 2018 with placement of both a G and J-tube and repair of an incisional hernia. The patient was discharged from the hospital on January 12, 2018. Patient states she started developing abdominal pain and vomiting earlier in the day on January 14 and it continued into tonight. Patient states she is unable to keep anything down. Patient currently being supplemented through her J-tube with tube feeds. Patient rates pain as 10 out of 10. Patient points to the middle of her abdomen near her incision site when asked the location of the worst of her pain. Denies fevers. Patient notes that earlier this evening she had a blood sugar 500 give herself 10 units of insulin before coming to the emergency department by EMS. Review of Systems Review of Systems Constitutional: Denies fever or chills [] Eyes: Denies change in visual acuity, redness, or eye pain [] HENT: Denies nasal congestion or sore throat [] Respiratory: Denies cough or shortness of breath [] Cardiovascular: Denies chest pain or edema[] GI: Abdominal pain, nausea, vomiting[] : Denies dysuria or hematuria [] Musculoskeletal: Denies back pain or joint pain [] Integument: Denies rash or skin lesions [] Neurologic: Denies headache, focal weakness or sensory changes [] All other systems were reviewed and found to be within normal limits, except as documented in this note. Current Medications Current Medications Current Medications Medications (Trade) Dose Ordered Sig/Georgi Start Time Stop Time Status Last Admin Dose Admin Fentanyl Citrate (Fentanyl 2ml Vial) 50 mcg PRN Q15MIN PRN 01/15/18 02:00 01/16/18 01:59 UNV Prochlorperazine Edisylate (Compazine) 5 mg 1X ONCE 01/15/18 02:00 01/15/18 02:01 UNV Sodium Chloride 1,000 ml @ 1,000 mls/hr 1X ONCE 01/15/18 02:15 01/15/18 03:14 UNV Allergies Allergies Allergies Coded Allergies Type Severity Reaction Last Updated Verified No Known Drug Allergies 10/08/17 No Physical Exam Physical Exam Constitutional: Alert, afebrile, appears ill. [] HENT: Normocephalic, atraumatic, bilateral external ears normal, oropharynx moist, no oral exudates, nose normal. [] Eyes: PERRLA, EOMI, conjunctiva normal, no discharge. [] Neck: Normal range of motion, no tenderness, supple, no stridor. [] Cardiovascular: Tachycardia, regular rhythm, no murmur [] Lungs & Thorax: Bilateral breath sounds clear to auscultation [] Abdomen: Midline exploratory laparotomy incision clean, dry, and intact, G-tube and J-tube identified in the left upper quadrant, diffusely tender to palpation in all 4 quadrants, hypoactive bowel sounds. [] Skin: Warm, dry, no erythema, no rash. [] Back: No tenderness, no CVA tenderness. [] Extremities: No tenderness, no cyanosis, no clubbing, ROM intact, no edema. [] Neurologic: Alert and oriented X 3, normal motor function, normal sensory function, no focal deficits noted. [] Current Patient Data Vital Signs Vital Signs Date Time Temp Pulse Resp B/P (MAP) Pulse Ox O2 Delivery O2 Flow Rate FiO2 01/15/18 01:46 99.0 127 98 Room Air Lab Results Laboratory Tests Test 01/15/18 01:57 01/15/18 02:30 01/15/18 02:40 Glucose (Fingerstick) 218 mg/dL White Blood Count 9.3 x10^3/uL Red Blood Count 3.72 x10^6/uL Hemoglobin 9.9 g/dL Hematocrit 29.3 % Mean Corpuscular Volume 79 fL Mean Corpuscular Hemoglobin 27 pg Mean Corpuscular Hemoglobin Concent 34 g/dL Red Cell Distribution Width 14.5 % Platelet Count 428 x10^3/uL Neutrophils (%) (Auto) 82 % Lymphocytes (%) (Auto) 11 % Monocytes (%) (Auto) 7 % Eosinophils (%) (Auto) 1 % Basophils (%) (Auto) 1 % Neutrophils # (Auto) 7.6 x10^3uL Lymphocytes # (Auto) 1.0 x10^3/uL Monocytes # (Auto) 0.6 x10^3/uL Eosinophils # (Auto) 0.1 x10^3/uL Basophils # (Auto) 0.0 x10^3/uL Sodium Level 137 mmol/L Potassium Level 3.4 mmol/L Chloride Level 97 mmol/L Carbon Dioxide Level 28 mmol/L Anion Gap 12 Blood Urea Nitrogen 22 mg/dL Creatinine 0.8 mg/dL Estimated GFR (Cockcroft-Gault) 73.4 BUN/Creatinine Ratio 28 Glucose Level 225 mg/dL Lactic Acid Level 0.9 mmol/L Calcium Level 9.3 mg/dL Total Bilirubin 0.2 mg/dL Aspartate Amino Transf (AST/SGOT) 12 U/L Alanine Aminotransferase (ALT/SGPT) 18 U/L Alkaline Phosphatase 124 U/L Total Protein 7.2 g/dL Albumin 3.0 g/dL Albumin/Globulin Ratio 0.7 Lipase 396 U/L Urine Collection Type U cath Urine Color Yellow Urine Clarity Clear Urine pH 8.5 Urine Specific [place] 1.020 Urine Protein >100 mg/dl Urine Glucose (UA) >=1000 mg/dL Urine Ketones (Stick) Neg mg/dL Urine Blood Neg Urine Nitrite Neg Urine Bilirubin Neg Urine Urobilinogen Dipstick 0.2 mg/dL Urine Leukocyte Esterase Neg Urine RBC 0 /HPF Urine WBC 1-4 /HPF Urine Squamous Epithelial Cells Occ /LPF Urine Bacteria 0 /HPF Current Medications Medications (Trade) Dose Ordered Sig/Georgi Route PRN Reason Start Time Stop Time Status Last Admin Dose Admin Fentanyl Citrate (Fentanyl 2ml Vial) 50 mcg PRN Q15MIN PRN IV PAIN GREATER THAN 3/10 01/15/18 02:00 01/16/18 01:59 01/15/18 02:55 Sodium Chloride 1,000 ml @ 1,000 mls/hr Q1H IV 01/15/18 01:58 01/15/18 03:16 DC 01/15/18 02:30 Prochlorperazine Edisylate (Compazine) 5 mg 1X ONCE IV 01/15/18 02:00 01/15/18 03:17 DC 01/15/18 02:55 Sodium Chloride 1,000 ml @ 1,000 mls/hr 1X ONCE IV 01/15/18 02:30 01/15/18 03:29 Labetalol HCl (Normodyne) 20 mg 1X ONCE IVP 01/15/18 03:30 01/15/18 03:31 UNV 01/15/18 03:23 Promethazine HCl 12.5 mg/Sodium Chloride 50.5 ml @ 101 mls/hr 1X ONCE IV 01/15/18 03:30 01/15/18 03:59 UNV Promethazine HCl (Phenergan) 25 mg STK-MED ONCE IV 01/15/18 03:24 01/15/18 03:25 DC EKG EKG Rhythm strip interpretation by me: Heart rate 103, sinus tachycardia, no ectopy[ ] Radiology/Procedures Radiology/Procedures 3 view acute abdominal series interpreted by me: No free air under the diaphragm , nonobstructive bowel gas pattern, no pulmonary infiltrates or effusions[] Course & Med Decision Making Course & Med Decision Making Pertinent Labs and Imaging studies reviewed. (See chart for details) Patient started on IV fluids, Compazine, and fentanyl. The patient continues to have unrelenting abdominal pain and vomiting. Initial lab work appears stable. Due to inability to control symptoms the patient will need admission for further treatment. Given that the patient recently had exploratory laparotomy surgery at [facility], it would be most appropriate for the patient to be admitted at [facility] for excess ability to general surgery and gastroenterology for consultation. I spoke with Dr. Schafer who took care of the patient at [facility] at her last admission. He agreed to admit the patient over at [facility]. The patient will be transferred by ground EMS. Dragon Disclaimer Dragon Disclaimer This electronic medical record was generated, in whole or in part, using a voice recognition dictation system. Departure Departure: Impression: Primary Impression: Intractable nausea and vomiting Additional Impressions: Abdominal pain Type II diabetes mellitus Diabetic gastroparesis Disposition: SHT-TRM HOSP Condition: STABLE Referrals: PCP,NO (PCP) Problem Qualifiers Primary Impression: Intractable nausea and vomiting Vomiting type: unspecified Qualified Codes: R11.2 - Nausea with vomiting, unspecified Additional Impressions: Abdominal pain Abdominal location: generalized Qualified Codes: R10.84 - Generalized abdominal pain Type II diabetes mellitus Diabetes mellitus long goods drier insulin use: unspecified fdc insulin use status Diabetes mellitus complication status: with hyperglycemia Qualified Codes: E11.65 - Type 2 diabetes mellitus with hyperglycemia SHAYY JANE MD January 15, 2018 02:45
[2018-01-15 02:59] LABS: BASO % 1 % (0-3); EOS # 0.1 x10^3/uL (0.0-0.7); EOS % 1 % (0-3); HEMATOCRIT 29.3 % (36.0-47.0); HEMOGLOBIN 9.9 g/dL (12.0-15.5); LYMPH % 11 % (24-48); MEAN CORPUSCULAR HEMOGLOBIN 27 pg (25-35); MEAN CORPUSCULAR HGB CONC 34 g/dL (31-37); MEAN CORPUSCULAR VOLUME 79 fL (79-100); MONO # 0.6 x10^3/uL (0.0-1.1); MONO % 7 % (0-9); NEUT # 7.6 x10^3uL (1.8-7.7); NEUT % 82 % (31-73); PLATELET COUNT 428 x10^3/uL (140-400); RED BLOOD COUNT 3.72 x10^6/uL (3.50-5.40); RED CELL DISTRIBUTION WIDTH 14.5 % (11.5-14.5); WHITE BLOOD COUNT 9.3 x10^3/uL (4.0-11.0)
[2018-01-15 03:04] LABS: BACTERIA,URINE 0 /HPF (0-FEW); BILIRUBIN,URINE NEG (NEG); CLARITY,URINE CLEAR; COLOR,URINE YELLOW; GLUCOSE,URINE >=1000 mg/dL (NEG); NITRITE,URINE NEG (NEG); RBC,URINE 0 /HPF (0-2); SQUAMOUS EPITHELIAL CELL,UR OCC /LPF; UROBILINOGEN,URINE 0.2 mg/dL (0.2 mg/dL)
[2018-01-15 03:07] LABS: ALBUMIN/GLOBULIN RATIO 0.7 (1.0-1.7); CALCIUM 9.3 mg/dL (8.5-10.1); CREATININE 0.8 mg/dL (0.6-1.0); GFR 73.4; POTASSIUM 3.4 mmol/L (3.5-5.1); TOTAL BILIRUBIN 0.2 mg/dL (0.2-1.0); TOTAL PROTEIN 7.2 g/dL (6.4-8.2)
[2018-01-15] MEDS ORDERED: PROMETHAZINE 25 MG/ML VIAL IV ONE (03:24)
[2018-01-15] MEDS ORDERED: LABETALOL 20 MG/4 ML DISP.SYRIN. IVP ONE (03:30)
[2018-01-15] MEDS ORDERED: PROMETHAZINE 12.5 MG in IV NORMAL SALINE 50ML 50 ML IV ONE (03:30)
[2018-01-15 04:00] VITALS: BP 137/76
--- NOTE | 2018-01-15 07:43 | RAD ---
Acute abdomen series with chest, 3 views, 01/15/2018: HISTORY: Abdominal pain with nausea and vomiting, recent surgery Tubes overlying the left midabdomen reportedly represents gastrostomy and jejunostomy tubes. There is gas in large and small bowel in a nonspecific pattern. No free air seen in the abdomen. There is no evidence of organomegaly. Surgical clips in the right upper quadrant suggesting previous cholecystectomy. A left Port-A-Cath extends into the superior vena cava. The heart size and pulmonary vascularity are normal. No pulmonary infiltrate is seen. There is no evidence of pleural fluid. A breast implant is noted on the right. IMPRESSION: No acute abdominal abnormality is detected. Electronically signed by: Gary Bennett MD (01/15/2018 7:40 AM) [facility]
== END 2018-01-15 04:35 | disposition short-term general hospital (02) ==
LOC: ER 01:38
DX: R11.2 Nausea with vomiting, unspecified (principal); E11.43 Type 2 diabetes mellitus with diabetic autonomic (poly)neuropathy; E11.65 Type 2 diabetes mellitus with hyperglycemia; K31.84 Gastroparesis; I11.9 Hypertensive heart disease without heart failure; Z90.49 Acquired absence of other specified parts of digestive tract
CPT/HCPCS: 36415; 74022; 80053; 81001; 82947; 83605; 83690; 85025; 87040; 96361; 96374; 96375; 99285; J0780; J2550; J3010; J3490; J7030

== ENCOUNTER 2018-01-19 05:09 | Inpatient (IN) | payer SELFPAY ==
[~2018-01-19] VITALS: Ht 157.5 cm; Wt 59.9 kg
--- NOTE | 2018-01-19 05:15 | ED.ADGEN ---
Past History Past Medical History: Diabetes, Heart Disease, Hypertension Past Surgical History: Appendectomy, Cancer Surgery, Cholecystectomy, Tonsillectomy, Other Alcohol Use: None Drug Use: None Adult General Chief Complaint Chief Complaint "...I am vomiting again.. I got bad gastro paresis... for 10 yrs,, I was here.. I was here.. Th.. and went to [place] on Friday.. got discharged on Sat....and I ve been vomiting constant since then..." HPI HPI Patient is a 57 year old female who presents with nausea and vomiting. Patient has a history of diabetes and severe gastroparesis for the past 10 years. Sugars at home today been in the 200 range. It's been unable tolerated foods. States she is not passing stools but has passed some gas. No change in meds. Has had a G-tube and J-tube placed by Dr. Adames at [facility], patient is also had a port placement for frequent IV at access. Review of Systems Review of Systems Constitutional: Denies fever or chills [] Eyes: Denies change in visual acuity, redness, or eye pain [] HENT: Denies nasal congestion or sore throat [] Respiratory: Denies cough or shortness of breath [] Cardiovascular: No additional information not addressed in HPI [] GI: Complaints of generalized abdominal pain, nausea, vomiting, . Denies bloody stools or diarrhea [] : Denies dysuria or hematuria [] Musculoskeletal: Denies back pain or joint pain [] Integument: Denies rash or skin lesions [] Neurologic: Denies headache, focal weakness or sensory changes [] Endocrine: Denies polyuria or polydipsia [] All other systems were reviewed and found to be within normal limits, except as documented in this note. Family History Family History Noncontributory Current Medications Current Medications Current Medications Medications (Trade) Dose Ordered Sig/Georgi Start Time Stop Time Status Last Admin Dose Admin Famotidine (Pepcid Vial) 20 mg 1X ONCE 01/19/18 05:45 01/19/18 05:46 DC 01/19/18 05:58 20 MG Famotidine (Pepcid) 20 mg DAILY 01/19/18 09:00 UNV Lactated Ringer's 1,000 ml @ 1,000 mls/hr Q1H 01/19/18 05:30 01/19/18 06:29 DC 01/19/18 05:57 1,000 MLS/HR Morphine Sulfate (Morphine 10mg Syringe) 10 mg QIDPRN PRN 01/19/18 06:45 UNV Ondansetron HCl (Zofran Odt) 8 mg QIDPRN PRN 01/19/18 06:45 UNV See nursing for home meds Allergies Allergies Allergies Coded Allergies Type Severity Reaction Last Updated Verified No Known Drug Allergies 10/08/17 No Physical Exam Physical Exam Constitutional: Moderately acute distress, non-toxic appearance. [] HENT: Normocephalic, atraumatic, bilateral external ears normal, oropharynx dry , no oral exudates, nose normal. [] Eyes: PERRLA, EOMI, conjunctiva normal, no discharge. [] Neck: Normal range of motion, no tenderness, supple, no stridor. [] Cardiovascular: Tachycardia Heart rate regular rhythm, no murmur [] Lungs & Thorax: Bilateral breath sounds equal at apex on auscultation []port Abdomen: Bowel sounds decreased, , soft, generalized tenderness, no masses, no pulsatile masses. G and J tube. Sites appear stable and tubes draining. Multiple surgery scars Skin: Warm, dry, no erythema, no rash. Poor turgor Back: No tenderness, no CVA tenderness. [] Extremities: No tenderness, no cyanosis, no clubbing, ROM intact, no edema. [] No psoas or heeltap Neurologic: Alert and oriented X 3, normal motor function, normal sensory function, no focal deficits noted. [] Psychologic: Affect anxious, judgement normal, mood breast Current Patient Data Vital Signs Vital Signs Date Time Temp Pulse Resp B/P (MAP) Pulse Ox O2 Delivery O2 Flow Rate FiO2 01/19/18 06:33 87 19 153/83 (106) 98 Room Air 01/19/18 05:23 98.1 Lab Results Laboratory Tests Test 01/19/18 05:50 White Blood Count 5.5 x10^3/uL (4.0-11.0) Red Blood Count 3.42 x10^6/uL (3.50-5.40) L Hemoglobin 9.2 g/dL (12.0-15.5) L Hematocrit 26.9 % (36.0-47.0) L Mean Corpuscular Volume 79 fL (79-100) Mean Corpuscular Hemoglobin 27 pg (25-35) Mean Corpuscular Hemoglobin Concent 34 g/dL (31-37) Red Cell Distribution Width 14.3 % (11.5-14.5) Platelet Count 432 x10^3/uL (140-400) H Neutrophils (%) (Auto) 67 % (31-73) Lymphocytes (%) (Auto) 22 % (24-48) L Monocytes (%) (Auto) 9 % (0-9) Eosinophils (%) (Auto) 1 % (0-3) Basophils (%) (Auto) 1 % (0-3) Neutrophils # (Auto) 3.7 x10^3uL (1.8-7.7) Lymphocytes # (Auto) 1.2 x10^3/uL (1.0-4.8) Monocytes # (Auto) 0.5 x10^3/uL (0.0-1.1) Eosinophils # (Auto) 0.1 x10^3/uL (0.0-0.7) Basophils # (Auto) 0.0 x10^3/uL (0.0-0.2) Prothrombin Time 10.4 SEC (9.4-11.4) Prothrombin Time INR 1.0 (0.9-1.1) PTT 23 SEC (23-33) Sodium Level 134 mmol/L (136-145) L Potassium Level 3.5 mmol/L (3.5-5.1) Chloride Level 97 mmol/L (98-107) L Carbon Dioxide Level 26 mmol/L (21-32) Anion Gap 11 (6-14) Blood Urea Nitrogen 11 mg/dL (7-20) Creatinine 0.8 mg/dL (0.6-1.0) Estimated GFR (Cockcroft-Gault) 73.4 Glucose Level 171 mg/dL (70-99) H Calcium Level 8.6 mg/dL (8.5-10.1) Total Bilirubin 0.4 mg/dL (0.2-1.0) Direct Bilirubin 0.1 mg/dL (0.0-0.2) Aspartate Amino Transferase (AST) 15 U/L (15-37) Alanine Aminotransferase (ALT) 15 U/L (14-59) Alkaline Phosphatase 101 U/L (46-116) Creatine Kinase 40 U/L (26-192) Creatine Kinase MB (Mass) 0.6 ng/mL (0.0-3.6) Creatine Kinase MB Relative Index 1.5 % (0-4) Troponin I Quantitative < 0.017 ng/mL (0-0.055) Total Protein 6.2 g/dL (6.4-8.2) L Albumin 2.6 g/dL (3.4-5.0) L Lipase 346 U/L (73-393) EKG EKG My interpretation of EKG shows a sinus rhythm at 88 bpm. There is some mild leftward axis. No findings acute STEMI with contralateral changes[] Radiology/Procedures Radiology/Procedures Acute abdomen film shows no free air in the diaphragm. Adequate placement of drains. No acute cardiopulmonary findings. Nonspecific bowel gas pattern[] Course & Med Decision Making Course & Med Decision Making Pertinent Labs and Imaging studies reviewed. (See chart for details). Stress presentation, testing and treatment plan with Dr. Schafer. Will admit for hydration, testing and tx. plan. [] Final Impression Final Impression 1. Nausea vomiting 2. Gastroparesis 3. Diabetes-hyperglycemia[] 4. Malnutrition 5. Anemia 6. Chronic abdomen pain Dragon Disclaimer Dragon Disclaimer This electronic medical record was generated, in whole or in part, using a voice recognition dictation system. SALVADOR SANDOVAL MD January 19, 2018 05:15
[2018-01-19] MEDS ORDERED: IV RINGERS SOLUTION,LACTATED 1,000 ML IV SCH (05:30)
[2018-01-19] MEDS ORDERED: FAMOTIDINE 20 MG/2 ML VIAL IVP ONE (05:45)
[2018-01-19] MEDS ORDERED: MORPHINE SULFATE 10 MG/ML SYRINGE. SQ ONE (05:45)
[2018-01-19] MEDS ORDERED: ONDANSETRON ODT 4 MG TAB.RAPDIS PO ONE (05:45)
[2018-01-19 06:03] LABS: BASO % 1 % (0-3); EOS # 0.1 x10^3/uL (0.0-0.7); EOS % 1 % (0-3); HEMATOCRIT 26.9 % (36.0-47.0); HEMOGLOBIN 9.2 g/dL (12.0-15.5); LYMPH # 1.2 x10^3/uL (1.0-4.8); LYMPH % 22 % (24-48); MEAN CORPUSCULAR HEMOGLOBIN 27 pg (25-35); MEAN CORPUSCULAR HGB CONC 34 g/dL (31-37); MEAN CORPUSCULAR VOLUME 79 fL (79-100); MONO # 0.5 x10^3/uL (0.0-1.1); MONO % 9 % (0-9); NEUT # 3.7 x10^3uL (1.8-7.7); NEUT % 67 % (31-73); PLATELET COUNT 432 x10^3/uL (140-400); RED BLOOD COUNT 3.42 x10^6/uL (3.50-5.40); RED CELL DISTRIBUTION WIDTH 14.3 % (11.5-14.5); WHITE BLOOD COUNT 5.5 x10^3/uL (4.0-11.0)
[2018-01-19 06:24] LABS: ALBUMIN 2.6 g/dL (3.4-5.0); CALCIUM 8.6 mg/dL (8.5-10.1); CREATININE 0.8 mg/dL (0.6-1.0); DIRECT BILIRUBIN 0.1 mg/dL (0.0-0.2); GFR 73.4; POTASSIUM 3.5 mmol/L (3.5-5.1); TOTAL BILIRUBIN 0.4 mg/dL (0.2-1.0); TOTAL PROTEIN 6.2 g/dL (6.4-8.2)
--- NOTE | 2018-01-19 06:31 | EKG ---
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
--- NOTE | 2018-01-19 06:36 | RAD ---
PA chest and AP upright supine abdomen x-rays HISTORY: Abdominal pain, nausea and vomiting. FINDINGS: Heart size normal. Right mastectomy with tissue portrait painter present. Left subclavian catheter tip SVC. No pulmonary opacities or pleural effusions. No pneumoperitoneum. Cholecystectomy clips. Percutaneous gastrostomy balloon. There is a separate tube at the left lower quadrant as present on the prior study and presumably represents a jejunostomy tube. No dilated bowel loops or abnormal air-fluid levels. Bones unremarkable. Pelvic phleboliths. IMPRESSION: No acute process in the chest. No evidence of bowel obstruction. Electronically signed by: Devyn Noonan MD (01/19/2018 6:32 AM) [facility]
[2018-01-19 06:43] LABS: BILIRUBIN,URINE NEG (NEG); CLARITY,URINE TURBID; COLOR,URINE PINK; GLUCOSE,URINE 500 mg/dL (NEG); NITRITE,URINE NEG (NEG); UROBILINOGEN,URINE 0.2 mg/dL (0.2 mg/dL)
[2018-01-19 06:44] LABS: AMORPHOUS SEDIMENT,UR PRESENT /HPF; BACTERIA,URINE MOD /HPF (0-FEW); SQUAMOUS EPITHELIAL CELL,UR MANY /LPF; YEAST,URINE PRESENT /HPF
[2018-01-19] MEDS ORDERED: MORPHINE SULFATE 10 MG/ML SYRINGE. SQ PRN (06:45)
[2018-01-19] MEDS ORDERED: ONDANSETRON ODT 4 MG TAB.RAPDIS PO PRN ×2 (06:45→08:30)
[2018-01-19] MEDS ORDERED: FAMOTIDINE 20 MG TABLET PO ONE (07:00)
[2018-01-19] MEDS ORDERED: IV RINGERS SOLUTION,LACTATED 1,000 ML IV ONE (07:15)
[2018-01-19 07:32] VITALS: BP 137/66
[2018-01-19] MEDS ORDERED: ZOLPIDEM 5 MG TABLET. PO PRN (08:15)
[2018-01-19] MEDS ORDERED: HYDROcodone/APAP 5/325MG 1 TAB TABLET PO PRN (08:30)
[2018-01-19] MEDS: LISINOPRIL 20 MG TABLET PO SCH (09:50)
[2018-01-19] MEDS: METOCLOPRAMIDE 10 MG TABLET PO SCH ×4 (09:50→20:28)
[2018-01-19] MEDS: CLOPIDOGREL BISULFATE 75 MG TABLET PO SCH (09:53)
[2018-01-19 10:42] VITALS: BP 145/81
[2018-01-19] MEDS: INSULIN LISPRO 300 UNITS/3 ML INSULN.PEN. SQ SCH ×2 (12:00→17:00)
[2018-01-19] MEDS: LIPASE/PROTEAS/AMYLAS 10/34/55 CAPSULE.DR. PO SCH ×2 (12:00→18:02)
[2018-01-19 14:43] VITALS: BP 149/83
[2018-01-19] MEDS: CARVEDILOL 12.5 MG TABLET PO SCH (18:02)
[2018-01-19 19:00] VITALS: BP 119/69
--- NOTE | 2018-01-19 20:24 | HP ---
ADMIT DATE: 01/19/2018 HISTORY OF PRESENT ILLNESS: The patient is a 57-year-old female patient, who came this morning to the Emergency Room of [facility] complaining of recurrent bouts of nausea, vomiting and abdominal pain. She came with very similar symptoms to [facility] last and was discharged on the Friday and she has received multiple medications from nursing staff on how to use her jejunostomy tube and the gastrostomy tube and that she should not be eating and unfortunately she was home, stayed one day, and come back with same symptoms. PAST MEDICAL HISTORY: Her past medical history is significant for longstanding type 2 diabetes mellitus since the age of 28, coronary artery disease, status post myocardial infarction x 2 with stent deployment severe diabetic gastroparesis, history of pancreatitis, hypertension, gastroesophageal reflux disease. PAST SURGICAL HISTORY: Past surgical history is significant for PCI with angioplasty and stent deployment, appendectomy, cholecystectomy, and most recently she underwent exploratory laparotomy, gastrostomy tube placement, jejunostomy tube placement as well as pyloroplasty and repair of incisional hernia. ALLERGIES: She has no known drug allergies. MEDICATIONS: She is currently on following medications. she is on Plavix 75 mg once a day, atorvastatin 40 mg at bedtime, carvedilol 25 mg twice a day, lisinopril 20 mg once a day, aspirin 81 mg once a day, citalopram hydrobromide 20 mg daily, trazodone 200 mg at bedtime, Ambien 10 mg at bedtime. She is on Creon 12,000 units 3 times a day, ondansetron 4 mg every 6 hours as needed, Protonix 40 mg daily, metoclopramide 10 mg 4 times a day, NovoLog insulin sliding scale and Lantus 18 units at bedtime. FAMILY HISTORY: Unremarkable. SOCIAL HISTORY: She has recently moved from [place]. She apparently met somebody online and moved to this area and got . She does not smoke, drink alcohol or recreational drugs. She used to live in [facility] and has had Medicare Medicaid there. REVIEW OF SYSTEMS: As per history of present illness. PHYSICAL EXAMINATION: GENERAL: On arrival to the Emergency Room, she was somewhat pale, no jaundice, cyanosis, or thyromegaly. No jugular venous distension. No lower limb edema. VITAL SIGNS: Her heart rate was 106, blood pressure was 153/83, temperature was 98.1, respiratory rate 20, and oxygen saturation was 98%. HEAD, EYES, EARS, NOSE AND THROAT: Showed normocephalic, atraumatic. NECK: Supple. HEART: Showed normal first and second heart sounds. No gallop, rub or murmur. CHEST: Showed central trachea, equal bilateral expansion, air entry, vesicular sounds. I could not appreciate any crepitation or rhonchi. ABDOMEN: Scaphoid, soft with a gastrostomy tube in place, a jejunostomy tube in place. No tenderness. No guarding or rigidity. No organomegaly. Hernial orifice is intact. Bowel sounds normal. NEUROLOGIC: She was awake, alert, responding appropriately. All cranial nerves are intact. She moves extremities without difficulty. She ambulates without assistance or assistive devices. LABORATORY AND DIAGNOSTIC DATA: While in the Emergency Room, she had lab work done showed a white cell count 5500, hemoglobin 9, hematocrit 27, MCV 79, and platelet count of 132,000. Serum sodium was 134, potassium 3.5, chloride 97, bicarbonate 26, anion gap of 11, BUN 11, creatinine 0.8, estimated GFR was 73 mL per minute. Her glucose 171, calcium was 8.6. Total bilirubin, AST, ALT, alkaline phosphatase were normal. Her total protein was 6.2, albumin was 2.6. Her prothrombin time was 10.4, INR 1, aPTT was 23. Urinalysis showed the urine was pink, turbid with a pH of 5, specific gravity of 1.020. The urine was negative for protein. There was large amount of glucose, negative for ketones, there was small amount of blood, negative for nitrite and leukocyte esterase was 11-20, RBCs 1-2, 4 WBCs, no bacteria. Her acute abdomen series showed that the heart size is normal, the right mastectomy with tissue clinical provider trainer present, left subclavian catheter tip in the superior vena cava. No pulmonary opacities, no pleural effusion, no pneumoperitoneum. Cholecystectomy clips, percutaneous gastrostomy tube balloon ____ in the left lower quadrant as present ____ jejunostomy tube, no dilated bowel loops or abnormal air fluid levels, bone unremarkable, pelvic phleboliths. ASSESSMENT AND PLAN: The patient was admitted to the floor. We will continue with some IV fluid and start her on her Fibersource at 30 mL per hour with 100 mL of fluid water flushes every 4 hours. We will resume all her medication and educate her more and hopefully she can take care of herself at home. INÉS GARCÍA MD DR: MAXIM/carson JOB#: [id number] / [id number]
[2018-01-19] MEDS: IV NORMAL SALINE 1,000ML 1,000 ML IV SCH (20:27)
[2018-01-19] MEDS ORDERED: INSULIN GLARGINE 300 UNITS/3 ML INSULN.PEN. SQ SCH (21:00)
[2018-01-19] MEDS ORDERED: traZODone 100 MG TABLET. PO SCH (21:00)
[2018-01-19] MEDS ORDERED: ATORVASTATIN CALCIUM 20 MG TABLET PO SCH (21:00)
[2018-01-19 23:00] VITALS: BP 111/70
[2018-01-20 06:09] VITALS: BP 137/82
[2018-01-20 06:44] LABS: BASO % 1 % (0-3); EOS # 0.1 x10^3/uL (0.0-0.7); EOS % 1 % (0-3); HEMATOCRIT 25.1 % (36.0-47.0); HEMOGLOBIN 8.4 g/dL (12.0-15.5); LYMPH # 0.5 x10^3/uL (1.0-4.8); LYMPH % 13 % (24-48); MEAN CORPUSCULAR HEMOGLOBIN 26 pg (25-35); MEAN CORPUSCULAR HGB CONC 33 g/dL (31-37); MEAN CORPUSCULAR VOLUME 79 fL (79-100); MONO # 0.5 x10^3/uL (0.0-1.1); MONO % 12 % (0-9); NEUT # 3.2 x10^3uL (1.8-7.7); NEUT % 74 % (31-73); PLATELET COUNT 364 x10^3/uL (140-400); RED BLOOD COUNT 3.17 x10^6/uL (3.50-5.40); RED CELL DISTRIBUTION WIDTH 14.8 % (11.5-14.5); WHITE BLOOD COUNT 4.3 x10^3/uL (4.0-11.0)
[2018-01-20 07:03] LABS: ALBUMIN 2.2 g/dL (3.4-5.0); ALBUMIN/GLOBULIN RATIO 0.7 (1.0-1.7); CALCIUM 7.9 mg/dL (8.5-10.1); CREATININE 0.7 mg/dL (0.6-1.0); GFR 85.6; POTASSIUM 3.9 mmol/L (3.5-5.1); TOTAL BILIRUBIN 0.2 mg/dL (0.2-1.0); TOTAL PROTEIN 5.4 g/dL (6.4-8.2)
[2018-01-20] MEDS ORDERED: PANTOPRAZOLE 40 MG TABLET. PO SCH (07:30)
[2018-01-20] MEDS: LIPASE/PROTEAS/AMYLAS 10/34/55 CAPSULE.DR. PO SCH ×2 (08:33→12:00)
[2018-01-20] MEDS: METOCLOPRAMIDE 10 MG TABLET PO SCH ×2 (08:34→12:07)
[2018-01-20] MEDS: CLOPIDOGREL BISULFATE 75 MG TABLET PO SCH (08:34)
[2018-01-20] MEDS: LISINOPRIL 20 MG TABLET PO SCH (08:34)
[2018-01-20] MEDS: CARVEDILOL 12.5 MG TABLET PO SCH (08:35)
[2018-01-20] MEDS ORDERED: FAMOTIDINE 20 MG TABLET PO SCH (09:00)
[2018-01-20] MEDS: INSULIN LISPRO 300 UNITS/3 ML INSULN.PEN. SQ SCH ×3 (09:12→17:35)
[2018-01-20] MEDS: IV NORMAL SALINE 1,000ML 1,000 ML IV SCH (10:22)
[2018-01-20 10:49] VITALS: BP 152/86
[2018-01-20 10:57] VITALS: BP 117/70
[2018-01-20] MEDS ORDERED: ATORVASTATIN CALCIUM 20 MG TABLET JT SCH ×2 (12:56→21:00)
[2018-01-20] MEDS ORDERED: FAMOTIDINE 20 MG TABLET JT SCH (12:56)
[2018-01-20] MEDS ORDERED: CLOPIDOGREL BISULFATE 75 MG TABLET JT SCH (12:56)
[2018-01-20] MEDS ORDERED: CARVEDILOL 12.5 MG TABLET JT SCH ×2 (12:56→17:00)
[2018-01-20] MEDS ORDERED: HYDROcodone/APAP 5/325MG 1 TAB TABLET JT PRN (12:59)
[2018-01-20] MEDS ORDERED: ZOLPIDEM 5 MG TABLET. JT PRN (13:15)
[2018-01-20 15:57] VITALS: BP 133/72
[2018-01-20] MEDS ORDERED: METOCLOPRAMIDE 10 MG TABLET JT SCH (16:30)
[2018-01-20] MEDS ORDERED: LIPASE/PROTEAS/AMYLAS 10/34/55 CAPSULE.DR. JT SCH (17:00)
[2018-01-20 17:07] VITALS: BP 133/72
--- NOTE | 2018-01-20 20:50 | PN ---
DATE: 01/20/2018 SUBJECTIVE: The patient is sitting comfortably, in no apparent distress. She continued to require more teaching and how to crush her medication. She has no more episodes of nausea, vomiting. She is refusing to take hydrocodone and she wants morphine. We told her that something happened and she needs to learn how to use her own medications and to take care of herself at home. PHYSICAL EXAMINATION: GENERAL: When I examined her today, she looked well and was clearly in no apparent respiratory distress, pale, but not jaundice, cyanosis, or thyromegaly. No jugular venous distension. No limb edema. VITAL SIGNS: Her heart rate was 88, blood pressure 117/70, temperature was 99.2, respiratory rate was 20, and oxygen saturation was 98%. HEAD, EYES, EARS, NOSE AND THROAT: Normocephalic, atraumatic. NECK: Supple. HEART: Showed normal first and second heart sounds with no gallop, rub or murmur. CHEST: Clear to auscultation. No crepitation or rhonchi. ABDOMEN: Distended, soft, nontender. No guarding or rigidity. No organomegaly. All hernial orifice intact. Bowel sounds normal. NEUROLOGIC: She has gastrostomy tube and jejunostomy tube in place. Neurologically; she is awake, alert, responding appropriately. Cranial nerves intact. She moves extremities without difficulty. She ambulates without assistance or assistive devices. Her intake was . LABORATORY DATA: This morning showed a serum sodium 134, potassium 3.9, chloride 100, bicarbonate 27, anion gap of 7, BUN 10, creatinine 0.7, estimated GFR was 86 mL per minute. Her glucose was 227, calcium was 7.9. Total bilirubin, AST, ALT, alkaline phosphatase were normal. Total protein was 5.4, albumin was 2.2. White cell count was 4300, hemoglobin 8.4, hematocrit 25, MCV 79 and platelet count of 364,000. ASSESSMENT: Recurrent bouts of nausea, vomiting, severe diabetic gastroparesis for which she underwent gastrostomy tube placement, pyloroplasty and jejunostomy tube placement. Hypertension, hyperlipidemia, coronary artery disease. We instructed the nurse to teach her and supervise her feeding herself and crushing her medication and hopefully she will become more confident taking care of herself and does not keep coming in this hospital every time she has any symptoms. INÉS GARCÍA MD DR: MAXIM/carson JOB#: [id number] / [id number]
[2018-01-20] MEDS ORDERED: traZODone 100 MG TABLET. JT SCH (21:00)
[2018-01-21] MEDS ORDERED: PANTOPRAZOLE 40 MG PACKET. JT SCH (07:30)
[2018-01-21] MEDS ORDERED: LISINOPRIL 20 MG TABLET JT SCH (09:00)
[2018-01-21] MEDS ORDERED: FAMOTIDINE 20 MG TABLET JT SCH (09:00)
[2018-01-21] MEDS ORDERED: CLOPIDOGREL BISULFATE 75 MG TABLET JT SCH (09:00)
== END 2018-01-20 18:10 | disposition left against medical advice (07) | DRG 74 ==
LOC: ER 05:09 → 1 SOUTH 06:30
PROVIDERS: ADMIT Internal Medicine; ATTEND Internal Medicine
DX: E11.43 Type 2 diabetes mellitus with diabetic autonomic (poly)neuropathy (principal); E46 Unspecified protein-calorie malnutrition; E11.65 Type 2 diabetes mellitus with hyperglycemia; Z93.4 Other artificial openings of gastrointestinal tract status; K31.84 Gastroparesis; E78.5 Hyperlipidemia, unspecified; I10 Essential (primary) hypertension; I25.10 Atherosclerotic heart disease of native coronary artery without angina pectoris; D64.9 Anemia, unspecified; K21.9 Gastro-esophageal reflux disease without esophagitis; I25.2 Old myocardial infarction; Z90.49 Acquired absence of other specified parts of digestive tract; Z79.4 Long term (current) use of insulin; Z68.24 Body mass index [BMI] 24.0-24.9, adult
CPT/HCPCS: 36415; 74022; 80048; 80053; 80076; 81001; 82553; 82947; 83690; 84484; 85025; 85610; 85730; 87086; 93005; 96361; 96372; 96374; J1815; J2270; J7120; J8597; Q0162; S0028; 99285-25; J7030

== ENCOUNTER 2018-01-20 19:14 | Inpatient (IN) | payer SELFPAY ==
[2018-01-20] VITALS (7 sets, daily range): BP systolic 117–132; BP diastolic 58–96
[~2018-01-20] VITALS: Ht 157.5 cm; Wt 59.0 kg
[2018-01-20] MEDS ORDERED: DEXTROSE ORAL GEL 15 GM TUBE. ONE (19:43)
--- NOTE | 2018-01-20 20:03 | PHYS DOC ---
Past History Past Medical History: Diabetes, Other Past Surgical History: Other Alcohol Use: None Drug Use: None Adult General Chief Complaint Chief Complaint: FEVER HPI HPI Patient is a 57 year old female who presents with complaint of abdominal pain and nausea. Patient appears very confused at this time and is a very poor historian. The patient has had multiple visits to the [facility] for treatment of poorly controlled diabetes mellitus and chronic gastroparesis. The patient was actually admitted to the hospital yesterday and signed out AGAINST MEDICAL ADVICE earlier today. After signing out, the patient came to the emergency department in a very confused state. Patient is currently oriented to person. The patient states that she had signed out because "I wasn't getting good care." Patient noted to be very diaphoretic and lethargic. Review of Systems Review of Systems Constitutional: "Fever"[] Eyes: Denies change in visual acuity, redness, or eye pain [] HENT: Denies nasal congestion or sore throat [] Respiratory: Denies cough or shortness of breath [] Cardiovascular: Denies chest pain or edema[] GI: Abdominal pain, denies vomiting, bloody stools or diarrhea [] : Denies dysuria or hematuria [] Musculoskeletal: Denies back pain or joint pain [] Integument: Denies rash or skin lesions [] Neurologic: Denies headache, focal weakness or sensory changes [] All other systems were reviewed and found to be within normal limits, except as documented in this note. Current Medications Current Medications Current Medications Medications (Trade) Dose Ordered Sig/Georgi Start Time Stop Time Status Last Admin Dose Admin Glucose (Insta-Glucose) 15 gm STK-MED ONCE 01/20/18 19:43 01/20/18 19:44 DC Allergies Allergies Allergies Coded Allergies Type Severity Reaction Last Updated Verified No Known Drug Allergies 10/08/17 No Physical Exam Physical Exam Constitutional: Lethargic, afebrile, diaphoretic, appears ill. [] HENT: Normocephalic, atraumatic, bilateral external ears normal, oropharynx dry , no oral exudates, nose normal. [] Eyes: PERRLA, EOMI, conjunctiva normal, no discharge. [] Neck: Normal range of motion, no tenderness, supple, no stridor. [] Cardiovascular:Heart rate regular rhythm, no murmur [] Lungs & Thorax: Bilateral breath sounds clear to auscultation [] Abdomen: Bowel sounds normal, soft, no tenderness, no masses, no pulsatile masses. [] Skin: Clammy, pale, diaphoretic. [] Back: No tenderness, no CVA tenderness. [] Extremities: No tenderness, no cyanosis, no clubbing, ROM intact, no edema. [] Neurologic: Lethargic, oriented to self only, no focal deficits noted. [] Current Patient Data Vital Signs Vital Signs Date Time Temp Pulse Resp B/P (MAP) Pulse Ox O2 Delivery O2 Flow Rate FiO2 01/20/18 19:41 97.6 74 156/81 (106) 98.0 Lab Results Laboratory Tests Test 01/20/18 19:42 01/20/18 20:03 01/20/18 20:15 Glucose (Fingerstick) 21 mg/dL 132 mg/dL Bedside Hemoglobin 8.8 gm/dL Bedside Hematocrit 26 % Bedside Sodium 130 mmol/L Bedside Potassium 3.4 mmol/L Bedside Chloride 97 mmol/L Bedside Total CO2 26 mmol/L Anion Gap 12 mmol/L Bedside Blood Urea Nitrogen 10 mg/dL Bedside Creatinine 0.7 mg/dL Glucose Level 136 mg/dL Bedside Ionized Calcium (Leticia) 1.00 mmol/L Current Medications Medications (Trade) Dose Ordered Sig/Georgi Route PRN Reason Start Time Stop Time Status Last Admin Dose Admin Glucose (Insta-Glucose) 15 gm STK-MED ONCE .ROUTE 01/20/18 19:43 01/20/18 19:44 DC EKG EKG Rhythm strip interpretation by me: Heart rate 72, sinus rhythm, no ectopy[] Radiology/Procedures Radiology/Procedures Not performed[] Course & Med Decision Making Course & Med Decision Making Pertinent Labs and Imaging studies reviewed. (See chart for details) The patient was found have a blood sugar of 21. Patient was supplemented with D50 and started on D5 half-normal saline for continued supplementation. The patient appears to be in an acutely ill state and is not safe for outpatient discharge at this time. I spoke with Dr. Schafer who is very familiar with the patient and agreed that the patient cannot take care of herself in her current state and accepted care patient in hospital for further care. Critical care time excluding procedures: 30 minutes Dragon Disclaimer Dragon Disclaimer This electronic medical record was generated, in whole or in part, using a voice recognition dictation system. Departure Departure: Impression: Primary Impression: Hypoglycemia Additional Impression: Metabolic encephalopathy Disposition: 09 ADMITTED INPATIENT Admitting Physician: Royal Schafer Condition: GUARDED Referrals: PCP,NO (PCP) Problem Qualifiers SHAYY JANE MD January 20, 2018 20:03
[2018-01-20 20:20] LABS: HEMOGLOBIN ISTAT 8.8 gm/dL; POTASSIUM ISTAT 3.4 mmol/L (3.5-5.0)
[2018-01-20] MEDS ORDERED: DEXTROSE 50% 25 GM / 50ML DISP.SYRIN. IV ONE (20:30)
[2018-01-20] MEDS ORDERED: IV DEXTROSE 5 %-0.45 % NACL 1,000 ML IV ONE (20:30)
[2018-01-21] VITALS (19 sets, daily range): BP systolic 126–176; BP diastolic 55–86
[2018-01-21 06:13] LABS: BASO % 1 % (0-3); EOS % 1 % (0-3); HEMATOCRIT 25.3 % (36.0-47.0); HEMOGLOBIN 8.7 g/dL (12.0-15.5); LYMPH # 0.6 x10^3/uL (1.0-4.8); LYMPH % 20 % (24-48); MEAN CORPUSCULAR HEMOGLOBIN 27 pg (25-35); MEAN CORPUSCULAR HGB CONC 34 g/dL (31-37); MEAN CORPUSCULAR VOLUME 78 fL (79-100); MONO # 0.6 x10^3/uL (0.0-1.1); MONO % 19 % (0-9); NEUT # 1.9 x10^3uL (1.8-7.7); NEUT % 60 % (31-73); PLATELET COUNT 377 x10^3/uL (140-400); RED BLOOD COUNT 3.23 x10^6/uL (3.50-5.40); WHITE BLOOD COUNT 3.2 x10^3/uL (4.0-11.0)
[2018-01-21] MEDS ORDERED: IV DEXTROSE 5 %-0.45 % NACL 1,000 ML IV SCH (06:15)
[2018-01-21 06:35] LABS: CALCIUM 8.2 mg/dL (8.5-10.1); CREATININE 0.6 mg/dL (0.6-1.0); GFR 102.3
== END 2018-01-21 14:55 | disposition left against medical advice (07) | DRG 637 ==
LOC: ER 19:14 → ICU 19:56
PROVIDERS: ADMIT Internal Medicine; ATTEND Internal Medicine
DX: E11.649 Type 2 diabetes mellitus with hypoglycemia without coma (principal); G93.41 Metabolic encephalopathy; E11.43 Type 2 diabetes mellitus with diabetic autonomic (poly)neuropathy; K31.84 Gastroparesis; Z53.21 Procedure and treatment not carried out due to patient leaving prior to being seen by health care provider
CPT/HCPCS: 36415; 80047; 80048; 82947; 85025; 87641; 96374; 99291-25

== ENCOUNTER 2018-02-01 23:35 | Inpatient (IN) | payer SELFPAY ==
[~2018-02-01] VITALS: Ht 157.5 cm; Wt 57.7 kg
[2018-02-02] MEDS ORDERED: IV NORMAL SALINE 1,000ML 1,000 ML IV SCH ×2 (00:30→03:30)
[2018-02-02] MEDS ORDERED: HALOPERIDOL LACT 5 MG/ML VIAL. IVP ONE (00:45)
[2018-02-02] MEDS ORDERED: ONDANSETRON ODT 4 MG TAB.RAPDIS PO ONE (00:45)
[2018-02-02 02:00] LABS: BASO % 0 % (0-3); EOS % 0 % (0-3); HEMATOCRIT 32.4 % (36.0-47.0); HEMOGLOBIN 10.9 g/dL (12.0-15.5); LYMPH # 0.6 x10^3/uL (1.0-4.8); LYMPH % 8 % (24-48); MEAN CORPUSCULAR HEMOGLOBIN 26 pg (25-35); MEAN CORPUSCULAR HGB CONC 34 g/dL (31-37); MEAN CORPUSCULAR VOLUME 77 fL (79-100); MONO # 0.4 x10^3/uL (0.0-1.1); MONO % 5 % (0-9); NEUT # 6.3 x10^3uL (1.8-7.7); NEUT % 87 % (31-73); PLATELET COUNT 405 x10^3/uL (140-400); RED BLOOD COUNT 4.22 x10^6/uL (3.50-5.40); RED CELL DISTRIBUTION WIDTH 14.8 % (11.5-14.5); WHITE BLOOD COUNT 7.3 x10^3/uL (4.0-11.0)
[2018-02-02 02:10] LABS: ALBUMIN/GLOBULIN RATIO 0.7 (1.0-1.7); CALCIUM 9.3 mg/dL (8.5-10.1); GFR 56.7; POTASSIUM 3.2 mmol/L (3.5-5.1); TOTAL BILIRUBIN 0.4 mg/dL (0.2-1.0); TOTAL PROTEIN 7.2 g/dL (6.4-8.2)
--- NOTE | 2018-02-02 02:49 | PHYS DOC ---
Past History Past Medical History: Diabetes, Other Past Surgical History: Other Alcohol Use: None Drug Use: None Adult General Chief Complaint Chief Complaint: NAUSEA/VOMITING/DIARRHEA HPI HPI Patient is a 57 year old female who presents with complaint of nausea, vomiting , and abdominal pain. Patient is well-known to this facility and has had multiple visits for similar complaints. Patient has history of diabetic gastroparesis and has undergone recent surgery with general surgery for placement of gastrostomy and jejunostomy tubes. The patient has presented to the emergency department with complaint of abdominal pain and vomiting and has requested IV narcotic medication at each visit. The patient last left the hospital on January 21, 2018 AGAINST MEDICAL ADVICE after the patient requested IV morphine be given which was denied. Patient states that her symptoms are getting worse earlier this evening prompting her to come to the emergency department. Patient rates her pain a 7 out of 10. Patient has documented history of noncompliance with medical regimen. Review of Systems Review of Systems Constitutional: Denies fever or chills [] Eyes: Denies change in visual acuity, redness, or eye pain [] HENT: Denies nasal congestion or sore throat [] Respiratory: Denies cough or shortness of breath [] Cardiovascular: Denies chest pain or edema[] GI: Abdominal pain, vomiting, denies bloody stools or diarrhea [] : Denies dysuria or hematuria [] Musculoskeletal: Denies back pain or joint pain [] Integument: Denies rash or skin lesions [] Neurologic: Denies headache, focal weakness or sensory changes [] All other systems were reviewed and found to be within normal limits, except as documented in this note. Current Medications Current Medications Current Medications Medications (Trade) Dose Ordered Sig/Georgi Start Time Stop Time Status Last Admin Dose Admin Haloperidol Lactate (Haldol) 5 mg 1X ONCE 02/02/18 00:45 02/02/18 00:46 DC 02/02/18 00:45 5 MG Ondansetron HCl (Zofran Odt) 4 mg 1X ONCE 02/02/18 00:45 02/02/18 00:46 DC 02/02/18 00:45 4 MG Sodium Chloride 1,000 ml @ 1,000 mls/hr Q1H 02/02/18 00:30 02/02/18 01:30 DC 02/02/18 00:30 1,000 MLS/HR Allergies Allergies Allergies Coded Allergies Type Severity Reaction Last Updated Verified No Known Drug Allergies 10/08/17 No Physical Exam Physical Exam Constitutional: Alert, afebrile, appears in chronically poor health. [] HENT: Normocephalic, atraumatic, bilateral external ears normal, oropharynx moist, no oral exudates, nose normal. [] Eyes: PERRLA, EOMI, conjunctiva normal, no discharge. [] Neck: Normal range of motion, no tenderness, supple, no stridor. [] Cardiovascular:Heart rate regular rhythm, no murmur [] Lungs & Thorax: Bilateral breath sounds clear to auscultation [] Abdomen: Decreased bowel sounds, abdomen soft, epigastric tenderness to palpation. [] Skin: Warm, dry, no erythema, no rash. [] Back: No tenderness, no CVA tenderness. [] Extremities: No tenderness, no cyanosis, no clubbing, ROM intact, no edema. [] Neurologic: Alert and oriented X 3, normal motor function, normal sensory function, no focal deficits noted. [] Current Patient Data Vital Signs Vital Signs Date Time Temp Pulse Resp B/P (MAP) Pulse Ox O2 Delivery O2 Flow Rate FiO2 02/02/18 03:32 98.6 113 20 180/95 (123) 99 Room Air Lab Results Laboratory Tests Test 02/02/18 01:28 White Blood Count 7.3 x10^3/uL (4.0-11.0) Red Blood Count 4.22 x10^6/uL (3.50-5.40) Hemoglobin 10.9 g/dL (12.0-15.5) L Hematocrit 32.4 % (36.0-47.0) L Mean Corpuscular Volume 77 fL (79-100) L Mean Corpuscular Hemoglobin 26 pg (25-35) Mean Corpuscular Hemoglobin Concent 34 g/dL (31-37) Red Cell Distribution Width 14.8 % (11.5-14.5) H Platelet Count 405 x10^3/uL (140-400) H Neutrophils (%) (Auto) 87 % (31-73) H Lymphocytes (%) (Auto) 8 % (24-48) L Monocytes (%) (Auto) 5 % (0-9) Eosinophils (%) (Auto) 0 % (0-3) Basophils (%) (Auto) 0 % (0-3) Neutrophils # (Auto) 6.3 x10^3uL (1.8-7.7) Lymphocytes # (Auto) 0.6 x10^3/uL (1.0-4.8) L Monocytes # (Auto) 0.4 x10^3/uL (0.0-1.1) Eosinophils # (Auto) 0.0 x10^3/uL (0.0-0.7) Basophils # (Auto) 0.0 x10^3/uL (0.0-0.2) Sodium Level 139 mmol/L (136-145) Potassium Level 3.2 mmol/L (3.5-5.1) L Chloride Level 98 mmol/L (98-107) Carbon Dioxide Level 29 mmol/L (21-32) Anion Gap 12 (6-14) Blood Urea Nitrogen 30 mg/dL (7-20) H Creatinine 1.0 mg/dL (0.6-1.0) Estimated GFR (Cockcroft-Gault) 56.7 BUN/Creatinine Ratio 30 (6-20) H Glucose Level 172 mg/dL (70-99) H Calcium Level 9.3 mg/dL (8.5-10.1) Total Bilirubin 0.4 mg/dL (0.2-1.0) Aspartate Amino Transferase (AST) 26 U/L (15-37) Alanine Aminotransferase (ALT) 24 U/L (14-59) Alkaline Phosphatase 107 U/L (46-116) Total Protein 7.2 g/dL (6.4-8.2) Albumin 3.0 g/dL (3.4-5.0) L Albumin/Globulin Ratio 0.7 (1.0-1.7) L Lipase 253 U/L (73-393) EKG EKG Not performed[] Radiology/Procedures Radiology/Procedures [address] [address] IMAGING REPORT Signed PATIENT: CRIS ASHER ACCOUNT: [id number] : 1960 LOCATION: ER AGE: 57 SEX: F EXAM STATUS: REG ER ORD. PHYSICIAN: SHAYY JANE MD REASON: vomiting PROCEDURE: ACUTE ABDOMEN SERIES Indication: Nausea vomiting and diarrhea. TECHNIQUE: 3 views of the abdomen and pelvis COMPARISON: Previous study from 01/19/2018. FINDINGS: Stable position of Chemo-Port. Heart is normal in size. Lungs are clear. No pneumothorax or pleural effusion. Status post cholecystectomy. Enterostomy tube and G-tube noted. No abnormally dilated bowel loops or air-fluid levels. No evidence of free intraperitoneal air. No abnormal calcific densities projecting over the kidneys. Visualized bones are within normal limits. IMPRESSION: No acute findings. Electronically signed by: Benedict Barr DO (02/02/2018 3:01 AM) [facility] DICTATED AND SIGNED BY: BENEDICT BARR DO DATE: 02/02/18 0259 CC: SHAYY JANE MD; PCP,NO ~ [] Course & Med Decision Making Course & Med Decision Making Pertinent Labs and Imaging studies reviewed. (See chart for details) Patient was given IV fluids, Haldol, and Zofran for symptoms. Patient's lab work appears somewhat stable at this time, however patient maintains that she is not able to tolerate by mouth intake at this time does not feel that she can is safe to go home and her current condition. Given patient's documented history of drug seeking behavior, I did explain to the patient that IV narcotic medication is not indicated for her symptoms at this time, however I am happy to provide patient with IV fluids and medication to help control the patient's nausea. After consideration, the patient states that she would like to be admitted for further control of her nausea. I spoke with Dr. Schafer who accepted care of patient in hospital. Dragon Disclaimer Dragon Disclaimer This electronic medical record was generated, in whole or in part, using a voice recognition dictation system. Departure Departure: Impression: Primary Impression: Intractable nausea and vomiting Additional Impression: Diabetic gastroparesis Disposition: ADMITTED INPATIENT Admitting Physician: Royal Schafer Condition: STABLE Referrals: PCP,NO (PCP) Problem Qualifiers Primary Impression: Intractable nausea and vomiting Vomiting type: unspecified Qualified Codes: R11.2 - Nausea with vomiting, unspecified SHAYY JANE MD Feb 02, 2018 02:49
--- NOTE | 2018-02-02 03:04 | RAD ---
Indication: Nausea vomiting and diarrhea. TECHNIQUE: 3 views of the abdomen and pelvis COMPARISON: Previous study from 01/19/2018. FINDINGS: Stable position of Chemo-Port. Heart is normal in size. Lungs are clear. No pneumothorax or pleural effusion. Status post cholecystectomy. Enterostomy tube and G-tube noted. No abnormally dilated bowel loops or air-fluid levels. No evidence of free intraperitoneal air. No abnormal calcific densities projecting over the kidneys. Visualized bones are within normal limits. IMPRESSION: No acute findings. Electronically signed by: Benedict Barr DO (02/02/2018 3:01 AM) [facility]
[2018-02-02] MEDS ORDERED: METOCLOPRAMIDE HCL 10 MG/2 ML VIAL. IV PRN (03:30)
[2018-02-02 04:15] VITALS: BP 215/98
[2018-02-02 06:15] VITALS: BP 195/89
[2018-02-02 06:37] LABS: BILIRUBIN,URINE NEG (NEG); CLARITY,URINE HAZY; COLOR,URINE YELLOW; GLUCOSE,URINE 100 mg/dL (NEG); NITRITE,URINE NEG (NEG); UROBILINOGEN,URINE 0.2 mg/dL (0.2 mg/dL)
[2018-02-02 06:38] LABS: BACTERIA,URINE FEW /HPF (0-FEW); SQUAMOUS EPITHELIAL CELL,UR FEW /LPF; WBC,URINE 20-40 /HPF (0-4)
[2018-02-02] MEDS: POTASSIUM CL 40MEQ IN 0.9%NACL 1,000 ML IV SCH ×2 (08:04→16:39)
--- NOTE | 2018-02-02 14:51 | HP ---
ADMIT DATE: 02/02/2018 HISTORY OF PRESENT ILLNESS: The patient is a 57-year-old female patient who yet again came to the Emergency Room with a complaint of intractable nausea, vomiting and abdominal pain. She has been ____ [facility] multiple times and multiple times she leaves against the medical advice when she does not want. She is going to get her IV morphine, does not truly take responsibility for her care. She has been told multiple times that she is not eating food and that all day she is using the formula to be given through her jejunostomy tube. We spent multiple times trying to educate her every time she gets angry and leaves against medical advice and in any case, she was admitted again this time and was found to have hypokalemia, and was admitted to replenish her potassium and again to attempt to teach her how to take care of her illness. PAST MEDICAL HISTORY: Significant for longstanding type 2 diabetes mellitus since the age of 28, coronary artery disease, status post myocardial infarction x 2 with stent deployment, severe diabetic gastroparesis, chronic pancreatitis, hypertension, gastroesophageal reflux disease. PAST SURGICAL HISTORY: Significant for PCI with a stent deployment, appendectomy, cholecystectomy, and most recently, she underwent exploratory laparotomy, gastrostomy tube placement, jejunostomy tube placement as well as pyloroplasty and repair of incisional hernia. ALLERGIES: She has no known drug allergies. FAMILY HISTORY: Unremarkable. SOCIAL HISTORY: She has recently moved from [facility]. She apparently met somebody online and moved to this area to get . She does not smoke, drink alcohol, or recreational drugs. She used to live in [facility] and has had Medicaid there. REVIEW OF SYSTEMS: As per history of present illness. MEDICATIONS: She is currently on the following medication. She is on Plavix 75 mg once a day, atorvastatin calcium 40 mg at bedtime, carvedilol 25 mg twice a day, lisinopril 20 mg once a day, aspirin 81 mg once a day, hydrocodone/APAP 5/325 one tablet every 6 hours, citalopram hydrobromide 20 mg p.o. daily, trazodone 200 mg at bedtime, Ambien 10 mg at bedtime, and Creon 91709 units 3 times a day with meals, ondansetron 4 mg every 6 hours, Protonix 40 mg daily, metoclopramide 10 mg 4 times a day before meals and bedtime. She is on NovoLog insulin 10 units subcutaneous 3 times a day and Lantus insulin 18 units at bedtime. PHYSICAL EXAMINATION: GENERAL: On arrival to the Emergency Room, she looked pale, but no jaundice, cyanosis, or thyromegaly. No jugular venous distension. No limb edema. VITAL SIGNS: Her heart rate was 113, blood pressure 180/95, temperature was 98.6, respiratory rate was 20, and oxygen saturation was 99% on room air. HEENT: Showed normocephalic, atraumatic. NECK: Supple. HEART: Showed normal first and second heart sounds. No gallop, rub or murmur. CHEST: Clear to auscultation. No crepitation or rhonchi. ABDOMEN: Distended, soft, nontender. No guarding or rigidity. No organomegaly. All hernial orifice intact and bowel sounds normal. She has a gastrostomy tube in place and jejunostomy tube in place. NEUROLOGIC: She is awake, alert, responding appropriately. Cranial nerves intact. EXTREMITIES: She moves extremities without difficulty. She ambulates without assistance or assistive devices. LABORATORY DATA: On arrival to the Emergency Room showed a white cell count 7300, hemoglobin 11, hematocrit 32, MCV 77, and platelet count of 405,000. Her chemistry showed a serum sodium 139, potassium 3.2, chloride 98, bicarbonate 29, anion gap of 12, BUN 30, creatinine 1, estimated GFR was 56 mL per minute. Her glucose was 172, calcium was 9.3. Total bilirubin, AST, ALT, alkaline phosphatase were normal. Her total protein 7.2, albumin 3 and lipase was 253. ASSESSMENT AND PLAN: In summary, this is a 57-year-old female patient who yet again came with another episode of intractable nausea and vomiting and abdominal pain. Because of severe diabetic gastroparesis, she has had an exploratory laparotomy by the gastrostomy tube placement, pyloroplasty and jejunostomy tube placement and incisional hernia repair. She was supposed to be in tube feeding through her jejunostomy tube and all her medication should be crushed and given through her jejunostomy. She so far is not willing to take responsibility to take care of herself. I have had a lengthy discussion with her in the presence of the RN, Alessandra Damon. We will again teach her how to a pressure medication used to take all this is like in the morning, lunch and evening at again at night time how to use her insulin before these food boluses and how to use her medication to control her pain, nausea and vomiting as well as to control her blood pressure. I emphasized numerous times that she has to have the motivation to do this, otherwise, she cannot keep being admitted from one hospital to another. The only other option available for her to consider hospice care. INÉS GARCÍA MD DR: MAXIM/carson JOB#: [id number] / [id number]
[2018-02-02] MEDS ORDERED: ZOLPIDEM 5 MG TABLET. PO PRN (16:30)
[2018-02-02] MEDS: METOCLOPRAMIDE 10 MG TABLET PO SCH ×2 (17:05→21:22)
[2018-02-02] MEDS: LIPASE/PROTEAS/AMYLAS 10/34/55 CAPSULE.DR. PO SCH (17:05)
[2018-02-02] MEDS: INSULIN LISPRO 300 UNITS/3 ML INSULN.PEN. SQ SCH (17:07)
[2018-02-02] MEDS: CARVEDILOL 12.5 MG TABLET PO SCH (17:08)
[2018-02-02 21:00] VITALS: BP 169/104
[2018-02-02] MEDS: traZODone 100 MG TABLET. PO SCH (21:22)
[2018-02-02] MEDS: ATORVASTATIN CALCIUM 20 MG TABLET PO SCH (21:22)
[2018-02-02] MEDS: INSULIN GLARGINE 300 UNITS/3 ML INSULN.PEN. SQ SCH (21:22)
[2018-02-03] MEDS: POTASSIUM CL 40MEQ IN 0.9%NACL 1,000 ML IV SCH ×4 (00:50→23:45)
[2018-02-03 06:39] LABS: BASO % 0 % (0-3); EOS % 0 % (0-3); HEMATOCRIT 30.2 % (36.0-47.0); LYMPH # 0.7 x10^3/uL (1.0-4.8); LYMPH % 6 % (24-48); MEAN CORPUSCULAR HEMOGLOBIN 26 pg (25-35); MEAN CORPUSCULAR HGB CONC 33 g/dL (31-37); MEAN CORPUSCULAR VOLUME 77 fL (79-100); MONO # 0.8 x10^3/uL (0.0-1.1); MONO % 7 % (0-9); NEUT # 10.7 x10^3uL (1.8-7.7); NEUT % 87 % (31-73); PLATELET COUNT 521 x10^3/uL (140-400); RED BLOOD COUNT 3.93 x10^6/uL (3.50-5.40); RED CELL DISTRIBUTION WIDTH 15.1 % (11.5-14.5); WHITE BLOOD COUNT 12.3 x10^3/uL (4.0-11.0)
[2018-02-03 06:51] LABS: CREATININE 0.7 mg/dL (0.6-1.0); GFR 85.6; POTASSIUM 3.8 mmol/L (3.5-5.1)
[2018-02-03] MEDS: LIPASE/PROTEAS/AMYLAS 10/34/55 CAPSULE.DR. PO SCH ×3 (08:07→16:00)
[2018-02-03] MEDS: LISINOPRIL 20 MG TABLET PO SCH (08:07)
[2018-02-03] MEDS: HYDROcodone/APAP 5/325MG 1 TAB TABLET PO PRN (08:08)
[2018-02-03] MEDS: ASPIRIN 81 MG TAB.CHEW PO SCH (08:08)
[2018-02-03] MEDS: CARVEDILOL 12.5 MG TABLET PO SCH ×2 (08:08→16:01)
[2018-02-03] MEDS: METOCLOPRAMIDE 10 MG TABLET PO SCH ×4 (08:08→22:11)
[2018-02-03] MEDS: CLOPIDOGREL BISULFATE 75 MG TABLET PO SCH (08:08)
[2018-02-03] MEDS: CITALOPRAM 20 MG TABLET. PO SCH (08:08)
[2018-02-03] MEDS: PANTOPRAZOLE 40 MG TABLET. PO SCH (08:08)
[2018-02-03] MEDS: INSULIN LISPRO 300 UNITS/3 ML INSULN.PEN. SQ SCH ×3 (08:09→16:21)
[2018-02-03 11:15] VITALS: BP 172/92
[2018-02-03 15:54] VITALS: BP 185/99
[2018-02-03 18:59] VITALS: BP 186/94
[2018-02-03] MEDS: traZODone 100 MG TABLET. PO SCH (22:11)
[2018-02-03] MEDS: ATORVASTATIN CALCIUM 20 MG TABLET PO SCH (22:11)
[2018-02-03 22:34] VITALS: BP 148/77
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
[2018-02-04] MEDS: INSULIN GLARGINE 300 UNITS/3 ML INSULN.PEN. SQ SCH ×2 (01:07→21:55)
[2018-02-04 05:50] VITALS: BP 115/74
[2018-02-04] MEDS: CLOPIDOGREL BISULFATE 75 MG TABLET PO SCH (07:46)
[2018-02-04] MEDS: LIPASE/PROTEAS/AMYLAS 10/34/55 CAPSULE.DR. PO SCH ×3 (07:46→17:45)
[2018-02-04] MEDS: CITALOPRAM 20 MG TABLET. PO SCH (07:46)
[2018-02-04] MEDS: CARVEDILOL 12.5 MG TABLET PO SCH ×2 (07:46→17:46)
[2018-02-04] MEDS: METOCLOPRAMIDE 10 MG TABLET PO SCH ×4 (07:46→21:59)
[2018-02-04] MEDS: PANTOPRAZOLE 40 MG TABLET. PO SCH (07:46)
[2018-02-04] MEDS: LISINOPRIL 20 MG TABLET PO SCH (07:47)
[2018-02-04] MEDS: ASPIRIN 81 MG TAB.CHEW PO SCH (07:47)
[2018-02-04] MEDS: INSULIN LISPRO 300 UNITS/3 ML INSULN.PEN. SQ SCH ×4 (08:00→17:00)
[2018-02-04 12:37] LABS: BASO % 0 % (0-3); EOS % 0 % (0-3); HEMATOCRIT 28.5 % (36.0-47.0); HEMOGLOBIN 9.7 g/dL (12.0-15.5); LYMPH # 1.3 x10^3/uL (1.0-4.8); LYMPH % 15 % (24-48); MEAN CORPUSCULAR HEMOGLOBIN 26 pg (25-35); MEAN CORPUSCULAR HGB CONC 34 g/dL (31-37); MEAN CORPUSCULAR VOLUME 77 fL (79-100); MONO # 0.9 x10^3/uL (0.0-1.1); MONO % 10 % (0-9); NEUT # 6.4 x10^3uL (1.8-7.7); NEUT % 75 % (31-73); PLATELET COUNT 535 x10^3/uL (140-400); RED CELL DISTRIBUTION WIDTH 14.8 % (11.5-14.5); WHITE BLOOD COUNT 8.5 x10^3/uL (4.0-11.0)
[2018-02-04 12:48] LABS: ALBUMIN 2.8 g/dL (3.4-5.0); ALBUMIN/GLOBULIN RATIO 0.7 (1.0-1.7); CALCIUM 8.8 mg/dL (8.5-10.1); CREATININE 0.8 mg/dL (0.6-1.0); GFR 73.4; POTASSIUM 3.5 mmol/L (3.5-5.1); TOTAL BILIRUBIN 0.5 mg/dL (0.2-1.0); TOTAL PROTEIN 6.7 g/dL (6.4-8.2)
[2018-02-04] MEDS ORDERED: IOHEXOL 240 MG/ML 50ML VIAL. ONE (13:21)
[2018-02-04] MEDS: POTASSIUM CL 20MEQ IN 0.9%NACL 1,000 ML IV SCH (13:30)
[2018-02-04] MEDS ORDERED: IOHEXOL 300 MG/ML 75 ML VIAL. IV ONE (13:45)
--- NOTE | 2018-02-04 14:50 | RAD ---
PQRS Compliance Statement: One or more of the following individualized dose reduction techniques were utilized for this examination: 1. Automated exposure control 2. Adjustment of the mA and/or kV according to patient size 3. Use of iterative reconstruction technique CT abdomen/pelvis with contrast 02/04/2018 2:15 PM INDICATION: Abdominal pain with nausea. History of acute pancreatitis. COMPARISON: CT abdomen/pelvis December 23, 2017 TECHNIQUE: Multiple axial CT images of the abdomen and pelvis were obtained after the intravenous administration of 75 mL Omnipaque 300. Coronal and sagittal reformats are provided. FINDINGS: Right breast prosthesis is noted. There is a 6 mm solid noncalcified pulmonary nodule in the right lower lobe, stable. Heart size is within normal limits. No suspicious hepatic lesion is visualized. Spleen is normal. Cerebral morphology of the adrenal glands. Gallbladder is surgically absent. No intrahepatic or extra hepatic biliary ductal dilatation is visualized. Stable cystic lesion at the tail the pancreas measuring 7 mm. No peripancreatic inflammatory changes are identified. Abdominal aorta is normal in course and caliber with moderate atherosclerotic changes. There is no free fluid or free intraperitoneal air. There is a 3 mm nonobstructing calculus in the midpole the right kidney, stable. No hydronephrosis. There is a small right extrarenal pelvis. No suspicious renal mass. Small large bowel are normal in caliber. No evidence for bowel obstruction or inflammation. A gastrostomy tube is identified within the antrum of the stomach. A jejunostomy tube is identified in the mid jejunal bowel loops. Subcutaneous nodule in the right ventral abdominal wall measuring 8 mm may be an injection site granuloma. Urinary bladder is within normal limits given degree of distention. There is stable appearance of a slight interval decrease in size of a previously 4.5 x 3.8 cm cystic mass in the uterine fundus currently measuring 4.1 x 3.7 a.m. suggestive of cystic degeneration of a uterine fibroid. Urinary bladder is within normal limits given degree of distention. No suspicious osseous lesion is identified. IMPRESSION: 1. No suspicious peripancreatic inflammatory changes are visualized. There is a stable 7 mm cyst in the tail the pancreas. A one-year follow-up CT may be of benefit to ensure stability. 2. 3 mm nonobstructing calculus in the midpole the right kidney. No hydronephrosis. 3. Stable solid noncalcified pulmonary nodule in the right lower lobe measuring 6 mm. Please refer the Fleischner 2017 pulmonary nodule guidelines for follow-up recommendations. 4. Apparent cystic degeneration of a uterine fibroid which appears smaller compared to prior examination. Electronically signed by: Elisa Diehl MD (02/04/2018 2:46 PM) [id number]
[2018-02-04] MEDS ORDERED: hydrALAZINE 20 MG/ML VIAL. IV ONE ×2 (16:30→17:00)
--- NOTE | 2018-02-04 19:06 | PN ---
DATE: 02/04/2018 SUBJECTIVE: The patient is complaining of abdominal pain, mostly around umbilical area, radiating through and through to the back. We did lab work, showed that her serum lipase is high at 460. She is known to have chronic pancreatitis before and therefore we postponed sending her to the swing bed and we will start her on IV fluid and pain medication as well as arrange for a CT scan of the abdomen and pelvis. PHYSICAL EXAMINATION: GENERAL: When I examined her, she is pale, but no jaundice or cyanosis. No lymphadenopathy, no thyromegaly. No jugular venous distension. No lower limb edema. VITAL SIGNS: Her heart rate was 115, blood pressure was 115/74, temperature was 98.9, respiratory rate was 17 and oxygen saturation was 96% on room air. HEAD, EYES, EARS, NOSE AND THROAT: Showed normocephalic, atraumatic. NECK: Supple. HEART: Showed normal first and second heart sounds. No gallop, rub or murmur. CHEST: Clear to auscultation. No crepitation or rhonchi. ABDOMEN: Scaphoid, soft. She has a jejunostomy tube in place and gastrostomy tube in place. Abdomen is very soft and nontender. No guarding or rigidity. No organomegaly. Hernial orifices intact. Bowel sounds normal. NEUROLOGIC: She is awake, alert, responding appropriately. Cranial nerves intact. She moves extremities without difficulty. She is able to ambulate without assistance or assistive devices. Her intake was 2400, no output was recorded. LABORATORY DATA: Her lab work this morning showed a white cell count of 8500, hemoglobin 9.7, hematocrit 28.5, MCV 77 and platelet count of 535,000. Her chemistry showed serum sodium of 132, potassium 3.5, chloride 97, bicarbonate 27, anion gap of 8, BUN 19, creatinine 0.8, estimated GFR was 73 mL per minute. Her glucose was 206. Calcium was 8.8. Total bilirubin, AST, ALT, alkaline phosphatase were normal. Her LDH was normal at 207. Total protein 6.7, albumin 2.8 and lipase was 460. ASSESSMENT: 1. Abdominal pain, likely due to acute pancreatitis. 2. Severe diabetic gastroparesis for which she underwent exploratory laparotomy, gastrostomy tube placement, jejunostomy tube placement, pyloroplasty. 3. Longstanding type 2 diabetes mellitus. 4. Hypertension. 5. Hyperlipidemia. 6. Coronary artery disease, status post myocardial infarction, status post PCI with stent deployment. PLAN: We will keep her n.p.o. and start her on IV fluid, IV pain medication. Once the pancreatitis settles down, she will be discharged to swing bed. I am hoping to contacting Adult Protective Services as she clearly is unable to take care of herself. INÉS GARCÍA MD DR: MAXIM/carson JOB#: [id number] / [id number]
[2018-02-04] MEDS: ATORVASTATIN CALCIUM 20 MG TABLET PO SCH (21:58)
[2018-02-04] MEDS: traZODone 100 MG TABLET. PO SCH (21:59)
[2018-02-04] MEDS: HYDROcodone/APAP 5/325MG 1 TAB TABLET PO PRN (21:59)
[2018-02-04 23:18] VITALS: BP 156/81
[2018-02-05] MEDS: POTASSIUM CL 20MEQ IN 0.9%NACL 1,000 ML IV SCH (03:42)
[2018-02-05 05:11] LABS: CREATININE 0.9 mg/dL (0.6-1.0); GFR 64.1; POTASSIUM 3.2 mmol/L (3.5-5.1)
[2018-02-05] MEDS: PANTOPRAZOLE 40 MG TABLET. PO SCH (06:02)
[2018-02-05] MEDS: METOCLOPRAMIDE 10 MG TABLET PO SCH ×4 (06:02→22:05)
[2018-02-05] MEDS: HYDROcodone/APAP 5/325MG 1 TAB TABLET PO PRN ×3 (06:02→18:25)
[2018-02-05] MEDS: POTASSIUM CL 40MEQ IN 0.9%NACL 1,000 ML IV SCH ×2 (06:20→19:50)
[2018-02-05] MEDS: INSULIN LISPRO 300 UNITS/3 ML INSULN.PEN. SQ SCH ×3 (08:00→17:00)
--- NOTE | 2018-02-05 09:40 | CONS ---
DATE OF CONSULTATION: 02/04/2018 This note covers elements not covered in my initial note 02/04/2018. SUBJECTIVE: The patient was seen individually evening of 02/04/2018 in ICU bed 1. IDENTIFYING DATA: The patient is a 57-year-old female referred by Dr. Schafer for significant symptoms of depression, inability and incompetence to follow her care from a medical standpoint consequent to diabetic gastroparesis. The patient reportedly had multiple admissions here and area hospitals for gastroparesis. She now has G-tube despite education. She is not properly caring for herself, not refusing tube feeding. The patient seen individually, discussed with nursing staff, reviewed the chart. CHIEF COMPLAINT: "Yes, I am depressed." HISTORY OF PRESENT ILLNESS: The patient is a 57-year-old female presents back to the ER complaining of intractable nausea, vomiting, abdominal pain. She has been at [facility] in [facility] frequently and left against medical advice. The patient was admitted with hypokalemia. She admits to being depressed, feeling hopeless, worthless at times. Denies suicidal ideation. No alcohol or drug abuse. No clear history of bipolar disorder. PAST PSYCHIATRIC HISTORY: Positive for depression, anxiety. PAST MEDICAL HISTORY: Type 2 diabetes mellitus, coronary artery disease, status post [place] x 2 with stent deployment, diabetic gastroparesis, chronic pancreatitis, hypertension, gastroesophageal reflux disease. PAST SURGICAL HISTORY: PCI with stent deployment, appendectomy, cholecystectomy, exploratory laparotomy, gastrostomy tube placement, jejunostomy tube placement as well as , repair of incisional hernia. ALLERGIES: No known drug allergies. FAMILY HISTORY: Unremarkable. SOCIAL HISTORY: She recently moved from [place] [facility], met somebody on line, got . Nursing staff indicate her is not reportedly been very involved in her care. No alcohol or drug abuse history. CURRENT PSYCHOTROPICS: Celexa 20 mg a day, trazodone 200 mg at bedtime, Ambien 10 mg at bedtime p.r.n. FAMILY HISTORY: Noncontributory. SOCIAL HISTORY: As noted above. MENTAL STATUS EXAMINATION: The patient was seen individually evening of 02/04/2018. She is lying in bed, somewhat anxious, restless, admits to being depressed. Speech is coherent, has some latency, somewhat distractable. Abstraction fair, computation only. She was only able to do one step serial 7's. No active suicidal or homicidal ideation. Affect is mood congruent and depressed. IMPRESSION: Major depressive disorder; anxiety disorder, unspecified; cognitive disorder, unspecified. Rest as above. PLAN: From a psychiatric standpoint, would recommend changing Celexa to Cymbalta 30 mg a day, which should be a more effective antidepressant, somewhat better with her pain management as well and anxiety symptoms. She should follow up at the [facility] post-discharge for ongoing psychotherapy and monitoring her psychotropics. Dr. Schafer, thank you for the opportunity to participate in your patient's care. We will follow with you. DAVIS UMANZOR MD DR: DAILY/carson JOB#: [id number] / [id number]
[2018-02-05] MEDS: CLOPIDOGREL BISULFATE 75 MG TABLET PO SCH (10:00)
[2018-02-05] MEDS: LIPASE/PROTEAS/AMYLAS 10/34/55 CAPSULE.DR. PO SCH ×3 (10:00→16:30)
[2018-02-05] MEDS: DULoxetine HCL 30 MG CAPSULE.DR PO SCH (10:00)
[2018-02-05] MEDS: CARVEDILOL 12.5 MG TABLET PO SCH ×2 (10:00→18:14)
[2018-02-05] MEDS: ASPIRIN 81 MG TAB.CHEW PO SCH (10:00)
[2018-02-05] MEDS: LISINOPRIL 20 MG TABLET PO SCH (10:00)
[2018-02-05 13:54] VITALS: BP 143/74
[2018-02-05 17:06] VITALS: BP 147/93
--- NOTE | 2018-02-05 18:26 | PDOC ---
Exam Note: Homero Note: Please also refer to the separate dictated note~for this date of service dictated separately.~Patient seen individually. Discussed the patient with Nursing staff reviewed the chart.~Reviewed interim history and current functioning. Reviewed vital signs,~Labs/ Radiology~and current medications noted below. Continue current treatment with the changes noted in the dictated addendum note Assessment: Vital Signs: Vital Signs Date Time Temp Pulse Resp B/P (MAP) Pulse Ox O2 Delivery O2 Flow Rate FiO2 02/05/18 18:14 70 147/93 02/05/18 17:06 98.3 18 96 02/05/18 13:30 Room Air I&O Intake and Output 02/05/18 07:00 Intake Total 1315.85 ml Output Total 850 ml Balance 465.85 ml IV Total 1040.85 ml Tube Feeding 0 ml Other 275 ml Gastric Drainage Total 850 ml # Voids 1 Labs: Laboratory Tests Test 02/04/18 21:43 02/05/18 00:13 02/05/18 04:50 02/05/18 07:58 Glucose (Fingerstick) 218 mg/dL (70-99) H 176 mg/dL (70-99) H 145 mg/dL (70-99) H Sodium Level 134 mmol/L (136-145) L Potassium Level 3.2 mmol/L (3.5-5.1) L Chloride Level 100 mmol/L (98-107) Carbon Dioxide Level 27 mmol/L (21-32) Anion Gap 7 (6-14) Blood Urea Nitrogen 23 mg/dL (7-20) H Creatinine 0.9 mg/dL (0.6-1.0) Estimated GFR (Cockcroft-Gault) 64.1 Glucose Level 124 mg/dL (70-99) H Calcium Level 8.0 mg/dL (8.5-10.1) L Lipase 775 U/L (73-393) H Test 02/05/18 12:09 02/05/18 13:45 02/05/18 18:14 Glucose (Fingerstick) 156 mg/dL (70-99) H 189 mg/dL (70-99) H 134 mg/dL (70-99) H Current Medications: Meds: Current Medications Sodium Chloride 1,000 ml @ 1,000 mls/hr Q1H IV Last administered on 02/02/18at 00:30; Start 02/02/18 at 00:30; Stop 02/02/18 at 01:30; Status DC Haloperidol Lactate (Haldol) 5 mg 1X ONCE IVP Last administered on 02/02/18at 00 :45; Start 02/02/18 at 00:45; Stop 02/02/18 at 00:46; Status DC Ondansetron HCl (Zofran Odt) 4 mg 1X ONCE PO Last administered on 02/02/18at 00: 45; Start 02/02/18 at 00:45; Stop 02/02/18 at 00:46; Status DC Sodium Chloride 1,000 ml @ 125 mls/hr Q8H IV Last administered on 02/02/18at 04: 15; Start 02/02/18 at 03:30; Stop 02/02/18 at 07:39; Status DC Metoclopramide HCl (Reglan Vial) 10 mg PRN Q6HRS PRN IV NAUSEA/VOMITING Last administered on 02/02/18at 06:51; Start 02/02/18 at 03:30 Potassium Chloride/Sodium Chloride 1,000 ml @ 125 mls/hr Q8H IV Last administered on 02/03/18at 08:11; Start 02/02/18 at 07:45; Stop 02/04/18 at 02:08; Status DC Citalopram Hydrobromide (CeleXA) 20 mg DAILY PO Last administered on 02/04/18 07:46; Start 02/03/18 at 09:00; Stop 02/05/18 at 08:01; Status DC Clopidogrel Bisulfate (Plavix) 75 mg DAILY PO Last administered on 02/05/18 10: 00; Start 02/03/18 at 09:00 Insulin Glargine (Lantus) 18 units QHS SQ Last administered on 02/04/18 21:55; Start 02/02/18 at 21:00 Lisinopril (Prinivil) 20 mg DAILY PO Last administered on 02/05/18 10:00; Start 02/03/18 at 09:00 Aspirin (Children'S Aspirin) 81 mg DAILY PO Last administered on 02/05/18 10:00 ; Start 02/03/18 at 09:00 Atorvastatin Calcium (Lipitor) 40 mg QHS PO Last administered on 02/04/18 21:58 ; Start 02/02/18 at 21:00 Carvedilol (Coreg) 25 mg BIDWMEALS PO Last administered on 02/05/18 18:14; Start 02/02/18 at 17:00 Acetaminophen/ Hydrocodone Bitart (Lortab 5/325) 1 tab PRN Q6HRS PRN PO PAIN Last administered on 02/05/18 12:05; Start 02/02/18 at 16:15 Insulin Human Lispro (HumaLOG) 10 units TIDWMEALS SQ Last administered on 14:45; Start 02/02/18 at 17:00 Amylase/Lipase/ Protease (Zenpep 10,000) 1 cap TIDAC PO Last administered on 12:05; Start 02/02/18 at 16:30 Metoclopramide HCl (Reglan) 10 mg QIDACHS PO Last administered on 02/05/18 12: 04; Start 02/02/18 at 16:30 Pantoprazole Sodium (Protonix) 40 mg DAILYAC PO Last administered on 02/05/18 06:02; Start 02/03/18 at 07:30 Trazodone HCl (Desyrel) 200 mg QHS PO Last administered on 02/04/18 21:59; Start 02/02/18 at 21:00 Zolpidem Tartrate (Ambien) 10 mg PRN QHS PRN PO INSOMNIA; Start 02/02/18 at 16: 30 Iohexol (Omnipaque 240 Mg/ml) 50 ml STK-MED ONCE .ROUTE ; Start 02/04/18 at 13:21 ; Stop 02/04/18 at 13:22; Status DC Fentanyl Citrate (Fentanyl 2ml Vial) 25 mcg PRN Q3HRS PRN IV PAIN; Start at 13:30 Potassium Chloride/Sodium Chloride 1,000 ml @ 75 mls/hr [id number] IV Last administered on 02/05/18 03:42; Start 02/04/18 at 13:30; Stop 02/05/18 at 05:33; Status DC Iohexol (Omnipaque 300 Mg/ml) 75 ml 1X ONCE IV Last administered on 02/04/18at 14:23; Start 02/04/18 at 13:45; Stop 02/04/18 at 13:47; Status DC Hydralazine HCl (Apresoline) 10 mg 1X ONCE IV Last administered on 02/04/18at 16 :26; Start 02/04/18 at 16:30; Stop 02/04/18 at 16:31; Status DC Hydralazine HCl (Apresoline) 10 mg 1X ONCE IV ; Start 02/04/18 at 17:00; Stop at 17:01; Status DC Potassium Chloride/Sodium Chloride 1,000 ml @ 75 mls/hr [id number] IV Last administered on 02/05/18at 06:20; Start 02/05/18 at 06:00 Duloxetine HCl (Cymbalta) 30 mg DAILY PO Last administered on 02/05/18at 10:00; Start 02/05/18 at 09:00 Potassium Chloride (KCl Oral Soln) 20 meq TID PO ; Start 02/05/18 at 21:00 Active Scripts Active Hydrocodone-Apap 5-325 (Hydrocodone Bit/Acetaminophen) 1 Each Tablet 1 Tab PO PRN Q6HRS PRN 6 Days Amoxicillin 500 Mg Tablet 1 Tab PO TID 4 Days Reported Zolpidem Tartrate 10 Mg Tablet 10 Mg PO PRN QHS PRN LAST DOSE GIVEN: DATE: YESTERDAY TIME: AT BEDTIME NEXT DOSE DUE: DATE: TODAY TIME: AT BEDTIME Zofran Odt (Ondansetron) 4 Mg Tab.rapdis 4 Mg PO Q6HRS NOT TAKEN TODAY NEXT DOSE DUE: DATE: TODAY TIME: IF AND WHEN NEEDED Trazodone Hcl 100 Mg Tablet 200 Mg PO QHS LAST DOSE GIVEN: DATE: YESTERDAY TIME: AT BEDTIME NEXT DOSE DUE: DATE: TODAY TIME: AT BEDTIME Plavix (Clopidogrel Bisulfate) 75 Mg Tablet 75 Mg PO DAILY LAST DOSE GIVEN: NOT GIVEN IN THE HOSPITAL NEXT DOSE DUE: DATE: RESTART TOMORROW TIME: AM Citalopram Hbr (Citalopram Hydrobromide) 20 Mg Tablet 20 Mg PO DAILY LAST DOSE GIVEN: DATE: TODAY TIME: AM NEXT DOSE DUE: DATE: TOMORROW TIME: AM Carvedilol 25 Mg Tablet 25 Mg PO BIDWMEALS LAST DOSE GIVEN: DATE: TODAY TIME: WITH BREAKFAST NEXT DOSE DUE: DATE: TODAY TIME: WITH DINNER Atorvastatin Calcium 40 Mg Tablet 40 Mg PO QHS LAST DOSE GIVEN: DATE: YESTERDAY TIME: AT BEDTIME NEXT DOSE DUE: DATE: TODAY TIME: AT BEDTIME Aspirin 81 Mg Tab.chew 81 Mg PO DAILY NOT GIVEN IN THE HOSPITAL NEXT DOSE DUE: DATE: RESTART TOMORROW TIME: AM Radha Sanchez 12,000 Units Capsule (Lipase/Protease/Amylase) 1 Each Capsule.dr 1 Each PO TIDAC LAST DOSE GIVEN: DATE: TODAY TIME: BEFORE BREAKFAST NEXT DOSE DUE: DATE: TODAY TIME: BEFORE LUNCH Protonix (Pantoprazole Sodium) 40 Mg Tablet.dr 1 Tab PO DAILYAC LAST DOSE GIVEN: DATE: TODAY TIME: BEFORE BREAKFAST NEXT DOSE DUE: DATE: TOMORROW TIME: BEFORE BREAKFAST Reglan (Metoclopramide Hcl) 10 Mg Tablet 1 Tab PO QIDACHS LAST DOSE GIVEN: DATE: TIME: BEFORE BREAKFAST NEXT DOSE DUE: DATE: TODAY TIME: BEFORE LUNCH Lisinopril 20 Mg Tablet 1 Tab PO DAILY LAST DOSE GIVEN: DATE: TIME: AM NEXT DOSE DUE: DATE: TOMORROW TIME: AM Lantus Solostar (Insulin Glargine,Hum.rec.anlog) 100 Unit/1 Ml Insuln.pen 18 Unit SQ QHS NOT GIVEN IN THE HOSPITAL NEXT DOSE DUE: DATE: RESTART TODAY TIME: AT BEDTIME DATE: TIME: Novolog Flexpen (Insulin Aspart) 100 Unit/1 Ml Insuln.pen 10 Unit SQ TIDWMEALS NOT GIVEN IN THE HOSPITAL NEXT DOSE DUE: DATE: TODAY TIME: WITH LUNCH DATE: TIME: I have reviewed the current psychotropics carefully including drug interactions. Risk benefit ratio favors no change other than as noted in my dictated progress note. Diagnosis: Problems: (1) Major depressive disorder, recurrent episode DAVIS UMANZOR MD Feb 05, 2018 18:26
[2018-02-05 19:52] VITALS: BP 121/57
[2018-02-05] MEDS: INSULIN GLARGINE 300 UNITS/3 ML INSULN.PEN. SQ SCH (21:00)
[2018-02-05] MEDS: traZODone 100 MG TABLET. PO SCH (22:03)
[2018-02-05] MEDS: POTASSIUM CHLORIDE 20 MEQ/15 ML ORAL LIQUID. PO SCH (22:04)
[2018-02-05] MEDS: ATORVASTATIN CALCIUM 20 MG TABLET PO SCH (22:05)
[2018-02-05 22:39] VITALS: BP 135/78
--- NOTE | 2018-02-05 23:01 | PN ---
DATE: 02/05/2018 SUBJECTIVE: The patient is resting, slightly propped up in bed, sleeping comfortably. On questioning her, she continued to be nauseous and complaining of abdominal pain. Unfortunately, her serum lipase has risen further today from 160 up to 775. However, we did a CT scan of the abdomen and pelvis and the impression is that there is no suspicious peripancreatic inflammatory changes visualized. There is a stable 7 mm cyst in the tail of the pancreas and a 1-year followup CT scan may be of benefit to ensure stability. She has a 3 mm nonobstructing calculus in the mid pole of the right kidney. No hydronephrosis. Three stable solid noncalcified pulmonary nodules in the right lower lobe, measuring 6 mm and apparently cystic degeneration of uterine fibroid, which appears smaller compared to prior examination. OBJECTIVE: GENERAL: On examining her today, she looked pale, but no jaundice, cyanosis, lymphadenopathy or thyromegaly. No jugular venous distension. No limb edema. VITAL SIGNS: Her heart rate was 100, blood pressure 143/74, temperature was 98.4, respiratory rate was 18 and oxygen saturation was 98%. HEAD, EYES, EARS, NOSE AND THROAT: Normocephalic, atraumatic. NECK: Supple. HEART: Showed normal first and second heart sounds with no gallop, rub or murmur. CHEST: Clear to auscultation. No crepitation or rhonchi. ABDOMEN: Distended, soft. She has a gastrostomy tube in place and a jejunostomy tube in place. There is no guarding or rigidity. No organomegaly. Hernial orifice intact. Bowel sounds normal. NEUROLOGIC: She is stable with arousable. All cranial nerves intact. She moves extremities without difficulty. Her intake over the last 24 hours was 2500, output was 2850. LABORATORY DATA: This morning showed a serum sodium of 134, potassium 3.2, chloride 100, bicarbonate 27, anion gap of 7, BUN 23, creatinine 0.9, estimated GFR was 64 mL per minute. Her glucose was 124, calcium was 8 and lipase was 775. Her white cell count was 8500, hemoglobin 9.7, hematocrit 28.5, MCV 77 and platelet count 535,000. ASSESSMENT: 1. Abdominal pain, likely due to acute pancreatitis. 2. Severe diabetic gastroparesis, which she underwent exploratory laparotomy, gastrostomy tube placement, jejunostomy tube placement and pyloroplasty. 3. Longstanding type 2 diabetes mellitus. 4. Hypertension. 5. Hyperlipidemia. 6. Coronary artery disease, status post myocardial infarction, status post PCI with stent deployment. 7. Hypokalemia. 8. Major depressive disorder and cognitive disorder. PLAN: We will continue for now with the pain management and IV fluid as well as nutrition through her jejunostomy tube. I will attempt to clamp her gastrostomy tube and see how she does with that and repeat her labs tomorrow. INÉS GARCÍA MD DR: MAXIM/carson JOB#: [id number] / [id number]
[2018-02-06 05:50] VITALS: BP 114/78
[2018-02-06 07:01] LABS: ALBUMIN 2.1 g/dL (3.4-5.0); ALBUMIN/GLOBULIN RATIO 0.7 (1.0-1.7); CREATININE 0.8 mg/dL (0.6-1.0); GFR 73.4; POTASSIUM 4.2 mmol/L (3.5-5.1); TOTAL BILIRUBIN 0.3 mg/dL (0.2-1.0); TOTAL PROTEIN 5.3 g/dL (6.4-8.2)
[2018-02-06] MEDS: CLOPIDOGREL BISULFATE 75 MG TABLET PO SCH (08:03)
[2018-02-06] MEDS: LISINOPRIL 20 MG TABLET PO SCH (08:03)
[2018-02-06] MEDS: LIPASE/PROTEAS/AMYLAS 10/34/55 CAPSULE.DR. PO SCH ×3 (08:03→16:48)
[2018-02-06] MEDS: POTASSIUM CHLORIDE 20 MEQ/15 ML ORAL LIQUID. PO SCH ×3 (08:03→21:14)
[2018-02-06] MEDS: DULoxetine HCL 30 MG CAPSULE.DR PO SCH (08:03)
[2018-02-06] MEDS: PANTOPRAZOLE 40 MG TABLET. PO SCH (08:04)
[2018-02-06] MEDS: METOCLOPRAMIDE 10 MG TABLET PO SCH ×4 (08:04→21:14)
[2018-02-06] MEDS: CARVEDILOL 12.5 MG TABLET PO SCH ×2 (08:04→16:48)
[2018-02-06] MEDS: ASPIRIN 81 MG TAB.CHEW PO SCH (08:04)
[2018-02-06] MEDS: HYDROcodone/APAP 5/325MG 1 TAB TABLET PO PRN ×2 (08:05→16:48)
[2018-02-06] MEDS: INSULIN LISPRO 300 UNITS/3 ML INSULN.PEN. SQ SCH ×3 (08:08→17:00)
[2018-02-06] MEDS: POTASSIUM CL 40MEQ IN 0.9%NACL 1,000 ML IV SCH (08:31)
[2018-02-06 11:05] VITALS: BP 99/68
--- NOTE | 2018-02-06 16:05 | PDOC ---
Exam Note: Homero Note: Please also refer to the separate dictated note~for this date of service dictated separately.~Patient seen individually. Discussed the patient with Nursing staff reviewed the chart.~Reviewed interim history and current functioning. Reviewed vital signs,~Labs/ Radiology~and current medications noted below. Continue current treatment with the changes noted in the dictated addendum note Assessment: Vital Signs: Vital Signs Date Time Temp Pulse Resp B/P (MAP) Pulse Ox O2 Delivery O2 Flow Rate FiO2 02/06/18 11:05 98.3 91 20 99/68 (78) 96 Room Air I&O Intake and Output 02/06/18 07:00 Intake Total 1441 ml Balance 1441 ml Intake Oral 8 ml IV Total 1433 ml # Voids 3 Labs: Laboratory Tests Test 02/05/18 18:14 02/05/18 20:13 02/06/18 06:25 02/06/18 07:46 Glucose (Fingerstick) 134 mg/dL (70-99) H 113 mg/dL (70-99) H 101 mg/dL (70-99) H Sodium Level 138 mmol/L (136-145) Potassium Level 4.2 mmol/L (3.5-5.1) Chloride Level 106 mmol/L (98-107) Carbon Dioxide Level 24 mmol/L (21-32) Anion Gap 8 (6-14) Blood Urea Nitrogen 15 mg/dL (7-20) Creatinine 0.8 mg/dL (0.6-1.0) Estimated GFR (Cockcroft-Gault) 73.4 BUN/Creatinine Ratio 19 (6-20) Glucose Level 80 mg/dL (70-99) Calcium Level 8.0 mg/dL (8.5-10.1) L Total Bilirubin 0.3 mg/dL (0.2-1.0) Aspartate Amino Transferase (AST) 20 U/L (15-37) Alanine Aminotransferase (ALT) 22 U/L (14-59) Alkaline Phosphatase 95 U/L (46-116) Total Protein 5.3 g/dL (6.4-8.2) L Albumin 2.1 g/dL (3.4-5.0) L Albumin/Globulin Ratio 0.7 (1.0-1.7) L Lipase 481 U/L (73-393) H Test 02/06/18 11:49 Glucose (Fingerstick) 129 mg/dL (70-99) H Current Medications: Meds: Current Medications Sodium Chloride 1,000 ml @ 1,000 mls/hr Q1H IV Last administered on 02/02/18at 00:30; Start 02/02/18 at 00:30; Stop 02/02/18 at 01:30; Status DC Haloperidol Lactate (Haldol) 5 mg 1X ONCE IVP Last administered on 02/02/18at 00 :45; Start 02/02/18 at 00:45; Stop 02/02/18 at 00:46; Status DC Ondansetron HCl (Zofran Odt) 4 mg 1X ONCE PO Last administered on 02/02/18at 00: 45; Start 02/02/18 at 00:45; Stop 02/02/18 at 00:46; Status DC Sodium Chloride 1,000 ml @ 125 mls/hr Q8H IV Last administered on 02/02/18at 04: 15; Start 02/02/18 at 03:30; Stop 02/02/18 at 07:39; Status DC Metoclopramide HCl (Reglan Vial) 10 mg PRN Q6HRS PRN IV NAUSEA/VOMITING Last administered on 02/02/18at 06:51; Start 02/02/18 at 03:30 Potassium Chloride/Sodium Chloride 1,000 ml @ 125 mls/hr Q8H IV Last administered on 02/03/18at 08:11; Start 02/02/18 at 07:45; Stop 02/04/18 at 02:08; Status DC Citalopram Hydrobromide (CeleXA) 20 mg DAILY PO Last administered on 02/04/18at 07:46; Start 02/03/18 at 09:00; Stop 02/05/18 at 08:01; Status DC Clopidogrel Bisulfate (Plavix) 75 mg DAILY PO Last administered on 02/06/18 08: 03; Start 02/03/18 at 09:00 Insulin Glargine (Lantus) 18 units QHS SQ Last administered on 02/04/18at 21:55; Start 02/02/18 at 21:00 Lisinopril (Prinivil) 20 mg DAILY PO Last administered on 02/06/18at 08:03; Start 02/03/18 at 09:00 Aspirin (Children'S Aspirin) 81 mg DAILY PO Last administered on 02/06/18 08:04 ; Start 02/03/18 at 09:00 Atorvastatin Calcium (Lipitor) 40 mg QHS PO Last administered on 02/05/18 22:05 ; Start 02/02/18 at 21:00 Carvedilol (Coreg) 25 mg BIDWMEALS PO Last administered on 02/06/18 08:04; Start 02/02/18 at 17:00 Acetaminophen/ Hydrocodone Bitart (Lortab 5/325) 1 tab PRN Q6HRS PRN PO PAIN Last administered on 02/06/18 08:05; Start 02/02/18 at 16:15 Insulin Human Lispro (HumaLOG) 10 units TIDWMEALS SQ Last administered on 14:45; Start 02/02/18 at 17:00 Amylase/Lipase/ Protease (Zenpep 10,000) 1 cap TIDAC PO Last administered on 13:45; Start 02/02/18 at 16:30 Metoclopramide HCl (Reglan) 10 mg QIDACHS PO Last administered on 02/06/18 13: 45; Start 02/02/18 at 16:30 Pantoprazole Sodium (Protonix) 40 mg DAILYAC PO Last administered on 02/06/18 08:04; Start 02/03/18 at 07:30 Trazodone HCl (Desyrel) 200 mg QHS PO Last administered on 02/05/18at 22:03; Start 02/02/18 at 21:00 Zolpidem Tartrate (Ambien) 10 mg PRN QHS PRN PO INSOMNIA; Start 02/02/18 at 16: 30 Iohexol (Omnipaque 240 Mg/ml) 50 ml STK-MED ONCE .ROUTE ; Start 02/04/18 at 13:21 ; Stop 02/04/18 at 13:22; Status DC Fentanyl Citrate (Fentanyl 2ml Vial) 25 mcg PRN Q3HRS PRN IV PAIN; Start at 13:30 Potassium Chloride/Sodium Chloride 1,000 ml @ 75 mls/hr [id number] IV Last administered on 02/05/18at 03:42; Start 02/04/18 at 13:30; Stop 02/05/18 at 05:33; Status DC Iohexol (Omnipaque 300 Mg/ml) 75 ml 1X ONCE IV Last administered on 02/04/18at 14:23; Start 02/04/18 at 13:45; Stop 02/04/18 at 13:47; Status DC Hydralazine HCl (Apresoline) 10 mg 1X ONCE IV Last administered on 02/04/18at 16 :26; Start 02/04/18 at 16:30; Stop 02/04/18 at 16:31; Status DC Hydralazine HCl (Apresoline) 10 mg 1X ONCE IV ; Start 02/04/18 at 17:00; Stop at 17:01; Status DC Potassium Chloride/Sodium Chloride 1,000 ml @ 75 mls/hr [id number] IV Last administered on 02/06/18at 08:31; Start 02/05/18 at 06:00 Duloxetine HCl (Cymbalta) 30 mg DAILY PO Last administered on 02/06/18at 08:03; Start 02/05/18 at 09:00 Potassium Chloride (KCl Oral Soln) 20 meq TID PO Last administered on 02/06/18at 13:46; Start 02/05/18 at 21:00 Active Scripts Active Hydrocodone-Apap 5-325 (Hydrocodone Bit/Acetaminophen) 1 Each Tablet 1 Tab PO PRN Q6HRS PRN 6 Days Amoxicillin 500 Mg Tablet 1 Tab PO TID 4 Days Reported Zolpidem Tartrate 10 Mg Tablet 10 Mg PO PRN QHS PRN LAST DOSE GIVEN: DATE: YESTERDAY TIME: AT BEDTIME NEXT DOSE DUE: DATE: TODAY TIME: AT BEDTIME Zofran Odt (Ondansetron) 4 Mg Tab.rapdis 4 Mg PO Q6HRS NOT TAKEN TODAY NEXT DOSE DUE: DATE: TODAY TIME: IF AND WHEN NEEDED Trazodone Hcl 100 Mg Tablet 200 Mg PO QHS LAST DOSE GIVEN: DATE: YESTERDAY TIME: AT BEDTIME NEXT DOSE DUE: DATE: TODAY TIME: AT BEDTIME Plavix (Clopidogrel Bisulfate) 75 Mg Tablet 75 Mg PO DAILY LAST DOSE GIVEN: NOT GIVEN IN THE HOSPITAL NEXT DOSE DUE: DATE: RESTART TOMORROW TIME: AM Citalopram Hbr (Citalopram Hydrobromide) 20 Mg Tablet 20 Mg PO DAILY LAST DOSE GIVEN: DATE: TODAY TIME: AM NEXT DOSE DUE: DATE: TOMORROW TIME: AM Carvedilol 25 Mg Tablet 25 Mg PO BIDWMEALS LAST DOSE GIVEN: DATE: TODAY TIME: WITH BREAKFAST NEXT DOSE DUE: DATE: TODAY TIME: WITH DINNER Atorvastatin Calcium 40 Mg Tablet 40 Mg PO QHS LAST DOSE GIVEN: DATE: YESTERDAY TIME: AT BEDTIME NEXT DOSE DUE: DATE: TODAY TIME: AT BEDTIME Aspirin 81 Mg Tab.chew 81 Mg PO DAILY NOT GIVEN IN THE HOSPITAL NEXT DOSE DUE: DATE: RESTART TOMORROW TIME: AM Ghassanon 12,000 Units Capsule (Lipase/Protease/Amylase) 1 Each Capsule.dr 1 Each PO TIDAC LAST DOSE GIVEN: DATE: TIME: BEFORE BREAKFAST NEXT DOSE DUE: DATE: TODAY TIME: BEFORE LUNCH Protonix (Pantoprazole Sodium) 40 Mg Tablet.dr 1 Tab PO DAILYAC LAST DOSE GIVEN: DATE: TIME: BEFORE BREAKFAST NEXT DOSE DUE: DATE: TOMORR TIME: BEFORE BREAKFAST Reglan (Metoclopramide Hcl) 10 Mg Tablet 1 Tab PO QIDACHS LAST DOSE GIVEN: DATE: TODAY TIME: BEFORE BREAKFAST NEXT DOSE DUE: DATE: TODAY TIME: BEFORE LUNCH Lisinopril 20 Mg Tablet 1 Tab PO DAILY LAST DOSE GIVEN: DATE: TODAY TIME: AM NEXT DOSE DUE: DATE: TOMORR TIME: AM Lantus Solostar (Insulin Glargine,Hum.rec.anlog) 100 Unit/1 Ml Insuln.pen 18 Unit SQ QHS NOT GIVEN IN THE HOSPITAL NEXT DOSE DUE: DATE: RESTART TODAY TIME: AT BEDTIME DATE: TIME: Novolog Flexpen (Insulin Aspart) 100 Unit/1 Ml Insuln.pen 10 Unit SQ TIDWMEALS NOT GIVEN IN THE HOSPITAL NEXT DOSE DUE: DATE: TODAY TIME: WITH LUNCH DATE: TIME: I have reviewed the current psychotropics carefully including drug interactions. Risk benefit ratio favors no change other than as noted in my dictated progress note. Diagnosis: Problems: (1) Major depressive disorder, recurrent episode DAVIS UMANZOR MD Feb 06, 2018 16:05
--- NOTE | 2018-02-06 17:23 | PN ---
DATE: 02/05/2018 PSYCHIATRIC PROGRESS NOTE This late entry 02/05/2018 covers elements, not covered in my initial note of 02/05/2018. I met with the patient in the evening. Overall, per nursing report, the patient was transferred from the ICU to [address] [place] [address]. She is still depressed, anxious with ongoing chronic pain. She is tolerating the change of Celexa to Cymbalta 30 mg a day. Ambulation impaired with ongoing chronic pain. REVIEW OF SYSTEMS: No CV, , GI system symptoms on review. MENTAL STATUS EXAM: Reasonably oriented. Speech coherent, abstraction fair, computation impaired. Mood and affect remains depressed. No suicidal ideation. LABORATORY DATA: Reviewed. IMPRESSION: Major depressive disorder, recurrent; anxiety disorder, unspecified. PLAN: Continue psychotropics from initial note. For now, may need to increase Cymbalta gradually. MAN Luz UMANZOR MD DR: DAILY/carson JOB#: [id number] / [id number]
[2018-02-06 19:20] VITALS: BP 113/75
[2018-02-06] MEDS: INSULIN GLARGINE 300 UNITS/3 ML INSULN.PEN. SQ SCH (21:00)
[2018-02-06] MEDS: traZODone 100 MG TABLET. PO SCH (21:14)
[2018-02-06] MEDS: ATORVASTATIN CALCIUM 20 MG TABLET PO SCH (21:14)
[2018-02-06] MEDS ORDERED: POTA20PA PO (22:16)
[2018-02-06] MEDS ORDERED: DULO60CA6 PO (22:16)
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
--- NOTE | 2018-02-07 13:30 | PN ---
DATE: 02/06/2018 PSYCHIATRIC PROGRESS NOTE This is a late entry 02/06/2018 covers elements not covered in my initial note 02/06/2018. SUBJECTIVE: I met with the patient in the evening. Overall, the patient remains somewhat withdrawn, assists in a limited way with her ADLs and other activities and daily cares. She will be transferred to the intermediate unit per Dr. Schafer. From a psychiatric standpoint despite the above, subjectively she states her mood is a little better, less anxious. She also feels the pain is better since being on the Cymbalta. REVIEW OF SYSTEMS: Impaired ambulation, some chronic pain. No CV, , pulmonary, eye system symptoms on review. MENTAL STATUS EXAM: Reasonably oriented. Speech coherent, has some latency. Abstraction fair, computation impaired, language function intact. Mood and affect somewhat withdrawn with some after no suicidal or homicidal ideation. IMPRESSION: Major depressive disorder, recurrent; anxiety disorder, unspecified. PLAN: Continue Cymbalta 30 mg a day should be increased to 60 mg a day in about 3 days. Rest unchanged. MAN Luz UMANZOR MD DR: DAILY/carson JOB#: [id number] / [id number]
--- NOTE | 2018-02-09 02:29 | DS ---
DATE OF DISCHARGE: 02/06/2018 HOSPITAL COURSE: The patient is a 57-year-old female patient, who was admitted again with a complaint of abdominal pain, recurrent bouts of nausea, vomiting, and the patient was clearly unable to take care of herself, and a decision was made to admit her to swing bed. Unfortunately, her abdominal pain has dramatically worsened and we checked her serum lipase among other lab tests and was found to have acute pancreatitis, so we held her tube feeding and continued the IV fluid and pain medication. Her serum lipase has been trending down and she was pain free, and a decision was made to admit her to swing bed to continue teaching her how to take care of her tube feeding at her medication. PHYSICAL EXAMINATION: GENERAL: On the day of discharge, the patient looked well, slightly pale, but no jaundice, cyanosis or thyromegaly. No jugular venous distension. No lower limb edema. VITAL SIGNS: Her heart rate was 91, blood pressure was 99/68, temperature was 98.3, respiratory rate 20, and oxygen saturation was 96%. HEAD, EYES, EARS, NOSE, AND THROAT: Normocephalic, atraumatic. NECK: Supple. HEART: Showed normal first and second sounds. No gallop, rub, or murmur. CHEST: Clear to auscultation. No crepitation or rhonchi. ABDOMEN: Distended, soft, nontender. She has a gastrostomy tube in place as well as jejunostomy tube in place. There is no tenderness. No guarding or rigidity. No organomegaly. All hernial orifices intact. Bowel sounds normal. NEUROLOGIC: She is awake, alert, responding appropriately. All cranial nerves intact. She moves extremities without difficulty. She ambulates without assistance or assistive devices. LABORATORY DATA: Her lab work showed her serum lipase is trending down. Serum sodium 138, potassium 4.2, chloride 106, bicarbonate 24, anion gap of 8, BUN 15, creatinine 0.8, estimated GFR was 73 mL per minute. Her glucose 80, calcium was 8. Total bilirubin, AST, ALT, alkaline phosphatase were normal. Total protein 5.3, albumin 2.1, and serum lipase was . Her white cell count was 8500, hemoglobin 9.7, hematocrit 28.5, MCV 77 and platelet count of 535,000. DISCHARGE MEDICATIONS: She was discharged on following medications: Plavix 75 mg once a day, atorvastatin 40 mg at bedtime, carvedilol 25 mg twice a day, lisinopril 20 mg daily, aspirin 81 mg once a day, hydrocodone/APAP 5/325 one tablet every 6 hours, duloxetine for Cymbalta 60 mg once a day, trazodone 200 mg at bedtime, Ambien 10 mg at bedtime, potassium chloride 20 mEq 3 times a day, Creon 12,000 units capsule 1 capsule 3 times a day before meals, Protonix 40 mg once a day, metoclopramide 10 mg 4 times a day. She is on insulin, NovoLog insulin 10 units 3 times a day before meals and Lantus 18 units at bedtime. FINAL DISCHARGE DIAGNOSES: 1. Acute pancreatitis; however, CT scan did not show any evidence of peripancreatic inflammation and/or pancreatic pseudocyst. 2. Diabetic gastroparesis, for which she underwent gastrostomy tube placement, jejunostomy tube placement and pyloroplasty. 3. Longstanding type 2 diabetes. 4. Hypertension. 5. Hyperlipidemia. INÉS GARCÍA MD DR: MAXIM/carson JOB#: [id number] / [id number]
== END 2018-02-06 21:20 | disposition swing bed (61) | DRG 439 ==
LOC: ER 23:35 → ICU 02-02 03:14 → 1 SOUTH 02-04 20:43
PROVIDERS: ADMIT Internal Medicine; ATTEND Internal Medicine
DX: K85.90 Acute pancreatitis without necrosis or infection, unspecified (principal); F33.9 Major depressive disorder, recurrent, unspecified; E11.43 Type 2 diabetes mellitus with diabetic autonomic (poly)neuropathy; K31.84 Gastroparesis; F41.9 Anxiety disorder, unspecified; I10 Essential (primary) hypertension; I25.10 Atherosclerotic heart disease of native coronary artery without angina pectoris; F09 Unspecified mental disorder due to known physiological condition; K21.9 Gastro-esophageal reflux disease without esophagitis; R41.89 Other symptoms and signs involving cognitive functions and awareness; E87.6 Hypokalemia; E78.5 Hyperlipidemia, unspecified; D25.9 Leiomyoma of uterus, unspecified; K86.1 Other chronic pancreatitis; S80.02XA Contusion of left knee, initial encounter; S80.01XA Contusion of right knee, initial encounter; X58.XXXA Exposure to other specified factors, initial encounter; Y93.89 Activity, other specified; Y92.89 Other specified places as the place of occurrence of the external cause; I25.2 Old myocardial infarction; Y99.8 Other external cause status; Z91.19 Patient's noncompliance with other medical treatment and regimen; Z93.4 Other artificial openings of gastrointestinal tract status; Z79.899 Other long term (current) drug therapy; Z95.5 Presence of coronary angioplasty implant and graft; Z90.49 Acquired absence of other specified parts of digestive tract; Z93.1 Gastrostomy status
CPT/HCPCS: 36415; 74022; 74177; 80048; 80053; 81001; 82947; 83615; 83690; 85025; 87086; 87641; 96361; 96374; J0360; J1630; J1815; J2765; J8597; Q0162; Q9967; 99285-25; J7030

== ENCOUNTER 2018-02-06 15:36 | Inpatient (IN) | payer SELFPAY ==
[~2018-02-06] VITALS: Ht 157.5 cm; Wt 55.5 kg
[2018-02-06 21:20] VITALS: BP 113/75
[2018-02-06] MEDS ORDERED: DULO60CA6 PO (22:16)
[2018-02-06] MEDS ORDERED: POTA20PA PO (22:16)
[2018-02-06] MEDS ORDERED: DULoxetine HCL 30 MG CAPSULE.DR PO ONE (22:30)
[2018-02-06] MEDS ORDERED: ZOLPIDEM 5 MG TABLET. PO PRN (22:45)
[2018-02-07 06:10] VITALS: BP 129/71
[2018-02-07] MEDS: INSULIN LISPRO 300 UNITS/3 ML INSULN.PEN. SQ SCH ×3 (08:00→17:00)
[2018-02-07] MEDS ORDERED: POTASSIUM CHLORIDE 20 MEQ TABLET.ER. PO SCH (08:00)
[2018-02-07] MEDS ORDERED: DULoxetine HCL 30 MG CAPSULE.DR PO ONE (09:00)
[2018-02-07] MEDS: CLOPIDOGREL BISULFATE 75 MG TABLET PO SCH (09:30)
[2018-02-07] MEDS: PANTOPRAZOLE 40 MG TABLET. PO SCH (09:30)
[2018-02-07] MEDS: CARVEDILOL 12.5 MG TABLET PO SCH ×2 (09:31→18:18)
[2018-02-07] MEDS: LIPASE/PROTEAS/AMYLAS 10/34/55 CAPSULE.DR. PO SCH ×4 (09:31→18:17)
[2018-02-07] MEDS: METOCLOPRAMIDE 10 MG TABLET PO SCH ×5 (09:31→22:07)
[2018-02-07] MEDS: ASPIRIN 81 MG TAB.CHEW PO SCH (09:31)
[2018-02-07] MEDS: POTASSIUM CHLORIDE 20 MEQ/15 ML ORAL LIQUID. PO SCH ×3 (09:32→22:08)
[2018-02-07] MEDS: LISINOPRIL 20 MG TABLET PO SCH (09:33)
[2018-02-07 10:49] LABS: CALCIUM 8.2 mg/dL (8.5-10.1); CREATININE 0.7 mg/dL (0.6-1.0); GFR 85.6; POTASSIUM 3.9 mmol/L (3.5-5.1)
[2018-02-07] MEDS ORDERED: IOHEXOL 240 MG/ML 50ML VIAL. IV ONE (14:00)
--- NOTE | 2018-02-07 14:36 | RAD ---
Portable abdomen, 02/07/2018: HISTORY: Check jejunostomy tube Reportedly 30 cc of Omnipaque 300 was injected into the patient's jejunostomy tube prior to obtaining this image. The study is compromised by the presence of an overlying gastrostomy tube. Injected contrast fills small bowel loops in the left midabdomen. No contrast extravasation is seen. The abdominal gas pattern is unremarkable without evidence of obstruction. IMPRESSION: Satisfactory jejunostomy tube placement. Electronically signed by: Gary Bennett MD (02/07/2018 2:32 PM) [facility]
--- NOTE | 2018-02-07 16:16 | RAD ---
PQRS Compliance Statement: One or more of the following individualized dose reduction techniques were utilized for this examination: 1. Automated exposure control 2. Adjustment of the mA and/or kV according to patient size 3. Use of iterative reconstruction technique CT abdomen/pelvis without contrast 02/07/2018 3:44 PM INDICATION: Displaced gastrostomy tube. Jejunostomy tube placement. COMPARISON: CT abdomen/pelvis February 04, 2018 TECHNIQUE: Multiple axial CT images of the abdomen and pelvis were obtained without intravenous contrast. Coronal and sagittal reformats are provided. FINDINGS: Right breast prosthesis is visualized. Stable 6 mm solid noncalcified pulmonary nodule in the right lower lobe.. Heart size is within normal limits. Evaluation of the solid abdominal viscera is limited by lack of intravenous contrast. The liver, spleen, bilateral adrenal glands and pancreas are normal in appearance with exception of a stable cyst in the tail the pancreas measuring 7 mm. Gallbladder surgically absent. The kidneys are relatively symmetric in appearance. There is no suspicious renal mass within the limitations of a noncontrast examination. There is no hydronephrosis. There are no calculi within the kidneys, ureters or urinary bladder. Moderate atherosclerotic changes of the abdominal aorta are present. The abdominal aorta is normal in course and caliber. There are no pathologically enlarged lymph nodes in the abdomen and pelvis. There is no abdominal free fluid. There is no free intraperitoneal air. Oral contrast was administered through a jejunostomy tube. The distal margin of the gastrostomy tube appears to be immediately at the level of the peritoneal lining. The balloon appears deflated. There is focal gastric wall thickening in this region. No free intraperitoneal gas is visualized. This area may be scarred down due to chronic placement. Oral contrast confirms intraluminal presence of the jejunostomy catheter. There is no evidence of bowel obstruction or inflammation. Uterus is lobular in appearance, stable. Findings may be accounted for by underlying fibroids. Urinary bladder is within normal limits given degree of distention. No suspicious osseous lesion is identified. IMPRESSION: 1. The gastrostomy tube has been displaced with the balloon deflated. The tip of the gastrostomy tube appears to be at the peritoneal lining. No free intraperitoneal air. 2. Jejunostomy tube is intraluminal as confirmed by oral contrast. No evidence for bowel structure or inflammation. 3. Stable cyst at the tail the pancreas. 4. 3 mm nonobstructing calculi midpole the right kidney. 5. Stable 6 mm solid noncalcified pulmonary nodule in the right lower lobe. Electronically signed by: Elisa Diehl MD (02/07/2018 4:12 PM) [facility] [place]
[2018-02-07] MEDS: HYDROcodone/APAP 5/325MG 1 TAB TABLET PO PRN (18:18)
[2018-02-07 19:21] VITALS: BP 105/66
[2018-02-07] MEDS: INSULIN GLARGINE 300 UNITS/3 ML INSULN.PEN. SQ SCH (21:00)
[2018-02-07] MEDS: ATORVASTATIN CALCIUM 20 MG TABLET PO SCH (22:07)
[2018-02-07] MEDS: traZODone 100 MG TABLET. PO PRN (22:08)
[2018-02-07] MEDS: ZOLPIDEM 5 MG TABLET. PO SCH (22:08)
[2018-02-08 05:59] VITALS: BP 124/77
[2018-02-08] MEDS: INSULIN LISPRO 300 UNITS/3 ML INSULN.PEN. SQ SCH ×3 (08:00→17:00)
[2018-02-08] MEDS: CLOPIDOGREL BISULFATE 75 MG TABLET PO SCH (08:15)
[2018-02-08] MEDS: PANTOPRAZOLE 40 MG TABLET. PO SCH (08:15)
[2018-02-08] MEDS: LIPASE/PROTEAS/AMYLAS 10/34/55 CAPSULE.DR. PO SCH ×4 (08:16→22:01)
[2018-02-08] MEDS: METOCLOPRAMIDE 10 MG TABLET PO SCH ×4 (08:16→22:01)
[2018-02-08] MEDS: ASPIRIN 81 MG TAB.CHEW PO SCH (08:16)
[2018-02-08] MEDS: CARVEDILOL 12.5 MG TABLET PO SCH ×2 (08:17→16:52)
[2018-02-08] MEDS: DULoxetine HCL 60 MG CAPSULE.DR PO SCH (08:17)
[2018-02-08] MEDS: LISINOPRIL 20 MG TABLET PO SCH (08:18)
[2018-02-08] MEDS: POTASSIUM CHLORIDE 20 MEQ/15 ML ORAL LIQUID. PO SCH ×3 (08:18→22:01)
[2018-02-08] MEDS: HYDROcodone/APAP 5/325MG 1 TAB TABLET PO PRN ×2 (08:19→16:56)
[2018-02-08 18:49] VITALS: BP 103/54
[2018-02-08] MEDS: ZOLPIDEM 5 MG TABLET. PO SCH (22:02)
[2018-02-08] MEDS: ATORVASTATIN CALCIUM 20 MG TABLET PO SCH (22:02)
[2018-02-08] MEDS: INSULIN GLARGINE 300 UNITS/3 ML INSULN.PEN. SQ SCH (22:11)
[2018-02-09 05:43] VITALS: BP 132/75
[2018-02-09] MEDS: PANTOPRAZOLE 40 MG TABLET. PO SCH (09:12)
[2018-02-09] MEDS: ASPIRIN 81 MG TAB.CHEW PO SCH (09:12)
[2018-02-09] MEDS: CLOPIDOGREL BISULFATE 75 MG TABLET PO SCH (09:12)
[2018-02-09] MEDS: METOCLOPRAMIDE 10 MG TABLET PO SCH ×4 (09:12→20:27)
[2018-02-09] MEDS: DULoxetine HCL 60 MG CAPSULE.DR PO SCH (09:13)
[2018-02-09] MEDS: CARVEDILOL 12.5 MG TABLET PO SCH ×2 (09:13→18:17)
[2018-02-09] MEDS: LIPASE/PROTEAS/AMYLAS 10/34/55 CAPSULE.DR. PO SCH ×2 (09:14→18:17)
[2018-02-09] MEDS: LISINOPRIL 20 MG TABLET PO SCH (09:14)
[2018-02-09] MEDS: POTASSIUM CHLORIDE 20 MEQ/15 ML ORAL LIQUID. PO SCH ×3 (09:14→20:27)
[2018-02-09] MEDS: INSULIN LISPRO 300 UNITS/3 ML INSULN.PEN. SQ SCH ×3 (09:28→17:00)
[2018-02-09] MEDS: HYDROcodone/APAP 5/325MG 1 TAB TABLET PO PRN ×2 (09:53→18:16)
--- NOTE | 2018-02-09 12:44 | PN ---
DATE: 02/08/2018 The patient was transferred to swing bed this morning and unfortunately, the nursing staff noted that her gastrostomy tube was dislodged and there was also some confusion, as to which one is the gastrostomy or the jejunostomy and therefore we did a KUB with the injection of the Omnipaque to her presumed jejunostomy which confirmed that her jejunostomy still in the right place. The gastrostomy was dislodged and clogged, so it was difficult to confirm its position to push it back or not and therefore, we ordered a CT scan of the abdomen and pelvis, which basically confirmed that the gastrostomy tube has been displaced with the balloon deflated. The tip of the gastrostomy tube appears to be at the peritoneal lining with no free intraperitoneal air. Jejunostomy tube is intraluminal as confirmed by oral contrast. No evidence of bowel obstruction or inflammation. She has stable cyst at the tail of the pancreas and she has 3 mm nonobstructing calculi in the mid pole of the right kidney, stable 6 mm solid noncalcified pulmonary nodule in the right lower lobe. We basically weld the gastrostomy tube completely and we use jejunostomy exclusively for her medication and nutrition. INÉS GARCÍA MD DR: MAXIM/carson JOB#: [id number] / [id number]
[2018-02-09 18:42] VITALS: BP 157/93
[2018-02-09] MEDS: ATORVASTATIN CALCIUM 20 MG TABLET PO SCH (20:27)
[2018-02-09] MEDS: traZODone 100 MG TABLET. PO PRN (20:27)
[2018-02-09] MEDS: ZOLPIDEM 5 MG TABLET. PO SCH (20:27)
[2018-02-09] MEDS: INSULIN GLARGINE 300 UNITS/3 ML INSULN.PEN. SQ SCH (20:30)
[2018-02-10 06:18] VITALS: BP 108/63
[2018-02-10] MEDS: INSULIN LISPRO 300 UNITS/3 ML INSULN.PEN. SQ SCH ×3 (08:00→17:00)
[2018-02-10] MEDS: DULoxetine HCL 60 MG CAPSULE.DR PO SCH (09:00)
[2018-02-10] MEDS: PANTOPRAZOLE 40 MG TABLET. PO SCH (09:36)
[2018-02-10] MEDS: LIPASE/PROTEAS/AMYLAS 10/34/55 CAPSULE.DR. PO SCH ×3 (09:36→16:30)
[2018-02-10] MEDS: METOCLOPRAMIDE 10 MG TABLET PO SCH ×4 (09:36→21:44)
[2018-02-10] MEDS: CLOPIDOGREL BISULFATE 75 MG TABLET PO SCH (09:36)
[2018-02-10] MEDS: ASPIRIN 81 MG TAB.CHEW PO SCH (09:36)
[2018-02-10] MEDS: CARVEDILOL 12.5 MG TABLET PO SCH ×2 (09:37→17:00)
[2018-02-10] MEDS: POTASSIUM CHLORIDE 20 MEQ/15 ML ORAL LIQUID. PO SCH ×3 (09:38→21:44)
[2018-02-10] MEDS: LISINOPRIL 20 MG TABLET PO SCH (09:38)
[2018-02-10] MEDS: HYDROcodone/APAP 5/325MG 1 TAB TABLET PO PRN ×2 (09:38→21:45)
[2018-02-10] MEDS: INSULIN GLARGINE 300 UNITS/3 ML INSULN.PEN. SQ SCH (20:01)
[2018-02-10 20:46] VITALS: BP 100/71
[2018-02-10] MEDS: ATORVASTATIN CALCIUM 20 MG TABLET PO SCH (21:44)
[2018-02-10] MEDS: traZODone 100 MG TABLET. PO PRN (21:44)
[2018-02-10] MEDS: ZOLPIDEM 5 MG TABLET. PO SCH (21:44)
[2018-02-11 06:08] VITALS: BP 95/66
[2018-02-11] MEDS: CARVEDILOL 12.5 MG TABLET PO SCH ×2 (08:00→18:10)
[2018-02-11] MEDS: INSULIN LISPRO 300 UNITS/3 ML INSULN.PEN. SQ SCH ×3 (08:00→17:00)
[2018-02-11] MEDS: POTASSIUM CHLORIDE 20 MEQ/15 ML ORAL LIQUID. PO SCH ×3 (08:07→20:45)
[2018-02-11] MEDS: PANTOPRAZOLE 40 MG TABLET. PO SCH (08:08)
[2018-02-11] MEDS: CLOPIDOGREL BISULFATE 75 MG TABLET PO SCH (08:08)
[2018-02-11] MEDS: METOCLOPRAMIDE 10 MG TABLET PO SCH ×4 (08:08→20:45)
[2018-02-11] MEDS: LIPASE/PROTEAS/AMYLAS 10/34/55 CAPSULE.DR. PO SCH ×3 (08:09→18:10)
[2018-02-11] MEDS: LISINOPRIL 20 MG TABLET PO SCH ×2 (08:09→08:12)
[2018-02-11] MEDS: DULoxetine HCL 60 MG CAPSULE.DR PO SCH (08:09)
[2018-02-11] MEDS: ASPIRIN 81 MG TAB.CHEW PO SCH (08:15)
[2018-02-11] MEDS: HYDROcodone/APAP 5/325MG 1 TAB TABLET PO PRN (12:21)
[2018-02-11 18:32] VITALS: BP 160/96
[2018-02-11] MEDS: traZODone 100 MG TABLET. PO PRN (20:45)
[2018-02-11] MEDS: ATORVASTATIN CALCIUM 20 MG TABLET PO SCH (20:45)
[2018-02-11] MEDS: ZOLPIDEM 5 MG TABLET. PO SCH (20:45)
[2018-02-11] MEDS: INSULIN GLARGINE 300 UNITS/3 ML INSULN.PEN. SQ SCH (21:03)
[2018-02-12 06:33] VITALS: BP 148/93
[2018-02-12] MEDS: INSULIN LISPRO 300 UNITS/3 ML INSULN.PEN. SQ SCH ×3 (08:00→16:33)
[2018-02-12] MEDS: PANTOPRAZOLE 40 MG TABLET. PO SCH (10:14)
[2018-02-12] MEDS: CLOPIDOGREL BISULFATE 75 MG TABLET PO SCH (10:14)
[2018-02-12] MEDS: LISINOPRIL 20 MG TABLET PO SCH (10:14)
[2018-02-12] MEDS: POTASSIUM CHLORIDE 20 MEQ/15 ML ORAL LIQUID. PO SCH ×2 (10:14→17:29)
[2018-02-12] MEDS: LIPASE/PROTEAS/AMYLAS 10/34/55 CAPSULE.DR. PO SCH ×3 (10:14→17:29)
[2018-02-12] MEDS: METOCLOPRAMIDE 10 MG TABLET PO SCH ×3 (10:15→17:29)
[2018-02-12] MEDS: CARVEDILOL 12.5 MG TABLET PO SCH ×2 (10:15→17:36)
[2018-02-12] MEDS: DULoxetine HCL 60 MG CAPSULE.DR PO SCH (10:15)
[2018-02-12] MEDS: ASPIRIN 81 MG TAB.CHEW PO SCH (10:15)
[2018-02-12] MEDS: HYDROcodone/APAP 5/325MG 1 TAB TABLET PO PRN (10:21)
[2018-02-12 17:48] VITALS: BP 131/79
--- NOTE | 2018-02-12 22:18 | DS ---
DATE OF DISCHARGE: 02/12/2018 HOSPITAL COURSE: The patient was admitted with recurrent bouts of nausea and vomiting. She has not been compliant with eating and drinking according to her , was supposed to use her jejunostomy tube. Unfortunately, her gastrostomy tube was dislodged and was removed and it was in the peritoneal cavity and ____ on her own. She feeds herself. She apparently has been taught by multiple different nurses how to crush her medications and how to use her jejunostomy tube and it was felt that the patient is stable to be discharged. When I examined her today, she was resting slightly propped up in bed, no apparent respiratory distress, pale, but no jaundice, cyanosis, or thyromegaly. No jugular venous distension. No limb edema. PHYSICAL EXAMINATION: VITAL SIGNS: Her heart rate was 88, blood pressure 131/79, temperature was 98.4, respiratory rate was 18 and oxygen saturation was 99%. HEAD, EYES, EARS, NOSE AND THROAT: Normocephalic, atraumatic. NECK: Supple. HEART: Showed normal first and second heart sounds. No gallop, rub or murmur. CHEST: Clear to auscultation. No crepitation or rhonchi. ABDOMEN: Distended, soft with a jejunostomy tube. No tenderness. No guarding or rigidity. No organomegaly. Hernial orifice intact. Bowel sounds normal. NEUROLOGIC: She is awake, alert, responding appropriately. Cranial nerves intact. She ambulates without assistance or assistive devices. Her blood sugar has been extremely well controlled throughout her stay here. LABORATORY DATA: Her most recent lab work showed a serum sodium of 132, potassium 3.9, chloride 97, bicarbonate 25, anion gap of 10, BUN 9, creatinine 0.7, estimated GFR was 85 mL per minute. Her glucose 160, calcium was 8.2. DISCHARGE MEDICATIONS: She was discharged home to continue on following medications: Aspirin 81 mg once a day, atorvastatin calcium 40 mg at bedtime, carvedilol 25 mg twice a day, Plavix 75 mg once a day, duloxetine for Cymbalta 60 mg once a day, hydrocodone/APAP 5/325 one tablet every 6 hours. She is on NovoLog insulin 10 units 3 times a day with meals and Lantus insulin 18 units at bedtime. She is also on Creon 12,000 units capsules 3 times a day, lisinopril 20 mg once a day, metoclopramide 10 mg before meals and bedtime, Protonix 40 mg once a day, potassium chloride 20 mEq 3 times a day, trazodone 200 mg at bedtime and Ambien 10 mg at bedtime. FINAL DISCHARGE DIAGNOSES: 1. Acute pancreatitis. CT scan, however, did not show any evidence of peripancreatic inflammation and/or pancreatic pseudocyst. 2. Diabetic gastroparesis for which she underwent gastrostomy tube placement, jejunostomy tube placement and pyloroplasty. Unfortunately, she dislodged gastrostomy tube. 3. Longstanding type 2 diabetes, hypertension and hyperlipidemia. INÉS GARCÍA MD DR: MAXIM/carson JOB#: [id number] / [id number]
== END 2018-02-12 19:10 | disposition home or self-care (01) | DRG 393 ==
LOC: LND 21:23
PROVIDERS: ADMIT Internal Medicine; ATTEND Internal Medicine
DX: Z43.1 Encounter for attention to gastrostomy (principal); K85.90 Acute pancreatitis without necrosis or infection, unspecified; E11.43 Type 2 diabetes mellitus with diabetic autonomic (poly)neuropathy; E78.5 Hyperlipidemia, unspecified; I10 Essential (primary) hypertension; K31.84 Gastroparesis; Z91.19 Patient's noncompliance with other medical treatment and regimen; Z93.4 Other artificial openings of gastrointestinal tract status
CPT/HCPCS: 36415; 74018; 74176; 80048; 82947; 83690; J1815; J8597; Q9966; 97116; 97530